=== PATIENT | female | born 1950 | race Asian ===

== ENCOUNTER 2018-11-06 11:44 | Inpatient (IN) | payer OTHER, MEDICAID ==
[~2018-11-06] VITALS: Ht 152.4 cm; Wt 43.5 kg
--- NOTE | 2018-11-06 11:55 | NUR ---
ED Nurse Note: Pt BIBA from [facility] due to WBC count 15.14 taken on 11/03/18 and Fever. Rectal temp 99.4F checked upon arrival. Pt has hx of craniotomy. AOx0, non-verbal. Pt is on T- piece 4L. Sacral wound, L buttock wound, and L lower leg wound noted. VSS at this time. Will cont to monitor.
--- NOTE | 2018-11-06 12:04 | NUR ---
ED Nurse Note: Blood and urine collected and sent to lab.
[2018-11-06] MEDS ORDERED: Sodium Chloride 1,400 ML IVLG ONE (12:15)
--- NOTE | 2018-11-06 12:25 | Emergency Room Report ---
History of Present Illness General Chief Complaint: Fever Source: Medical Record, EMS Present Illness HPI 68yo F w/ h/o L crani, nonverbal, trach/peg dependent, sent for fever x3 d, elevated WBC of 15k. Allergies: Coded Allergies: No Known Allergies (Unverified , 11/06/18) Patient History Past Medical History: see triage record Now: No Reviewed Nursing Documentation: PMH: Agreed; PSxH: Agreed Nursing Documentation-PMH Past Medical History Deferred: Patient Unconscious Past Medical History: No History, Except For Hx Diabetes: Yes - Type II Hx Cerebrovascular Accident: Yes - craniotomy Review of Systems All Other Systems: limited - patient nonverbal Physical Exam Vital Signs Date Time Temp Pulse Resp B/P (MAP) Pulse Ox O2 Delivery O2 Flow Rate FiO2 11/06/18 11:45 97.9 82 28 122/60 100 T-piece 4.0 Sp02 EP Interpretation: reviewed, normal General Appearance: no apparent distress, alert, non-toxic Head: other - L crani with void of L hemisphere of cranium Eyes: bilateral eye normal inspection, bilateral eye conjunctivae pale ENT: normal pharynx, dry mucus membranes Neck: normal inspection, supple/symm/no masses, tracheotomy Respiratory: chest non-tender, lungs clear, normal breath sounds, rhonchi - mild intermittent, chest symmetrical, palpation of chest normal Cardiovascular #1: normal peripheral pulses, regular rate, rhythm, no edema Cardiovascular #2: 2+ radial (R), 2+ radial (L) Gastrointestinal: normal inspection, non tender, soft, no mass, no guarding, no rebound, other - PEG site C/D/I Rectal: deferred Genitourinary: normal inspection, no CVA tenderness Musculoskeletal: back normal, non-tender, no calf tenderness Neurologic: alert Psychiatric: depressed affect Skin: normal color, no rash, warm/dry, normal turgor Lymphatic: no adenopathy Medical Decision Making Diagnostic Impression: Primary Impression: Fever Additional Impression: UTI (urinary tract infection) ER Course Within the first hour of arrival, patient had 30 mL/kg IV fluid bolus, blood cultures, lactic acid, and broad-spectrum antibiotics, ordered and initiated. At 1:25 PM, patient repeat focused sepsis exam, patient remained hemodynamically stable. Patient found to have a UTI. Admitted to Dr. Cruz on tele. EKG Diagnostic Results EKG Time: 11:56 EP Interpretation: no stemi Rate: normal Rhythm: NSR ST Segments: no acute changes ASA given to the pt in ED: No Rhythm Strip Diag. Results Rhythm Strip Time: 12:24 EP Interpretation: yes Rate: 80 Rhythm: NSR, no PVC's Chest X-Ray Diagnostic Results Chest X-Ray Diagnostic Results : Chest X-Ray Ordered: Yes # of Views/Limited/Complete: 1 View Indication: Other - fever EP Interpretation: Yes Interpretation: no consolidation, no effusion, no pneumothorax, no acute cardiopulmonary disease Impression: No acute disease Electronically Signed by: Wyatt Soni MD Last Vital Signs Date Time Temp Pulse Resp B/P (MAP) Pulse Ox O2 Delivery O2 Flow Rate FiO2 11/06/18 12:10 82 28 T-piece 4.0 11/06/18 11:45 97.9 122/60 100 Disposition: ADMITTED INPATIENT Condition: Stable WYATT SONI M.D Nov 06, 2018 12:25
--- NOTE | 2018-11-06 12:30 | Diagnostic Imaging Report ---
Indication: Dyspnea Comparison: None A single view chest radiograph was obtained. Findings: Tracheostomy noted. Heart size is slightly enlarged. Lungs are grossly clear. Bones are osteopenic. Gastrostomy noted. MACHINE II COREMAKER shunt noted. IMPRESSION: No acute cardiopulmonary disease
[2018-11-06 12:45] VITALS: BP 114/56
[2018-11-06 12:52] LABS: APPEARANCE,URINE CLOUDY; BILIRUBIN, URINE NEGATIVE (NEGATIVE); COLOR,URINE PALE YELLOW; GLUCOSE, URINE (UA) NEGATIVE (NEGATIVE); HEMATOCRIT 33.6 % (37.0-47.0); HEMOGLOBIN 11.2 G/DL (12.0-16.0); KETONES,URINE NEGATIVE (NEGATIVE); LEUKOCYTE ESTERASE ,URINE 3+ (NEGATIVE); MEAN CORPUSCULAR VOLUME 105 FL (80-99); NITRITE,URINE NEGATIVE (NEGATIVE); PH,URINE 8 (4.5-8.0); PLATELET COUNT 499 K/UL (150-450); PROTEIN,URINE 3+ (NEGATIVE); RED BLOOD COUNT 3.21 M/UL (4.20-5.40); UROBILINOGEN,URINE NORMAL MG/DL (0.0-1.0)
[2018-11-06 13:01] LABS: ANION GAP 12 mmol/L (5-15); BLOOD UREA NITROGEN 25 mg/dL (7-18); CARBON DIOXIDE 26 MMOL/L (21-32); CHLORIDE 109 MMOL/L (98-107); CREATININE 0.5 MG/DL (0.55-1.30); POTASSIUM 4.2 MMOL/L (3.5-5.1); SODIUM 147 MMOL/L (136-145)
[2018-11-06 13:05] LABS: WHITE BLOOD COUNT 24.9 K/UL (4.8-10.8)
[2018-11-06 13:17] LABS: ALANINE AMINOTRANSFERASE 46 U/L (12-78); ALBUMIN 2.3 G/DL (3.4-5.0); ALBUMIN/GLOBULIN RATIO 0.5 (1.0-2.7); ALKALINE PHOSPHATASE 191 U/L (46-116); ASPARTATE AMINO TRANSFERASE 20 U/L (15-37); BILIRUBIN,TOTAL 0.3 MG/DL (0.2-1.0); CKMB 0.5 NG/ML (0.0-3.6); CREATINE KINASE 56 U/L (26-308)
[2018-11-06] MEDS ORDERED: Zosyn 3.375gm inj ONE (13:31)
[2018-11-06] MEDS ORDERED: Piperacillin/Tazobactam 3.375 GM in D5W 110 ML IV ONE (14:00)
--- NOTE | 2018-11-06 14:20 | NUR ---
ED Nurse Note: Second Lactic Acid drawn and sent to lab.
[2018-11-06 14:32] VITALS: BP 124/74
[2018-11-06 16:37] VITALS: BP 120/60
--- NOTE | 2018-11-06 16:40 | NUR ---
ED Nurse Note: crew mess attendant is not ready to take pt at this time, will call back.
--- NOTE | 2018-11-06 17:04 | NUR ---
ED Nurse Note: Report given to KASSI Borrero at ext [phone]. Pt to be transfered to room 209-1 on [facility] per protocol.
[2018-11-06 18:00] VITALS: BP 121/69
--- NOTE | 2018-11-06 19:06 | History & Physical ---
History and Physical History & Physicial History and Physical Patient is a 68 year old woman admitted from [facility] with a 3 day history of fevers, noted to have UTI in the ED. PMH of L craniotomy, nonverbal, trach/peg dependent, h/o seizures, hypertension, type 2 Diabetes Allergies: No Known Allergies Past Medical History: L craniotomy, nonverbal, trach/peg dependent, h/o seizures , hypertension, T2M All Other Systems: limited - patient nonverbal Physical Exam Vital Signs Noted Date Time Temp Pulse Resp B/P (MAP) Pulse Ox O2 Delivery O2 Flow Rate FiO2 11/06/18 11:45 97.9 82 28 122/60 100 T-piece 4.0 General Appearance: no apparent distress, alert, non-toxic Head: other - L crani with void of L hemisphere of cranium Eyes: bilateral eye normal inspection, bilateral eye conjunctivae pale ENT: normal pharynx, dry mucus membranes Neck: normal inspection, supple/symm/no masses, tracheotomy CDI Respiratory: chest non-tender, lungs clear, normal breath sounds, rhonchi - mild intermittent, chest symmetrical, palpation of chest normal Cardiovascular: HS1, HS2 normal, RRR, normal peripheral pulses, regular rate, rhythm, no edema Gastrointestinal: normal inspection, non tender, soft, no mass, no guarding, no rebound, other - PEG site CDI Genitourinary: normal inspection, no CVA tenderness Musculoskeletal: back normal, non-tender, no calf tenderness Neurologic: non responsive no command, no focal signs or seizures notes Skin: normal color, no rash, warm/dry, normal turgor Lymphatic: no adenopathy Impression: Fever Urinary tract infection L craniotomy Trach/peg dependent H/o seizures Hypertension Type 2 Diabetes Plan IV Antibiotics Await Cultures Trend labs PTAmeds ISS Continue Gtube feeds TC PPX EKG Rate: normal Rhythm: NSR ST Segments: no acute changes ASA given to the pt in ED: No Chest X-Ray Interpretation: no consolidation, no effusion, no pneumothorax, no acute cardiopulmonary disease Impression: No acute disease Humza Smith MD Nov 06, 2018 19:06
--- NOTE | 2018-11-06 19:28 | NUR ---
CASE MANAGEMENT: REVIEW 68/F BIBA FROM [facility] CC: FEVER SI: SEPSIS . UTI T 99.4 HR 82 RR 28 BP 114/56 SAT 99% T-PIECE FLOW RATE 4.0 WBC 24.9 NA 147 BUN 25 CR 0.5 LACTIC ACID 2.10 UA: PROTEIN 3+ BLOOD 3+ LEUKOCYTE ESTERASE 3+ BACTERIA MANY IS: NS IVF BOLUS X1 ZOSYN IV X1 PATIENT ADMITTED TO TELEMETRY UNIT 11/06/2018 DCP: PATIENT IS FROM [facility]
[2018-11-06 20:00] VITALS: BP 126/65
--- NOTE | 2018-11-06 20:04 | NUR ---
HAND-OFF: Report given to KASSI Delacruz.
--- NOTE | 2018-11-06 20:05 | NUR ---
NURSE NOTES: Report received from KASSI Egan. According to morning shift RN, pt transferred to this unit around 1800. V/S within normal range. Skin checked and photo will be uploaded. Belonging checked. Cadiac monitor applied. Observed pt sleeping on the bed, arousable by shaking, open eyes, but non verbal. Pt has history of craniotomy, left skull noted. T piece, FIO2 30%, 8L noted, saturating at 98%. GT intact and patent, running Glucerna 1.5 at 25cc/hr. Goal is 45cc/hr. Unstagable pressure wound noted on sacral area. Small discoloration spots noted all around the body. IV on R W 20G, intact and patent. Bed in the lowest position. Side rails up x3. Will continue to monitor.
[2018-11-06] MEDS: Cefepime HCl 1 GM in D5W 55 ML IVPB SCH (21:25)
[2018-11-06] MEDS: Heparin 5000 units/ml inj SUBQ SCH (21:26)
[2018-11-06] MEDS: Vancomycin 750mg/NS 275ml IVPB SCH ×2 (22:58)
[2018-11-06] MEDS: NovoLOG Insulin Flexpen SUBQ SCH (23:55)
[2018-11-07] VITALS: BP 143/70
[2018-11-07] MEDS: Albuterol/Ipratropium 3ml neb HHN SCH ×4 (03:28→21:04)
[2018-11-07 04:00] VITALS: BP 137/64
[2018-11-07] MEDS: NovoLOG Insulin Flexpen SUBQ SCH ×3 (06:25→17:34)
--- NOTE | 2018-11-07 07:25 | NUR ---
HAND-OFF: Report given to KASSI Katz. No acute distress noted at this time.
--- NOTE | 2018-11-07 07:27 | NUR ---
NURSE NOTES: Received report from KASSI Mcarthur. Patient is in stable condition. No acute distress/SOB noted. No facial grimace noted. Gtube intact and patent and running Glucerna 1.5 @45cc/hr. And on 8L/min FiO2 30% via T-piece. Call-light place in easy reach. Will continue plan of care.
[2018-11-07 07:35] LABS: HEMATOCRIT 31.3 % (37.0-47.0); HEMOGLOBIN 10.4 G/DL (12.0-16.0); MEAN CORPUSCULAR VOLUME 105 FL (80-99); PLATELET COUNT 504 K/UL (150-450); RED BLOOD COUNT 2.99 M/UL (4.20-5.40); RED CELL DISTRIBUTION WIDTH 12.2 % (11.6-14.8); WHITE BLOOD COUNT 17.8 K/UL (4.8-10.8)
[2018-11-07 07:41] LABS: ANION GAP 12 mmol/L (5-15); BLOOD UREA NITROGEN 23 mg/dL (7-18); CALCIUM 8.8 MG/DL (8.5-10.1); CARBON DIOXIDE 25 MMOL/L (21-32); CHLORIDE 110 MMOL/L (98-107); CREATININE 0.3 MG/DL (0.55-1.30); SODIUM 146 MMOL/L (136-145)
--- NOTE | 2018-11-07 07:56 | NUR ---
RESPIRATORY NOTE: received pt on t-piece, CA at 30%. no resp distress noted at this time. pt is trach with portex [address] no redness or skin tears visible around stoma or neck area. will cont to monitor
[2018-11-07 08:00] VITALS: BP 130/60
--- NOTE | 2018-11-07 08:44 | Pulmonology Progress Note ---
Assessment/Plan Assessment/Plan UTI respiratory failure possible sepsis craniectomy trach GT plan IV fluids ID eval antibiotics feeds follow up labs dc once improved Subjective ROS Limited/Unobtainable: Yes Allergies: Coded Allergies: No Known Allergies (Unverified , 11/06/18) Objective Last 24 Hour Vital Signs Date Time Temp Pulse Resp B/P (MAP) Pulse Ox O2 Delivery O2 Flow Rate FiO2 11/07/18 08:00 97.8 90 20 130/60 (83) 98 11/07/18 08:00 106 20 100 T-piece 8.0 30 11/07/18 07:55 98 T-piece 8.0 30 11/07/18 07:55 T-piece 8.0 30 11/07/18 07:54 30 11/07/18 07:54 104 20 98 T-piece 8.0 30 11/07/18 04:00 98.2 90 17 137/64 (88) 100 11/07/18 04:00 8.0 30 11/07/18 04:00 92 11/07/18 03:00 T-piece 11/07/18 01:45 90 18 100 T-piece 8.0 30 11/07/18 01:30 88 18 97 T-piece 8.0 30 11/07/18 01:30 30 11/07/18 01:11 T-piece 8.0 30 11/07/18 01:10 98 T-piece 8.0 30 11/07/18 00:00 8.0 30 11/07/18 00:00 97.9 94 17 143/70 (94) 98 11/07/18 00:00 84 11/06/18 21:42 68 20 T-piece 8.0 30 11/06/18 21:00 T-piece 11/06/18 20:00 8.0 30 11/06/18 20:00 69 11/06/18 20:00 T-piece 8.0 30 11/06/18 20:00 97.5 72 17 126/65 (85) 98 72 11/06/18 20:00 96 T-piece 8.0 30 11/06/18 18:27 T-piece 11/06/18 18:02 Nasal Cannula 2.0 11/06/18 18:00 97.2 68 17 121/69 (86) 99 11/06/18 17:05 99.4 66 20 120/60 100 T-piece 4.0 11/06/18 16:37 66 120/60 11/06/18 14:32 99.4 84 20 124/74 100 T-piece 4.0 11/06/18 12:45 99.4 87 18 114/56 100 T-piece 4.0 11/06/18 12:10 82 28 T-piece 4.0 11/06/18 11:45 97.9 82 28 122/60 100 T-piece 4.0 Intake and Output 11/06/18 11/07/18 19:00 07:00 Intake Total 1640 ml 955 ml Output Total 300 ml Balance 1640 ml 655 ml Intake Free Water 100 ml 190 ml IV Total 1510 ml 330 ml Tube Feeding 30 ml 435 ml Output Urine Total 300 ml # Voids 1 1 # Bowel Movements 2 1 Objective WDWN NAD clear breath sounds bilaterally without rhonchi or wheeze [id number] without MRG NABS nontender no HSM no CCE reduced loc craniectomy GT Microbiology Date/Time Source Procedure Growth Status 11/06/18 12:30 Urine,Clean Catch Urine Culture - Preliminary Gram Negative Bacillus 1 Resulted Laboratory Tests 11/06/18 12:30: White Blood Count 24.9*H, Red Blood Count 3.21L, Hemoglobin 11.2L, Hematocrit 33.6L, Mean Corpuscular Volume 105H, Mean Corpuscular Hemoglobin 35.0H, Mean Corpuscular Hemoglobin Concent 33.4, Red Cell Distribution Width 12.0, Platelet Count 499H, Mean Platelet Volume 5.6L, Neutrophils (%) (Auto) , Lymphocytes (%) (Auto) , Monocytes (%) (Auto) , Eosinophils (%) (Auto) , Basophils (%) (Auto) , Differential Total Cells Counted 100, Neutrophils % (Manual) 84H, Lymphocytes % (Manual) 10L, Monocytes % (Manual) 5, Eosinophils % (Manual) 1, Basophils % ( Manual) 0, Band Neutrophils 0, Nucleated Red Blood Cells 1, Platelet Estimate IncreasedH, Platelet Morphology Normal, Urine Color Pale yellow, Urine Appearance Cloudy, Urine pH 8, Urine Specific [place] 1.010, Urine Protein 3+H, Urine Glucose (UA) Negative, Urine Ketones Negative, Urine Blood 3+H, Urine Nitrite Negative, Urine Bilirubin Negative, Urine Urobilinogen Normal, Urine Leukocyte Esterase 3+H, Urine RBC TntcH, Urine WBC TntcH, Urine Squamous Epithelial Cells Occasional, Urine Amorphous Sediment ModerateH, Urine Bacteria ManyH, Sodium Level 147H, Potassium Level 4.2, Chloride Level 109H, Carbon Dioxide Level 26, Anion Gap 12, Blood Urea Nitrogen 25H, Creatinine 0.5L, Estimat Glomerular Filtration Rate > 60, Glucose Level 163H, Lactic Acid Level 2.10H, Calcium Level 9.0, Total Bilirubin 0.3, Aspartate Amino Transf (AST/SGOT ) 20, Alanine Aminotransferase (ALT/SGPT) 46, Alkaline Phosphatase 191H, Total Creatine Kinase 56, Creatine Kinase MB 0.5, Creatine Kinase MB Relative Index 0.8, Troponin I 0.000, Total Protein 6.8, Albumin 2.3L, Globulin 4.5, Albumin/ Globulin Ratio 0.5L 11/06/18 14:20: Lactic Acid Level 2.10 11/07/18 06:00: White Blood Count 17.8H, Red Blood Count 2.99L, Hemoglobin 10.4L, Hematocrit 31.3L, Mean Corpuscular Volume 105H, Mean Corpuscular Hemoglobin 34.7H, Mean Corpuscular Hemoglobin Concent 33.1, Red Cell Distribution Width 12.2, Platelet Count 504H, Mean Platelet Volume 5.6L, Neutrophils (%) (Auto) , Lymphocytes (%) (Auto) , Monocytes (%) (Auto) , Eosinophils (%) (Auto) , Basophils (%) (Auto) , Neutrophils % (Manual) [Pending], Lymphocytes % (Manual) [Pending], Platelet Estimate [Pending], Platelet Morphology [Pending], Sodium Level 146H, Potassium Level 3.0L, Chloride Level 110H, Carbon Dioxide Level 25, Anion Gap 12, Blood Urea Nitrogen 23H, Creatinine 0.3L, Estimat Glomerular Filtration Rate > 60, Glucose Level 157H, Calcium Level 8.8 Current Medications Medications (Trade) Dose Ordered Sig/Dell Route PRN Reason Start Time Stop Time Status Last Admin Dose Admin Acetaminophen (Tylenol) 650 mg Q6H PRN NG pain 1-6 11/06/18 19:00 12/06/18 18:59 Albuterol/ Ipratropium (Albuterol/ Ipratropium) 3 ml Q6HRT HHN 11/07/18 01:00 11/12/18 00:59 11/07/18 07:53 Amantadine HCl (Symmetrel) 100 mg TWICE A DAY GT 11/07/18 09:00 12/07/18 08:59 Amlodipine Besylate (Norvasc) 10 mg DAILY NG 11/07/18 09:00 12/07/18 08:59 Cefepime HCl 1 gm/ Dextrose 55 ml @ 110 mls/hr Q24H IVPB 11/06/18 21:00 11/13/18 20:59 11/06/18 21:25 Dextrose (Dextrose 50%) 25 ml Q30M PRN IV Hypoglycemia 11/06/18 20:00 12/06/18 19:59 Dextrose (Dextrose 50%) 50 ml Q30M PRN IV Hypoglycemia 11/06/18 20:00 12/06/18 19:59 Heparin Sodium (Porcine) (Heparin 5000 units/ml) 5,000 units EVERY 12 HOURS SUBQ 11/06/18 21:00 12/06/18 20:59 11/06/18 21:26 Insulin Aspart (NovoLOG) Q6HR SUBQ 11/07/18 00:00 12/07/18 00:00 11/07/18 06:25 Ondansetron HCl (Zofran) 4 mg Q8H PRN IVP Nausea & Vomiting 11/06/18 19:00 12/06/18 18:59 Vancomycin HCl (Vanco rx to dose) 1 ea DAILY PRN MISC Per rx protocol 11/06/18 19:00 12/06/18 18:59 Vancomycin HCl 750 mg/Sodium Chloride 275 ml @ 183.333 mls/hr Q24H IVPB 11/06/18 22:00 11/11/18 21:59 11/06/18 22:58 Mejia Cruz MD Nov 07, 2018 08:44
[2018-11-07] MEDS: Amantadine 100mg cap GT SCH ×2 (08:50→17:35)
[2018-11-07] MEDS: Heparin 5000 units/ml inj SUBQ SCH ×2 (09:07→22:21)
--- NOTE | 2018-11-07 11:24 | NUR ---
NURSE NOTES: Notified Dr. Cruz that pt's blood culture is positive for Gram positive cocci in cluster. No new order at this time.
[2018-11-07 12:00] VITALS: BP 117/53
--- NOTE | 2018-11-07 13:46 | NUR ---
RD ASSESSMENT & RECOMMENDATIONS SEE CARE ACTIVITY FOR COMPLETE ASSESSMENT DAILY ESTIMATED NEEDS: Needs based on Wound, pulmonary, sepsis 39.5kg 30-35 kcals/kg [id number] total kcals 1.25-2 g protein/kg 49-79 g total protein 25-30 mL/kg 988-1185 total fluid mLs NUTRITION DIAGNOSIS: Swallowing difficulty r/t respiratory status as evidenced by s/p craniotomy, pt is vent dep via T-piece, on GT feeds. CURRENT TF: Glucerna 1.5 @[id number] hrs ENTERAL NUTRITION RECOMMENDATIONS: Maintain current TF as tolerated Glucerna 1.5 @45ml/hrx20 hrs to provide 900ml, 1350 kcal, 74g pro, 683ml free H2O - Maintain @goal as tolerated - for 24 hrs TF run: Glucerna 1.5 @37ml/hr x24 hrs, 888ml, 1332 kcal, 73g pro, 674ml free H2O - Flush per MD/ hob over 30 degrees ADDITIONAL RECOMMENDATIONS: 1) Calibrated bed scale wts weekly 2) Monitor tolerance to TF 3) Wound care: add MARY BID + MVI x1 F/u w/ WC eval 4) Monitor lytes, replete daily
--- NOTE | 2018-11-07 15:58 | NUR ---
CASE MANAGEMENT:REVIEW 11/07/18 SI: UTI. RESPIRATORY FAILURE TRACH/GTUBE 99.2 106 20 117/53 96% ON T-PIECE WITH 6L 30% FIO2 WBC+17.8 K-3.0 IS: IV VANCOMYCIN Q24 IV CEFEPIME Q24 IVF@100/HR DUONEB HHN Q6HRS RTC HEPARIN SQ Q12 : TELEMETRY STATUS DCP: PATIENT IS FROM [facility]
[2018-11-07 16:00] VITALS: BP 109/47
--- NOTE | 2018-11-07 16:44 | NUR ---
*-* INSURANCE *-* CLINICALS AND REVIEW HAVE BEEN FAXED TO: ORIN ESCAMILLA: LASHANDA P- [phone] F- [phone]
--- NOTE | 2018-11-07 19:12 | NUR ---
HAND-OFF: Report given to KASSI Judge. Patient is in stable condition. Endorsed plan of care.
[2018-11-07 20:00] VITALS: BP 114/53
--- NOTE | 2018-11-07 20:00 | NUR ---
NURSE NOTES: Report received from Sterling SOLITARIO. Patient is AOx1, unable to open spontaneously and/or follow simple commands. Respiratory even and unlabored. Trach is in place. Site is asymptomatic. No respiratory distress noted. IV site is asymptomatic, patent, and intact. IVF is running at a prescribed rate. GTF is running at a prescribed rate. Bed is in lowest position with side rails up x2 and brakes are engaged. Bed alarm is on. HOB is elevated. Will continue to monitor.
[2018-11-07] MEDS: Vancomycin 750mg/NS 275ml IVPB SCH ×2 (22:20)
[2018-11-07] MEDS: Cefepime HCl 1 GM in D5W 55 ML IVPB SCH (22:20)
[2018-11-08] VITALS: BP 126/53
[2018-11-08] MEDS: NovoLOG Insulin Flexpen SUBQ SCH ×4 (01:11→18:28)
[2018-11-08] MEDS: Albuterol/Ipratropium 3ml neb HHN SCH ×4 (01:51→19:40)
[2018-11-08 04:00] VITALS: BP 143/98
[2018-11-08 06:40] LABS: BASOPHILS % (AUTO) 0.4 % (0.0-2.0); HEMATOCRIT 29.6 % (37.0-47.0); MEAN CORPUSCULAR VOLUME 103 FL (80-99); MONOCYTES % (AUTO) 3.6 % (1.0-10.0); NEUTROPHILS % (AUTO) 82.1 % (45.0-75.0); PLATELET COUNT 472 K/UL (150-450); RED BLOOD COUNT 2.88 M/UL (4.20-5.40); RED CELL DISTRIBUTION WIDTH 12.2 % (11.6-14.8); WHITE BLOOD COUNT 12.2 K/UL (4.8-10.8)
[2018-11-08 06:50] LABS: ANION GAP 9 mmol/L (5-15); BLOOD UREA NITROGEN 14 mg/dL (7-18); CALCIUM 8.3 MG/DL (8.5-10.1); CARBON DIOXIDE 26 MMOL/L (21-32); CHLORIDE 101 MMOL/L (98-107); CREATININE 0.3 MG/DL (0.55-1.30); POTASSIUM 3.8 MMOL/L (3.5-5.1); SODIUM 136 MMOL/L (136-145)
--- NOTE | 2018-11-08 07:28 | NUR ---
HAND-OFF: Report given to Giovani RN. Patient is in stable condition. Endorsed plan of care.
--- NOTE | 2018-11-08 07:28 | NUR ---
NURSE NOTES: Received bedside report from Nu SOLITARIO. Pt. in bed, asleep. Pt. non-verbal. No sign of distress. On T-piece at 8LPM with 30% FiO2. No grimacing noted. On GTF Glucerna 1.5 at 45cc/hr. Tolerating well. HOB elevated at all times. IV site at right wrist #20g. patent/intact running 1/2 NS at 100cc/hr. Bed in low position, locked. Call light within reach. Will cont. to monitor.
[2018-11-08 08:00] VITALS: BP 147/67
[2018-11-08] MEDS: Amantadine 100mg cap GT SCH ×2 (09:18→18:25)
[2018-11-08] MEDS: Heparin 5000 units/ml inj SUBQ SCH ×2 (09:20→20:31)
--- NOTE | 2018-11-08 10:17 | Pulmonology Progress Note ---
Assessment/Plan Assessment/Plan Pulmonary Progress Note Assessment/Plan UTI respiratory failure possible sepsis craniectomy trach GT plan IV fluids ID eval antibiotics feeds follow up labs dc once improved Subjective ROS Limited/Unobtainable: Yes Allergies: Coded Allergies: No Known Allergies (Unverified , 11/06/18) Objective Vital Signs Noted Objective WDWN NAD clear breath sounds bilaterally without rhonchi or wheeze [id number] without MRG NABS nontender no HSM no CCE reduced loc craniectomy GT Microbiology Date/Time Source Procedure Growth Status 11/06/18 12:30 Urine,Clean Catch Urine Culture - Preliminary Gram Negative Bacillus 1 Resulted Laboratory Tests 11/06/18 12:30: White Blood Count 24.9*H, Red Blood Count 3.21L, Hemoglobin 11.2L, Hematocrit 33.6L, Mean Corpuscular Volume 105H, Mean Corpuscular Hemoglobin 35.0H, Mean Corpuscular Hemoglobin Concent 33.4, Red Cell Distribution Width 12.0, Platelet Count 499H, Mean Platelet Volume 5.6L, Neutrophils (%) (Auto) , Lymphocytes (%) (Auto) , Monocytes (%) (Auto) , Eosinophils (%) (Auto) , Basophils (%) (Auto) , Differential Total Cells Counted 100, Neutrophils % (Manual) 84H, Lymphocytes % (Manual) 10L, Monocytes % (Manual) 5, Eosinophils % (Manual) 1, Basophils % ( Manual) 0, Band Neutrophils 0, Nucleated Red Blood Cells 1, Platelet Estimate IncreasedH, Platelet Morphology Normal, Urine Color Pale yellow, Urine Appearance Cloudy, Urine pH 8, Urine Specific [place] 1.010, Urine Protein 3+H, Urine Glucose (UA) Negative, Urine Ketones Negative, Urine Blood 3+H, Urine Nitrite Negative, Urine Bilirubin Negative, Urine Urobilinogen Normal, Urine Leukocyte Esterase 3+H, Urine RBC TntcH, Urine WBC TntcH, Urine Squamous Epithelial Cells Occasional, Urine Amorphous Sediment ModerateH, Urine Bacteria ManyH, Sodium Level 147H, Potassium Level 4.2, Chloride Level 109H, Carbon Dioxide Level 26, Anion Gap 12, Blood Urea Nitrogen 25H, Creatinine 0.5L, Estimat Glomerular Filtration Rate > 60, Glucose Level 163H, Lactic Acid Level 2.10H, Calcium Level 9.0, Total Bilirubin 0.3, Aspartate Amino Transf (AST/SGOT ) 20, Alanine Aminotransferase (ALT/SGPT) 46, Alkaline Phosphatase 191H, Total Creatine Kinase 56, Creatine Kinase MB 0.5, Creatine Kinase MB Relative Index 0.8, Troponin I 0.000, Total Protein 6.8, Albumin 2.3L, Globulin 4.5, Albumin/ Globulin Ratio 0.5L 11/06/18 14:20: Lactic Acid Level 2.10 11/07/18 06:00: White Blood Count 17.8H, Red Blood Count 2.99L, Hemoglobin 10.4L, Hematocrit 31.3L, Mean Corpuscular Volume 105H, Mean Corpuscular Hemoglobin 34.7H, Mean Corpuscular Hemoglobin Concent 33.1, Red Cell Distribution Width 12.2, Platelet Count 504H, Mean Platelet Volume 5.6L, Neutrophils (%) (Auto) , Lymphocytes (%) (Auto) , Monocytes (%) (Auto) , Eosinophils (%) (Auto) , Basophils (%) (Auto) , Neutrophils % (Manual) [Pending], Lymphocytes % (Manual) [Pending], Platelet Estimate [Pending], Platelet Morphology [Pending], Sodium Level 146H, Potassium Level 3.0L, Chloride Level 110H, Carbon Dioxide Level 25, Anion Gap 12, Blood Urea Nitrogen 23H, Creatinine 0.3L, Estimat Glomerular Filtration Rate > 60, Glucose Level 157H, Calcium Level 8.8 Current Medications Medications (Trade) Dose Ordered Sig/Dell Route PRN Reason Start Time Stop Time Status Last Admin Dose Admin Acetaminophen (Tylenol) 650 mg Q6H PRN NG pain 1-6 11/06/18 19:00 12/06/18 18:59 Albuterol/ Ipratropium (Albuterol/ Ipratropium) 3 ml Q6HRT HHN 11/07/18 01:00 11/12/18 00:59 11/07/18 07:53 Amantadine HCl (Symmetrel) 100 mg TWICE A DAY GT 11/07/18 09:00 12/07/18 08:59 Amlodipine Besylate (Norvasc) 10 mg DAILY NG 11/07/18 09:00 12/07/18 08:59 Cefepime HCl 1 gm/ Dextrose 55 ml @ 110 mls/hr Q24H IVPB 11/06/18 21:00 11/13/18 20:59 11/06/18 21:25 Dextrose (Dextrose 50%) 25 ml Q30M PRN IV Hypoglycemia 11/06/18 20:00 12/06/18 19:59 Dextrose (Dextrose 50%) 50 ml Q30M PRN IV Hypoglycemia 11/06/18 20:00 12/06/18 19:59 Heparin Sodium (Porcine) (Heparin 5000 units/ml) 5,000 units EVERY 12 HOURS SUBQ 11/06/18 21:00 12/06/18 20:59 11/06/18 21:26 Insulin Aspart (NovoLOG) Q6HR SUBQ 11/07/18 00:00 12/07/18 00:00 11/07/18 06:25 Ondansetron HCl (Zofran) 4 mg Q8H PRN IVP Nausea & Vomiting 11/06/18 19:00 12/06/18 18:59 Vancomycin HCl (Vanco rx to dose) 1 ea DAILY PRN MISC Per rx protocol 11/06/18 19:00 12/06/18 18:59 Vancomycin HCl 750 mg/Sodium Chloride 275 ml @ 183.333 mls/hr Q24H IVPB 11/06/18 22:00 11/11/18 21:59 11/06/18 22:58 Subjective ROS Limited/Unobtainable: No Allergies: Coded Allergies: No Known Allergies (Unverified , 11/06/18) Objective Last 24 Hour Vital Signs Date Time Temp Pulse Resp B/P (MAP) Pulse Ox O2 Delivery O2 Flow Rate FiO2 11/08/18 09:18 90 147/67 11/08/18 08:00 97.5 90 19 147/67 (93) 99 11/08/18 07:49 89 20 99 T-piece 8.0 30 11/08/18 07:39 T-piece 8.0 30 11/08/18 07:39 30 11/08/18 07:39 84 18 98 T-piece 8.0 30 11/08/18 07:39 98 T-piece 8.0 30 11/08/18 04:00 8.0 30 11/08/18 04:00 97.9 92 20 143/98 (113) 100 11/08/18 03:46 91 11/08/18 02:02 89 20 100 T-piece 8.0 30 11/08/18 01:51 81 18 97 T-piece 8.0 30 11/08/18 01:51 30 11/08/18 00:00 8.0 30 11/08/18 00:00 98.0 91 20 126/53 (77) 98 11/07/18 23:58 87 11/07/18 21:14 94 20 97 T-piece 8.0 30 11/07/18 21:04 97 T-piece 8.0 30 11/07/18 21:04 T-piece 8.0 30 11/07/18 21:04 30 11/07/18 21:04 84 18 97 T-piece 8.0 30 11/07/18 21:00 T-piece 11/07/18 20:00 98.9 99 20 114/53 (73) 98 11/07/18 20:00 8.0 30 11/07/18 19:08 96 11/07/18 16:00 8.0 30 11/07/18 16:00 91 11/07/18 16:00 98.9 91 20 109/47 (67) 98 11/07/18 13:24 100 20 100 T-piece 8.0 30 11/07/18 13:20 T-piece 8.0 30 11/07/18 13:20 98 T-piece 8.0 30 11/07/18 13:18 98 20 98 T-piece 8.0 30 11/07/18 13:18 30 11/07/18 12:00 99.2 91 20 117/53 (74) 96 11/07/18 12:00 90 11/07/18 12:00 8.0 30 Intake and Output 11/07/18 11/08/18 18:59 06:59 Intake Total 920 ml 1906.333 ml Output Total 500 ml 1200 ml Balance 420 ml 706.333 ml IV Total 920 ml 1366.333 ml Tube Feeding 540 ml Output Urine Total 500 ml 1200 ml # Bowel Movements 1 3 Microbiology Date/Time Source Procedure Growth Status 11/06/18 12:30 Blood Blood Culture - Preliminary NO GROWTH AFTER 24 HOURS Resulted 11/06/18 12:30 Blood Blood Culture - Preliminary Staphylococcus Sp Coag Neg Resulted 11/06/18 12:30 Urine,Clean Catch Urine Culture - Preliminary Gram Negative Bacillus 1 Resulted 11/07/18 08:00 Sacral Wound Gram Stain - Final Resulted 11/07/18 08:00 Wound Culture - Preliminary Gram Negative Bacillus 1 Gram Negative Bacillus 2 Staphylococcus Species Resulted Laboratory Tests 11/08/18 05:45: White Blood Count 12.2H, Red Blood Count 2.88L, Hemoglobin 10.0L, Hematocrit 29.6L, Mean Corpuscular Volume 103H, Mean Corpuscular Hemoglobin 34.7H, Mean Corpuscular Hemoglobin Concent 33.7, Red Cell Distribution Width 12.2, Platelet Count 472H, Mean Platelet Volume 5.5L, Neutrophils (%) (Auto) 82.1H, Lymphocytes (%) (Auto) 13.0L, Monocytes (%) (Auto) 3.6, Eosinophils (%) (Auto) 1.0, Basophils (%) (Auto) 0.4, Sodium Level 136#, Potassium Level 3.8, Chloride Level 101, Carbon Dioxide Level 26, Anion Gap 9, Blood Urea Nitrogen 14, Creatinine 0.3L, Estimat Glomerular Filtration Rate > 60, Glucose Level 157H, Calcium Level 8.3L Current Medications Medications (Trade) Dose Ordered Sig/Dell Route PRN Reason Start Time Stop Time Status Last Admin Dose Admin Acetaminophen (Tylenol) 650 mg Q6H PRN NG pain 1-6 11/06/18 19:00 12/06/18 18:59 Albuterol/ Ipratropium (Albuterol/ Ipratropium) 3 ml Q6HRT HHN 11/07/18 01:00 11/12/18 00:59 11/08/18 07:39 Amantadine HCl (Symmetrel) 100 mg TWICE A DAY GT 11/07/18 09:00 12/07/18 08:59 11/08/18 09:18 Amlodipine Besylate (Norvasc) 10 mg DAILY NG 11/07/18 09:00 12/07/18 08:59 11/08/18 09:18 Cefepime HCl 1 gm/ Dextrose 55 ml @ 110 mls/hr Q24H IVPB 11/06/18 21:00 11/13/18 20:59 11/07/18 22:20 Dextrose (Dextrose 50%) 25 ml Q30M PRN IV Hypoglycemia 11/06/18 20:00 12/06/18 19:59 Dextrose (Dextrose 50%) 50 ml Q30M PRN IV Hypoglycemia 11/06/18 20:00 12/06/18 19:59 Heparin Sodium (Porcine) (Heparin 5000 units/ml) 5,000 units EVERY 12 HOURS SUBQ 11/06/18 21:00 12/06/18 20:59 11/08/18 09:20 Insulin Aspart (NovoLOG) Q6HR SUBQ 11/07/18 00:00 12/07/18 00:00 11/08/18 06:09 Ondansetron HCl (Zofran) 4 mg Q8H PRN IVP Nausea & Vomiting 11/06/18 19:00 12/06/18 18:59 Sodium Chloride 1,000 ml @ 100 mls/hr Q10H IV 11/07/18 08:45 12/07/18 08:44 11/08/18 04:45 Vancomycin HCl (Vanco rx to dose) 1 ea DAILY PRN MISC Per rx protocol 11/06/18 19:00 12/06/18 18:59 Vancomycin HCl 750 mg/Sodium Chloride 275 ml @ 183.333 mls/hr Q24H IVPB 11/06/18 22:00 11/11/18 21:59 11/07/18 22:20 Humza Smith MD Nov 08, 2018 10:17
[2018-11-08 12:00] VITALS: BP 146/79
--- NOTE | 2018-11-08 12:59 | NUR ---
NURSE NOTES:WOUND CARE NOTES:Pt presented on admission with full thickness pressure injury with 95% mixed soft necrosis and slough,5%red granulation ,(+) maceration along edges(L)3.5cm x(W)11.3cm. Periwound is edson pink with scattered shearing. Partial thickness pressure injury noted to L hip .[place] granulation noted to base of wound(+) maceration along borders. Periwound without erythema or induration. Resolving skin tear noted to L tibia.Base of wound pale pink and dry. Non-blanchable erythema with fluctuance and delineated borders noted to medial R heel (L)3cm x (W)3cm.Periwound is clean and pink. L heel pink and blanchable. Tx.Plan:Cleanse Sacral wound with saline. Apply Therahoney Gel.Apply Triad Paste periwound. Cover with Optifoam drsg. Change daily and prn. Cleanse L hip with Saline. Apply Therahoney Gel. Cover with Optifoam drsg. Change daily and prn. Apply Cavilon Skin Barrier to Blister Medial R heel. Cover with Optifoam drsg. Change every 7 days and prn. Apply Cavilon Skin Barrier to L heel. Cover with Optifoam drsg. Change every 7 days and prn. APM/POOJA Mattress overlay. Reposition at least every 2hours or as tolerated. Off-load heel with pillow.
--- NOTE | 2018-11-08 15:55 | NUR ---
CASE MANAGEMENT:REVIEW 11/08/18 SI: UTI. RESPIRATORY FAILURE TRACH/GTUBE 97.8 87 20 146/79 98% ON T-PIECE WITH 8L 30% FIO2 WBC+12.2 IS:IV CEFEPIME Q24 IVF@100/HR DUONEB HHN Q6HRS RTC HEPARIN SQ Q12 : TELEMETRY STATUS DCP: PATIENT IS FROM [facility]– [place]
[2018-11-08 16:00] VITALS: BP 113/51
--- NOTE | 2018-11-08 17:24 | Consultation ---
History of Present Illness General Date patient seen: Nov 08, 2018 Chief Complaint: Fever Reason for Consultation: multiple wounds Present Illness HPI 68 year old female with very complex medical and surgical history with prior craniotomy who is unable to provide information or participate in exam and is care dependant presents with leukocytosis. on admission noted to have multiple wounds requiring care. surgery called to evaluate and assist with care and management. patient seen, chart reviewed, patient examined. Allergies: Coded Allergies: No Known Allergies (Unverified , 11/06/18) Patient History Limited by: medical condition History Provided By: Medical Record, PMD Healthcare decision maker N Resuscitation status Advanced Directive on File Past Medical/Surgical History Past Medical/Surgical History: (1) UTI (urinary tract infection) (2) Fever (3) Sepsis Review of Systems ROS Narrative unable to provide given medical condition Physical Exam General Appearance: no apparent distress, lethargic Lines, tubes and drains: peripheral HEENT: mucous membranes moist, other - large left cranitomy with defect Neck: normal inspection Respiratory/Chest: no respiratory distress, no accessory muscle use Cardiovascular/Chest: normal rate Abdomen: soft, no organomegaly, no mass, other Extremities: other Skin Exam: other Last 24 Hour Vital Signs Date Time Temp Pulse Resp B/P (MAP) Pulse Ox O2 Delivery O2 Flow Rate FiO2 11/08/18 16:00 8.0 30 11/08/18 16:00 97.6 86 20 113/51 (71) 100 11/08/18 13:30 86 18 99 T-piece 8.0 30 11/08/18 13:20 87 19 99 T-piece 8.0 30 11/08/18 12:00 8.0 30 11/08/18 12:00 97.8 87 20 146/79 (101) 98 11/08/18 09:18 90 147/67 11/08/18 09:00 T-piece 11/08/18 08:00 97.5 90 19 147/67 (93) 99 11/08/18 08:00 8.0 30 11/08/18 07:49 89 20 99 T-piece 8.0 30 11/08/18 07:41 87 11/08/18 07:39 T-piece 8.0 30 11/08/18 07:39 30 11/08/18 07:39 84 18 98 T-piece 8.0 30 11/08/18 07:39 98 T-piece 8.0 30 11/08/18 04:00 8.0 30 11/08/18 04:00 97.9 92 20 143/98 (113) 100 11/08/18 03:46 91 11/08/18 02:02 89 20 100 T-piece 8.0 30 11/08/18 01:51 81 18 97 T-piece 8.0 30 11/08/18 01:51 30 11/08/18 00:00 8.0 30 11/08/18 00:00 98.0 91 20 126/53 (77) 98 11/07/18 23:58 87 11/07/18 21:14 94 20 97 T-piece 8.0 30 11/07/18 21:04 97 T-piece 8.0 30 11/07/18 21:04 T-piece 8.0 30 11/07/18 21:04 30 11/07/18 21:04 84 18 97 T-piece 8.0 30 11/07/18 21:00 T-piece 11/07/18 20:00 98.9 99 20 114/53 (73) 98 11/07/18 20:00 8.0 30 11/07/18 19:08 96 Intake and Output 11/07/18 11/08/18 19:00 07:00 Intake Total 968 ml 1858.333 ml Output Total 500 ml 1200 ml Balance 468 ml 658.333 ml IV Total 968 ml 1318.333 ml Tube Feeding 540 ml Output Urine Total 500 ml 1200 ml # Bowel Movements 1 3 Laboratory Tests Test 11/08/18 05:45 White Blood Count 12.2 K/UL (4.8-10.8) H Red Blood Count 2.88 M/UL (4.20-5.40) L Hemoglobin 10.0 G/DL (12.0-16.0) L Hematocrit 29.6 % (37.0-47.0) L Mean Corpuscular Volume 103 FL (80-99) H Mean Corpuscular Hemoglobin 34.7 PG (27.0-31.0) H Mean Corpuscular Hemoglobin Concent 33.7 G/DL (32.0-36.0) Red Cell Distribution Width 12.2 % (11.6-14.8) Platelet Count 472 K/UL (150-450) H Mean Platelet Volume 5.5 FL (6.5-10.1) L Neutrophils (%) (Auto) 82.1 % (45.0-75.0) H Lymphocytes (%) (Auto) 13.0 % (20.0-45.0) L Monocytes (%) (Auto) 3.6 % (1.0-10.0) Eosinophils (%) (Auto) 1.0 % (0.0-3.0) Basophils (%) (Auto) 0.4 % (0.0-2.0) Sodium Level 136 MMOL/L (136-145) # Potassium Level 3.8 MMOL/L (3.5-5.1) Chloride Level 101 MMOL/L (98-107) Carbon Dioxide Level 26 MMOL/L (21-32) Anion Gap 9 mmol/L (5-15) Blood Urea Nitrogen 14 mg/dL (7-18) Creatinine 0.3 MG/DL (0.55-1.30) L Estimat Glomerular Filtration Rate > 60 mL/min (>60) Glucose Level 157 MG/DL (74-106) H Calcium Level 8.3 MG/DL (8.5-10.1) L Height (Feet): 5 Height (Inches): 0.00 Weight (Pounds): 87 Medications Current Medications Medications (Trade) Dose Ordered Sig/Dell Route PRN Reason Start Time Stop Time Status Last Admin Dose Admin Acetaminophen (Tylenol) 650 mg Q6H PRN NG pain 1-6 11/06/18 19:00 12/06/18 18:59 Albuterol/ Ipratropium (Albuterol/ Ipratropium) 3 ml Q6HRT HHN 11/07/18 01:00 11/12/18 00:59 11/08/18 13:20 Amantadine HCl (Symmetrel) 100 mg TWICE A DAY GT 11/07/18 09:00 12/07/18 08:59 11/08/18 09:18 Amlodipine Besylate (Norvasc) 10 mg DAILY NG 11/07/18 09:00 12/07/18 08:59 11/08/18 09:18 Cefepime HCl 1 gm/ Dextrose 55 ml @ 110 mls/hr Q24H IVPB 11/06/18 21:00 11/13/18 20:59 11/07/18 22:20 Dextrose (Dextrose 50%) 25 ml Q30M PRN IV Hypoglycemia 11/06/18 20:00 12/06/18 19:59 Dextrose (Dextrose 50%) 50 ml Q30M PRN IV Hypoglycemia 11/06/18 20:00 12/06/18 19:59 Heparin Sodium (Porcine) (Heparin 5000 units/ml) 5,000 units EVERY 12 HOURS SUBQ 11/06/18 21:00 12/06/18 20:59 11/08/18 09:20 Insulin Aspart (NovoLOG) Q6HR SUBQ 11/07/18 00:00 12/07/18 00:00 11/08/18 13:35 Ondansetron HCl (Zofran) 4 mg Q8H PRN IVP Nausea & Vomiting 11/06/18 19:00 12/06/18 18:59 Sodium Chloride 1,000 ml @ 100 mls/hr Q10H IV 11/07/18 08:45 12/07/18 08:44 11/08/18 15:12 Assessment/Plan Problem List: (1) Decubital ulcer Assessment & Plan: Pt presented on admission with full thickness pressure injury with 95% mixed soft necrosis and slough,5%red granulation ,(+) maceration along edges(L)3.5cm x(W)11.3cm. Periwound is екатерина pink with scattered shearing. Partial thickness pressure injury noted to L hip .[place] granulation noted to base of wound(+) maceration along borders. Periwound without erythema or induration. Resolving skin tear noted to L tibia.Base of wound pale pink and dry. Non-blanchable erythema with fluctuance and delineated borders noted to medial R heel (L)3cm x (W)3cm.Periwound is clean and pink. L heel pink and blanchable. Tx.Plan: Cleanse Sacral wound with saline. Apply Therahoney Gel.Apply Triad Paste periwound. Cover with Optifoam drsg. Change daily and prn. Cleanse L hip with Saline. Apply Therahoney Gel. Cover with Optifoam drsg. Change daily and prn. Apply Cavilon Skin Barrier to Blister Medial R heel. Cover with Optifoam drsg. Change every 7 days and prn. Apply Cavilon Skin Barrier to L heel. Cover with Optifoam drsg. Change every 7 days and prn. APM/POOJA Mattress overlay. Reposition at least every 2hours or as tolerated. Off-load heel with pillow. ICD Codes: L89.90 - Pressure ulcer of unspecified site, unspecified stage SNOMED: 267214141 (2) UTI (urinary tract infection) ICD Codes: N39.0 - Urinary tract infection, site not specified SNOMED: 76050489 (3) Fever ICD Codes: R50.9 - Fever, unspecified SNOMED: 596877306 (4) Sepsis ICD Codes: A41.9 - Sepsis, unspecified organism SNOMED: 88076113 Arnold Hi Nov 08, 2018 17:24
--- NOTE | 2018-11-08 18:00 | Consultation ---
DATE OF CONSULTATION: 11/08/2018 INFECTIOUS DISEASES CONSULTATION CONSULTING PHYSICIAN: Brien Rodriguez M.D. REFERRING PHYSICIAN: Mejia Cruz M.D. REASON FOR CONSULTATION: Urinary tract infection. HISTORY OF PRESENTING ILLNESS: This is a 68-year-old lady with history of diabetes, hypertension, craniotomy, seizures, respiratory failure, status post tracheostomy, and G-tube placement who comes in with fevers. She was found to have a urinary tract infection and an Infectious Diseases consultation has been obtained for antibiotics. PAST MEDICAL HISTORY: 1. History of diabetes. 2. Hypertension. 3. Seizures. 4. Craniotomy. 5. History of tracheostomy. 6. Status post G-tube placement. SOCIAL HISTORY: Unknown. FAMILY HISTORY: Unknown. REVIEW OF SYSTEMS: Unable to obtain currently. MEDICATIONS: As an inpatient, the patient is on amlodipine, amantadine, albuterol, ipratropium, insulin, vancomycin, cefepime, subcutaneous heparin, Tylenol, and Zofran. ALLERGIES: No known drug allergies. PHYSICAL EXAMINATION: VITAL SIGNS: Temperature of 97.5, T-max of 99.2, pulse of 90, respiratory of 19, blood pressure 147/67, and O2 saturation of 99%. HEENT: Pupils are equally reactive to light and accommodation. Mouth appears clean without thrush. NECK: Supple. No adenopathy. No JVD. Tracheostomy tube site is clean. ABDOMEN: Soft and nontender. No organomegaly. G-tube site is clean. EXTREMITIES: No cyanosis, no clubbing, and no edema. LABORATORY AND DIAGNOSTIC DATA: White count of 12 today and white count of 24 on 11/06/2018, hemoglobin 10, hematocrit 29.6, MCV 103, and platelet count of 472,000 with neutrophils of 82%. Sodium 136, potassium 3.8, chloride 101, bicarbonate 26, BUN 14, creatinine 0.3, glucose 157, calcium 8.3, and total bilirubin 0.3. AST 20, ALT 46, alkaline phosphatase 191, and CK of 56. Total protein 6.8 and albumin 2.3. UA is showing too numerous to count white cells. Urine culture is showing gram-negative rods. Blood culture is showing coagulase-negative Staph. Sacral wound culture growing gram-negative rods and Staph species. Chest x-ray is showing no acute disease. ASSESSMENT: This is a 68-year-old lady with history of diabetes, hypertension, craniotomy, respiratory failure, status post tracheostomy, and seizures, who comes in with. 1. Gram-negative urinary tract infection. 2. Leukocytosis is improving. 3. Diabetes. 4. Hypertension. 5. Positive blood cultures with coagulase-negative Staph, is likely a contaminant. PLAN: 1. Continue cefepime. 2. Discontinue IV vancomycin. 3. We will follow up cultures and adjust antibiotics accordingly. I would like to thank, Dr. Cruz for this consultation. Brien Rodriguez M.D. DRNohemy DUMAS JOB#: [id number] CC: Mejia Cruz M.D.; Fax#: [phone]
--- NOTE | 2018-11-08 19:30 | NUR ---
NURSE NOTES: Received patient from KASSI Evans. Patient is awake, non-verbal and does not make eye contact. On T-Piece trach with O2 settings of8L FiO2:30%. Showing no signs and symptoms of pain and/or distress. Will continue plan of care.
--- NOTE | 2018-11-08 19:34 | NUR ---
HAND-OFF: Report given to Pam SOLITARIO. Pt. remain stable.
[2018-11-08 20:00] VITALS: BP 107/53
[2018-11-08] MEDS: Cefepime HCl 1 GM in D5W 55 ML IVPB SCH (20:30)
[2018-11-09] VITALS: BP_SYST 113; BP_SYST 139; BP_DIAS 50; BP_DIAS 73
--- NOTE | 2018-11-09 00:22 | NUR ---
NURSE NOTES: VRE/CRE/MRSA swabs were not collected and sent for testing. MD order auto-cancelled after 2 days. Cannot carry out order/re-order due to being a ED Provider's order.
[2018-11-09] MEDS: Albuterol/Ipratropium 3ml neb HHN SCH ×4 (00:31→19:17)
[2018-11-09] MEDS: NovoLOG Insulin Flexpen SUBQ SCH ×4 (00:37→17:25)
[2018-11-09 04:00] VITALS: BP 147/63
--- NOTE | 2018-11-09 07:14 | NUR ---
HAND-OFF: Report given to KASSI MENJIVAR.
[2018-11-09 08:00] VITALS: BP 134/69
--- NOTE | 2018-11-09 08:00 | NUR ---
RESPIRATORY NOTE: Patient received on CA 30%, Patient shows no signs of distress, patient has scheduled breathing TX Q6, extra CA bottle bedside. Will continue to monitor.
[2018-11-09] MEDS: Heparin 5000 units/ml inj SUBQ SCH ×2 (08:10→21:16)
[2018-11-09] MEDS: Amantadine 100mg cap GT SCH ×2 (08:10→17:15)
--- NOTE | 2018-11-09 08:26 | NUR ---
NURSE NOTES: pt awake alert, no distress. nonverbal. garcia patent and intact, draining yellow urine. bed in lowest position, locked. hob elevated, gt no residual patent and intact. trach intact 8L no sob
[2018-11-09 12:00] VITALS: BP 128/70
[2018-11-09 16:00] VITALS: BP 130/70
--- NOTE | 2018-11-09 16:50 | Surgery Progress Note ---
Surgery Progress Note Subjective Additional Comments no acute events. stable. unchanged. dressings changed. Objective Last 24 Hour Vital Signs Date Time Temp Pulse Resp B/P (MAP) Pulse Ox O2 Delivery O2 Flow Rate FiO2 11/09/18 16:00 8.0 30 11/09/18 16:00 98.0 88 16 130/70 (90) 100 11/09/18 15:36 88 11/09/18 13:25 85 18 99 T-piece 8.0 30 11/09/18 13:15 88 18 98 T-piece 8.0 30 11/09/18 13:15 30 11/09/18 12:00 98.0 86 16 128/70 (89) 100 11/09/18 12:00 8.0 30 11/09/18 11:57 92 11/09/18 09:00 T-piece 11/09/18 08:10 91 134/69 11/09/18 08:00 8.0 30 11/09/18 08:00 98.0 91 16 134/69 (90) 100 11/09/18 07:55 91 11/09/18 07:41 81 18 99 T-piece 8.0 30 11/09/18 07:30 90 18 98 T-piece 8.0 30 11/09/18 07:30 30 11/09/18 07:29 98 T-piece 8.0 30 11/09/18 07:29 T-piece 8.0 30 11/09/18 04:00 98.0 89 16 147/63 (91) 100 11/09/18 04:00 8.0 30 11/09/18 03:49 88 11/09/18 00:42 83 18 99 T-piece 8.0 30 11/09/18 00:32 30 11/09/18 00:32 84 18 97 T-piece 8.0 30 11/09/18 00:00 8.0 30 11/09/18 00:00 98.2 82 22 113/50 (71) 100 11/08/18 23:53 85 11/08/18 21:00 T-piece 11/08/18 20:00 8.0 30 11/08/18 20:00 97.9 85 24 107/53 (71) 92 11/08/18 19:56 81 11/08/18 19:47 84 18 99 T-piece 8.0 30 11/08/18 19:40 T-piece 8.0 30 11/08/18 19:40 30 11/08/18 19:40 81 18 98 T-piece 8.0 30 11/08/18 19:40 98 T-piece 8.0 30 I&O Intake and Output 11/08/18 11/09/18 18:59 06:59 Intake Total 1798.41 ml Output Total 800 ml Balance -800 ml 1798.41 ml Intake Free Water 200 ml IV Total 1193.41 ml Tube Feeding 405 ml Output Urine Total 800 ml # Bowel Movements 1 Dressing: saturated Wound: clean Drains: other Cardiovascular: RSR Respiratory: clear Abdomen: soft, present bowel sounds Extremities: no cyanosis, other Plan Problems: (1) Decubital ulcer Assessment & Plan: Pt presented on admission with full thickness pressure injury with 95% mixed soft necrosis and slough,5%red granulation ,(+) maceration along edges(L)3.5cm x(W)11.3cm. Periwound is екатерина pink with scattered shearing. Partial thickness pressure injury noted to L hip .[place] granulation noted to base of wound(+) maceration along borders. Periwound without erythema or induration. Resolving skin tear noted to L tibia.Base of wound pale pink and dry. Non-blanchable erythema with fluctuance and delineated borders noted to medial R heel (L)3cm x (W)3cm.Periwound is clean and pink. L heel pink and blanchable. Tx.Plan: Cleanse Sacral wound with saline. Apply Therahoney Gel.Apply Triad Paste periwound. Cover with Optifoam drsg. Change daily and prn. Cleanse L hip with Saline. Apply Therahoney Gel. Cover with Optifoam drsg. Change daily and prn. Apply Cavilon Skin Barrier to Blister Medial R heel. Cover with Optifoam drsg. Change every 7 days and prn. Apply Cavilon Skin Barrier to L heel. Cover with Optifoam drsg. Change every 7 days and prn. APM/POOJA Mattress overlay. Reposition at least every 2hours or as tolerated. Off-load heel with pillow. (2) UTI (urinary tract infection) (3) Fever (4) Sepsis Arnold Hi Nov 09, 2018 16:50
--- NOTE | 2018-11-09 16:52 | Pulmonology Progress Note ---
Assessment/Plan Assessment/Plan Pulmonary Progress Note Assessment/Plan UTI respiratory failure possible sepsis craniectomy trach GT plan IV fluids ID eval antibiotics feeds follow up labs dc once improved Subjective ROS Limited/Unobtainable: Yes Allergies: Coded Allergies: No Known Allergies (Unverified , 11/06/18) Objective Vital Signs Noted Objective WDWN NAD clear breath sounds bilaterally without rhonchi or wheeze [id number] without MRG NABS nontender no HSM no CCE reduced loc craniectomy GT Microbiology Date/Time Source Procedure Growth Status 11/06/18 12:30 Urine,Clean Catch Urine Culture - Preliminary Gram Negative Bacillus 1 Resulted Laboratory Tests 11/06/18 12:30: White Blood Count 24.9*H, Red Blood Count 3.21L, Hemoglobin 11.2L, Hematocrit 33.6L, Mean Corpuscular Volume 105H, Mean Corpuscular Hemoglobin 35.0H, Mean Corpuscular Hemoglobin Concent 33.4, Red Cell Distribution Width 12.0, Platelet Count 499H, Mean Platelet Volume 5.6L, Neutrophils (%) (Auto) , Lymphocytes (%) (Auto) , Monocytes (%) (Auto) , Eosinophils (%) (Auto) , Basophils (%) (Auto) , Differential Total Cells Counted 100, Neutrophils % (Manual) 84H, Lymphocytes % (Manual) 10L, Monocytes % (Manual) 5, Eosinophils % (Manual) 1, Basophils % ( Manual) 0, Band Neutrophils 0, Nucleated Red Blood Cells 1, Platelet Estimate IncreasedH, Platelet Morphology Normal, Urine Color Pale yellow, Urine Appearance Cloudy, Urine pH 8, Urine Specific [place] 1.010, Urine Protein 3+H, Urine Glucose (UA) Negative, Urine Ketones Negative, Urine Blood 3+H, Urine Nitrite Negative, Urine Bilirubin Negative, Urine Urobilinogen Normal, Urine Leukocyte Esterase 3+H, Urine RBC TntcH, Urine WBC TntcH, Urine Squamous Epithelial Cells Occasional, Urine Amorphous Sediment ModerateH, Urine Bacteria ManyH, Sodium Level 147H, Potassium Level 4.2, Chloride Level 109H, Carbon Dioxide Level 26, Anion Gap 12, Blood Urea Nitrogen 25H, Creatinine 0.5L, Estimat Glomerular Filtration Rate > 60, Glucose Level 163H, Lactic Acid Level 2.10H, Calcium Level 9.0, Total Bilirubin 0.3, Aspartate Amino Transf (AST/SGOT ) 20, Alanine Aminotransferase (ALT/SGPT) 46, Alkaline Phosphatase 191H, Total Creatine Kinase 56, Creatine Kinase MB 0.5, Creatine Kinase MB Relative Index 0.8, Troponin I 0.000, Total Protein 6.8, Albumin 2.3L, Globulin 4.5, Albumin/ Globulin Ratio 0.5L 11/06/18 14:20: Lactic Acid Level 2.10 11/07/18 06:00: White Blood Count 17.8H, Red Blood Count 2.99L, Hemoglobin 10.4L, Hematocrit 31.3L, Mean Corpuscular Volume 105H, Mean Corpuscular Hemoglobin 34.7H, Mean Corpuscular Hemoglobin Concent 33.1, Red Cell Distribution Width 12.2, Platelet Count 504H, Mean Platelet Volume 5.6L, Neutrophils (%) (Auto) , Lymphocytes (%) (Auto) , Monocytes (%) (Auto) , Eosinophils (%) (Auto) , Basophils (%) (Auto) , Neutrophils % (Manual) [Pending], Lymphocytes % (Manual) [Pending], Platelet Estimate [Pending], Platelet Morphology [Pending], Sodium Level 146H, Potassium Level 3.0L, Chloride Level 110H, Carbon Dioxide Level 25, Anion Gap 12, Blood Urea Nitrogen 23H, Creatinine 0.3L, Estimat Glomerular Filtration Rate > 60, Glucose Level 157H, Calcium Level 8.8 Current Medications Medications (Trade) Dose Ordered Sig/Dell Route PRN Reason Start Time Stop Time Status Last Admin Dose Admin Acetaminophen (Tylenol) 650 mg Q6H PRN NG pain 1-6 11/06/18 19:00 12/06/18 18:59 Albuterol/ Ipratropium (Albuterol/ Ipratropium) 3 ml Q6HRT HHN 11/07/18 01:00 11/12/18 00:59 11/07/18 07:53 Amantadine HCl (Symmetrel) 100 mg TWICE A DAY GT 11/07/18 09:00 12/07/18 08:59 Amlodipine Besylate (Norvasc) 10 mg DAILY NG 11/07/18 09:00 12/07/18 08:59 Cefepime HCl 1 gm/ Dextrose 55 ml @ 110 mls/hr Q24H IVPB 11/06/18 21:00 11/13/18 20:59 11/06/18 21:25 Dextrose (Dextrose 50%) 25 ml Q30M PRN IV Hypoglycemia 11/06/18 20:00 12/06/18 19:59 Dextrose (Dextrose 50%) 50 ml Q30M PRN IV Hypoglycemia 11/06/18 20:00 12/06/18 19:59 Heparin Sodium (Porcine) (Heparin 5000 units/ml) 5,000 units EVERY 12 HOURS SUBQ 11/06/18 21:00 12/06/18 20:59 11/06/18 21:26 Insulin Aspart (NovoLOG) Q6HR SUBQ 11/07/18 00:00 12/07/18 00:00 11/07/18 06:25 Ondansetron HCl (Zofran) 4 mg Q8H PRN IVP Nausea & Vomiting 11/06/18 19:00 12/06/18 18:59 Vancomycin HCl (Vanco rx to dose) 1 ea DAILY PRN MISC Per rx protocol 11/06/18 19:00 12/06/18 18:59 Vancomycin HCl 750 mg/Sodium Chloride 275 ml @ 183.333 mls/hr Q24H IVPB 11/06/18 22:00 11/11/18 21:59 11/06/18 22:58 Subjective ROS Limited/Unobtainable: No Allergies: Coded Allergies: No Known Allergies (Unverified , 11/06/18) Objective Last 24 Hour Vital Signs Date Time Temp Pulse Resp B/P (MAP) Pulse Ox O2 Delivery O2 Flow Rate FiO2 11/09/18 16:00 8.0 30 11/09/18 16:00 98.0 88 16 130/70 (90) 100 11/09/18 15:36 88 11/09/18 13:25 85 18 99 T-piece 8.0 30 11/09/18 13:15 88 18 98 T-piece 8.0 30 11/09/18 13:15 30 11/09/18 12:00 98.0 86 16 128/70 (89) 100 11/09/18 12:00 8.0 30 11/09/18 11:57 92 11/09/18 09:00 T-piece 11/09/18 08:10 91 134/69 11/09/18 08:00 8.0 30 11/09/18 08:00 98.0 91 16 134/69 (90) 100 11/09/18 07:55 91 11/09/18 07:41 81 18 99 T-piece 8.0 30 11/09/18 07:30 90 18 98 T-piece 8.0 30 11/09/18 07:30 30 11/09/18 07:29 98 T-piece 8.0 30 11/09/18 07:29 T-piece 8.0 30 11/09/18 04:00 98.0 89 16 147/63 (91) 100 11/09/18 04:00 8.0 30 11/09/18 03:49 88 11/09/18 00:42 83 18 99 T-piece 8.0 30 11/09/18 00:32 30 11/09/18 00:32 84 18 97 T-piece 8.0 30 11/09/18 00:00 8.0 30 11/09/18 00:00 98.2 82 22 113/50 (71) 100 11/08/18 23:53 85 11/08/18 21:00 T-piece 11/08/18 20:00 8.0 30 11/08/18 20:00 97.9 85 24 107/53 (71) 92 11/08/18 19:56 81 11/08/18 19:47 84 18 99 T-piece 8.0 30 11/08/18 19:40 T-piece 8.0 30 11/08/18 19:40 30 11/08/18 19:40 81 18 98 T-piece 8.0 30 11/08/18 19:40 98 T-piece 8.0 30 Intake and Output 11/08/18 11/09/18 18:59 06:59 Intake Total 1798.41 ml Output Total 800 ml Balance -800 ml 1798.41 ml Intake Free Water 200 ml IV Total 1193.41 ml Tube Feeding 405 ml Output Urine Total 800 ml # Bowel Movements 1 Microbiology Date/Time Source Procedure Growth Status 11/07/18 08:00 Sacral Wound Gram Stain - Final Resulted 11/07/18 08:00 Wound Culture - Preliminary Proteus Mirabilis Escherichia Coli Staphylococcus Aureus Gram Positive Cocci Resulted Current Medications Medications (Trade) Dose Ordered Sig/Dell Route PRN Reason Start Time Stop Time Status Last Admin Dose Admin Acetaminophen (Tylenol) 650 mg Q6H PRN NG pain 1-6 11/06/18 19:00 12/06/18 18:59 Albuterol/ Ipratropium (Albuterol/ Ipratropium) 3 ml Q6HRT HHN 11/07/18 01:00 11/12/18 00:59 11/09/18 13:15 Amantadine HCl (Symmetrel) 100 mg TWICE A DAY GT 11/07/18 09:00 12/07/18 08:59 11/09/18 08:10 Amlodipine Besylate (Norvasc) 10 mg DAILY NG 11/07/18 09:00 12/07/18 08:59 11/09/18 08:10 Cefepime HCl 1 gm/ Dextrose 55 ml @ 110 mls/hr Q24H IVPB 11/06/18 21:00 11/13/18 20:59 11/08/18 20:30 Dextrose (Dextrose 50%) 25 ml Q30M PRN IV Hypoglycemia 11/06/18 20:00 12/06/18 19:59 Dextrose (Dextrose 50%) 50 ml Q30M PRN IV Hypoglycemia 11/06/18 20:00 12/06/18 19:59 Heparin Sodium (Porcine) (Heparin 5000 units/ml) 5,000 units EVERY 12 HOURS SUBQ 11/06/18 21:00 12/06/18 20:59 11/09/18 08:10 Insulin Aspart (NovoLOG) Q6HR SUBQ 11/07/18 00:00 12/07/18 00:00 11/09/18 11:38 Ondansetron HCl (Zofran) 4 mg Q8H PRN IVP Nausea & Vomiting 11/06/18 19:00 12/06/18 18:59 Sodium Chloride 1,000 ml @ 100 mls/hr Q10H IV 11/07/18 08:45 12/07/18 08:44 11/09/18 10:45 Humza Smith MD Nov 09, 2018 16:52
--- NOTE | 2018-11-09 17:26 | NUR ---
CASE MANAGEMENT: REVIEW SI: SEPSIS . UTI . DECUBITAL ULCER LEFT HIP T 98.0 HR 88 RR 16 BP 130/70 SAT 98% T-PIECE FIO2 30 WBC 12.2 GLUCOSE 157 IS: ALBUTEROL HHN Q6HR NS IVF @100ML/HR HEPARIN SQ Q12HR CEFEPIME IV Q24HR AMANTADINE GT BID GT FEEDING GLUCERNA 1.5 @45ML/HR TELEMETRY UNIT STATUS DCP: PATIENT IS FROM [facility]
--- NOTE | 2018-11-09 19:15 | NUR ---
HAND-OFF: Report given to BRAIN SOLITARIO/MIKAELA SOLITARIO.
[2018-11-09 20:00] VITALS: BP 116/62
--- NOTE | 2018-11-09 20:00 | NUR ---
NURSE NOTES: Received patient from Loly SOLITARIO. Patient is asleep. Patient is receiving oxygen via T-Piece 8L/min FiO2 30%. Patients G-tube is patent, tolerating well, and intact with no residual, receiving Glucerna 1.5 at 45cc/hr. Patients has a garcia catheter inserted patent and draining. Patient has Left hip pressure ulcer, Left and Right heel pressure ulcer, and a open blister on right upper thigh. Patient's IV site is Left hand 22G receiving 1/2 NS at 100cc/hr. Patient is on P200 air mattress, changed position to right side lying. Bed is locked, placed in lowest position, side rails up x3, call light within reach. Will continue to monitor.
[2018-11-09] MEDS: Cefepime HCl 1 GM in D5W 55 ML IVPB SCH (21:15)
[2018-11-10] VITALS: BP 119/60
[2018-11-10] MEDS: NovoLOG Insulin Flexpen SUBQ SCH ×5 (00:16→23:59)
[2018-11-10] MEDS: Albuterol/Ipratropium 3ml neb HHN SCH ×4 (01:14→19:21)
[2018-11-10 04:00] VITALS: BP 119/74
--- NOTE | 2018-11-10 07:26 | NUR ---
HAND-OFF: Report given to Peter SOLITARIO.
--- NOTE | 2018-11-10 07:26 | NUR ---
NURSE NOTES: Received report from Uziel SOLITARIO. Pt in bed awake, no respond to verbal. Bed in lowest position locked. On O2 8L/min FiO2 30%.GT intact, patent, tolerating well, receiving Glucerna 1.5 at 45cc/hr. On f/c patent intact, yellow colored urine noted. IV on Left hand 22G receiving 1/2 NS at 100cc/hr. No distress noted. On P200 air mattress for presure ulcer on UTD Sacrococcyx and L hip pressure ulcer reported. rhythm SR reported with HR 92/min. position lying back on the bed. Will continue to monitor.
[2018-11-10 08:00] VITALS: BP 119/67
--- NOTE | 2018-11-10 08:22 | NUR ---
NURSE NOTES: Received reporte from James from [facility]. Pt is positive of ESBL urine. Will start contact isolation and follow up with .
--- NOTE | 2018-11-10 09:08 | NUR ---
NURSE NOTES: Recrived report from Drake Ta @[facility] re: MRSA Sacral wx found. Pt on contact isolation. Will continue follow up with .
[2018-11-10] MEDS: Amantadine 100mg cap GT SCH ×2 (09:14→17:02)
[2018-11-10] MEDS: Heparin 5000 units/ml inj SUBQ SCH ×2 (09:23→20:37)
--- NOTE | 2018-11-10 10:53 | Infectious Diseases Prog Note ---
Assessment/Plan Assessment/Plan A; 1. Proteus urinary tract infection. ESBL & Carbapenem resistant 2. Leukocytosis resolved 3. Diabetes. 4. Hypertension. 5. Positive blood cultures with coagulase-negative Staph, is likely a contaminant. 6. MRSA colonization PLAN: 1. discontinue cefepime. 2.Start on Amikacin Subjective ROS Limited/Unobtainable: Yes Allergies: Coded Allergies: No Known Allergies (Unverified , 11/06/18) Objective Vital Signs Last 24 Hour Vital Signs Date Time Temp Pulse Resp B/P (MAP) Pulse Ox O2 Delivery O2 Flow Rate FiO2 11/10/18 09:15 102 119/74 11/10/18 09:00 T-piece 8.0 11/10/18 09:00 8.0 30 11/10/18 08:00 97.8 88 18 119/67 (84) 98 11/10/18 07:55 30 11/10/18 07:55 102 20 100 T-piece 8.0 30 11/10/18 07:49 94 11/10/18 07:43 100 19 93 T-piece 8.0 30 11/10/18 07:43 93 T-piece 8.0 30 11/10/18 07:43 T-piece 8.0 30 11/10/18 04:00 102 11/10/18 04:00 8.0 30 11/10/18 04:00 97.1 93 18 119/74 (89) 98 11/10/18 01:29 30 11/10/18 01:29 88 18 100 T-piece 8.0 30 11/10/18 01:14 89 18 99 T-piece 8.0 30 11/10/18 00:00 97.9 97 18 119/60 (79) 99 11/09/18 23:54 92 11/09/18 21:00 T-piece 8.0 11/09/18 20:00 90 11/09/18 20:00 8.0 30 11/09/18 20:00 97.9 90 18 116/62 (80) 98 11/09/18 19:25 89 18 99 T-piece 8.0 30 11/09/18 19:25 30 11/09/18 19:19 T-piece 8.0 30 11/09/18 19:19 97 T-piece 8.0 30 11/09/18 19:17 87 18 97 T-piece 8.0 30 11/09/18 16:00 8.0 30 11/09/18 16:00 98.0 88 16 130/70 (90) 100 11/09/18 15:36 88 11/09/18 13:25 85 18 99 T-piece 8.0 30 11/09/18 13:15 88 18 98 T-piece 8.0 30 11/09/18 13:15 30 11/09/18 12:00 98.0 86 16 128/70 (89) 100 11/09/18 12:00 8.0 30 11/09/18 11:57 92 Height (Feet): 5 Height (Inches): 0.00 Weight (Pounds): 87 General Appearance: no acute distress HEENT: status post trach, other - s/p craniotomy on lrft side Respiratory/Chest: lungs clear, other - on T bar Cardiovascular: tachycardia Abdomen: soft, non tender, other - GT feeding Extremities: no edema Skin: ulcers Neurologic/Psychiatric: aphasia Current Medications Medications (Trade) Dose Ordered Sig/Dell Route PRN Reason Start Time Stop Time Status Last Admin Dose Admin Acetaminophen (Tylenol) 650 mg Q6H PRN NG pain 1-6 11/06/18 19:00 12/06/18 18:59 Albuterol/ Ipratropium (Albuterol/ Ipratropium) 3 ml Q6HRT HHN 11/07/18 01:00 11/12/18 00:59 11/10/18 07:43 Amantadine HCl (Symmetrel) 100 mg TWICE A DAY GT 11/07/18 09:00 12/07/18 08:59 11/10/18 09:14 Amlodipine Besylate (Norvasc) 10 mg DAILY NG 11/07/18 09:00 12/07/18 08:59 11/10/18 09:15 Cefepime HCl 1 gm/ Dextrose 55 ml @ 110 mls/hr Q24H IVPB 11/06/18 21:00 11/13/18 20:59 11/09/18 21:15 Dextrose (Dextrose 50%) 25 ml Q30M PRN IV Hypoglycemia 11/06/18 20:00 12/06/18 19:59 Dextrose (Dextrose 50%) 50 ml Q30M PRN IV Hypoglycemia 11/06/18 20:00 12/06/18 19:59 Heparin Sodium (Porcine) (Heparin 5000 units/ml) 5,000 units EVERY 12 HOURS SUBQ 11/06/18 21:00 12/06/18 20:59 11/10/18 09:23 Insulin Aspart (NovoLOG) Q6HR SUBQ 11/07/18 00:00 12/07/18 00:00 11/10/18 06:02 Ondansetron HCl (Zofran) 4 mg Q8H PRN IVP Nausea & Vomiting 11/06/18 19:00 12/06/18 18:59 Sodium Chloride 1,000 ml @ 100 mls/hr Q10H IV 11/07/18 08:45 12/07/18 08:44 11/10/18 07:20 Jose Angel Johnson MD Nov 10, 2018 10:53
[2018-11-10] MEDS ORDERED: Amikacin Rx to dose MISC PRN (11:00)
--- NOTE | 2018-11-10 11:15 | NUR ---
NURSE NOTES: Informed Dr. Johnson of pt's positive for MRSA of wound and urine culture of ESBL. Pt started on Amikacin 500 mg IV.
[2018-11-10 12:00] VITALS: BP 120/59
[2018-11-10] MEDS ORDERED: Amikacin 600 MG in NS 110 ML IV SCH (12:30)
[2018-11-10] MEDS ORDERED: 1/2 NS 1000ml IV ONE ×2 (12:38→15:28)
[2018-11-10] MEDS ORDERED: Sterile Water Irrig 1000ml IRRIG ONE (12:38)
--- NOTE | 2018-11-10 13:11 | Surgery Progress Note ---
Surgery Progress Note Subjective Additional Comments no acute events. stable. exam unchanged. Objective Last 24 Hour Vital Signs Date Time Temp Pulse Resp B/P (MAP) Pulse Ox O2 Delivery O2 Flow Rate FiO2 11/10/18 12:50 30 11/10/18 12:50 98 20 100 T-piece 8.0 30 11/10/18 12:39 99 T-piece 8.0 30 11/10/18 12:39 T-piece 8.0 30 11/10/18 12:39 97 16 99 T-piece 8.0 30 11/10/18 12:00 98.5 98 20 120/59 (79) 99 11/10/18 09:15 102 119/74 11/10/18 09:00 T-piece 8.0 11/10/18 09:00 8.0 30 11/10/18 08:00 97.8 88 18 119/67 (84) 98 11/10/18 07:55 30 11/10/18 07:55 102 20 100 T-piece 8.0 30 11/10/18 07:49 94 11/10/18 07:43 100 19 93 T-piece 8.0 30 11/10/18 07:43 93 T-piece 8.0 30 11/10/18 07:43 T-piece 8.0 30 11/10/18 04:00 102 11/10/18 04:00 8.0 30 11/10/18 04:00 97.1 93 18 119/74 (89) 98 11/10/18 01:29 30 11/10/18 01:29 88 18 100 T-piece 8.0 30 11/10/18 01:14 89 18 99 T-piece 8.0 30 11/10/18 00:00 97.9 97 18 119/60 (79) 99 11/09/18 23:54 92 11/09/18 21:00 T-piece 8.0 11/09/18 20:00 90 11/09/18 20:00 8.0 30 11/09/18 20:00 97.9 90 18 116/62 (80) 98 11/09/18 19:25 89 18 99 T-piece 8.0 30 11/09/18 19:25 30 11/09/18 19:19 T-piece 8.0 30 11/09/18 19:19 97 T-piece 8.0 30 11/09/18 19:17 87 18 97 T-piece 8.0 30 11/09/18 16:00 8.0 30 11/09/18 16:00 98.0 88 16 130/70 (90) 100 11/09/18 15:36 88 11/09/18 13:25 85 18 99 T-piece 8.0 30 11/09/18 13:15 88 18 98 T-piece 8.0 30 11/09/18 13:15 30 I&O Intake and Output 11/09/18 11/10/18 19:00 07:00 Intake Total 680 ml 1815 ml Output Total 2000 ml 1200 ml Balance -1320 ml 615 ml Intake Free Water 200 ml IV Total 500 ml 1255 ml Tube Feeding 180 ml 360 ml Output Urine Total 2000 ml 1200 ml Dressing: saturated Wound: clean Drains: other Cardiovascular: RSR Respiratory: clear Abdomen: soft, non-tender, present bowel sounds, non-distended Extremities: no tenderness, no cyanosis Plan Problems: (1) Decubital ulcer Assessment & Plan: Pt presented on admission with full thickness pressure injury with 95% mixed soft necrosis and slough,5%red granulation ,(+) maceration along edges(L)3.5cm x(W)11.3cm. Periwound is екатерина pink with scattered shearing. Partial thickness pressure injury noted to L hip .[place] granulation noted to base of wound(+) maceration along borders. Periwound without erythema or induration. Resolving skin tear noted to L tibia.Base of wound pale pink and dry. Non-blanchable erythema with fluctuance and delineated borders noted to medial R heel (L)3cm x (W)3cm.Periwound is clean and pink. L heel pink and blanchable. Tx.Plan: Cleanse Sacral wound with saline. Apply Therahoney Gel.Apply Triad Paste periwound. Cover with Optifoam drsg. Change daily and prn. Cleanse L hip with Saline. Apply Therahoney Gel. Cover with Optifoam drsg. Change daily and prn. Apply Cavilon Skin Barrier to Blister Medial R heel. Cover with Optifoam drsg. Change every 7 days and prn. Apply Cavilon Skin Barrier to L heel. Cover with Optifoam drsg. Change every 7 days and prn. APM/POOJA Mattress overlay. Reposition at least every 2hours or as tolerated. Off-load heel with pillow. (2) UTI (urinary tract infection) (3) Fever (4) Sepsis Arnold Hi Nov 10, 2018 13:11
--- NOTE | 2018-11-10 13:25 | NUR ---
NURSE NOTES: Dr. Smith assessed pt at bedside. No new orders given.
--- NOTE | 2018-11-10 15:14 | NUR ---
CASE MANAGEMENT: REVIEW 11/10/2018 SI: SEPSIS . UTI . DECUBITAL ULCER LEFT HIP T 98.5 HR 98 RR 20 B/P 120/59 SATS 99% ON 8L/TPIECE NO LABS TODAY IS: ALBUTEROL HHN Q6HR NS IVF @100ML/HR HEPARIN SQ Q12HR CEFEPIME IV Q24HR AMANTADINE GT BID GT FEEDING GLUCERNA 1.5 @45ML/HR TELEMETRY UNIT STATUS DCP: PATIENT IS FROM [facility]
[2018-11-10] MEDS ORDERED: Tubing IV Secondary IV ONE (15:28)
[2018-11-10] MEDS ORDERED: NS 275ml ONE (15:28)
[2018-11-10 16:00] VITALS: BP 108/48
--- NOTE | 2018-11-10 16:50 | Pulmonology Progress Note ---
Assessment/Plan Assessment/Plan Pulmonary Progress Note Assessment/Plan UTI respiratory failure possible sepsis craniectomy trach GT plan IV fluids ID eval antibiotics feeds follow up labs dc once improved Subjective ROS Limited/Unobtainable: Yes Allergies: Coded Allergies: No Known Allergies (Unverified , 11/06/18) Objective Vital Signs Noted Objective WDWN NAD clear breath sounds bilaterally without rhonchi or wheeze [id number] without MRG NABS nontender no HSM no CCE reduced loc craniectomy GT Microbiology Date/Time Source Procedure Growth Status 11/06/18 12:30 Urine,Clean Catch Urine Culture - Preliminary Gram Negative Bacillus 1 Resulted Laboratory Tests 11/06/18 12:30: White Blood Count 24.9*H, Red Blood Count 3.21L, Hemoglobin 11.2L, Hematocrit 33.6L, Mean Corpuscular Volume 105H, Mean Corpuscular Hemoglobin 35.0H, Mean Corpuscular Hemoglobin Concent 33.4, Red Cell Distribution Width 12.0, Platelet Count 499H, Mean Platelet Volume 5.6L, Neutrophils (%) (Auto) , Lymphocytes (%) (Auto) , Monocytes (%) (Auto) , Eosinophils (%) (Auto) , Basophils (%) (Auto) , Differential Total Cells Counted 100, Neutrophils % (Manual) 84H, Lymphocytes % (Manual) 10L, Monocytes % (Manual) 5, Eosinophils % (Manual) 1, Basophils % ( Manual) 0, Band Neutrophils 0, Nucleated Red Blood Cells 1, Platelet Estimate IncreasedH, Platelet Morphology Normal, Urine Color Pale yellow, Urine Appearance Cloudy, Urine pH 8, Urine Specific [place] 1.010, Urine Protein 3+H, Urine Glucose (UA) Negative, Urine Ketones Negative, Urine Blood 3+H, Urine Nitrite Negative, Urine Bilirubin Negative, Urine Urobilinogen Normal, Urine Leukocyte Esterase 3+H, Urine RBC TntcH, Urine WBC TntcH, Urine Squamous Epithelial Cells Occasional, Urine Amorphous Sediment ModerateH, Urine Bacteria ManyH, Sodium Level 147H, Potassium Level 4.2, Chloride Level 109H, Carbon Dioxide Level 26, Anion Gap 12, Blood Urea Nitrogen 25H, Creatinine 0.5L, Estimat Glomerular Filtration Rate > 60, Glucose Level 163H, Lactic Acid Level 2.10H, Calcium Level 9.0, Total Bilirubin 0.3, Aspartate Amino Transf (AST/SGOT ) 20, Alanine Aminotransferase (ALT/SGPT) 46, Alkaline Phosphatase 191H, Total Creatine Kinase 56, Creatine Kinase MB 0.5, Creatine Kinase MB Relative Index 0.8, Troponin I 0.000, Total Protein 6.8, Albumin 2.3L, Globulin 4.5, Albumin/ Globulin Ratio 0.5L 11/06/18 14:20: Lactic Acid Level 2.10 11/07/18 06:00: White Blood Count 17.8H, Red Blood Count 2.99L, Hemoglobin 10.4L, Hematocrit 31.3L, Mean Corpuscular Volume 105H, Mean Corpuscular Hemoglobin 34.7H, Mean Corpuscular Hemoglobin Concent 33.1, Red Cell Distribution Width 12.2, Platelet Count 504H, Mean Platelet Volume 5.6L, Neutrophils (%) (Auto) , Lymphocytes (%) (Auto) , Monocytes (%) (Auto) , Eosinophils (%) (Auto) , Basophils (%) (Auto) , Neutrophils % (Manual) [Pending], Lymphocytes % (Manual) [Pending], Platelet Estimate [Pending], Platelet Morphology [Pending], Sodium Level 146H, Potassium Level 3.0L, Chloride Level 110H, Carbon Dioxide Level 25, Anion Gap 12, Blood Urea Nitrogen 23H, Creatinine 0.3L, Estimat Glomerular Filtration Rate > 60, Glucose Level 157H, Calcium Level 8.8 Current Medications Medications (Trade) Dose Ordered Sig/Dell Route PRN Reason Start Time Stop Time Status Last Admin Dose Admin Acetaminophen (Tylenol) 650 mg Q6H PRN NG pain 1-6 11/06/18 19:00 12/06/18 18:59 Albuterol/ Ipratropium (Albuterol/ Ipratropium) 3 ml Q6HRT HHN 11/07/18 01:00 11/12/18 00:59 11/07/18 07:53 Amantadine HCl (Symmetrel) 100 mg TWICE A DAY GT 11/07/18 09:00 12/07/18 08:59 Amlodipine Besylate (Norvasc) 10 mg DAILY NG 11/07/18 09:00 12/07/18 08:59 Cefepime HCl 1 gm/ Dextrose 55 ml @ 110 mls/hr Q24H IVPB 11/06/18 21:00 11/13/18 20:59 11/06/18 21:25 Dextrose (Dextrose 50%) 25 ml Q30M PRN IV Hypoglycemia 11/06/18 20:00 12/06/18 19:59 Dextrose (Dextrose 50%) 50 ml Q30M PRN IV Hypoglycemia 11/06/18 20:00 12/06/18 19:59 Heparin Sodium (Porcine) (Heparin 5000 units/ml) 5,000 units EVERY 12 HOURS SUBQ 11/06/18 21:00 12/06/18 20:59 11/06/18 21:26 Insulin Aspart (NovoLOG) Q6HR SUBQ 11/07/18 00:00 12/07/18 00:00 11/07/18 06:25 Ondansetron HCl (Zofran) 4 mg Q8H PRN IVP Nausea & Vomiting 11/06/18 19:00 12/06/18 18:59 Vancomycin HCl (Vanco rx to dose) 1 ea DAILY PRN MISC Per rx protocol 11/06/18 19:00 12/06/18 18:59 Vancomycin HCl 750 mg/Sodium Chloride 275 ml @ 183.333 mls/hr Q24H IVPB 11/06/18 22:00 11/11/18 21:59 11/06/18 22:58 Subjective ROS Limited/Unobtainable: No Allergies: Coded Allergies: No Known Allergies (Unverified , 11/06/18) Objective Last 24 Hour Vital Signs Date Time Temp Pulse Resp B/P (MAP) Pulse Ox O2 Delivery O2 Flow Rate FiO2 11/10/18 16:00 8.0 30 11/10/18 15:38 91 11/10/18 12:50 30 11/10/18 12:50 98 20 100 T-piece 8.0 30 11/10/18 12:39 99 T-piece 8.0 30 11/10/18 12:39 T-piece 8.0 30 11/10/18 12:39 97 16 99 T-piece 8.0 30 11/10/18 12:00 98.5 98 20 120/59 (79) 99 11/10/18 12:00 8.0 30 11/10/18 12:00 94 11/10/18 09:15 102 119/74 11/10/18 09:00 T-piece 8.0 3/31/19 09:00 8.0 30 11/10/18 08:00 97.8 88 18 119/67 (84) 98 11/10/18 07:55 30 11/10/18 07:55 102 20 100 T-piece 8.0 30 11/10/18 07:49 94 11/10/18 07:43 100 19 93 T-piece 8.0 30 11/10/18 07:43 93 T-piece 8.0 30 11/10/18 07:43 T-piece 8.0 30 11/10/18 04:00 102 11/10/18 04:00 8.0 30 11/10/18 04:00 97.1 93 18 119/74 (89) 98 11/10/18 01:29 30 11/10/18 01:29 88 18 100 T-piece 8.0 30 11/10/18 01:14 89 18 99 T-piece 8.0 30 11/10/18 00:00 97.9 97 18 119/60 (79) 99 11/09/18 23:54 92 11/09/18 21:00 T-piece 8.0 11/09/18 20:00 90 11/09/18 20:00 8.0 30 11/09/18 20:00 97.9 90 18 116/62 (80) 98 11/09/18 19:25 89 18 99 T-piece 8.0 30 11/09/18 19:25 30 11/09/18 19:19 T-piece 8.0 30 11/09/18 19:19 97 T-piece 8.0 30 11/09/18 19:17 87 18 97 T-piece 8.0 30 Intake and Output 11/09/18 11/10/18 18:59 06:59 Intake Total 780 ml 1960 ml Output Total 2000 ml 1200 ml Balance -1220 ml 760 ml Intake Free Water 100 ml 200 ml IV Total 500 ml 1355 ml Tube Feeding 180 ml 405 ml Output Urine Total 2000 ml 1200 ml Current Medications Medications (Trade) Dose Ordered Sig/Dell Route PRN Reason Start Time Stop Time Status Last Admin Dose Admin Acetaminophen (Tylenol) 650 mg Q6H PRN NG pain 1-6 11/06/18 19:00 12/06/18 18:59 Albuterol/ Ipratropium (Albuterol/ Ipratropium) 3 ml Q6HRT HHN 11/07/18 01:00 11/12/18 00:59 11/10/18 12:39 Amantadine HCl (Symmetrel) 100 mg TWICE A DAY GT 11/07/18 09:00 12/07/18 08:59 11/10/18 09:14 Amikacin Protocol (Amikacin pharmacy to dose) 1 ea DAILY PRN MISC Per rx protocol 11/10/18 11:00 12/10/18 10:59 Amikacin Sulfate 600 mg/Sodium Chloride 112.4 ml @ 112.4 mls/ hr Q36H IV 11/10/18 12:30 11/17/18 12:29 11/10/18 13:23 Amlodipine Besylate (Norvasc) 10 mg DAILY NG 11/07/18 09:00 12/07/18 08:59 11/10/18 09:15 Dextrose (Dextrose 50%) 25 ml Q30M PRN IV Hypoglycemia 11/06/18 20:00 12/06/18 19:59 Dextrose (Dextrose 50%) 50 ml Q30M PRN IV Hypoglycemia 11/06/18 20:00 12/06/18 19:59 Heparin Sodium (Porcine) (Heparin 5000 units/ml) 5,000 units EVERY 12 HOURS SUBQ 11/06/18 21:00 12/06/18 20:59 11/10/18 09:23 Insulin Aspart (NovoLOG) Q6HR SUBQ 11/07/18 00:00 12/07/18 00:00 11/10/18 11:15 Ondansetron HCl (Zofran) 4 mg Q8H PRN IVP Nausea & Vomiting 11/06/18 19:00 12/06/18 18:59 Sodium Chloride 1,000 ml @ 100 mls/hr Q10H IV 11/07/18 08:45 12/07/18 08:44 11/10/18 07:20 Humza Smith MD Nov 10, 2018 16:50
--- NOTE | 2018-11-10 19:13 | NUR ---
HAND-OFF: Report given to Melodie Hankins RN. No acute s/s of distress noted.
--- NOTE | 2018-11-10 19:14 | NUR ---
NURSE NOTES: RECEIVED BEDSIDE REPORT. PT X0, NONVERBAL, RESPONDS TO VOICE AND TACTILE STIMULI. CARDAIC MONITOR SHOWING NSR. T PIECE 8L 30% SATING AROUND 92%. GTF GLUCERNA 1.5 @ 45, NO RESIDUAL, ASYMPTOMATIC. SKIN IS CLEAN DRY, DRESSINGS INTACT. SINGH IN PLACE FOR RETENTION AND SACRAL WOUND. LH 22 G ASYMPTOMATIC RUNNING 1/2NS @ 100. BED IS LOPCKED IN LOWEST POSITION SR X3, BED ALARM ON, CALL AGUIRRE W/ IN REACH. WILL CONTINUE TO MONITOR AND FOLLOW W/ PLAN OF CARE.
[2018-11-10 20:00] VITALS: BP 112/49
[2018-11-11] VITALS: BP 113/51
[2018-11-11] MEDS: Albuterol/Ipratropium 3ml neb HHN SCH ×4 (01:02→20:13)
[2018-11-11 04:00] VITALS: BP 109/59
[2018-11-11] MEDS: NovoLOG Insulin Flexpen SUBQ SCH ×4 (05:10→23:36)
--- NOTE | 2018-11-11 07:10 | NUR ---
NURSE NOTES: Received report from Melodie Magdaleno RN. Patient remains in bed, on Tpiece as tolerated. With ongoing gastrostomy tube feeding as tolerated and Intravenous Fluid per order. Contact isolation observed. In no apparent distress, no respiratory distress. Will continue plan of care.
[2018-11-11 08:00] VITALS: BP 128/66
[2018-11-11] MEDS: Amantadine 100mg cap GT SCH ×2 (08:55→17:38)
[2018-11-11] MEDS: Heparin 5000 units/ml inj SUBQ SCH ×2 (09:00→21:26)
--- NOTE | 2018-11-11 11:10 | NUR ---
RD ASSESSMENT & RECOMMENDATIONS SEE CARE ACTIVITY FOR COMPLETE ASSESSMENT DAILY ESTIMATED NEEDS: Needs based on Wound, pulmonary, sepsis 39.5kg 30-35 kcals/kg 0193-1808 total kcals 1.25-2 g protein/kg 49-79 g total protein 25-30 mL/kg 988-1185 total fluid mLs NUTRITION DIAGNOSIS: * Swallowing difficulty r/t respiratory status as evidenced bby s/p craniotomy, pt is vent dep via T-piecs, on GT feeds. * Increased kcal/prot intake needs R/T wound healing as evidenced by pt admitted w/ full thickness pressure injury @ sacral, partial thickness pressure injury noted to L hip, non-blanchable erythema with fluctuance and delineated borders noted to medial R heel CURRENT TF:Glucerna 1.5 @45ml x 20 hrs ENTERAL NUTRITION RECOMMENDATIONS: Maintain current TF as tolerated Glucerna 1.5 @45ml/hrx20 hrs to provide 900ml, 1350 kcal, 74g pro, 683ml free H2O - Maintain @ goal as tolerated - for 24 hrs TF run: Glucerna 1.5 @37ml/hr x24 hrs, 888ml, 1332 kcal, 73g pro, 674ml free H2O - Flush per MD/ hob over 30 degrees ADDITIONAL RECOMMENDATIONS: 1) Calibrated bed scale wts weekly 2) Monitor tolerance to TF 3) Wound care: add MARY BID + MVI x1 + Vit C 500mg QD 4) Monitor lytes, replete daily 5) Monitor BGs closely, need for long acting insulin POC glu (163-190)
--- NOTE | 2018-11-11 11:54 | Infectious Diseases Prog Note ---
Assessment/Plan Assessment/Plan antibiotics : amikacin iv 11.10.18 - A 1. proteus UTI 2. Leukocytosis resolved 3. Diabetes. 4. Hypertension. 5. Positive blood cultures with coagulase-negative Staph, is likely a contaminant. P 1. continue iv amikacin 3 more days 2. will follow up cultures Subjective ROS Limited/Unobtainable: Yes Allergies: Coded Allergies: No Known Allergies (Unverified , 11/06/18) Objective Vital Signs Last 24 Hour Vital Signs Date Time Temp Pulse Resp B/P (MAP) Pulse Ox O2 Delivery O2 Flow Rate FiO2 11/11/18 09:00 T-piece 8.0 11/11/18 08:55 103 128/66 11/11/18 08:00 30 11/11/18 08:00 98.6 103 21 128/66 (86) 99 11/11/18 07:37 94 16 100 T-piece 8.0 30 11/11/18 07:32 95 11/11/18 07:26 100 T-piece 8.0 30 11/11/18 07:26 T-piece 8.0 30 11/11/18 07:26 97 16 100 T-piece 8.0 30 11/11/18 04:00 90 11/11/18 04:00 98.1 98 16 109/59 (76) 95 11/11/18 04:00 8.0 30 11/11/18 01:46 T-piece 8.0 30 11/11/18 01:46 96 T-piece 8.0 30 11/11/18 01:12 92 18 96 T-piece 8.0 30 11/11/18 01:02 92 18 95 T-piece 8.0 30 11/11/18 00:00 90 11/11/18 00:00 98.1 86 15 113/51 (71) 96 11/10/18 21:00 T-piece 8.0 11/10/18 20:00 8.0 30 11/10/18 20:00 97.0 93 17 112/49 (70) 94 11/10/18 20:00 93 11/10/18 19:31 94 18 100 T-piece 8.0 30 11/10/18 19:21 98 T-piece 8.0 30 11/10/18 19:21 T-piece 8.0 30 11/10/18 19:21 92 18 98 T-piece 8.0 30 11/10/18 16:00 98.1 92 18 108/48 (68) 94 11/10/18 16:00 8.0 30 11/10/18 15:38 91 11/10/18 12:50 30 11/10/18 12:50 98 20 100 T-piece 8.0 30 11/10/18 12:39 99 T-piece 8.0 30 11/10/18 12:39 T-piece 8.0 30 11/10/18 12:39 97 16 99 T-piece 8.0 30 11/10/18 12:00 98.5 98 20 120/59 (79) 99 11/10/18 12:00 8.0 30 11/10/18 12:00 94 Height (Feet): 5 Height (Inches): 0.00 Weight (Pounds): 87 HEENT: status post trach Respiratory/Chest: lungs clear Cardiovascular: normal rate, regular rhythm, no gallop/murmur Abdomen: soft, non tender, other - GT Extremities: no edema Laboratory Tests Test 11/11/18 01:30 Random Amikacin Level 2.8 ug/mL Current Medications Medications (Trade) Dose Ordered Sig/Dell Route PRN Reason Start Time Stop Time Status Last Admin Dose Admin Acetaminophen (Tylenol) 650 mg Q6H PRN NG pain 1-6 11/06/18 19:00 12/06/18 18:59 Albuterol/ Ipratropium (Albuterol/ Ipratropium) 3 ml Q6HRT HHN 11/07/18 01:00 11/12/18 00:59 11/11/18 07:25 Amantadine HCl (Symmetrel) 100 mg TWICE A DAY GT 11/07/18 09:00 12/07/18 08:59 11/11/18 08:55 Amikacin Protocol (Amikacin pharmacy to dose) 1 ea DAILY PRN MISC Per rx protocol 11/10/18 11:00 12/10/18 10:59 Amikacin Sulfate 600 mg/Sodium Chloride 112.4 ml @ 112.4 mls/ hr Q48H IV 11/12/18 13:30 11/17/18 12:29 Amlodipine Besylate (Norvasc) 10 mg DAILY NG 11/07/18 09:00 12/07/18 08:59 11/11/18 08:55 Dextrose (Dextrose 50%) 25 ml Q30M PRN IV Hypoglycemia 11/06/18 20:00 12/06/18 19:59 Dextrose (Dextrose 50%) 50 ml Q30M PRN IV Hypoglycemia 11/06/18 20:00 12/06/18 19:59 Heparin Sodium (Porcine) (Heparin 5000 units/ml) 5,000 units EVERY 12 HOURS SUBQ 11/06/18 21:00 12/06/18 20:59 11/11/18 09:00 Insulin Aspart (NovoLOG) Q6HR SUBQ 11/07/18 00:00 12/07/18 00:00 11/11/18 05:10 Ondansetron HCl (Zofran) 4 mg Q8H PRN IVP Nausea & Vomiting 11/06/18 19:00 12/06/18 18:59 Sodium Chloride 1,000 ml @ 100 mls/hr Q10H IV 11/07/18 08:45 12/07/18 08:44 11/11/18 02:24 Brien Rodriguez MD Nov 11, 2018 11:54
[2018-11-11 12:00] VITALS: BP 118/67
--- NOTE | 2018-11-11 13:04 | Cardiology Report ---
APPROVED REPORT EKG Measurement Heart [id number] CA 142P5 [id number] Normal sinus rhythm Normal ECG
--- NOTE | 2018-11-11 13:53 | Surgery Progress Note ---
Surgery Progress Note Subjective Additional Comments leukocytosis trending down. micro noted. exam unchanged. stable. Objective Last 24 Hour Vital Signs Date Time Temp Pulse Resp B/P (MAP) Pulse Ox O2 Delivery O2 Flow Rate FiO2 11/11/18 13:02 108 18 100 T-piece 8.0 30 11/11/18 12:53 102 16 97 T-piece 8.0 30 11/11/18 12:00 30 11/11/18 12:00 97.9 98 18 118/67 (84) 99 11/11/18 11:52 100 11/11/18 09:00 T-piece 8.0 11/11/18 08:55 103 128/66 11/11/18 08:00 30 11/11/18 08:00 98.6 103 21 128/66 (86) 99 11/11/18 07:37 94 16 100 T-piece 8.0 30 11/11/18 07:32 95 11/11/18 07:26 100 T-piece 8.0 30 11/11/18 07:26 T-piece 8.0 30 11/11/18 07:26 97 16 100 T-piece 8.0 30 11/11/18 04:00 90 11/11/18 04:00 98.1 98 16 109/59 (76) 95 11/11/18 04:00 8.0 30 11/11/18 01:46 T-piece 8.0 30 11/11/18 01:46 96 T-piece 8.0 30 11/11/18 01:12 92 18 96 T-piece 8.0 30 11/11/18 01:02 92 18 95 T-piece 8.0 30 11/11/18 00:00 90 11/11/18 00:00 98.1 86 15 113/51 (71) 96 11/10/18 21:00 T-piece 8.0 11/10/18 20:00 8.0 30 11/10/18 20:00 97.0 93 17 112/49 (70) 94 11/10/18 20:00 93 11/10/18 19:31 94 18 100 T-piece 8.0 30 11/10/18 19:21 98 T-piece 8.0 30 11/10/18 19:21 T-piece 8.0 30 11/10/18 19:21 92 18 98 T-piece 8.0 30 11/10/18 16:00 98.1 92 18 108/48 (68) 94 11/10/18 16:00 8.0 30 11/10/18 15:38 91 I&O Intake and Output 11/10/18 11/11/18 19:00 07:00 Intake Total 2014.067 ml 1993.333 ml Output Total 2250 ml 1200 ml Balance -235.933 ml 793.333 ml Intake Free Water 300 ml 300 ml IV Total 1174.067 ml 1198.333 ml Tube Feeding 540 ml 495 ml Output Urine Total 2250 ml 1200 ml # Bowel Movements 1 Dressing: saturated Wound: other Drains: other Cardiovascular: RSR Respiratory: decreased breath sounds Abdomen: soft, present bowel sounds, non-distended Extremities: no edema, no tenderness, no cyanosis Laboratory Tests Test 11/11/18 01:30 Random Amikacin Level 2.8 ug/mL Plan Problems: (1) Decubital ulcer Assessment & Plan: Pt presented on admission with 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 Periwound is екатерина pink with scattered shearing. Partial thickness pressure injury noted to L hip .[place] granulation noted to base of wound(+) maceration along borders. Periwound without erythema or induration. Resolving skin tear noted to L tibia.Base of wound pale pink and dry. Non-blanchable erythema with fluctuance and delineated borders noted to medial R heel (L)3cm x (W)3cm.Periwound is clean and pink. L heel pink and blanchable. Tx.Plan: Cleanse Sacral wound with saline. Apply Therahoney Gel.Apply Triad Paste periwound. Cover with Optifoam drsg. Change daily and prn. Cleanse L hip with Saline. Apply Therahoney Gel. Cover with Optifoam drsg. Change daily and prn. Apply Cavilon Skin Barrier to Blister Medial R heel. Cover with Optifoam drsg. Change every 7 days and prn. Apply Cavilon Skin Barrier to L heel. Cover with Optifoam drsg. Change every 7 days and prn. APM/POOAJ Mattress overlay. Reposition at least every 2hours or as tolerated. Off-load heel with pillow. (2) UTI (urinary tract infection) (3) Fever (4) Sepsis Assessment & Plan: leukocytosis improving on iv abx micro noted Arnold Hi Nov 11, 2018 13:53
[2018-11-11 16:00] VITALS: BP 96/67
--- NOTE | 2018-11-11 19:10 | NUR ---
HAND-OFF: Report given to Yuli Gallardo RN.
--- NOTE | 2018-11-11 19:11 | NUR ---
NURSE NOTES: Received bedside report from KASSI Norris.Patient stable,obtunded, no s/s of pain,no respiratory distress noted,SR on groundwater monitoring technician,Portex7 T-Piece 30%L,GT running with Glucerna 1.5@ 45 ml/hr for 20hrs flush 100ml every 4 hrs,BS active in all quadrants,f/cath for retention running toward gravity,IV asymptomatic,intact on L hand G 22 runnint with 1/2 NS @ 100 ml/hr,bed secured,call light within a reach,will continue to monitor and follow POC.
--- NOTE | 2018-11-11 19:19 | NUR ---
CASE MANAGEMENT: REVIEW SI: SEPSIS . UTI . DECUBITAL ULCER LEFT HIP T 98.2 HR 108 RR 22 BP 96/67 SAT 96% T-PIECE FIO2 30 IS: AMIKACIN IV Q48HR ALBUTEROL HHN Q6HR NS IVF @100ML/HR HEPARIN SQ Q12HR AMANTADINE GT BID GT FEEDING GLUCERNA 1.5 @45ML/HR TELEMETRY UNIT STATUS DCP: PATIENT IS FROM [facility]
--- NOTE | 2018-11-11 20:15 | NUR ---
RESPIRATORY NOTE: Received pt on 30% Cool Aerosol via T-piece. Pt trach-dependent w/ a cuffed, Portex 7 tube. Cuff currently deflated. Pt obtunded/minimal response. B/S simone. rhonchi, sxn small amounts of thick/thin, pale-yellow secretions. Ambubag & spare trach kit at bedside. Pt resting comfortably, in no apparent distress at this time. Will continue plan of care.
[2018-11-11 21:00] VITALS: BP 135/78
--- NOTE | 2018-11-11 23:30 | Pulmonology Progress Note ---
Assessment/Plan Assessment/Plan Pulmonary Progress Note Assessment/Plan UTI respiratory failure possible sepsis craniectomy trach GT plan IV fluids ID eval antibiotics feeds follow up labs dc once improved Subjective ROS Limited/Unobtainable: Yes Allergies: Coded Allergies: No Known Allergies (Unverified , 11/06/18) Objective Vital Signs Noted Objective WDWN NAD clear breath sounds bilaterally without rhonchi or wheeze [id number] without MRG NABS nontender no HSM no CCE reduced loc craniectomy GT Microbiology Date/Time Source Procedure Growth Status 11/06/18 12:30 Urine,Clean Catch Urine Culture - Preliminary Gram Negative Bacillus 1 Resulted Laboratory Tests 11/06/18 12:30: White Blood Count 24.9*H, Red Blood Count 3.21L, Hemoglobin 11.2L, Hematocrit 33.6L, Mean Corpuscular Volume 105H, Mean Corpuscular Hemoglobin 35.0H, Mean Corpuscular Hemoglobin Concent 33.4, Red Cell Distribution Width 12.0, Platelet Count 499H, Mean Platelet Volume 5.6L, Neutrophils (%) (Auto) , Lymphocytes (%) (Auto) , Monocytes (%) (Auto) , Eosinophils (%) (Auto) , Basophils (%) (Auto) , Differential Total Cells Counted 100, Neutrophils % (Manual) 84H, Lymphocytes % (Manual) 10L, Monocytes % (Manual) 5, Eosinophils % (Manual) 1, Basophils % ( Manual) 0, Band Neutrophils 0, Nucleated Red Blood Cells 1, Platelet Estimate IncreasedH, Platelet Morphology Normal, Urine Color Pale yellow, Urine Appearance Cloudy, Urine pH 8, Urine Specific [place] 1.010, Urine Protein 3+H, Urine Glucose (UA) Negative, Urine Ketones Negative, Urine Blood 3+H, Urine Nitrite Negative, Urine Bilirubin Negative, Urine Urobilinogen Normal, Urine Leukocyte Esterase 3+H, Urine RBC TntcH, Urine WBC TntcH, Urine Squamous Epithelial Cells Occasional, Urine Amorphous Sediment ModerateH, Urine Bacteria ManyH, Sodium Level 147H, Potassium Level 4.2, Chloride Level 109H, Carbon Dioxide Level 26, Anion Gap 12, Blood Urea Nitrogen 25H, Creatinine 0.5L, Estimat Glomerular Filtration Rate > 60, Glucose Level 163H, Lactic Acid Level 2.10H, Calcium Level 9.0, Total Bilirubin 0.3, Aspartate Amino Transf (AST/SGOT ) 20, Alanine Aminotransferase (ALT/SGPT) 46, Alkaline Phosphatase 191H, Total Creatine Kinase 56, Creatine Kinase MB 0.5, Creatine Kinase MB Relative Index 0.8, Troponin I 0.000, Total Protein 6.8, Albumin 2.3L, Globulin 4.5, Albumin/ Globulin Ratio 0.5L 11/06/18 14:20: Lactic Acid Level 2.10 11/07/18 06:00: White Blood Count 17.8H, Red Blood Count 2.99L, Hemoglobin 10.4L, Hematocrit 31.3L, Mean Corpuscular Volume 105H, Mean Corpuscular Hemoglobin 34.7H, Mean Corpuscular Hemoglobin Concent 33.1, Red Cell Distribution Width 12.2, Platelet Count 504H, Mean Platelet Volume 5.6L, Neutrophils (%) (Auto) , Lymphocytes (%) (Auto) , Monocytes (%) (Auto) , Eosinophils (%) (Auto) , Basophils (%) (Auto) , Neutrophils % (Manual) [Pending], Lymphocytes % (Manual) [Pending], Platelet Estimate [Pending], Platelet Morphology [Pending], Sodium Level 146H, Potassium Level 3.0L, Chloride Level 110H, Carbon Dioxide Level 25, Anion Gap 12, Blood Urea Nitrogen 23H, Creatinine 0.3L, Estimat Glomerular Filtration Rate > 60, Glucose Level 157H, Calcium Level 8.8 Current Medications Medications (Trade) Dose Ordered Sig/Dell Route PRN Reason Start Time Stop Time Status Last Admin Dose Admin Acetaminophen (Tylenol) 650 mg Q6H PRN NG pain 1-6 11/06/18 19:00 12/06/18 18:59 Albuterol/ Ipratropium (Albuterol/ Ipratropium) 3 ml Q6HRT HHN 11/07/18 01:00 11/12/18 00:59 11/07/18 07:53 Amantadine HCl (Symmetrel) 100 mg TWICE A DAY GT 11/07/18 09:00 12/07/18 08:59 Amlodipine Besylate (Norvasc) 10 mg DAILY NG 11/07/18 09:00 12/07/18 08:59 Cefepime HCl 1 gm/ Dextrose 55 ml @ 110 mls/hr Q24H IVPB 11/06/18 21:00 11/13/18 20:59 11/06/18 21:25 Dextrose (Dextrose 50%) 25 ml Q30M PRN IV Hypoglycemia 11/06/18 20:00 12/06/18 19:59 Dextrose (Dextrose 50%) 50 ml Q30M PRN IV Hypoglycemia 11/06/18 20:00 12/06/18 19:59 Heparin Sodium (Porcine) (Heparin 5000 units/ml) 5,000 units EVERY 12 HOURS SUBQ 11/06/18 21:00 12/06/18 20:59 11/06/18 21:26 Insulin Aspart (NovoLOG) Q6HR SUBQ 11/07/18 00:00 12/07/18 00:00 11/07/18 06:25 Ondansetron HCl (Zofran) 4 mg Q8H PRN IVP Nausea & Vomiting 11/06/18 19:00 12/06/18 18:59 Vancomycin HCl (Vanco rx to dose) 1 ea DAILY PRN MISC Per rx protocol 11/06/18 19:00 12/06/18 18:59 Vancomycin HCl 750 mg/Sodium Chloride 275 ml @ 183.333 mls/hr Q24H IVPB 11/06/18 22:00 11/11/18 21:59 11/06/18 22:58 Subjective ROS Limited/Unobtainable: No Allergies: Coded Allergies: No Known Allergies (Unverified , 11/06/18) Objective Last 24 Hour Vital Signs Date Time Temp Pulse Resp B/P (MAP) Pulse Ox O2 Delivery O2 Flow Rate FiO2 11/11/18 21:00 98.1 94 16 135/78 (97) 99 11/11/18 21:00 T-piece 8.0 11/11/18 20:24 93 18 100 T-piece 8.0 30 11/11/18 20:14 91 16 99 T-piece 8.0 30 11/11/18 20:14 T-piece 8.0 30 11/11/18 20:14 99 T-piece 8.0 30 11/11/18 20:00 8.0 30 11/11/18 19:31 93 11/11/18 16:00 98.2 96 22 96/67 (77) 96 11/11/18 16:00 30 11/11/18 15:37 93 11/11/18 13:02 108 18 100 T-piece 8.0 30 11/11/18 12:53 102 16 97 T-piece 8.0 30 11/11/18 12:00 30 11/11/18 12:00 97.9 98 18 118/67 (84) 99 11/11/18 11:52 100 11/11/18 09:00 T-piece 8.0 11/11/18 08:55 103 128/66 11/11/18 08:00 30 11/11/18 08:00 98.6 103 21 128/66 (86) 99 11/11/18 07:37 94 16 100 T-piece 8.0 30 11/11/18 07:32 95 11/11/18 07:26 100 T-piece 8.0 30 11/11/18 07:26 T-piece 8.0 30 11/11/18 07:26 97 16 100 T-piece 8.0 30 11/11/18 04:00 90 11/11/18 04:00 98.1 98 16 109/59 (76) 95 11/11/18 04:00 8.0 30 11/11/18 01:46 T-piece 8.0 30 11/11/18 01:46 96 T-piece 8.0 30 11/11/18 01:12 92 18 96 T-piece 8.0 30 11/11/18 01:02 92 18 95 T-piece 8.0 30 11/11/18 00:00 90 11/11/18 00:00 98.1 86 15 113/51 (71) 96 Intake and Output 11/10/18 11/11/18 18:59 06:59 Intake Total 1907.4 ml 2000.000 ml Output Total 2000 ml 1450 ml Balance -92.6 ml 550.000 ml Intake Free Water 300 ml 300 ml IV Total 1112.4 ml 1160.000 ml Tube Feeding 495 ml 540 ml Output Urine Total 2000 ml 1450 ml # Bowel Movements 1 Laboratory Tests 11/11/18 01:30: Random Amikacin Level 2.8 Current Medications Medications (Trade) Dose Ordered Sig/Dell Route PRN Reason Start Time Stop Time Status Last Admin Dose Admin Acetaminophen (Tylenol) 650 mg Q6H PRN NG pain 1-6 11/06/18 19:00 12/06/18 18:59 Albuterol/ Ipratropium (Albuterol/ Ipratropium) 3 ml Q6HRT HHN 11/07/18 01:00 11/12/18 00:59 11/11/18 20:13 Amantadine HCl (Symmetrel) 100 mg TWICE A DAY GT 11/07/18 09:00 12/07/18 08:59 11/11/18 17:38 Amikacin Protocol (Amikacin pharmacy to dose) 1 ea DAILY PRN MISC Per rx protocol 11/10/18 11:00 12/10/18 10:59 Amikacin Sulfate 600 mg/Sodium Chloride 112.4 ml @ 112.4 mls/ hr Q48H IV 11/12/18 13:30 11/17/18 12:29 Amlodipine Besylate (Norvasc) 10 mg DAILY NG 11/07/18 09:00 12/07/18 08:59 11/11/18 08:55 Dextrose (Dextrose 50%) 25 ml Q30M PRN IV Hypoglycemia 11/06/18 20:00 12/06/18 19:59 Dextrose (Dextrose 50%) 50 ml Q30M PRN IV Hypoglycemia 11/06/18 20:00 12/06/18 19:59 Heparin Sodium (Porcine) (Heparin 5000 units/ml) 5,000 units EVERY 12 HOURS SUBQ 11/06/18 21:00 12/06/18 20:59 11/11/18 21:26 Insulin Aspart (NovoLOG) Q6HR SUBQ 11/07/18 00:00 12/07/18 00:00 11/11/18 17:37 Ondansetron HCl (Zofran) 4 mg Q8H PRN IVP Nausea & Vomiting 11/06/18 19:00 12/06/18 18:59 Sodium Chloride 1,000 ml @ 100 mls/hr Q10H IV 11/07/18 08:45 12/07/18 08:44 11/11/18 21:26 Humza Smith MD Nov 11, 2018 23:30
[2018-11-12] VITALS: BP 145/69
[2018-11-12 04:00] VITALS: BP 131/61
[2018-11-12] MEDS: NovoLOG Insulin Flexpen SUBQ SCH ×4 (05:49→23:48)
--- NOTE | 2018-11-12 07:05 | NUR ---
HAND-OFF: Report given to KASSI Tadeo.Patient stable.
--- NOTE | 2018-11-12 07:06 | NUR ---
NURSE NOTES: Received patient from KASSI Roldan. Patient VS stable at this time with no sign of acute distress. Patient sleeping at this time. Patient has a craniotomy of the of left side that is evident upon inspection. Patient is reported to be obtunded. Patient opens eyes but does not track. Patient showing sinus rhythm on the monitor. Patient known to have episodes of sinus tachycardia with rate up to 106 beats per min. Patient trach to T piece with 30% FiO2 and 8L. Patient has G tube that is patent, asymptomatic and running glucerna 1.5 at 45mL/hr at this time. Patient only getting feeding for 20 hours. Will hold feeding for 4 hours today. Patient has a garcia for urine retention at this time. Patient has several wounds. Patient has a sacral stage 3 and left hip stage 2 and left buttocks stage 2 and blister on the left thigh. Dressings all dry and intact at this time. Patient has a right wrist 22G PIV that is patent and asymptomatic at this time and running 0.45% normal saline at 100mL/hr. Patient bed in low position with bed alarm on and call light in reach at this time.
[2018-11-12 07:16] LABS: BASOPHILS % (AUTO) 0.5 % (0.0-2.0); HEMATOCRIT 35.5 % (37.0-47.0); HEMOGLOBIN 12.2 G/DL (12.0-16.0); LYMPHOCYTES % (AUTO) 17.4 % (20.0-45.0); MEAN CORPUSCULAR VOLUME 103 FL (80-99); MONOCYTES % (AUTO) 2.8 % (1.0-10.0); NEUTROPHILS % (AUTO) 78.4 % (45.0-75.0); PLATELET COUNT 606 K/UL (150-450); RED BLOOD COUNT 3.46 M/UL (4.20-5.40); RED CELL DISTRIBUTION WIDTH 13.3 % (11.6-14.8); WHITE BLOOD COUNT 11.4 K/UL (4.8-10.8)
[2018-11-12 07:26] LABS: ANION GAP 10 mmol/L (5-15); BLOOD UREA NITROGEN 13 mg/dL (7-18); CARBON DIOXIDE 25 MMOL/L (21-32); CHLORIDE 94 MMOL/L (98-107); CREATININE 0.4 MG/DL (0.55-1.30); PHOSPHORUS 3.3 MG/DL (2.5-4.9); POTASSIUM 4.2 MMOL/L (3.5-5.1); SODIUM 129 MMOL/L (136-145)
[2018-11-12 08:00] VITALS: BP 109/43
--- NOTE | 2018-11-12 08:13 | NUR ---
CASE MANAGEMENT:REVIEW 11/12/18 SI: RESPIRATORY FAILURE SEPSIS. ESBL UTI. 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
[2018-11-12] MEDS: Amantadine 100mg cap GT SCH ×2 (08:34→18:05)
[2018-11-12] MEDS: Heparin 5000 units/ml inj SUBQ SCH ×2 (08:37→21:40)
--- NOTE | 2018-11-12 09:44 | NUR ---
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 Will notify Dr Rodriguez when she rounds on the patient.
--- NOTE | 2018-11-12 10:00 | NUR ---
NURSE NOTES: Dr Rodriguez notified in person regarding positive VRE of the rectum.
--- NOTE | 2018-11-12 10:06 | Infectious Diseases Prog Note ---
Assessment/Plan Assessment/Plan antibiotics : amikacin iv 3.31.19 - A 1. proteus UTI 2. Leukocytosis resolved 3. Diabetes. 4. Hypertension. 5. Positive blood cultures with coagulase-negative Staph, is likely a contaminant. P 1. continue iv amikacin 2 more days 2. will follow up cultures Subjective ROS Limited/Unobtainable: Yes Allergies: Coded Allergies: No Known Allergies (Unverified , 11/06/18) Objective Vital Signs Last 24 Hour Vital Signs Date Time Temp Pulse Resp B/P (MAP) Pulse Ox O2 Delivery O2 Flow Rate FiO2 11/12/18 08:34 102 109/43 11/12/18 08:00 8.0 30 11/12/18 08:00 98.6 102 18 109/43 (65) 98 11/12/18 06:55 98 T-piece 8.0 30 11/12/18 06:55 T-piece 8.0 30 11/12/18 04:00 8.0 30 11/12/18 04:00 99.0 97 16 131/61 (84) 97 11/12/18 03:53 97 11/12/18 01:26 T-piece 8.0 35 11/12/18 01:26 T-piece 8.0 30 11/12/18 01:23 T-piece 8.0 30 11/12/18 01:23 98 T-piece 8.0 30 11/12/18 01:23 101 18 T-piece 8.0 30 11/12/18 00:00 98.4 103 20 145/69 (94) 97 11/11/18 23:46 102 11/11/18 21:00 98.1 94 16 135/78 (97) 99 11/11/18 21:00 T-piece 8.0 11/11/18 20:24 93 18 100 T-piece 8.0 30 11/11/18 20:14 91 16 99 T-piece 8.0 30 11/11/18 20:14 T-piece 8.0 30 11/11/18 20:14 99 T-piece 8.0 30 11/11/18 20:00 8.0 30 11/11/18 19:31 93 11/11/18 16:00 98.2 96 22 96/67 (77) 96 11/11/18 16:00 30 11/11/18 15:37 93 11/11/18 13:02 108 18 100 T-piece 8.0 30 11/11/18 12:53 102 16 97 T-piece 8.0 30 11/11/18 12:00 30 11/11/18 12:00 97.9 98 18 118/67 (84) 99 11/11/18 11:52 100 Height (Feet): 5 Height (Inches): 0.00 Weight (Pounds): 87 HEENT: status post trach Respiratory/Chest: lungs clear Cardiovascular: normal rate, regular rhythm, no gallop/murmur Abdomen: soft, non tender, other - GT Extremities: no edema Microbiology Date/Time Source Procedure Growth Status 11/10/18 15:00 Rectum VRE Culture - Final Enterococcus Faecalis - Vre Resulted 11/10/18 15:00 Rectum Pending Resulted Laboratory Tests Test 11/12/18 05:38 White Blood Count 11.4 K/UL (4.8-10.8) H Red Blood Count 3.46 M/UL (4.20-5.40) L Hemoglobin 12.2 G/DL (12.0-16.0) Hematocrit 35.5 % (37.0-47.0) L Mean Corpuscular Volume 103 FL (80-99) H Mean Corpuscular Hemoglobin 35.3 PG (27.0-31.0) H Mean Corpuscular Hemoglobin Concent 34.4 G/DL (32.0-36.0) Red Cell Distribution Width 13.3 % (11.6-14.8) Platelet Count 606 K/UL (150-450) H Mean Platelet Volume 5.1 FL (6.5-10.1) L Neutrophils (%) (Auto) 78.4 % (45.0-75.0) H Lymphocytes (%) (Auto) 17.4 % (20.0-45.0) L Monocytes (%) (Auto) 2.8 % (1.0-10.0) Eosinophils (%) (Auto) 1.0 % (0.0-3.0) Basophils (%) (Auto) 0.5 % (0.0-2.0) Sodium Level 129 MMOL/L (136-145) L Potassium Level 4.2 MMOL/L (3.5-5.1) Chloride Level 94 MMOL/L (98-107) L Carbon Dioxide Level 25 MMOL/L (21-32) Anion Gap 10 mmol/L (5-15) Blood Urea Nitrogen 13 mg/dL (7-18) Creatinine 0.4 MG/DL (0.55-1.30) L Estimat Glomerular Filtration Rate > 60 mL/min (>60) Glucose Level 150 MG/DL (74-106) H Calcium Level 9.0 MG/DL (8.5-10.1) Phosphorus Level 3.3 MG/DL (2.5-4.9) Magnesium Level 2.2 MG/DL (1.8-2.4) Current Medications Medications (Trade) Dose Ordered Sig/Dell Route PRN Reason Start Time Stop Time Status Last Admin Dose Admin Acetaminophen (Tylenol) 650 mg Q6H PRN NG pain 1-6 11/06/18 19:00 12/06/18 18:59 Amantadine HCl (Symmetrel) 100 mg TWICE A DAY GT 11/07/18 09:00 12/07/18 08:59 11/12/18 08:34 Amikacin Protocol (Amikacin pharmacy to dose) 1 ea DAILY PRN MISC Per rx protocol 11/10/18 11:00 12/10/18 10:59 Amikacin Sulfate 600 mg/Sodium Chloride 112.4 ml @ 112.4 mls/ hr Q48H IV 11/12/18 13:30 11/17/18 12:29 Amlodipine Besylate (Norvasc) 10 mg DAILY NG 11/07/18 09:00 12/07/18 08:59 11/12/18 08:34 Dextrose (Dextrose 50%) 25 ml Q30M PRN IV Hypoglycemia 11/06/18 20:00 12/06/18 19:59 Dextrose (Dextrose 50%) 50 ml Q30M PRN IV Hypoglycemia 11/06/18 20:00 12/06/18 19:59 Heparin Sodium (Porcine) (Heparin 5000 units/ml) 5,000 units EVERY 12 HOURS SUBQ 11/06/18 21:00 12/06/18 20:59 11/12/18 08:37 Insulin Aspart (NovoLOG) Q6HR SUBQ 11/07/18 00:00 12/07/18 00:00 11/12/18 05:49 Ondansetron HCl (Zofran) 4 mg Q8H PRN IVP Nausea & Vomiting 11/06/18 19:00 12/06/18 18:59 Sodium Chloride 1,000 ml @ 100 mls/hr Q10H IV 11/07/18 08:45 12/07/18 08:44 11/12/18 08:39 Brien Rodriguez MD Nov 12, 2018 10:06
--- NOTE | 2018-11-12 11:39 | Surgery Progress Note ---
Surgery Progress Note Subjective Additional Comments tachycardic. leukocytosis improved. labs noted exam unchanged. eyes open and somewhat tracking Objective Last 24 Hour Vital Signs Date Time Temp Pulse Resp B/P (MAP) Pulse Ox O2 Delivery O2 Flow Rate FiO2 11/12/18 09:00 T-piece 8.0 11/12/18 08:34 102 109/43 11/12/18 08:00 8.0 30 11/12/18 08:00 98.6 102 18 109/43 (65) 98 11/12/18 08:00 103 11/12/18 06:55 98 T-piece 8.0 30 11/12/18 06:55 T-piece 8.0 30 11/12/18 04:00 8.0 30 11/12/18 04:00 99.0 97 16 131/61 (84) 97 11/12/18 03:53 97 11/12/18 01:26 T-piece 8.0 35 11/12/18 01:26 T-piece 8.0 30 11/12/18 01:23 T-piece 8.0 30 11/12/18 01:23 98 T-piece 8.0 30 11/12/18 01:23 101 18 T-piece 8.0 30 11/12/18 00:00 98.4 103 20 145/69 (94) 97 11/11/18 23:46 102 11/11/18 21:00 98.1 94 16 135/78 (97) 99 11/11/18 21:00 T-piece 8.0 11/11/18 20:24 93 18 100 T-piece 8.0 30 11/11/18 20:14 91 16 99 T-piece 8.0 30 11/11/18 20:14 T-piece 8.0 30 11/11/18 20:14 99 T-piece 8.0 30 11/11/18 20:00 8.0 30 11/11/18 19:31 93 11/11/18 16:00 98.2 96 22 96/67 (77) 96 11/11/18 16:00 30 11/11/18 15:37 93 11/11/18 13:02 108 18 100 T-piece 8.0 30 11/11/18 12:53 102 16 97 T-piece 8.0 30 11/11/18 12:00 30 11/11/18 12:00 97.9 98 18 118/67 (84) 99 11/11/18 11:52 100 I&O Intake and Output 11/11/18 11/12/18 19:00 07:00 Intake Total 1943.333 ml 1645 ml Output Total 1600 ml 650 ml Balance 343.333 ml 995 ml Intake Free Water 200 ml 300 ml IV Total 1183.333 ml 850 ml Tube Feeding 360 ml 495 ml Other 200 ml Output Urine Total 1600 ml 650 ml # Bowel Movements 2 1 Dressing: saturated Wound: other Drains: other Cardiovascular: RSR Respiratory: decreased breath sounds Abdomen: soft, present bowel sounds, non-distended Extremities: no tenderness, no cyanosis Laboratory Tests Test 11/12/18 05:38 White Blood Count 11.4 K/UL (4.8-10.8) H Red Blood Count 3.46 M/UL (4.20-5.40) L Hemoglobin 12.2 G/DL (12.0-16.0) Hematocrit 35.5 % (37.0-47.0) L Mean Corpuscular Volume 103 FL (80-99) H Mean Corpuscular Hemoglobin 35.3 PG (27.0-31.0) H Mean Corpuscular Hemoglobin Concent 34.4 G/DL (32.0-36.0) Red Cell Distribution Width 13.3 % (11.6-14.8) Platelet Count 606 K/UL (150-450) H Mean Platelet Volume 5.1 FL (6.5-10.1) L Neutrophils (%) (Auto) 78.4 % (45.0-75.0) H Lymphocytes (%) (Auto) 17.4 % (20.0-45.0) L Monocytes (%) (Auto) 2.8 % (1.0-10.0) Eosinophils (%) (Auto) 1.0 % (0.0-3.0) Basophils (%) (Auto) 0.5 % (0.0-2.0) Sodium Level 129 MMOL/L (136-145) L Potassium Level 4.2 MMOL/L (3.5-5.1) Chloride Level 94 MMOL/L (98-107) L Carbon Dioxide Level 25 MMOL/L (21-32) Anion Gap 10 mmol/L (5-15) Blood Urea Nitrogen 13 mg/dL (7-18) Creatinine 0.4 MG/DL (0.55-1.30) L Estimat Glomerular Filtration Rate > 60 mL/min (>60) Glucose Level 150 MG/DL (74-106) H Calcium Level 9.0 MG/DL (8.5-10.1) Phosphorus Level 3.3 MG/DL (2.5-4.9) Magnesium Level 2.2 MG/DL (1.8-2.4) Plan Problems: (1) Decubital ulcer Assessment & Plan: Pt presented on admission with 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 Periwound is екатерина pink with scattered shearing. Partial thickness pressure injury noted to L hip .[place] granulation noted to base of wound(+) maceration along borders. Periwound without erythema or induration. Resolving skin tear noted to L tibia.Base of wound pale pink and dry. Non-blanchable erythema with fluctuance and delineated borders noted to medial R heel (L)3cm x (W)3cm.Periwound is clean and pink. L heel pink and blanchable. Tx.Plan: Cleanse Sacral wound with saline. Apply Therahoney Gel.Apply Triad Paste periwound. Cover with Optifoam drsg. Change daily and prn. Cleanse L hip with Saline. Apply Therahoney Gel. Cover with Optifoam drsg. Change daily and prn. Apply Cavilon Skin Barrier to Blister Medial R heel. Cover with Optifoam drsg. Change every 7 days and prn. Apply Cavilon Skin Barrier to L heel. Cover with Optifoam drsg. Change every 7 days and prn. APM/POOJA Mattress overlay. Reposition at least every 2hours or as tolerated. Off-load heel with pillow. (2) UTI (urinary tract infection) (3) Fever (4) Sepsis Assessment & Plan: leukocytosis improving on iv abx micro noted cont ABx Arnold Hi Nov 12, 2018 11:39
[2018-11-12 12:00] VITALS: BP 124/64
[2018-11-12] MEDS: Albuterol/Ipratropium 3ml neb HHN SCH ×2 (12:50→19:53)
[2018-11-12] MEDS: Amikacin 600 MG in NS 110 ML IV SCH (13:29)
--- NOTE | 2018-11-12 13:46 | NUR ---
*-* INSURANCE *-* CLINICALS AND REVIEW HAVE BEEN FAXED TO: ORIN ESCAMILLA: LASHANDA P- [phone] F- [phone]
[2018-11-12 16:00] VITALS: BP 118/54
--- NOTE | 2018-11-12 19:20 | NUR ---
NURSE NOTES: Received pt. and report from KASSI Tadeo. Observe pt. resting in bed with both eyes closed. Pt. is A/Ox0; respond only to pain. monitoring analyst is in placed, IV site intact, asymptomatic, and patent; running 1/2 NS @ 100cc/hr. Pt. has a T-piece; O2 stat at 98%. Pt. is on G-tube feeding of Glucerna 1.5 @ 45cc/hr. Bed is in the lowest position and locked. Call light within reach. No signs and symptom of acute distress noted at this time. Will continue plan of care.
--- NOTE | 2018-11-12 19:30 | NUR ---
HAND-OFF: Report given to KASSI Orta. Patient VS stable at this time with no sign of acute distress.
--- NOTE | 2018-11-12 19:55 | NUR ---
RESPIRATORY NOTE: Received pt on 30% Cool Aerosol via T-piece. Pt trach-dependent w/ a cuffed, Portex 7 tube. Cuff currently deflated. Pt obtunded/minimal response. B/S simone. rhonchi, sxn small amounts of thick/thin, white to pale-yellow secretions. [place]ubag & spare trach kit at bedside. Pt resting comfortably, in no apparent distress at this time. Will continue plan of care.
[2018-11-12 20:00] VITALS: BP 130/65
--- NOTE | 2018-11-12 23:02 | Pulmonology Progress Note ---
Assessment/Plan Assessment/Plan Pulmonary Progress Note Assessment/Plan UTI respiratory failure possible sepsis craniectomy trach GT plan IV fluids ID eval antibiotics feeds follow up labs dc once improved Subjective ROS Limited/Unobtainable: Yes Allergies: Coded Allergies: No Known Allergies (Unverified , 11/06/18) Objective Vital Signs Noted Objective WDWN NAD clear breath sounds bilaterally without rhonchi or wheeze [id number] without MRG NABS nontender no HSM no CCE reduced loc craniectomy GT Microbiology Date/Time Source Procedure Growth Status 11/06/18 12:30 Urine,Clean Catch Urine Culture - Preliminary Gram Negative Bacillus 1 Resulted Laboratory Tests 11/06/18 12:30: White Blood Count 24.9*H, Red Blood Count 3.21L, Hemoglobin 11.2L, Hematocrit 33.6L, Mean Corpuscular Volume 105H, Mean Corpuscular Hemoglobin 35.0H, Mean Corpuscular Hemoglobin Concent 33.4, Red Cell Distribution Width 12.0, Platelet Count 499H, Mean Platelet Volume 5.6L, Neutrophils (%) (Auto) , Lymphocytes (%) (Auto) , Monocytes (%) (Auto) , Eosinophils (%) (Auto) , Basophils (%) (Auto) , Differential Total Cells Counted 100, Neutrophils % (Manual) 84H, Lymphocytes % (Manual) 10L, Monocytes % (Manual) 5, Eosinophils % (Manual) 1, Basophils % ( Manual) 0, Band Neutrophils 0, Nucleated Red Blood Cells 1, Platelet Estimate IncreasedH, Platelet Morphology Normal, Urine Color Pale yellow, Urine Appearance Cloudy, Urine pH 8, Urine Specific [place] 1.010, Urine Protein 3+H, Urine Glucose (UA) Negative, Urine Ketones Negative, Urine Blood 3+H, Urine Nitrite Negative, Urine Bilirubin Negative, Urine Urobilinogen Normal, Urine Leukocyte Esterase 3+H, Urine RBC TntcH, Urine WBC TntcH, Urine Squamous Epithelial Cells Occasional, Urine Amorphous Sediment ModerateH, Urine Bacteria ManyH, Sodium Level 147H, Potassium Level 4.2, Chloride Level 109H, Carbon Dioxide Level 26, Anion Gap 12, Blood Urea Nitrogen 25H, Creatinine 0.5L, Estimat Glomerular Filtration Rate > 60, Glucose Level 163H, Lactic Acid Level 2.10H, Calcium Level 9.0, Total Bilirubin 0.3, Aspartate Amino Transf (AST/SGOT ) 20, Alanine Aminotransferase (ALT/SGPT) 46, Alkaline Phosphatase 191H, Total Creatine Kinase 56, Creatine Kinase MB 0.5, Creatine Kinase MB Relative Index 0.8, Troponin I 0.000, Total Protein 6.8, Albumin 2.3L, Globulin 4.5, Albumin/ Globulin Ratio 0.5L 11/06/18 14:20: Lactic Acid Level 2.10 11/07/18 06:00: White Blood Count 17.8H, Red Blood Count 2.99L, Hemoglobin 10.4L, Hematocrit 31.3L, Mean Corpuscular Volume 105H, Mean Corpuscular Hemoglobin 34.7H, Mean Corpuscular Hemoglobin Concent 33.1, Red Cell Distribution Width 12.2, Platelet Count 504H, Mean Platelet Volume 5.6L, Neutrophils (%) (Auto) , Lymphocytes (%) (Auto) , Monocytes (%) (Auto) , Eosinophils (%) (Auto) , Basophils (%) (Auto) , Neutrophils % (Manual) [Pending], Lymphocytes % (Manual) [Pending], Platelet Estimate [Pending], Platelet Morphology [Pending], Sodium Level 146H, Potassium Level 3.0L, Chloride Level 110H, Carbon Dioxide Level 25, Anion Gap 12, Blood Urea Nitrogen 23H, Creatinine 0.3L, Estimat Glomerular Filtration Rate > 60, Glucose Level 157H, Calcium Level 8.8 Current Medications Medications (Trade) Dose Ordered Sig/Dell Route PRN Reason Start Time Stop Time Status Last Admin Dose Admin Acetaminophen (Tylenol) 650 mg Q6H PRN NG pain 1-6 11/06/18 19:00 12/06/18 18:59 Albuterol/ Ipratropium (Albuterol/ Ipratropium) 3 ml Q6HRT HHN 11/07/18 01:00 11/12/18 00:59 11/07/18 07:53 Amantadine HCl (Symmetrel) 100 mg TWICE A DAY GT 11/07/18 09:00 12/07/18 08:59 Amlodipine Besylate (Norvasc) 10 mg DAILY NG 11/07/18 09:00 12/07/18 08:59 Cefepime HCl 1 gm/ Dextrose 55 ml @ 110 mls/hr Q24H IVPB 11/06/18 21:00 11/13/18 20:59 11/06/18 21:25 Dextrose (Dextrose 50%) 25 ml Q30M PRN IV Hypoglycemia 11/06/18 20:00 12/06/18 19:59 Dextrose (Dextrose 50%) 50 ml Q30M PRN IV Hypoglycemia 11/06/18 20:00 12/06/18 19:59 Heparin Sodium (Porcine) (Heparin 5000 units/ml) 5,000 units EVERY 12 HOURS SUBQ 11/06/18 21:00 12/06/18 20:59 11/06/18 21:26 Insulin Aspart (NovoLOG) Q6HR SUBQ 11/07/18 00:00 12/07/18 00:00 11/07/18 06:25 Ondansetron HCl (Zofran) 4 mg Q8H PRN IVP Nausea & Vomiting 11/06/18 19:00 12/06/18 18:59 Vancomycin HCl (Vanco rx to dose) 1 ea DAILY PRN MISC Per rx protocol 11/06/18 19:00 12/06/18 18:59 Vancomycin HCl 750 mg/Sodium Chloride 275 ml @ 183.333 mls/hr Q24H IVPB 11/06/18 22:00 11/11/18 21:59 11/06/18 22:58 Subjective ROS Limited/Unobtainable: No Allergies: Coded Allergies: No Known Allergies (Unverified , 11/06/18) Objective Last 24 Hour Vital Signs Date Time Temp Pulse Resp B/P (MAP) Pulse Ox O2 Delivery O2 Flow Rate FiO2 11/12/18 21:00 T-piece 8.0 11/12/18 20:03 110 18 100 T-piece 8.0 40 11/12/18 20:00 8.0 30 11/12/18 20:00 101 11/12/18 20:00 98.1 101 18 130/65 (86) 98 11/12/18 19:53 99 T-piece 8.0 30 11/12/18 19:53 T-piece 8.0 30 11/12/18 19:53 105 18 99 T-piece 8.0 30 11/12/18 16:00 98.1 109 18 118/54 (75) 99 11/12/18 16:00 107 11/12/18 16:00 8.0 30 11/12/18 12:58 112 22 99 T-piece 8.0 40 11/12/18 12:50 113 20 93 T-piece 8.0 30 11/12/18 12:00 8.0 30 11/12/18 12:00 97.5 114 20 124/64 (84) 98 11/12/18 12:00 115 11/12/18 09:00 T-piece 8.0 11/12/18 08:34 102 109/43 11/12/18 08:00 8.0 30 11/12/18 08:00 98.6 102 18 109/43 (65) 98 11/12/18 08:00 103 11/12/18 06:55 98 T-piece 8.0 30 11/12/18 06:55 T-piece 8.0 30 11/12/18 04:00 8.0 30 11/12/18 04:00 99.0 97 16 131/61 (84) 97 11/12/18 03:53 97 11/12/18 01:26 T-piece 8.0 35 11/12/18 01:26 T-piece 8.0 30 11/12/18 01:23 T-piece 8.0 30 11/12/18 01:23 98 T-piece 8.0 30 11/12/18 01:23 101 18 T-piece 8.0 30 11/12/18 00:00 98.4 103 20 145/69 (94) 97 11/11/18 23:46 102 Intake and Output 11/11/18 11/12/18 19:00 07:00 Intake Total 1943.333 ml 1790 ml Output Total 1600 ml 650 ml Balance 343.333 ml 1140 ml Intake Free Water 200 ml 300 ml IV Total 1183.333 ml 950 ml Tube Feeding 360 ml 540 ml Other 200 ml Output Urine Total 1600 ml 650 ml # Bowel Movements 2 1 Microbiology Date/Time Source Procedure Growth Status 11/10/18 15:00 Rectum VRE Culture - Final Enterococcus Faecalis - Vre Resulted 11/10/18 15:00 Rectum Pending Resulted Laboratory Tests 11/12/18 05:38: White Blood Count 11.4H, Red Blood Count 3.46L, Hemoglobin 12.2, Hematocrit 35.5L, Mean Corpuscular Volume 103H, Mean Corpuscular Hemoglobin 35.3H, Mean Corpuscular Hemoglobin Concent 34.4, Red Cell Distribution Width 13.3, Platelet Count 606H, Mean Platelet Volume 5.1L, Neutrophils (%) (Auto) 78.4H, Lymphocytes (%) (Auto) 17.4L, Monocytes (%) (Auto) 2.8, Eosinophils (%) (Auto) 1.0, Basophils (%) (Auto) 0.5, Sodium Level 129L, Potassium Level 4.2, Chloride Level 94L, Carbon Dioxide Level 25, Anion Gap 10, Blood Urea Nitrogen 13, Creatinine 0.4L, Estimat Glomerular Filtration Rate > 60, Glucose Level 150H, Calcium Level 9.0, Phosphorus Level 3.3, Magnesium Level 2.2 Current Medications Medications (Trade) Dose Ordered Sig/Dell Route PRN Reason Start Time Stop Time Status Last Admin Dose Admin Acetaminophen (Tylenol) 650 mg Q6H PRN NG pain 1-6 11/06/18 19:00 12/06/18 18:59 Albuterol/ Ipratropium (Albuterol/ Ipratropium) 3 ml Q6HRT HHN 11/12/18 13:00 11/17/18 12:59 11/12/18 19:53 Amantadine HCl (Symmetrel) 100 mg TWICE A DAY GT 11/07/18 09:00 12/07/18 08:59 11/12/18 18:05 Amikacin Protocol (Amikacin pharmacy to dose) 1 ea DAILY PRN MISC Per rx protocol 11/10/18 11:00 12/10/18 10:59 Amikacin Sulfate 600 mg/Sodium Chloride 112.4 ml @ 112.4 mls/ hr Q48H IV 11/12/18 13:30 11/17/18 12:29 11/12/18 13:29 Amlodipine Besylate (Norvasc) 10 mg DAILY NG 11/07/18 09:00 12/07/18 08:59 11/12/18 08:34 Dextrose (Dextrose 50%) 25 ml Q30M PRN IV Hypoglycemia 11/06/18 20:00 12/06/18 19:59 Dextrose (Dextrose 50%) 50 ml Q30M PRN IV Hypoglycemia 11/06/18 20:00 12/06/18 19:59 Heparin Sodium (Porcine) (Heparin 5000 units/ml) 5,000 units EVERY 12 HOURS SUBQ 11/06/18 21:00 12/06/18 20:59 11/12/18 21:40 Insulin Aspart (NovoLOG) Q6HR SUBQ 11/07/18 00:00 12/07/18 00:00 11/12/18 18:18 Ondansetron HCl (Zofran) 4 mg Q8H PRN IVP Nausea & Vomiting 11/06/18 19:00 12/06/18 18:59 Sodium Chloride 1,000 ml @ 100 mls/hr Q10H IV 11/07/18 08:45 12/07/18 08:44 11/12/18 18:05 Humza Smith MD Nov 12, 2018 23:02
[2018-11-13] VITALS: BP 99/50
[2018-11-13] MEDS: Albuterol/Ipratropium 3ml neb HHN SCH ×4 (01:30→18:32)
[2018-11-13 04:00] VITALS: BP 117/50
[2018-11-13] MEDS: NovoLOG Insulin Flexpen SUBQ SCH ×3 (06:18→17:34)
--- NOTE | 2018-11-13 07:22 | NUR ---
CASE MANAGEMENT:REVIEW 11/13/18 SI: RESPIRATORY FAILURE SEPSIS. ESBL UTI. 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
--- NOTE | 2018-11-13 07:28 | NUR ---
DISCHARGE PLANNING CT SCAN [employer] TECHNOLOGIST FAXED CLINICALS TO 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
--- NOTE | 2018-11-13 07:29 | NUR ---
NURSE NOTES: Received report from KASSI Orta. Patient is in stable condition. No acute distress/SOB noted. Will continue plan of care.
--- NOTE | 2018-11-13 07:57 | NUR ---
HAND-OFF: Report given to KASSI Katz.
[2018-11-13 08:00] VITALS: BP 119/61
[2018-11-13] MEDS: Amantadine 100mg cap GT SCH ×2 (09:15→17:23)
[2018-11-13] MEDS: Heparin 5000 units/ml inj SUBQ SCH ×2 (09:17→20:59)
[2018-11-13 12:00] VITALS: BP 114/58
--- NOTE | 2018-11-13 12:11 | NUR ---
*-* INSURANCE *-* CLINICALS AND REVIEW HAVE BEEN FAXED TO: ORIN ESCAMILLA: LASHANDA P- [phone] F- [phone]
--- NOTE | 2018-11-13 13:35 | NUR ---
NURSE NOTES: Talked with Dr. Gillis regarding sodium level. DCd IV fluid.
--- NOTE | 2018-11-13 13:40 | NUR ---
NURSE NOTES: Informed Dr. Rasta Johnson that patient is positive for KPCR rectum.
--- NOTE | 2018-11-13 15:23 | Surgery Progress Note ---
Surgery Progress Note Subjective Additional Comments no acute events. unchanged. comfortable. stable. Objective Last 24 Hour Vital Signs Date Time Temp Pulse Resp B/P (MAP) Pulse Ox O2 Delivery O2 Flow Rate FiO2 11/13/18 13:15 95 T-piece 8.0 30 11/13/18 13:14 T-piece 8.0 30 11/13/18 13:14 107 20 95 T-piece 8.0 30 11/13/18 12:00 98.8 105 18 114/58 (76) 97 11/13/18 12:00 100 11/13/18 12:00 8.0 30 11/13/18 09:16 104 119/61 11/13/18 09:00 T-piece 8.0 11/13/18 08:09 108 20 100 T-piece 8.0 30 11/13/18 08:00 98.5 104 19 119/61 (80) 100 11/13/18 08:00 8.0 30 11/13/18 08:00 108 11/13/18 07:59 112 20 99 T-piece 8.0 30 11/13/18 07:58 T-piece 8.0 30 11/13/18 07:57 99 T-piece 8.0 30 11/13/18 04:00 97.9 100 19 117/50 (72) 99 11/13/18 04:00 8.0 30 11/13/18 03:27 100 11/13/18 01:40 106 18 100 T-piece 8.0 30 11/13/18 01:31 T-piece 8.0 30 11/13/18 01:31 99 T-piece 8.0 30 11/13/18 01:30 99 18 99 T-piece 8.0 30 11/13/18 00:00 98.1 100 17 99/50 (66) 96 11/12/18 23:26 98 11/12/18 21:00 T-piece 8.0 11/12/18 20:03 110 18 100 T-piece 8.0 30 11/12/18 20:00 8.0 30 11/12/18 20:00 101 11/12/18 20:00 98.1 101 18 130/65 (86) 98 11/12/18 19:53 99 T-piece 8.0 30 11/12/18 19:53 T-piece 8.0 30 11/12/18 19:53 105 18 99 T-piece 8.0 30 11/12/18 16:00 98.1 109 18 118/54 (75) 99 11/12/18 16:00 107 11/12/18 16:00 8.0 30 I&O Intake and Output 11/12/18 11/13/18 19:00 07:00 Intake Total 1927.4 ml 1100 ml Output Total 1800 ml 1400 ml Balance 127.4 ml -300 ml Intake Free Water 300 ml IV Total 1312.4 ml 1100 ml Tube Feeding 315 ml Output Urine Total 1800 ml 1400 ml Dressing: saturated Wound: other Drains: other Cardiovascular: RSR Respiratory: decreased breath sounds Abdomen: soft, non-tender, present bowel sounds, non-distended Extremities: no tenderness, no cyanosis Plan Problems: (1) Decubital ulcer Assessment & Plan: Pt presented on admission with 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 Periwound is екатерина pink with scattered shearing. Partial thickness pressure injury noted to L hip .[place] granulation noted to base of wound(+) maceration along borders. Periwound without erythema or induration. Resolving skin tear noted to L tibia.Base of wound pale pink and dry. Non-blanchable erythema with fluctuance and delineated borders noted to medial R heel (L)3cm x (W)3cm.Periwound is clean and pink. L heel pink and blanchable. Tx.Plan: Cleanse Sacral wound with saline. Apply Therahoney Gel.Apply Triad Paste periwound. Cover with Optifoam drsg. Change daily and prn. Cleanse L hip with Saline. Apply Therahoney Gel. Cover with Optifoam drsg. Change daily and prn. Apply Cavilon Skin Barrier to Blister Medial R heel. Cover with Optifoam drsg. Change every 7 days and prn. Apply Cavilon Skin Barrier to L heel. Cover with Optifoam drsg. Change every 7 days and prn. APM/POOJA Mattress overlay. Reposition at least every 2hours or as tolerated. Off-load heel with pillow. (2) UTI (urinary tract infection) (3) Fever (4) Sepsis Assessment & Plan: leukocytosis improving on iv abx micro noted cont ABx Arnold Hi Nov 13, 2018 15:23
[2018-11-13 16:00] VITALS: BP 118/60
--- NOTE | 2018-11-13 19:10 | NUR ---
NURSE NOTES: Received pt. and report from KASSI Katz. Observe pt. resting in bed with both eyes closed. Pt. is A/Ox0; responds only to pain. rail car repairer is in placed, IV site intact, asymptomatic, and patent. Pt. has a T-piece; O2 stat at 97%. Pt. is on G-tube feeding of Glucerna 1.5 @ 45cc/hr; no residual noted. Bed is in the lowest position and locked. Call light within reach. No signs and symptom of acute distress noted at this time. Will continue plan of care.
--- NOTE | 2018-11-13 19:17 | NUR ---
HAND-OFF: Report given to KASSI Orta. Patient is in stable condition. Endorsed plan of care.
[2018-11-13 20:00] VITALS: BP 111/61
--- NOTE | 2018-11-13 20:36 | Pulmonology Progress Note ---
Assessment/Plan Assessment/Plan Pulmonary Progress Note Assessment/Plan UTI respiratory failure possible sepsis craniectomy trach GT plan IV fluids ID eval antibiotics feeds follow up labs dc once improved Subjective ROS Limited/Unobtainable: Yes Allergies: Coded Allergies: No Known Allergies (Unverified , 11/06/18) Objective Vital Signs Noted Objective WDWN NAD clear breath sounds bilaterally without rhonchi or wheeze [id number] without MRG NABS nontender no HSM no CCE reduced loc craniectomy GT Microbiology Date/Time Source Procedure Growth Status 11/06/18 12:30 Urine,Clean Catch Urine Culture - Preliminary Gram Negative Bacillus 1 Resulted Laboratory Tests 11/06/18 12:30: White Blood Count 24.9*H, Red Blood Count 3.21L, Hemoglobin 11.2L, Hematocrit 33.6L, Mean Corpuscular Volume 105H, Mean Corpuscular Hemoglobin 35.0H, Mean Corpuscular Hemoglobin Concent 33.4, Red Cell Distribution Width 12.0, Platelet Count 499H, Mean Platelet Volume 5.6L, Neutrophils (%) (Auto) , Lymphocytes (%) (Auto) , Monocytes (%) (Auto) , Eosinophils (%) (Auto) , Basophils (%) (Auto) , Differential Total Cells Counted 100, Neutrophils % (Manual) 84H, Lymphocytes % (Manual) 10L, Monocytes % (Manual) 5, Eosinophils % (Manual) 1, Basophils % ( Manual) 0, Band Neutrophils 0, Nucleated Red Blood Cells 1, Platelet Estimate IncreasedH, Platelet Morphology Normal, Urine Color Pale yellow, Urine Appearance Cloudy, Urine pH 8, Urine Specific [place] 1.010, Urine Protein 3+H, Urine Glucose (UA) Negative, Urine Ketones Negative, Urine Blood 3+H, Urine Nitrite Negative, Urine Bilirubin Negative, Urine Urobilinogen Normal, Urine Leukocyte Esterase 3+H, Urine RBC TntcH, Urine WBC TntcH, Urine Squamous Epithelial Cells Occasional, Urine Amorphous Sediment ModerateH, Urine Bacteria ManyH, Sodium Level 147H, Potassium Level 4.2, Chloride Level 109H, Carbon Dioxide Level 26, Anion Gap 12, Blood Urea Nitrogen 25H, Creatinine 0.5L, Estimat Glomerular Filtration Rate > 60, Glucose Level 163H, Lactic Acid Level 2.10H, Calcium Level 9.0, Total Bilirubin 0.3, Aspartate Amino Transf (AST/SGOT ) 20, Alanine Aminotransferase (ALT/SGPT) 46, Alkaline Phosphatase 191H, Total Creatine Kinase 56, Creatine Kinase MB 0.5, Creatine Kinase MB Relative Index 0.8, Troponin I 0.000, Total Protein 6.8, Albumin 2.3L, Globulin 4.5, Albumin/ Globulin Ratio 0.5L 11/06/18 14:20: Lactic Acid Level 2.10 11/07/18 06:00: White Blood Count 17.8H, Red Blood Count 2.99L, Hemoglobin 10.4L, Hematocrit 31.3L, Mean Corpuscular Volume 105H, Mean Corpuscular Hemoglobin 34.7H, Mean Corpuscular Hemoglobin Concent 33.1, Red Cell Distribution Width 12.2, Platelet Count 504H, Mean Platelet Volume 5.6L, Neutrophils (%) (Auto) , Lymphocytes (%) (Auto) , Monocytes (%) (Auto) , Eosinophils (%) (Auto) , Basophils (%) (Auto) , Neutrophils % (Manual) [Pending], Lymphocytes % (Manual) [Pending], Platelet Estimate [Pending], Platelet Morphology [Pending], Sodium Level 146H, Potassium Level 3.0L, Chloride Level 110H, Carbon Dioxide Level 25, Anion Gap 12, Blood Urea Nitrogen 23H, Creatinine 0.3L, Estimat Glomerular Filtration Rate > 60, Glucose Level 157H, Calcium Level 8.8 Current Medications Medications (Trade) Dose Ordered Sig/Dell Route PRN Reason Start Time Stop Time Status Last Admin Dose Admin Acetaminophen (Tylenol) 650 mg Q6H PRN NG pain 1-6 11/06/18 19:00 12/06/18 18:59 Albuterol/ Ipratropium (Albuterol/ Ipratropium) 3 ml Q6HRT HHN 11/07/18 01:00 11/12/18 00:59 11/07/18 07:53 Amantadine HCl (Symmetrel) 100 mg TWICE A DAY GT 11/07/18 09:00 12/07/18 08:59 Amlodipine Besylate (Norvasc) 10 mg DAILY NG 11/07/18 09:00 12/07/18 08:59 Cefepime HCl 1 gm/ Dextrose 55 ml @ 110 mls/hr Q24H IVPB 11/06/18 21:00 11/13/18 20:59 11/06/18 21:25 Dextrose (Dextrose 50%) 25 ml Q30M PRN IV Hypoglycemia 11/06/18 20:00 12/06/18 19:59 Dextrose (Dextrose 50%) 50 ml Q30M PRN IV Hypoglycemia 11/06/18 20:00 12/06/18 19:59 Heparin Sodium (Porcine) (Heparin 5000 units/ml) 5,000 units EVERY 12 HOURS SUBQ 11/06/18 21:00 12/06/18 20:59 11/06/18 21:26 Insulin Aspart (NovoLOG) Q6HR SUBQ 11/07/18 00:00 12/07/18 00:00 11/07/18 06:25 Ondansetron HCl (Zofran) 4 mg Q8H PRN IVP Nausea & Vomiting 11/06/18 19:00 12/06/18 18:59 Vancomycin HCl (Vanco rx to dose) 1 ea DAILY PRN MISC Per rx protocol 11/06/18 19:00 12/06/18 18:59 Vancomycin HCl 750 mg/Sodium Chloride 275 ml @ 183.333 mls/hr Q24H IVPB 11/06/18 22:00 11/11/18 21:59 11/06/18 22:58 Subjective ROS Limited/Unobtainable: No Allergies: Coded Allergies: No Known Allergies (Unverified , 11/06/18) Objective Last 24 Hour Vital Signs Date Time Temp Pulse Resp B/P (MAP) Pulse Ox O2 Delivery O2 Flow Rate FiO2 11/13/18 18:40 112 18 100 T-piece 8.0 30 11/13/18 18:32 110 20 98 T-piece 8.0 30 11/13/18 18:32 98 T-piece 8.0 30 11/13/18 18:32 T-piece 8.0 30 11/13/18 16:00 108 11/13/18 16:00 8.0 30 11/13/18 16:00 98.4 98 19 118/60 (79) 96 11/13/18 13:24 106 18 100 T-piece 8.0 30 11/13/18 13:15 95 T-piece 8.0 30 11/13/18 13:14 T-piece 8.0 30 11/13/18 13:14 107 20 95 T-piece 8.0 30 11/13/18 12:00 98.8 105 18 114/58 (76) 97 11/13/18 12:00 100 11/13/18 12:00 8.0 30 11/13/18 09:16 104 119/61 11/13/18 09:00 T-piece 8.0 11/13/18 08:09 108 20 100 T-piece 8.0 30 11/13/18 08:00 98.5 104 19 119/61 (80) 100 11/13/18 08:00 8.0 30 11/13/18 08:00 108 11/13/18 07:59 112 20 99 T-piece 8.0 30 11/13/18 07:58 T-piece 8.0 30 11/13/18 07:57 99 T-piece 8.0 30 11/13/18 04:00 97.9 100 19 117/50 (72) 99 11/13/18 04:00 8.0 30 11/13/18 03:27 100 11/13/18 01:40 106 18 100 T-piece 8.0 30 11/13/18 01:31 T-piece 8.0 30 11/13/18 01:31 99 T-piece 8.0 30 11/13/18 01:30 99 18 99 T-piece 8.0 30 11/13/18 00:00 98.1 100 17 99/50 (66) 96 11/12/18 23:26 98 11/12/18 21:00 T-piece 8.0 Intake and Output 11/12/18 11/13/18 19:00 07:00 Intake Total 1927.4 ml 1100 ml Output Total 1800 ml 1400 ml Balance 127.4 ml -300 ml Intake Free Water 300 ml IV Total 1312.4 ml 1100 ml Tube Feeding 315 ml Output Urine Total 1800 ml 1400 ml Current Medications Medications (Trade) Dose Ordered Sig/Dell Route PRN Reason Start Time Stop Time Status Last Admin Dose Admin Acetaminophen (Tylenol) 650 mg Q6H PRN NG pain 1-6 11/06/18 19:00 12/06/18 18:59 Albuterol/ Ipratropium (Albuterol/ Ipratropium) 3 ml Q6HRT HHN 11/12/18 13:00 11/17/18 12:59 11/13/18 18:32 Amantadine HCl (Symmetrel) 100 mg TWICE A DAY GT 11/07/18 09:00 12/07/18 08:59 11/13/18 17:23 Amikacin Protocol (Amikacin pharmacy to dose) 1 ea DAILY PRN MISC Per rx protocol 11/10/18 11:00 12/10/18 10:59 Amikacin Sulfate 600 mg/Sodium Chloride 112.4 ml @ 112.4 mls/ hr Q48H IV 11/12/18 13:30 11/17/18 12:29 11/12/18 13:29 Amlodipine Besylate (Norvasc) 10 mg DAILY NG 11/07/18 09:00 12/07/18 08:59 11/13/18 09:16 Dextrose (Dextrose 50%) 25 ml Q30M PRN IV Hypoglycemia 11/06/18 20:00 12/06/18 19:59 Dextrose (Dextrose 50%) 50 ml Q30M PRN IV Hypoglycemia 11/06/18 20:00 12/06/18 19:59 Heparin Sodium (Porcine) (Heparin 5000 units/ml) 5,000 units EVERY 12 HOURS SUBQ 11/06/18 21:00 12/06/18 20:59 11/13/18 09:17 Insulin Aspart (NovoLOG) Q6HR SUBQ 11/07/18 00:00 12/07/18 00:00 11/13/18 17:34 Ondansetron HCl (Zofran) 4 mg Q8H PRN IVP Nausea & Vomiting 11/06/18 19:00 12/06/18 18:59 Humza Smith MD Nov 13, 2018 20:36
[2018-11-14] VITALS: BP 122/73
[2018-11-14] MEDS: NovoLOG Insulin Flexpen SUBQ SCH ×4 (00:12→17:34)
[2018-11-14] MEDS: Albuterol/Ipratropium 3ml neb HHN SCH ×4 (01:24→19:32)
[2018-11-14 04:00] VITALS: BP 113/66
--- NOTE | 2018-11-14 07:14 | NUR ---
NURSE NOTES: Received report from KASSI Orta. Patient is in stable condition. No acute distress/SOB noted. Will continue plan of care.
--- NOTE | 2018-11-14 07:26 | NUR ---
HAND-OFF: Report given to KASSI Katz.
[2018-11-14 07:57] LABS: ANION GAP 11 mmol/L (5-15); BLOOD UREA NITROGEN 18 mg/dL (7-18); CALCIUM 9.3 MG/DL (8.5-10.1); CARBON DIOXIDE 25 MMOL/L (21-32); CHLORIDE 94 MMOL/L (98-107); CREATININE 0.4 MG/DL (0.55-1.30); POTASSIUM 5.1 MMOL/L (3.5-5.1); SODIUM 130 MMOL/L (136-145)
[2018-11-14 08:00] VITALS: BP_SYST 113; BP_SYST 147; BP_DIAS 66; BP_DIAS 75
[2018-11-14] MEDS: Amantadine 100mg cap GT SCH ×2 (09:07→17:28)
[2018-11-14] MEDS: Heparin 5000 units/ml inj SUBQ SCH ×2 (09:14→21:47)
--- NOTE | 2018-11-14 11:09 | NUR ---
CASE MANAGEMENT:REVIEW 11/14/18 SI: RESPIRATORY FAILURE SEPSIS. ESBL UTI. MRSA SACRAL WOUND 98.0 113 20 147/75 100% ON T-PIECE @ 8L/30% NA-130 IS: IV AMIKACIN Q48HRS IVF@100/HR NORVASC GT QD HEPARIN SQ Q12 DUONEB HHN Q5HRS RTC : TELEMETRY STATUS DCP: BACK TO [facility]
--- NOTE | 2018-11-14 11:33 | NUR ---
*-* INSURANCE *-* UPDATED CLINICALS AND REVIEW HAVE BEEN FAXED TO: ORIN ESCAMILLA: LASHANDA P- [phone] F- [phone]
[2018-11-14 12:00] VITALS: BP 144/70
--- NOTE | 2018-11-14 12:50 | Pulmonology Progress Note ---
Assessment/Plan Assessment/Plan Pulmonary Progress Note Assessment/Plan UTI respiratory failure possible sepsis craniectomy trach GT Hyponatremia Tachycardia plan Cardiology Consult for tachycardia EKG/Echo DC free water flushes AB per ID - awaiting DC of IV AB antibiotics feeds follow up labs dc once improved Subjective ROS Limited/Unobtainable: Yes Allergies: Coded Allergies: No Known Allergies (Unverified , 11/06/18) Objective Vital Signs Noted Objective WDWN NAD clear breath sounds bilaterally without rhonchi or wheeze [id number] without MRG NABS nontender no HSM no CCE reduced loc craniectomy GT Microbiology Date/Time Source Procedure Growth Status 11/06/18 12:30 Urine,Clean Catch Urine Culture - Preliminary Gram Negative Bacillus 1 Resulted Laboratory Tests 11/06/18 12:30: White Blood Count 24.9*H, Red Blood Count 3.21L, Hemoglobin 11.2L, Hematocrit 33.6L, Mean Corpuscular Volume 105H, Mean Corpuscular Hemoglobin 35.0H, Mean Corpuscular Hemoglobin Concent 33.4, Red Cell Distribution Width 12.0, Platelet Count 499H, Mean Platelet Volume 5.6L, Neutrophils (%) (Auto) , Lymphocytes (%) (Auto) , Monocytes (%) (Auto) , Eosinophils (%) (Auto) , Basophils (%) (Auto) , Differential Total Cells Counted 100, Neutrophils % (Manual) 84H, Lymphocytes % (Manual) 10L, Monocytes % (Manual) 5, Eosinophils % (Manual) 1, Basophils % ( Manual) 0, Band Neutrophils 0, Nucleated Red Blood Cells 1, Platelet Estimate IncreasedH, Platelet Morphology Normal, Urine Color Pale yellow, Urine Appearance Cloudy, Urine pH 8, Urine Specific Mcdaniel 1.010, Urine Protein 3+H, Urine Glucose (UA) Negative, Urine Ketones Negative, Urine Blood 3+H, Urine Nitrite Negative, Urine Bilirubin Negative, Urine Urobilinogen Normal, Urine Leukocyte Esterase 3+H, Urine RBC TntcH, Urine WBC TntcH, Urine Squamous Epithelial Cells Occasional, Urine Amorphous Sediment ModerateH, Urine Bacteria ManyH, Sodium Level 147H, Potassium Level 4.2, Chloride Level 109H, Carbon Dioxide Level 26, Anion Gap 12, Blood Urea Nitrogen 25H, Creatinine 0.5L, Estimat Glomerular Filtration Rate > 60, Glucose Level 163H, Lactic Acid Level 2.10H, Calcium Level 9.0, Total Bilirubin 0.3, Aspartate Amino Transf (AST/SGOT ) 20, Alanine Aminotransferase (ALT/SGPT) 46, Alkaline Phosphatase 191H, Total Creatine Kinase 56, Creatine Kinase MB 0.5, Creatine Kinase MB Relative Index 0.8, Troponin I 0.000, Total Protein 6.8, Albumin 2.3L, Globulin 4.5, Albumin/ Globulin Ratio 0.5L 11/06/18 14:20: Lactic Acid Level 2.10 11/07/18 06:00: White Blood Count 17.8H, Red Blood Count 2.99L, Hemoglobin 10.4L, Hematocrit 31.3L, Mean Corpuscular Volume 105H, Mean Corpuscular Hemoglobin 34.7H, Mean Corpuscular Hemoglobin Concent 33.1, Red Cell Distribution Width 12.2, Platelet Count 504H, Mean Platelet Volume 5.6L, Neutrophils (%) (Auto) , Lymphocytes (%) (Auto) , Monocytes (%) (Auto) , Eosinophils (%) (Auto) , Basophils (%) (Auto) , Neutrophils % (Manual) [Pending], Lymphocytes % (Manual) [Pending], Platelet Estimate [Pending], Platelet Morphology [Pending], Sodium Level 146H, Potassium Level 3.0L, Chloride Level 110H, Carbon Dioxide Level 25, Anion Gap 12, Blood Urea Nitrogen 23H, Creatinine 0.3L, Estimat Glomerular Filtration Rate > 60, Glucose Level 157H, Calcium Level 8.8 Current Medications Medications (Trade) Dose Ordered Sig/Dell Route PRN Reason Start Time Stop Time Status Last Admin Dose Admin Acetaminophen (Tylenol) 650 mg Q6H PRN NG pain 1-6 11/06/18 19:00 12/06/18 18:59 Albuterol/ Ipratropium (Albuterol/ Ipratropium) 3 ml Q6HRT HHN 11/07/18 01:00 11/12/18 00:59 11/07/18 07:53 Amantadine HCl (Symmetrel) 100 mg TWICE A DAY GT 11/07/18 09:00 12/07/18 08:59 Amlodipine Besylate (Norvasc) 10 mg DAILY NG 11/07/18 09:00 12/07/18 08:59 Cefepime HCl 1 gm/ Dextrose 55 ml @ 110 mls/hr Q24H IVPB 11/06/18 21:00 11/13/18 20:59 11/06/18 21:25 Dextrose (Dextrose 50%) 25 ml Q30M PRN IV Hypoglycemia 11/06/18 20:00 12/06/18 19:59 Dextrose (Dextrose 50%) 50 ml Q30M PRN IV Hypoglycemia 11/06/18 20:00 12/06/18 19:59 Heparin Sodium (Porcine) (Heparin 5000 units/ml) 5,000 units EVERY 12 HOURS SUBQ 11/06/18 21:00 12/06/18 20:59 11/06/18 21:26 Insulin Aspart (NovoLOG) Q6HR SUBQ 11/07/18 00:00 12/07/18 00:00 11/07/18 06:25 Ondansetron HCl (Zofran) 4 mg Q8H PRN IVP Nausea & Vomiting 11/06/18 19:00 12/06/18 18:59 Vancomycin HCl (Vanco rx to dose) 1 ea DAILY PRN MISC Per rx protocol 11/06/18 19:00 12/06/18 18:59 Vancomycin HCl 750 mg/Sodium Chloride 275 ml @ 183.333 mls/hr Q24H IVPB 11/06/18 22:00 11/11/18 21:59 11/06/18 22:58 Subjective ROS Limited/Unobtainable: Yes Allergies: Coded Allergies: No Known Allergies (Unverified , 11/06/18) Objective Last 24 Hour Vital Signs Date Time Temp Pulse Resp B/P (MAP) Pulse Ox O2 Delivery O2 Flow Rate FiO2 11/14/18 09:07 113 147/75 11/14/18 09:00 T-piece 8.0 11/14/18 08:20 111 20 100 T-piece 8.0 30 11/14/18 08:11 98 T-piece 8.0 30 11/14/18 08:10 T-piece 8.0 30 11/14/18 08:10 102 20 99 T-piece 8.0 30 11/14/18 08:00 8.0 30 11/14/18 08:00 98.0 113 24 147/75 (99) 95 11/14/18 04:00 113 11/14/18 04:00 97.9 113 18 113/66 (82) 95 11/14/18 04:00 8.0 30 11/14/18 01:35 108 18 100 T-piece 8.0 30 11/14/18 01:25 98 T-piece 8.0 30 11/14/18 01:25 T-piece 8.0 30 11/14/18 01:25 109 18 98 T-piece 8.0 30 11/14/18 00:00 98.2 98 18 122/73 (89) 98 11/14/18 00:00 108 11/13/18 21:00 T-piece 8.0 11/13/18 20:00 8.0 30 11/13/18 20:00 97.9 109 18 111/61 (78) 97 11/13/18 20:00 109 11/13/18 18:40 112 18 100 T-piece 8.0 30 11/13/18 18:32 110 20 98 T-piece 8.0 30 11/13/18 18:32 98 T-piece 8.0 30 11/13/18 18:32 T-piece 8.0 30 11/13/18 16:00 108 11/13/18 16:00 8.0 30 11/13/18 16:00 98.4 98 19 118/60 (79) 96 11/13/18 13:24 106 18 100 T-piece 8.0 30 11/13/18 13:15 95 T-piece 8.0 30 11/13/18 13:14 T-piece 8.0 30 11/13/18 13:14 107 20 95 T-piece 8.0 30 Intake and Output 11/13/18 11/14/18 19:00 07:00 Intake Total 730 ml Output Total 2250 ml Balance 730 ml -2250 ml IV Total 730 ml Output Urine Total 2250 ml Laboratory Tests 11/14/18 06:28: Sodium Level 130L, Potassium Level 5.1, Chloride Level 94L, Carbon Dioxide Level 25, Anion Gap 11, Blood Urea Nitrogen 18, Creatinine 0.4L, Estimat Glomerular Filtration Rate > 60, Glucose Level 196H, Calcium Level 9.3 Current Medications Medications (Trade) Dose Ordered Sig/Dell Route PRN Reason Start Time Stop Time Status Last Admin Dose Admin Acetaminophen (Tylenol) 650 mg Q6H PRN NG pain 1-6 11/06/18 19:00 12/06/18 18:59 Albuterol/ Ipratropium (Albuterol/ Ipratropium) 3 ml Q6HRT HHN 11/12/18 13:00 11/17/18 12:59 11/14/18 08:10 Amantadine HCl (Symmetrel) 100 mg TWICE A DAY GT 11/07/18 09:00 12/07/18 08:59 11/14/18 09:07 Amikacin Protocol (Amikacin pharmacy to dose) 1 ea DAILY PRN MISC Per rx protocol 11/10/18 11:00 12/10/18 10:59 Amikacin Sulfate 600 mg/Sodium Chloride 112.4 ml @ 112.4 mls/ hr Q48H IV 11/12/18 13:30 11/17/18 12:29 11/12/18 13:29 Amlodipine Besylate (Norvasc) 10 mg DAILY NG 11/07/18 09:00 12/07/18 08:59 11/14/18 09:07 Dextrose (Dextrose 50%) 25 ml Q30M PRN IV Hypoglycemia 11/06/18 20:00 12/06/18 19:59 Dextrose (Dextrose 50%) 50 ml Q30M PRN IV Hypoglycemia 11/06/18 20:00 12/06/18 19:59 Heparin Sodium (Porcine) (Heparin 5000 units/ml) 5,000 units EVERY 12 HOURS SUBQ 11/06/18 21:00 12/06/18 20:59 11/14/18 09:14 Insulin Aspart (NovoLOG) Q6HR SUBQ 11/07/18 00:00 12/07/18 00:00 11/14/18 11:49 Ondansetron HCl (Zofran) 4 mg Q8H PRN IVP Nausea & Vomiting 11/06/18 19:00 12/06/18 18:59 Humza Smith MD Nov 14, 2018 12:50
--- NOTE | 2018-11-14 13:23 | Infectious Diseases Prog Note ---
Assessment/Plan Assessment/Plan A; 1. Proteus urinary tract infection. ESBL & Carbapenem resistant 2. Leukocytosis resolved 3. Diabetes. 4. Hypertension. 5. Positive blood cultures with coagulase-negative Staph, is likely a contaminant. 6. MRSA colonization PLAN: 1. continue Amikacin X 1 day Subjective ROS Limited/Unobtainable: Yes Allergies: Coded Allergies: No Known Allergies (Unverified , 11/06/18) Objective Vital Signs Last 24 Hour Vital Signs Date Time Temp Pulse Resp B/P (MAP) Pulse Ox O2 Delivery O2 Flow Rate FiO2 11/14/18 09:07 113 147/75 11/14/18 09:00 T-piece 8.0 11/14/18 08:20 111 20 100 T-piece 8.0 30 11/14/18 08:11 98 T-piece 8.0 30 11/14/18 08:10 T-piece 8.0 30 11/14/18 08:10 102 20 99 T-piece 8.0 30 11/14/18 08:00 8.0 30 11/14/18 08:00 98.0 113 24 147/75 (99) 95 11/14/18 04:00 113 11/14/18 04:00 97.9 113 18 113/66 (82) 95 11/14/18 04:00 8.0 30 11/14/18 01:35 108 18 100 T-piece 8.0 30 11/14/18 01:25 98 T-piece 8.0 30 11/14/18 01:25 T-piece 8.0 30 11/14/18 01:25 109 18 98 T-piece 8.0 30 11/14/18 00:00 98.2 98 18 122/73 (89) 98 11/14/18 00:00 108 11/13/18 21:00 T-piece 8.0 11/13/18 20:00 8.0 30 11/13/18 20:00 97.9 109 18 111/61 (78) 97 11/13/18 20:00 109 11/13/18 18:40 112 18 100 T-piece 8.0 30 11/13/18 18:32 110 20 98 T-piece 8.0 30 11/13/18 18:32 98 T-piece 8.0 30 11/13/18 18:32 T-piece 8.0 30 11/13/18 16:00 108 11/13/18 16:00 8.0 30 11/13/18 16:00 98.4 98 19 118/60 (79) 96 11/13/18 13:24 106 18 100 T-piece 8.0 30 Height (Feet): 5 Height (Inches): 0.00 Weight (Pounds): 96 HEENT: status post trach, other - extensive craniotomy on left side Respiratory/Chest: lungs clear, other - on ventilator Cardiovascular: tachycardia Abdomen: soft, non tender, other - GT feeding Skin: ulcers Neurologic/Psychiatric: aphasia, other - opens eyes Laboratory Tests Test 11/14/18 06:28 Sodium Level 130 MMOL/L (136-145) L Potassium Level 5.1 MMOL/L (3.5-5.1) Chloride Level 94 MMOL/L (98-107) L Carbon Dioxide Level 25 MMOL/L (21-32) Anion Gap 11 mmol/L (5-15) Blood Urea Nitrogen 18 mg/dL (7-18) Creatinine 0.4 MG/DL (0.55-1.30) L Estimat Glomerular Filtration Rate > 60 mL/min (>60) Glucose Level 196 MG/DL (74-106) H Calcium Level 9.3 MG/DL (8.5-10.1) Current Medications Medications (Trade) Dose Ordered Sig/Dell Route PRN Reason Start Time Stop Time Status Last Admin Dose Admin Acetaminophen (Tylenol) 650 mg Q6H PRN NG pain 1-6 11/06/18 19:00 12/06/18 18:59 Albuterol/ Ipratropium (Albuterol/ Ipratropium) 3 ml Q6HRT HHN 11/12/18 13:00 11/17/18 12:59 11/14/18 08:10 Amantadine HCl (Symmetrel) 100 mg TWICE A DAY GT 11/07/18 09:00 12/07/18 08:59 11/14/18 09:07 Amikacin Protocol (Amikacin pharmacy to dose) 1 ea DAILY PRN MISC Per rx protocol 11/10/18 11:00 12/10/18 10:59 Amikacin Sulfate 600 mg/Sodium Chloride 112.4 ml @ 112.4 mls/ hr Q48H IV 11/12/18 13:30 11/17/18 12:29 11/12/18 13:29 Amlodipine Besylate (Norvasc) 10 mg DAILY NG 11/07/18 09:00 12/07/18 08:59 11/14/18 09:07 Dextrose (Dextrose 50%) 25 ml Q30M PRN IV Hypoglycemia 11/06/18 20:00 12/06/18 19:59 Dextrose (Dextrose 50%) 50 ml Q30M PRN IV Hypoglycemia 11/06/18 20:00 12/06/18 19:59 Heparin Sodium (Porcine) (Heparin 5000 units/ml) 5,000 units EVERY 12 HOURS SUBQ 11/06/18 21:00 12/06/18 20:59 11/14/18 09:14 Insulin Aspart (NovoLOG) Q6HR SUBQ 11/07/18 00:00 12/07/18 00:00 11/14/18 11:49 Ondansetron HCl (Zofran) 4 mg Q8H PRN IVP Nausea & Vomiting 11/06/18 19:00 12/06/18 18:59 Jose Angel Johnson MD Nov 14, 2018 13:23
[2018-11-14] MEDS: Amikacin 600 MG in NS 110 ML IV SCH (13:27)
[2018-11-14 16:00] VITALS: BP 122/60
--- NOTE | 2018-11-14 16:14 | Surgery Progress Note ---
Surgery Progress Note Subjective Additional Comments Exam unchanged. Leukocytosis improved. Labs noted. Seemingly comfortable. Objective Last 24 Hour Vital Signs Date Time Temp Pulse Resp B/P (MAP) Pulse Ox O2 Delivery O2 Flow Rate FiO2 11/14/18 15:45 114 18 100 T-piece 8.0 30 11/14/18 15:35 110 18 98 T-piece 8.0 30 11/14/18 15:35 T-piece 8.0 30 11/14/18 15:35 98 T-piece 8.0 30 11/14/18 12:00 97.8 117 22 144/70 (94) 99 11/14/18 12:00 115 11/14/18 12:00 8.0 30 11/14/18 09:07 113 147/75 11/14/18 09:00 T-piece 8.0 11/14/18 08:20 111 20 100 T-piece 8.0 30 11/14/18 08:11 98 T-piece 8.0 30 11/14/18 08:10 T-piece 8.0 30 11/14/18 08:10 102 20 99 T-piece 8.0 30 11/14/18 08:00 8.0 30 11/14/18 08:00 111 11/14/18 08:00 98.0 113 24 147/75 (99) 95 11/14/18 04:00 113 11/14/18 04:00 97.9 113 18 113/66 (82) 95 11/14/18 04:00 8.0 30 11/14/18 01:35 108 18 100 T-piece 8.0 30 11/14/18 01:25 98 T-piece 8.0 30 11/14/18 01:25 T-piece 8.0 30 11/14/18 01:25 109 18 98 T-piece 8.0 30 11/14/18 00:00 98.2 98 18 122/73 (89) 98 11/14/18 00:00 108 11/13/18 21:00 T-piece 8.0 11/13/18 20:00 8.0 30 11/13/18 20:00 97.9 109 18 111/61 (78) 97 11/13/18 20:00 109 11/13/18 18:40 112 18 100 T-piece 8.0 30 11/13/18 18:32 110 20 98 T-piece 8.0 30 11/13/18 18:32 98 T-piece 8.0 30 11/13/18 18:32 T-piece 8.0 30 I&O Intake and Output 11/13/18 11/14/18 19:00 07:00 Intake Total 730 ml Output Total 2250 ml Balance 730 ml -2250 ml IV Total 730 ml Output Urine Total 2250 ml Dressing: saturated Wound: other Drains: other Cardiovascular: RSR Respiratory: clear Abdomen: soft, present bowel sounds, non-distended Extremities: no tenderness, no cyanosis Laboratory Tests Test 11/14/18 06:28 Sodium Level 130 MMOL/L (136-145) L Potassium Level 5.1 MMOL/L (3.5-5.1) Chloride Level 94 MMOL/L (98-107) L Carbon Dioxide Level 25 MMOL/L (21-32) Anion Gap 11 mmol/L (5-15) Blood Urea Nitrogen 18 mg/dL (7-18) Creatinine 0.4 MG/DL (0.55-1.30) L Estimat Glomerular Filtration Rate > 60 mL/min (>60) Glucose Level 196 MG/DL (74-106) H Calcium Level 9.3 MG/DL (8.5-10.1) Plan Problems: (1) Decubital ulcer Assessment & Plan: Pt presented on admission with 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 Periwound is екатерина pink with scattered shearing. Partial thickness pressure injury noted to L hip .[place] granulation noted to base of wound(+) maceration along borders. Periwound without erythema or induration. Resolving skin tear noted to L tibia.Base of wound pale pink and dry. Non-blanchable erythema with fluctuance and delineated borders noted to medial R heel (L)3cm x (W)3cm.Periwound is clean and pink. L heel pink and blanchable. Tx.Plan: Cleanse Sacral wound with saline. Apply Therahoney Gel.Apply Triad Paste periwound. Cover with Optifoam drsg. Change daily and prn. Cleanse L hip with Saline. Apply Therahoney Gel. Cover with Optifoam drsg. Change daily and prn. Apply Cavilon Skin Barrier to Blister Medial R heel. Cover with Optifoam drsg. Change every 7 days and prn. Apply Cavilon Skin Barrier to L heel. Cover with Optifoam drsg. Change every 7 days and prn. APM/POOJA Mattress overlay. Reposition at least every 2hours or as tolerated. Off-load heel with pillow. (2) UTI (urinary tract infection) (3) Fever (4) Sepsis Assessment & Plan: leukocytosis improving on iv abx micro noted cont ABx Arnold Hi Nov 14, 2018 16:14
--- NOTE | 2018-11-14 19:12 | NUR ---
HAND-OFF: Report given to KASSI Odonnell. Patient is in stable condition. Endorsed plan of care.
--- NOTE | 2018-11-14 19:27 | NUR ---
NURSE NOTES: Received report from KASSI Katz. Patient in bed asleep showing no signs of acute distress. Respiration even and non labored on T-piece 8L. No sob noted. IV line patent and intact. GT patent and intact. GT feed tolerated fairly. Bed in lowest position. Call light within reach. Side rails up x3. Bed alarm on and wheels locked. All needs attended and met. Will continue plan of care.
[2018-11-14 20:00] VITALS: BP 116/65
[2018-11-15] VITALS: BP 119/60
[2018-11-15] MEDS: NovoLOG Insulin Flexpen SUBQ SCH ×3 (00:09→12:37)
[2018-11-15] MEDS: Albuterol/Ipratropium 3ml neb HHN SCH ×3 (01:25→12:47)
[2018-11-15 04:00] VITALS: BP 128/64
[2018-11-15] MEDS: Acetaminophen 650mg/20.3ml NG PRN ×2 (04:15→10:27)
--- NOTE | 2018-11-15 07:00 | NUR ---
RECEIVED REPORT FROM BRYSON SOLITARIO. PT RESTING IN BED WITH NO APPARENT DISTRESS.
--- NOTE | 2018-11-15 07:30 | NUR ---
HAND-OFF: Report given to KASSI Gandhi and KASSI Kenyon.
--- NOTE | 2018-11-15 07:46 | NUR ---
RESPIRATORY NOTE: received pt on t-piece at 30% fio2. pt is in no apparent resp distress, also is trached with portex 7; midline. no redness or skin tears visible around stoma or neck area. will cont to monitor.
--- NOTE | 2018-11-15 08:21 | Pulmonology Progress Note ---
Assessment/Plan Assessment/Plan UTI respiratory failure possible sepsis craniectomy trach GT mdr Multiple cultures plan dc antibiotics today ID eval monitor lytes feeds follow up labs dc to snf impression, plan, and exam edited and reviewed in detail care discussed with RN Subjective ROS Limited/Unobtainable: Yes Allergies: Coded Allergies: No Known Allergies (Unverified , 11/06/18) Subjective nad Objective Last 24 Hour Vital Signs Date Time Temp Pulse Resp B/P (MAP) Pulse Ox O2 Delivery O2 Flow Rate FiO2 11/15/18 07:48 120 18 100 T-piece 8.0 30 11/15/18 07:43 100 T-piece 8.0 30 11/15/18 07:43 T-piece 8.0 30 11/15/18 07:43 121 18 100 T-piece 8.0 30 11/15/18 04:45 98.0 11/15/18 04:00 8.0 30 11/15/18 04:00 131 11/15/18 04:00 98.0 113 20 128/64 (85) 99 11/15/18 01:35 129 18 100 T-piece 8.0 30 11/15/18 01:25 128 18 100 T-piece 8.0 30 11/15/18 01:25 T-piece 8.0 30 11/15/18 01:25 98 T-piece 8.0 30 11/15/18 00:00 8.0 30 11/15/18 00:00 123 11/15/18 00:00 98.8 123 20 119/60 (79) 100 11/14/18 21:00 T-piece 8.0 11/14/18 20:00 8.0 30 11/14/18 20:00 116 11/14/18 20:00 98.4 121 21 116/65 (82) 100 11/14/18 19:42 117 18 100 T-piece 8.0 30 11/14/18 19:32 T-piece 8.0 30 11/14/18 19:32 117 18 100 T-piece 8.0 30 11/14/18 19:32 100 T-piece 8.0 30 11/14/18 16:00 115 11/14/18 16:00 8.0 30 11/14/18 16:00 98.5 118 20 122/60 (80) 99 11/14/18 15:45 114 18 100 T-piece 8.0 30 11/14/18 15:35 110 18 98 T-piece 8.0 30 11/14/18 15:35 T-piece 8.0 30 11/14/18 15:35 98 T-piece 8.0 30 11/14/18 12:00 97.8 117 22 144/70 (94) 99 11/14/18 12:00 115 11/14/18 12:00 8.0 30 11/14/18 09:07 113 147/75 11/14/18 09:00 T-piece 8.0 Intake and Output 11/14/18 11/15/18 18:59 06:59 Intake Total 112.4 ml Output Total 500 ml 700 ml Balance -387.6 ml -700 ml IV Total 112.4 ml Output Urine Total 500 ml 700 ml Objective WDWN NAD clear breath sounds bilaterally without rhonchi or wheeze [id number] without MRG NABS nontender no HSM no CCE reduced loc craniectomy GT Current Medications Medications (Trade) Dose Ordered Sig/Dell Route PRN Reason Start Time Stop Time Status Last Admin Dose Admin Acetaminophen (Tylenol) 650 mg Q6H PRN NG pain 1-6 11/06/18 19:00 12/06/18 18:59 11/15/18 04:15 Albuterol/ Ipratropium (Albuterol/ Ipratropium) 3 ml Q6HRT HHN 11/12/18 13:00 11/17/18 12:59 11/15/18 07:43 Amantadine HCl (Symmetrel) 100 mg TWICE A DAY GT 11/07/18 09:00 12/07/18 08:59 11/14/18 17:28 Amikacin Protocol (Amikacin pharmacy to dose) 1 ea DAILY PRN MISC Per rx protocol 11/10/18 11:00 12/10/18 10:59 Amikacin Sulfate 600 mg/Sodium Chloride 112.4 ml @ 112.4 mls/ hr Q48H IV 11/12/18 13:30 11/17/18 12:29 11/14/18 13:27 Amlodipine Besylate (Norvasc) 10 mg DAILY NG 11/07/18 09:00 12/07/18 08:59 11/14/18 09:07 Dextrose (Dextrose 50%) 25 ml Q30M PRN IV Hypoglycemia 11/06/18 20:00 12/06/18 19:59 Dextrose (Dextrose 50%) 50 ml Q30M PRN IV Hypoglycemia 11/06/18 20:00 12/06/18 19:59 Heparin Sodium (Porcine) (Heparin 5000 units/ml) 5,000 units EVERY 12 HOURS SUBQ 11/06/18 21:00 12/06/18 20:59 11/14/18 21:47 Insulin Aspart (NovoLOG) Q6HR SUBQ 11/07/18 00:00 12/07/18 00:00 11/15/18 06:30 Ondansetron HCl (Zofran) 4 mg Q8H PRN IVP Nausea & Vomiting 11/06/18 19:00 12/06/18 18:59 Mejia Cruz MD Nov 15, 2018 08:21
[2018-11-15] MEDS: Amantadine 100mg cap GT SCH (08:50)
[2018-11-15] MEDS: Heparin 5000 units/ml inj SUBQ SCH (08:53)
[2018-11-15 09:00] VITALS: BP 122/60
--- NOTE | 2018-11-15 10:00 | NUR ---
WOUND CARE DONE ORDERED. NEW DRESSING APPLIED TO SACRAL/BUTTOCKS,LEFT HIP, RIGHT THIGH, AND LLE.
--- NOTE | 2018-11-15 10:30 | Infectious Diseases Prog Note ---
Assessment/Plan Assessment/Plan antibiotics : amikacin iv 3.31.19 - A 1. proteus UTI s/p rx 2. Leukocytosis resolved 3. Diabetes. 4. Hypertension. 5. Positive blood cultures with coagulase-negative Staph, is likely a contaminant. P 1. d/c iv amikacin 2. observe off antibiotics Subjective ROS Limited/Unobtainable: Yes Allergies: Coded Allergies: No Known Allergies (Unverified , 11/06/18) Objective Vital Signs Last 24 Hour Vital Signs Date Time Temp Pulse Resp B/P (MAP) Pulse Ox O2 Delivery O2 Flow Rate FiO2 11/15/18 09:00 98.0 88 18 122/60 (80) 95 11/15/18 08:51 88 122/60 11/15/18 07:48 120 18 100 T-piece 8.0 30 11/15/18 07:43 100 T-piece 8.0 30 11/15/18 07:43 T-piece 8.0 30 11/15/18 07:43 121 18 100 T-piece 8.0 30 11/15/18 04:45 98.0 11/15/18 04:00 8.0 30 11/15/18 04:00 131 11/15/18 04:00 98.0 113 20 128/64 (85) 99 11/15/18 01:35 129 18 100 T-piece 8.0 30 11/15/18 01:25 128 18 100 T-piece 8.0 30 11/15/18 01:25 T-piece 8.0 30 11/15/18 01:25 98 T-piece 8.0 30 11/15/18 00:00 8.0 30 11/15/18 00:00 123 11/15/18 00:00 98.8 123 20 119/60 (79) 100 11/14/18 21:00 T-piece 8.0 11/14/18 20:00 8.0 30 11/14/18 20:00 116 11/14/18 20:00 98.4 121 21 116/65 (82) 100 11/14/18 19:42 117 18 100 T-piece 8.0 30 11/14/18 19:32 T-piece 8.0 30 11/14/18 19:32 117 18 100 T-piece 8.0 30 11/14/18 19:32 100 T-piece 8.0 30 11/14/18 16:00 115 11/14/18 16:00 8.0 30 11/14/18 16:00 98.5 118 20 122/60 (80) 99 11/14/18 15:45 114 18 100 T-piece 8.0 30 11/14/18 15:35 110 18 98 T-piece 8.0 30 11/14/18 15:35 T-piece 8.0 30 11/14/18 15:35 98 T-piece 8.0 30 11/14/18 12:00 97.8 117 22 144/70 (94) 99 11/14/18 12:00 115 11/14/18 12:00 8.0 30 Height (Feet): 5 Height (Inches): 0.00 Weight (Pounds): 96 HEENT: status post trach Respiratory/Chest: rhonchi - bilaterally - GT Cardiovascular: normal rate, regular rhythm, no gallop/murmur Abdomen: soft, non tender, other - GT Extremities: no edema Current Medications Medications (Trade) Dose Ordered Sig/Dell Route PRN Reason Start Time Stop Time Status Last Admin Dose Admin Acetaminophen (Tylenol) 650 mg Q6H PRN NG pain 1-6 11/06/18 19:00 12/06/18 18:59 11/15/18 10:27 Albuterol/ Ipratropium (Albuterol/ Ipratropium) 3 ml Q6HRT HHN 11/12/18 13:00 11/17/18 12:59 11/15/18 07:43 Amantadine HCl (Symmetrel) 100 mg TWICE A DAY GT 11/07/18 09:00 12/07/18 08:59 11/15/18 08:50 Amikacin Protocol (Amikacin pharmacy to dose) 1 ea DAILY PRN MISC Per rx protocol 11/10/18 11:00 12/10/18 10:59 Amikacin Sulfate 600 mg/Sodium Chloride 112.4 ml @ 112.4 mls/ hr Q48H IV 11/12/18 13:30 11/17/18 12:29 11/14/18 13:27 Amlodipine Besylate (Norvasc) 10 mg DAILY NG 11/07/18 09:00 12/07/18 08:59 11/15/18 08:51 Dextrose (Dextrose 50%) 25 ml Q30M PRN IV Hypoglycemia 11/06/18 20:00 12/06/18 19:59 Dextrose (Dextrose 50%) 50 ml Q30M PRN IV Hypoglycemia 11/06/18 20:00 12/06/18 19:59 Heparin Sodium (Porcine) (Heparin 5000 units/ml) 5,000 units EVERY 12 HOURS SUBQ 11/06/18 21:00 12/06/18 20:59 11/15/18 08:53 Insulin Aspart (NovoLOG) Q6HR SUBQ 11/07/18 00:00 12/07/18 00:00 11/15/18 06:30 Ondansetron HCl (Zofran) 4 mg Q8H PRN IVP Nausea & Vomiting 11/06/18 19:00 12/06/18 18:59 Brien Rodriguez MD Nov 15, 2018 10:30
--- NOTE | 2018-11-15 10:37 | NUR ---
DISCHARGE PLANNED PATIENT IS RETURNING TO [facility] ROOM [address] GROUP HOME T: [phone] FOR NURSE TO NURSE REPORT [facility] HAS BEEN ARRANGED FOR 1230 MANUFACTURING JOB TITLES
--- NOTE | 2018-11-15 11:00 | Surgery Progress Note ---
Surgery Progress Note Subjective Additional Comments no acute events. stable. on t piece via vent. exam stable. vitals stable. Objective Last 24 Hour Vital Signs Date Time Temp Pulse Resp B/P (MAP) Pulse Ox O2 Delivery O2 Flow Rate FiO2 11/15/18 09:00 98.0 88 18 122/60 (80) 95 11/15/18 08:51 88 122/60 11/15/18 07:48 120 18 100 T-piece 8.0 30 11/15/18 07:43 100 T-piece 8.0 30 11/15/18 07:43 T-piece 8.0 30 11/15/18 07:43 121 18 100 T-piece 8.0 30 11/15/18 07:30 Room Air 11/15/18 04:45 98.0 11/15/18 04:00 8.0 30 11/15/18 04:00 131 11/15/18 04:00 98.0 113 20 128/64 (85) 99 11/15/18 01:35 129 18 100 T-piece 8.0 30 11/15/18 01:25 128 18 100 T-piece 8.0 30 11/15/18 01:25 T-piece 8.0 30 11/15/18 01:25 98 T-piece 8.0 30 11/15/18 00:00 8.0 30 11/15/18 00:00 123 11/15/18 00:00 98.8 123 20 119/60 (79) 100 11/14/18 21:00 T-piece 8.0 11/14/18 20:00 8.0 30 11/14/18 20:00 116 11/14/18 20:00 98.4 121 21 116/65 (82) 100 11/14/18 19:42 117 18 100 T-piece 8.0 30 11/14/18 19:32 T-piece 8.0 30 11/14/18 19:32 117 18 100 T-piece 8.0 30 11/14/18 19:32 100 T-piece 8.0 30 11/14/18 16:00 115 11/14/18 16:00 8.0 30 11/14/18 16:00 98.5 118 20 122/60 (80) 99 11/14/18 15:45 114 18 100 T-piece 8.0 30 11/14/18 15:35 110 18 98 T-piece 8.0 30 11/14/18 15:35 T-piece 8.0 30 11/14/18 15:35 98 T-piece 8.0 30 11/14/18 12:00 97.8 117 22 144/70 (94) 99 11/14/18 12:00 115 11/14/18 12:00 8.0 30 I&O Intake and Output 11/14/18 11/15/18 18:59 06:59 Intake Total 112.4 ml Output Total 500 ml 700 ml Balance -387.6 ml -700 ml IV Total 112.4 ml Output Urine Total 500 ml 700 ml Dressing: saturated Wound: clean Drains: other Cardiovascular: RSR Respiratory: clear Abdomen: soft, present bowel sounds, non-distended Extremities: no tenderness, no cyanosis Plan Problems: (1) Decubital ulcer Assessment & Plan: Pt presented on admission with 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 Periwound is екатерина pink with scattered shearing. Partial thickness pressure injury noted to L hip .[place] granulation noted to base of wound(+) maceration along borders. Periwound without erythema or induration. Resolving skin tear noted to L tibia.Base of wound pale pink and dry. Non-blanchable erythema with fluctuance and delineated borders noted to medial R heel (L)3cm x (W)3cm.Periwound is clean and pink. L heel pink and blanchable. Tx.Plan: Cleanse Sacral wound with saline. Apply Therahoney Gel.Apply Triad Paste periwound. Cover with Optifoam drsg. Change daily and prn. Cleanse L hip with Saline. Apply Therahoney Gel. Cover with Optifoam drsg. Change daily and prn. Apply Cavilon Skin Barrier to Blister Medial R heel. Cover with Optifoam drsg. Change every 7 days and prn. Apply Cavilon Skin Barrier to L heel. Cover with Optifoam drsg. Change every 7 days and prn. APM/POOJA Mattress overlay. Reposition at least every 2hours or as tolerated. Off-load heel with pillow. (2) UTI (urinary tract infection) (3) Fever (4) Sepsis Assessment & Plan: leukocytosis improving on iv abx micro noted cont Abx cont with wound care Arnold Hi Nov 15, 2018 11:00
[2018-11-15 12:00] VITALS: BP 136/72
--- NOTE | 2018-11-15 12:40 | NUR ---
*-* INSURANCE *-* UPDATED CLINICALS HAVE BEEN FAXED TO: ORIN ESCAMILLA: LASHANDA P- [phone] F- [phone]
--- NOTE | 2018-11-15 13:30 | NUR ---
PT DISCHARGED TO [facility]. SPOKE WITH VENECIA SOLITARIO WHO WAS GIVEN FULL REPORT AND CONFIRMED PT HAS NO FAMILY. IV DISCONTINUED AND APPLIED 4X4 DRESSING. PT DISCHARGED WITH PATENT/INTACT G-TUBE AND F/C. PHOTOS OF SKIN(SACRUM/BUTTOCKS,LEFT HIP,RIGHT THIGH, LLE, AND BILATERAL HEELS) TAKEN PER PROTOCOL. PHOTOS UPLOADED ON FILE. PT HAS NO BELONGINGS. PT DISCHARGED VIA AMBULANCE WITH AMBULANCE PERSONNEL.
--- NOTE | 2018-11-18 09:42 | Discharge Summary ---
Discharge Summary Discharge Summary _ DATE OF ADMISSION: 11/06/2018 DATE OF DISCHARGE: 405 19 DISCHARGED BY: Dr. Cruz REASON FOR ADMISSION: 68 years old female with past medical history of chronic respiratory failure, tracheostomy status, dysphagia, G-tube, seizure disorder, hypertension, type 2 diabetes mellitus, status post left craniotomy, nonverbal, and from the prison facility for evaluation due to 3 days of fevers and leukocytosis with WBC 15. Upon evaluation in emergency department patient was afebrile. Pulse oximetry was stable on oxygen 4 L via trach collar. Laboratory workup revealed significant leukocytosis WBC 24.9. Hemoglobin 11.2, hematocrit 33.6. Platelet count 499. Lactic acid 2.1. BUN 25, creatinine 0.5. Sodium 147. Glucose 163. Troponin negative.EKG revealed normal sinus rhythm no acute ischemic changes. Stable LFT. Urinalysis revealed evidence of urinary tract infection. Chest x-ray revealed no acute cardiopulmonary pathology. Patient was admitted for further management. CONSULTANTS: ID specialist Dr. Rodriguez surgery Dr. Hi [facility] COURSE: Patient admitted to the hospital and started on IV hydration and empiric antibiotics. Infectious disease doctor specialist closely followed. Urine culture revealed Proteus mirabilis ESBL. Blood culture 1 out of 4 revealed Staphylococci coagulase negative. Wound culture revealed Proteus mirabilis, E. coli, MRSA, and enterococci . Wound did not look infected. Antibiotic regimen provided as per infectious disease specialist recommendation. Leukocytosis trending down, prior to discharge 11.4. No fevers. Patient completed antibiotic treatment for UTI, while in the hospital. Infectious disease doctor recommended to keep patient off antibiotic and observe closely. Positive blood culture with Staphylococcus coag negative was likely a contaminant as per ID specialist. General surgeon closely followed for sacral decubitus ulcer stage IV, present on admission. Sacral decubitus ulcer did not look infected as per surgeon. Wound care provided as per surgeon recommendation. Continue wound care at the facility. Chest x-ray was stable. Tracheostomy care provided. Pulmonary toilet provided as needed. No evidence of respiratory infection. Fraction of inspired oxygen was titrated to keep pulse oximetry above 90%. Patient was on the IV fluids. Renal parameters and electrolytes were closely monitored. Electrolytes corrected as needed. Nephrotoxins were avoided. Prior to discharge BUN from 25 down to 18 and creatinine remain stable. Potassium stabilized after replacement. Sodium trended down from initial. Blood sugar was managed with sliding scale of insulin. DVT prophylaxis provided. Blood pressure was managed with calcium channel tobias and remained stable. Strict aspiration precautions were maintained. G-tube feeding provided. Patient was able to tolerate G-tube feeding. Per nutritional assessment, patient had a high nutritional risk. Tube feeding formula and rate provided as per registered dietitian recommendation. Supportive care provided. Bowel regimen instituted. Patient clinically stabilized and was ready for transfer back to prison facility for continuation of care. FINAL DIAGNOSES: Possible sepsis Proteus ESBL UTI , status post treatment Sacral decubitus ulcer stage IV , present on admission Hypertension Diabetes Chronic respiratory failure Tracheostomy status Status post left craniotomy Dysphasia , G-tube DISCHARGE MEDICATIONS: List of medication was sent to accepting facility. DISCHARGE INSTRUCTIONS: Patient was discharged to prison facility. Follow-up with medical doctor and manager express at the facility. I have been assigned to dictate discharge summary for this account. I was not involved in the patient's management. Radha Mota NP Nov 18, 2018 09:42
--- NOTE | 2018-11-18 19:36 | Cardiology Report ---
APPROVED REPORT EKG Measurement Heart [id number] Sinus tachycardia Otherwise normal ECG
== END 2018-11-15 13:31 | DRG 871 ==
LOC: EDBD 11:44 → EMR 12:37 → 2E 12:46 → EDBEDREQ 15:43 → 2E 18:27
DX: A41.9 Sepsis, unspecified organism (principal); L89.224 Pressure ulcer of left hip, stage 4; N39.0 Urinary tract infection, site not specified; Z43.1 Encounter for attention to gastrostomy; J96.10 Chronic respiratory failure, unspecified whether with hypoxia or hypercapnia; I10 Essential (primary) hypertension; E11.9 Type 2 diabetes mellitus without complications; B96.4 Proteus (mirabilis) (morganii) as the cause of diseases classified elsewhere; Z16.12 Extended spectrum beta lactamase (ESBL) resistance; Z43.0 Encounter for attention to tracheostomy; R13.10 Dysphagia, unspecified; Z79.4 Long term (current) use of insulin; Z22.322 Carrier or suspected carrier of Methicillin resistant Staphylococcus aureus
CPT/HCPCS: 36415; 71045; 80048; 80053; 80150; 81003; 82550; 82553; 82962; 83605; 83735; 84100; 84484; 85007; 85025; 87040; 87070; 87081; 87086; 87181; 87205; 93005; 93306; 94640; 94664; 94760; 96361; 96365; 99285; J1815; J7620; J8499

== ENCOUNTER 2018-12-19 11:25 | Inpatient (IN) | payer MEDICARE, MEDICAID ==
[~2018-12-19] VITALS: Ht 157.5 cm; Wt 46.4 kg
[2018-12-19] VITALS (11 sets, daily range): BP systolic 91–135; BP diastolic 38–77
[2018-12-19] MEDS ORDERED: Cefepime HCl 2 GM in NS 110 ML IV SCH (11:30)
[2018-12-19] MEDS ORDERED: HEPARIN SO5000 UNIT2 SUBQ (11:46)
[2018-12-19] MEDS ORDERED: FOLIC ACID1 MG GT (11:46)
[2018-12-19] MEDS ORDERED: PROMOD946 ML PO (11:46)
[2018-12-19] MEDS ORDERED: CRANBERRY200 M1 GT (11:46)
[2018-12-19] MEDS ORDERED: PRILOSEC OTC20 MG GT (11:46)
[2018-12-19] MEDS ORDERED: LEVEMIR100 UNIT/1 SUBQ (11:46)
[2018-12-19] MEDS ORDERED: ALBUTEROL2.5 MG/3 M INH (11:46)
[2018-12-19] MEDS ORDERED: VITAMIN B-1100 MG GT (11:46)
[2018-12-19] MEDS ORDERED: ATENOLOL50 MG GT (11:46)
[2018-12-19] MEDS ORDERED: HUMULIN R100 UNIT/1 SUBQ (11:46)
[2018-12-19] MEDS ORDERED: FERROUS SULFAT325 MG GT (11:46)
[2018-12-19] MEDS ORDERED: COLACE100 MG GT (11:46)
[2018-12-19] MEDS ORDERED: MULTI-DELYN237 ML GT (11:46)
[2018-12-19] MEDS ORDERED: LEVETIRACE500 MG/51 GT (11:46)
[2018-12-19] MEDS ORDERED: AMLODIPINE BESY10 MG GT (11:46)
--- NOTE | 2018-12-19 11:51 | Emergency Room Report ---
History of Present Illness General Chief Complaint: Fever Source: Medical Record, EMS Present Illness HPI This patient is brought in from a group home facility for fever. Per report earlier this morning patient had a temp of 102. The patient is nonverbal at baseline with a history of respiratory failure and is ventilator dependent. 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 She has a history of encephalopathy, seizures, diabetes, hypertension. The patient herself is unable to give any type of history. Allergies: Coded Allergies: No Known Allergies (Unverified , 11/06/18) Patient History Past Medical History: see triage record, old chart reviewed, DM, HTN, GERD, seizures, other - Respiratory failure-ventilator dependent Past Surgical History: other - Trach, PEG, craniectomy Social History: Denies: smoking, alcohol use, drug use Reviewed Nursing Documentation: PMH: Agreed; PSxH: Agreed Nursing Documentation-PMH Past Medical History: No History, Except For Hx Cardiac Problems: No - sacral ulcer, respiratory failure, tracheostomy, anemia Hx Hypertension: Yes Hx Diabetes: Yes - Type II Hx Gastrointestinal Problems: Yes - G-TUBE Hx Cerebrovascular Accident: Yes - craniotomy Hx Seizures: Yes Review of Systems All Other Systems: limited Physical Exam Vital Signs Date Time Temp Pulse Resp B/P (MAP) Pulse Ox O2 Delivery O2 Flow Rate FiO2 12/19/18 11:22 83 19 95 Mechanical Ventilator Sp02 EP Interpretation: reviewed, normal General Appearance: no apparent distress, non-toxic, Chronically Ill Head: normocephalic, atraumatic ENT: no angioedema, other - Trach/ventilator Neck: normal inspection Respiratory: chest non-tender, no respiratory distress, no retraction, no accessory muscle use, rhonchi Cardiovascular #1: regular rate, rhythm, no edema Gastrointestinal: normal bowel sounds, soft, non-distended, no guarding, no rebound Rectal: deferred Musculoskeletal: other - contracted, ansasarca Neurologic: other - TRACH/VENT, unable to fully assess. Non-focal. Psychiatric: mood/affect normal Skin: warm/dry, well hydrated, other - See RN skin exam Medical Decision Making Diagnostic Impression: Primary Impression: Sepsis Additional Impressions: Multi-lobar pneumonia Anemia ER Course The patient presents with multilobar pneumonia. She was febrile at the group home facility with report of a temperature of 102. She was given Tylenol prior to arrival. She was afebrile here in the emergency department. However, white blood cell count was 21,000. The patient is also anemic but does not meet criteria for blood transfusion at this time. She was given IV fluids and broad-spectrum antibiotics and admitted to the ICU for further IV antibiotics, evaluation and treatment. This patient is critically ill. This patient required complex medical decision- making, aggressive intervention, extensive laboratory workup and monitoring. Critical care time: 40 minutes. Laboratory Tests Test 12/19/18 11:51 12/19/18 12:45 White Blood Count 21.3 K/UL (4.8-10.8) H Red Blood Count 2.60 M/UL (4.20-5.40) L Hemoglobin 9.0 G/DL (12.0-16.0) L Hematocrit 25.6 % (37.0-47.0) L Mean Corpuscular Volume 98 FL (80-99) Mean Corpuscular Hemoglobin 34.5 PG (27.0-31.0) H Mean Corpuscular Hemoglobin Concent 35.1 G/DL (32.0-36.0) Red Cell Distribution Width 12.2 % (11.6-14.8) Platelet Count 364 K/UL (150-450) Mean Platelet Volume 6.6 FL (6.5-10.1) Neutrophils (%) (Auto) % (45.0-75.0) Lymphocytes (%) (Auto) % (20.0-45.0) Monocytes (%) (Auto) % (1.0-10.0) Eosinophils (%) (Auto) % (0.0-3.0) Basophils (%) (Auto) % (0.0-2.0) Differential Total Cells Counted 100 Neutrophils % (Manual) 89 % (45-75) H Lymphocytes % (Manual) 7 % (20-45) L Monocytes % (Manual) 4 % (1-10) Eosinophils % (Manual) 0 % (0-3) Basophils % (Manual) 0 % (0-2) Band Neutrophils 0 % (0-8) Platelet Estimate Adequate Platelet Morphology Normal Red Blood Cell Morphology Normal Sodium Level 137 MMOL/L (136-145) Potassium Level 3.2 MMOL/L (3.5-5.1) L Chloride Level 100 MMOL/L (98-107) Carbon Dioxide Level 28 MMOL/L (21-32) Anion Gap 9 mmol/L (5-15) Blood Urea Nitrogen 22 mg/dL (7-18) H Creatinine 0.5 MG/DL (0.55-1.30) L Estimate Glomerular Filtration Rate > 60 mL/min (>60) Glucose Level 132 MG/DL (74-106) H Lactic Acid Level 2.00 mmol/L (0.4-2.0) Calcium Level 8.4 MG/DL (8.5-10.1) L Total Bilirubin 0.3 MG/DL (0.2-1.0) Aspartate Amino Transferase (AST) 21 U/L (15-37) Alanine Aminotransferase (ALT) 50 U/L (12-78) Alkaline Phosphatase 179 U/L (46-116) H Total Creatine Kinase 12 U/L (26-308) L Creatine Kinase MB < 0.5 NG/ML (0.0-3.6) Creatine Kinase MB Relative Index Troponin I 0.000 ng/mL (0.000-0.056) Total Protein 6.3 G/DL (6.4-8.2) L Albumin 1.6 G/DL (3.4-5.0) L Globulin 4.7 g/dL Albumin/Globulin Ratio 0.3 (1.0-2.7) L Urine Color Yellow Urine Appearance Slightly cloudy Urine pH 6 (4.5-8.0) Urine Specific [place] 1.010 (1.005-1.035) Urine Protein 2+ (NEGATIVE) H Urine Glucose (UA) Negative (NEGATIVE) Urine Ketones 1+ (NEGATIVE) H Urine Blood 1+ (NEGATIVE) H Urine Nitrite Negative (NEGATIVE) Urine Bilirubin Negative (NEGATIVE) Urine Urobilinogen Normal MG/DL (0.0-1.0) Urine Leukocyte Esterase 1+ (NEGATIVE) H Urine RBC 2-4 /HPF (0 - 2) H Urine WBC 2-4 /HPF (0 - 2) Urine Squamous Epithelial Cells Moderate /LPF (NONE/OCC) H Urine Bacteria Few /HPF (NONE) Urine Yeast Few /HPF (NONE) H Microbiology Date/Time Source Procedure Growth Status 12/19/18 12:00 Nasal Nares - Final Complete 12/19/18 12:00 Nasal Nares - Final Complete EKG Diagnostic Results Rate: normal Rhythm: NSR ST Segments: other - Flipped T-waves, V1, V2, V3 Rhythm Strip Diag. Results EP Interpretation: yes Rate: 80's Rhythm: NSR, no PVC's, no ectopy Chest X-Ray Diagnostic Results Chest X-Ray Diagnostic Results : Chest X-Ray Ordered: Yes # of Views/Limited/Complete: 1 View Indication: Other - fever EP Interpretation: Yes Interpretation: other - Extensive bilateral opacities, c/w PNA Impression: Other - Impression: Opacities c/w Multilobar PNA Electronically Signed by: Sophie Bee DO Last Vital Signs Date Time Temp Pulse Resp B/P (MAP) Pulse Ox O2 Delivery O2 Flow Rate FiO2 12/19/18 11:22 83 19 95 Mechanical Ventilator Disposition: ADMITTED INPATIENT Condition: Critical Sophie Bee DO December 19, 2018 11:51
--- NOTE | 2018-12-19 12:11 | Diagnostic Imaging Report ---
Indication: Dyspnea Comparison: 11/06/2018 A single view chest radiograph was obtained. Findings: There is a PLUMBING INSTALLER shunt noted projected over the right side. Tracheostomy is noted. The heart is enlarged. There are consolidative opacities fairly extensive in both lungs. IMPRESSION: Extensive bilateral airspace disease. Findings may be due to pulmonary edema or inflammatory/infectious infiltrates. Correlate clinically.
[2018-12-19 12:14] LABS: HEMATOCRIT 25.6 % (37.0-47.0); MEAN CORPUSCULAR VOLUME 98 FL (80-99); PLATELET COUNT 364 K/UL (150-450); RED CELL DISTRIBUTION WIDTH 12.2 % (11.6-14.8); WHITE BLOOD COUNT 21.3 K/UL (4.8-10.8)
[2018-12-19 12:24] LABS: ANION GAP 9 mmol/L (5-15); BLOOD UREA NITROGEN 22 mg/dL (7-18); CALCIUM 8.4 MG/DL (8.5-10.1); CARBON DIOXIDE 28 MMOL/L (21-32); CHLORIDE 100 MMOL/L (98-107); CREATININE 0.5 MG/DL (0.55-1.30); POTASSIUM 3.2 MMOL/L (3.5-5.1); SODIUM 137 MMOL/L (136-145)
[2018-12-19 12:37] LABS: ALANINE AMINOTRANSFERASE 50 U/L (12-78); ALBUMIN 1.6 G/DL (3.4-5.0); ALBUMIN/GLOBULIN RATIO 0.3 (1.0-2.7); ALKALINE PHOSPHATASE 179 U/L (46-116); ASPARTATE AMINO TRANSFERASE 21 U/L (15-37); BILIRUBIN,TOTAL 0.3 MG/DL (0.2-1.0); CKMB < 0.5 NG/ML (0.0-3.6); CREATINE KINASE 12 U/L (26-308)
[2018-12-19 13:05] LABS: APPEARANCE,URINE SLIGHTLY CLOUDY; BILIRUBIN, URINE NEGATIVE (NEGATIVE); GLUCOSE, URINE (UA) NEGATIVE (NEGATIVE); KETONES,URINE 1+ (NEGATIVE); LEUKOCYTE ESTERASE ,URINE 1+ (NEGATIVE); NITRITE,URINE NEGATIVE (NEGATIVE); PH,URINE 6 (4.5-8.0); PROTEIN,URINE 2+ (NEGATIVE); UROBILINOGEN,URINE NORMAL MG/DL (0.0-1.0)
--- NOTE | 2018-12-19 13:06 | NUR ---
ED Nurse Note: Pt came from [facility] nursing via [facility]. Pt presenting with high fever, reported 102, rectal temp at bedside was 99.8, ED MD notified.Pt awake not alert, VSS other than temp. Pressure wound noted on coccyx, dressed and clean. Pictures taken for chart.
[2018-12-19 13:16] LABS: COLOR,URINE YELLOW
--- NOTE | 2018-12-19 14:00 | NUR ---
ED Nurse Note: Patient voided x 1. Yellow urine noted. Changed linen. Applied dressing over the sacrum.
--- NOTE | 2018-12-19 14:30 | NUR ---
ED Nurse Note: pt repositioned for comfort, small intact blister noted on right inner calf.
[2018-12-19] MEDS ORDERED: Vancomycin 1 GM in NS 275 ML IV ONE (15:15)
--- NOTE | 2018-12-19 16:06 | NUR ---
ED Nurse Note: Attempted to give report to ICU nurse, will call back in 30 mins per their request
--- NOTE | 2018-12-19 17:07 | NUR ---
HAND-OFF: Report given to KASSI Jimenez in ICU. Pt stable
--- NOTE | 2018-12-19 17:30 | NUR ---
NURSE NOTES: Received patient non verbal. opens eyes. trach to vent. portex 7 ac 12 VT 500 Fio2 40% no peep. G tube intact. dressing dry. Lung sounds clear bilaterally. Hypoactive bowel sounds present in all 4 quadrants. Patient has sacral ulcer, L calf scarring. pictures taken see WCP. VSS. No distress noted. Will continue plan of care.
--- NOTE | 2018-12-19 19:11 | NUR ---
HAND-OFF: Report given to Bach RN using SBAR vss no distress noted.
--- NOTE | 2018-12-19 19:30 | NUR ---
NURSE NOTES: Received report from KASSI Jimenez. Patient is resting in bed, non verbal. opens eyes. VS stable, in no acute distress, trach to vent. Portex 7 ac 12 VT 500 Fio2 40% no peep. G tube intact. dressing dry. Lung sounds clear bilaterally. Hypoactive bowel sounds present in all 4 quadrants. Patient has sacral ulcer, L calf scarring. Fitzgerald 16fr, draining cloudy urine. pictures taken see WCP. Call light within reach, bed in low and lock position, padded side rails. HOB kept elevated. Will continue plan of care.
[2018-12-19] MEDS: levETIRAcetam 500mg/5ml Liquid NG SCH (21:05)
[2018-12-19] MEDS: Pantoprazole Inj IVP SCH (21:05)
[2018-12-19] MEDS: Heparin 5000 units/ml inj SUBQ SCH (21:06)
[2018-12-19] MEDS: Levemir Flexpen SUBQ SCH (21:08)
--- NOTE | 2018-12-19 22:00 | NUR ---
NURSE NOTES: Pt's resting in bed, in no acute distress. VS stable. Will continue to monitor.
[2018-12-19] MEDS: Piperacillin/Tazobactam 3.375 GM in NS 110 ML IVPB SCH (22:27)
[2018-12-20] VITALS (23 sets, daily range): BP systolic 102–134; BP diastolic 35–54
--- NOTE | 2018-12-20 | NUR ---
NURSE NOTES: Pt's resting in bed, in no acute distress. VS stable. Will continue to monitor.
--- NOTE | 2018-12-20 01:45 | History and Physical Report ---
DATE OF ADMISSION: 12/19/2018 REASON FOR ADMISSION: Leukocytosis, sepsis, and respiratory failure. HISTORY: This is a 68-year-old female admitted with increase in white cell count, increasing fevers, and increasing lethargy. The patient has been treated at the custodial with overall lack of improvement. The patient had baseline respiratory failure and overall has failure to thrive. She is chronically ill and chronically ventilator-dependent. The patient has had some intermittent respiratory distress and now admitted for acute care. PAST MEDICAL HISTORY: Notable for craniectomy, CVA, intracranial bleed, diabetes, hypertension, prior history of sepsis, and prior history of pneumonia. MEDICATIONS: Reviewed. ALLERGIES: Reviewed. SOCIAL HISTORY: Currently, the patient is a [facility] patient. She is ventilator-dependent due to the chronic decubitus ulcer. REVIEW OF SYSTEMS: Unobtainable. PHYSICAL EXAMINATION: GENERAL: A well-developed female, chronically ill. VITAL SIGNS: Noted. Blood pressure 108/42, pulse 76, respirations 15, and sats 99%. HEENT: Negative. NECK: Supple. No adenopathy. Tracheostomy. Midline craniectomy noted. LUNGS: With moderate breath sounds. Some rhonchi. CARDIAC: S1, S2. Regular rate and rhythm. ABDOMEN: Soft. G-tube in place. EXTREMITIES: No edema. NEUROLOGICAL: Poorly responsive. IMAGING: Chest x-ray with extensive airspace disease. The white cell count is elevated at 21.3, hemoglobin 9, and platelets normal. Chemistries noted. Potassium 3.2. Albumin 1.6. IMPRESSION: 1. Sepsis. 2. Leukocytosis. 3. Respiratory failure. 4. Bilateral pneumonia. 5. Hypokalemia. 6. Severe protein-calorie malnutrition. 7. Prior craniectomy and intracranial bleed. RECOMMENDATIONS: 1. Supportive care. 2. Antibiotics. 3. ID evaluation. 4. Ventilator support. 5. Intravenous hydration. 6. DVT prophylaxis and close monitoring and support. 7. Prognosis is guarded. 8. Followup clinically for changes. Mejia Cruz M.D. DR: PHILL JOB#: [id number] CC:
--- NOTE | 2018-12-20 02:00 | NUR ---
NURSE NOTES: Pt's resting in bed, in no acute distress. VS stable. Will continue to monitor.
--- NOTE | 2018-12-20 04:00 | NUR ---
NURSE NOTES: Pt's resting in bed, in no acute distress. VS stable. Will continue to monitor.
[2018-12-20 04:39] LABS: HEMATOCRIT 25.1 % (37.0-47.0); HEMOGLOBIN 8.7 G/DL (12.0-16.0); MEAN CORPUSCULAR VOLUME 100 FL (80-99); PLATELET COUNT 338 K/UL (150-450); RED CELL DISTRIBUTION WIDTH 12.4 % (11.6-14.8); WHITE BLOOD COUNT 21.1 K/UL (4.8-10.8)
[2018-12-20 05:01] LABS: ALANINE AMINOTRANSFERASE 33 U/L (12-78); ALBUMIN 1.4 G/DL (3.4-5.0); ALBUMIN/GLOBULIN RATIO 0.3 (1.0-2.7); ALKALINE PHOSPHATASE 142 U/L (46-116); ANION GAP 8 mmol/L (5-15); ASPARTATE AMINO TRANSFERASE 14 U/L (15-37); BILIRUBIN,TOTAL 0.3 MG/DL (0.2-1.0); BLOOD UREA NITROGEN 13 mg/dL (7-18); CALCIUM 8.3 MG/DL (8.5-10.1); CARBON DIOXIDE 26 MMOL/L (21-32); CHLORIDE 104 MMOL/L (98-107); CREATININE 0.3 MG/DL (0.55-1.30); POTASSIUM 3.1 MMOL/L (3.5-5.1); SODIUM 138 MMOL/L (136-145)
[2018-12-20] MEDS: Piperacillin/Tazobactam 3.375 GM in NS 110 ML IVPB SCH ×3 (05:46→22:21)
--- NOTE | 2018-12-20 06:00 | NUR ---
NURSE NOTES: Pt's resting in bed, in no acute distress. VS stable. Will continue to monitor.
--- NOTE | 2018-12-20 07:25 | NUR ---
HAND-OFF: Report given to KASSI Emerson.
--- NOTE | 2018-12-20 07:26 | NUR ---
NURSE NOTES: Report received from KASSI Hill. Pt is resting in bed. Open eyes but eyes do not follow. Non-verbal and does not follow commands. Left side skull bone flap from previous craniectomy due to CVA noted. Sinus rhythm on [employer]. Trach to vent. P 7, AC 12, TV500, FiO2 40%. O2 sat 100%. No respiratory distress noted. G tube in place and kept NPO as per order. Fitzgerald in place draining to gravity. Dressing on sacrum is dry and intact. IV to left hand G20 and right G20 patent and asymptomatic. NS is running at 100cc/hr. Addendum: 12/20/18 at 0743 by MARTÍN COLEY RN RN NURSE NOTES: Report received from KASSI Hill. Pt is resting in bed. Open eyes but eyes do not follow. Non-verbal and does not follow commands. Left side skull bone flap from previous craniectomy due to CVA noted. Sinus rhythm on [employer]. Trach to vent. P 7, AC 12, TV500, FiO2 40%. O2 sat 100%. No respiratory distress noted. G tube in place and kept NPO as per order. Fitzgerald in place draining to gravity. Dressing on sacrum is dry and intact. IV to left hand G20 and right G20 patent and asymptomatic. NS is running at 100cc/hr. Bed in lowest position. Side rails up x3. Will resume plan of care.
--- NOTE | 2018-12-20 07:29 | NUR ---
RESPIRATORY NOTE: Received pt on cuffed, Portex 7.0 with the current vent settings: AC 12-500ml-40% FiO2 no peep. Pt is tolerating the vent well, saturates at 100%. Richy rhonchi B/s heard upon auscultation, suctioned small amount of thick frothy white/cisse secretions without incidents. Alarms are on and audible, vent is plugged into the red outlet, ambu bag is at bedside, vent circuits and suction tube are secured and out of the way. No SOB or resp distress noted. Will continue to monitor pt.
--- NOTE | 2018-12-20 07:48 | NUR ---
NURSE NOTES: account clerk administered D50 50ml at 0721 for BS 45. BS rechecked now. 193. Addendum: 12/20/18 at 0750 by MARTÍN COLEY RN RN NURSE NOTES: account clerk administered D50 50ml at 0721 for BS 50. BS rechecked now. 193.
--- NOTE | 2018-12-20 08:32 | NUR ---
RADIOLOGY: PCXR COMPLETED 0830 HRS. NF
[2018-12-20] MEDS: Ferrous Sulfate 300 MG/5 ML UDC GT SCH (08:33)
[2018-12-20] MEDS: Multivitamins W/Minerals 15 ML UDC GT SCH (08:33)
[2018-12-20] MEDS: levETIRAcetam 500mg/5ml Liquid NG SCH ×2 (08:33→20:57)
[2018-12-20] MEDS: Pantoprazole Inj IVP SCH ×2 (08:33→21:03)
[2018-12-20] MEDS: Thiamine 100mg tab GT SCH (08:34)
[2018-12-20] MEDS: Docusate 100mg/10ml Liq GT SCH (08:35)
[2018-12-20] MEDS: Heparin 5000 units/ml inj SUBQ SCH ×2 (08:36→21:13)
--- NOTE | 2018-12-20 08:55 | NUR ---
NURSE NOTES: Notified Dr Cruz regarding ABG result. Awaiting call back for new orders.
[2018-12-20] MEDS ORDERED: Docusate 100mg cap ORAL SCH (09:00)
--- NOTE | 2018-12-20 09:01 | Critical Care Progress Note ---
Assessment/Plan Assessment/Plan IMPRESSION: 1. Sepsis. 2. Leukocytosis. 3. Respiratory failure. 4. Bilateral pneumonia. 5. Hypokalemia. 6. Severe protein-calorie malnutrition. 7. Prior craniectomy and intracranial bleed. PLAN care as is vent and adjust ID pending WBC elevated feeds supportive care impression, plan, and exam edited and reviewed in detail care discussed with lithograph press operator - Subjective ROS Limited/Unobtainable: Yes Condition: critical EKG Rhythm: Sinus Rhythm I&O: Intake and Output 12/19/18 12/20/18 19:00 07:00 Intake Total 100 ml 1340.00 ml Output Total 0 ml 1300 ml Balance 100 ml 40.00 ml Intake IV Total 100 ml 1340.00 ml Output Urine Total 0 ml 1300 ml # Voids 1 # Bowel Movements 1 Critical Care - Objective Last 24 Hour Vital Signs Date Time Temp Pulse Resp B/P (MAP) Pulse Ox O2 Delivery O2 Flow Rate FiO2 12/20/18 08:34 76 134/44 12/20/18 08:34 76 134/44 12/20/18 08:00 Mechanical Ventilator 12/20/18 08:00 98.2 81 16 134/44 (74) 100 12/20/18 08:00 40 12/20/18 07:54 82 12/20/18 07:29 83 22 40 12/20/18 07:00 79 15 128/46 (73) 97 12/20/18 06:00 98.5 72 13 110/44 (66) 100 12/20/18 05:15 77 15 40 12/20/18 05:00 78 15 122/46 (71) 97 12/20/18 04:00 40 12/20/18 04:00 72 15 98 12/20/18 04:00 Mechanical Ventilator 12/20/18 04:00 71 12/20/18 03:23 73 13 40 12/20/18 03:00 76 16 125/48 (73) 98 12/20/18 02:00 98.2 71 14 117/43 (67) 99 12/20/18 01:08 72 17 40 12/20/18 01:00 71 17 120/47 (71) 98 12/20/18 00:00 75 12/20/18 00:00 74 16 119/48 (71) 100 12/20/18 00:00 Mechanical Ventilator 12/20/18 00:00 40 12/19/18 23:12 80 16 40 12/19/18 23:00 75 16 118/47 (70) 100 12/19/18 22:00 75 18 125/39 (67) 100 12/19/18 21:31 75 18 40 12/19/18 21:00 98.4 76 15 122/43 (69) 100 12/19/18 20:00 Mechanical Ventilator 12/19/18 20:00 82 12/19/18 20:00 80 18 91/77 (82) 100 12/19/18 20:00 40 12/19/18 19:21 73 16 40 12/19/18 19:00 74 18 117/60 (79) 100 12/19/18 18:00 75 18 124/64 (84) 100 12/19/18 17:17 Mechanical Ventilator 12/19/18 17:08 76 15 108/42 99 Mechanical Ventilator 40 12/19/18 17:00 97.7 77 20 116/56 (76) 100 12/19/18 16:47 77 19 40 12/19/18 15:36 40 12/19/18 14:33 76 15 40 12/19/18 14:30 97.7 76 15 107/39 100 Room Air 40 12/19/18 13:30 97.9 75 14 106/39 99 Mechanical Ventilator 40 12/19/18 13:29 81 19 40 12/19/18 12:30 98.4 78 17 107/38 99 Mechanical Ventilator 40 12/19/18 11:37 83 21 40 12/19/18 11:30 75 19 Mechanical Ventilator 40 12/19/18 11:30 99.8 75 19 135/57 100 Mechanical Ventilator 40 12/19/18 11:22 99.9 83 19 95 Mechanical Ventilator Labs: Laboratory Tests Test 12/19/18 11:51 12/19/18 12:45 12/19/18 16:35 12/20/18 03:40 White Blood Count 21.3 K/UL (4.8-10.8) H 21.1 K/UL (4.8-10.8) H Red Blood Count 2.60 M/UL (4.20-5.40) L 2.50 M/UL (4.20-5.40) L Hemoglobin 9.0 G/DL (12.0-16.0) L 8.7 G/DL (12.0-16.0) L Hematocrit 25.6 % (37.0-47.0) L 25.1 % (37.0-47.0) L Mean Corpuscular Volume 98 FL (80-99) 100 FL (80-99) H Mean Corpuscular Hemoglobin 34.5 PG (27.0-31.0) H 34.7 PG (27.0-31.0) H Mean Corpuscular Hemoglobin Concent 35.1 G/DL (32.0-36.0) 34.5 G/DL (32.0-36.0) Red Cell Distribution Width 12.2 % (11.6-14.8) 12.4 % (11.6-14.8) Platelet Count 364 K/UL (150-450) 338 K/UL (150-450) Mean Platelet Volume 6.6 FL (6.5-10.1) 6.5 FL (6.5-10.1) Neutrophils (%) (Auto) % (45.0-75.0) % (45.0-75.0) Lymphocytes (%) (Auto) % (20.0-45.0) % (20.0-45.0) Monocytes (%) (Auto) % (1.0-10.0) % (1.0-10.0) Eosinophils (%) (Auto) % (0.0-3.0) % (0.0-3.0) Basophils (%) (Auto) % (0.0-2.0) % (0.0-2.0) Differential Total Cells Counted 100 100 Neutrophils % (Manual) 89 % (45-75) H 86 % (45-75) H Lymphocytes % (Manual) 7 % (20-45) L 10 % (20-45) L Monocytes % (Manual) 4 % (1-10) 4 % (1-10) Eosinophils % (Manual) 0 % (0-3) 0 % (0-3) Basophils % (Manual) 0 % (0-2) 0 % (0-2) Band Neutrophils 0 % (0-8) 0 % (0-8) Platelet Estimate Adequate Adequate Platelet Morphology Normal Normal Red Blood Cell Morphology Normal Sodium Level 137 MMOL/L (136-145) 138 MMOL/L (136-145) Potassium Level 3.2 MMOL/L (3.5-5.1) L 3.1 MMOL/L (3.5-5.1) L Chloride Level 100 MMOL/L (98-107) 104 MMOL/L (98-107) Carbon Dioxide Level 28 MMOL/L (21-32) 26 MMOL/L (21-32) Anion Gap 9 mmol/L (5-15) 8 mmol/L (5-15) Blood Urea Nitrogen 22 mg/dL (7-18) H 13 mg/dL (7-18) Creatinine 0.5 MG/DL (0.55-1.30) L 0.3 MG/DL (0.55-1.30) L Estimat Glomerular Filtration Rate > 60 mL/min (>60) > 60 mL/min (>60) Glucose Level 132 MG/DL (74-106) H 45 MG/DL (74-106) L Lactic Acid Level 2.00 mmol/L (0.4-2.0) 0.80 mmol/L (0.4-2.0) Calcium Level 8.4 MG/DL (8.5-10.1) L 8.3 MG/DL (8.5-10.1) L Total Bilirubin 0.3 MG/DL (0.2-1.0) 0.3 MG/DL (0.2-1.0) Aspartate Amino Transf (AST/SGOT) 21 U/L (15-37) 14 U/L (15-37) L Alanine Aminotransferase (ALT/SGPT) 50 U/L (12-78) 33 U/L (12-78) Alkaline Phosphatase 179 U/L (46-116) H 142 U/L (46-116) H Total Creatine Kinase 12 U/L (26-308) L Creatine Kinase MB < 0.5 NG/ML (0.0-3.6) Creatine Kinase MB Relative Index Troponin I 0.000 ng/mL (0.000-0.056) Total Protein 6.3 G/DL (6.4-8.2) L 5.8 G/DL (6.4-8.2) L Albumin 1.6 G/DL (3.4-5.0) L 1.4 G/DL (3.4-5.0) L Globulin 4.7 g/dL 4.4 g/dL Albumin/Globulin Ratio 0.3 (1.0-2.7) L 0.3 (1.0-2.7) L Urine Color Yellow Urine Appearance Slightly cloudy Urine pH 6 (4.5-8.0) Urine Specific [place] 1.010 (1.005-1.035) Urine Protein 2+ (NEGATIVE) H Urine Glucose (UA) Negative (NEGATIVE) Urine Ketones 1+ (NEGATIVE) H Urine Blood 1+ (NEGATIVE) H Urine Nitrite Negative (NEGATIVE) Urine Bilirubin Negative (NEGATIVE) Urine Urobilinogen Normal MG/DL (0.0-1.0) Urine Leukocyte Esterase 1+ (NEGATIVE) H Urine RBC 2-4 /HPF (0 - 2) H Urine WBC 2-4 /HPF (0 - 2) Urine Squamous Epithelial Cells Moderate /LPF (NONE/OCC) H Urine Bacteria Few /HPF (NONE) Urine Yeast Few /HPF (NONE) H Polychromasia 1+ Hypochromasia 1+ Macrocytosis 1+ Test 12/20/18 07:55 Arterial Blood pH 7.505 (7.350-7.450) Arterial Blood Partial Pressure CO2 28.8 mmHg (35.0-45.0) L Arterial Blood Partial Pressure O2 93.4 mmHg (75.0-100.0) Arterial Blood HCO3 22.2 mmol/L (22.0-26.0) Arterial Blood Oxygen Saturation 96.7 % (95-100) Arterial Blood Base Excess -0.2 (-2-2) Justus Test Positive Objective: HEENT: Negative. NECK: Supple. No adenopathy. Tracheostomy. Midline craniectomy noted. LUNGS: With moderate breath sounds. Some rhonchi. CARDIAC: S1, S2. Regular rate and rhythm. ABDOMEN: Soft. G-tube in place. EXTREMITIES: No edema. NEUROLOGICAL: Poorly responsive. Micro: Microbiology Date/Time Source Procedure Growth Status 12/19/18 12:00 Nasal Nares - Final Complete 12/19/18 12:00 Nasal Nares - Final Complete 12/19/18 12:45 Urine,Clean Catch Urine Culture - Preliminary NO GROWTH Resulted Accucheck: 193 Mejia Cruz MD December 20, 2018 09:01
--- NOTE | 2018-12-20 09:09 | NUR ---
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 ER CC: FEVER SI:SEPSIS . MULTILOBAR PNA VS: BP 114/72, P 83, T 99.8, RR19, SpO2 95 WBC 21.3, RBC 2.60, H&H 9.0/25.6, K 3.2, BUN 22, CR 0.5, URINE:YEAST-Few, BACTERIA-Few IS:CEFEPIME HCI 110ml IV NS x1.2L IVLG VANCOMYCIN 275ml IV K-DUR 20meq ADMITTED TO ICU DCP: RETURN TO [facility]
--- NOTE | 2018-12-20 09:14 | NUR ---
NURSE NOTES: Dr Cruz here to see the patient. Updated him with pt's current condition. Order for potassium, new vent setting, and code status received, noted, and carried out.
--- NOTE | 2018-12-20 09:23 | NUR ---
RD ASSESSMENT & RECOMMENDATIONS SEE CARE ACTIVITY FOR COMPLETE ASSESSMENT DAILY ESTIMATED NEEDS: Needs based on Wound, critical care 40kg 30-35 kcals/kg 3840-3327 total kcals 1.25-2 g protein/kg 50-80 g total protein 25-30 mL/kg 6428-2548 total fluid mLs NUTRITION DIAGNOSIS: * Increased kcal/prot intake needs R/T wound healing as evidenced by pt admitted open sacral wound, pending eval. * Swallowing difficulty r/t respiratory status as evidenced by s/p craniotomy, pt is vent dep via trach, PEG dep. ENTERAL NUTRITION RECOMMENDATIONS: As able: Glucerna 1.5 @45ml/hrx20 hrs to provide 900ml, 1350 kcal, 74g pro, 683ml free H2O - As medically able, rec to start Glucerna 1.5 @25ml/hr, advance as tolerated 10ml q4-6 hrs to goal - Flush per MD/ hob over 30 degrees FOR 24 HR RUN TIME: GLUCERNA 1.5 @37ML/HR x24 HRS (888ml, 1332 kcal, 73g pro, 674ml free H2O) ------ ADDITIONAL RECOMMENDATIONS: 1) Calibrated bed scale wts weekly PER SNF-> HT: 59inches and 88# (40kg) 2) Wound care: add MARY BID + MVI x1 + Vit C 250mg BID 3) Monitor lytes, replete daily (Low K 3.1)
--- NOTE | 2018-12-20 11:53 | NUR ---
NURSE NOTES: Wound care nurse assessed the wound and changed dressing per protocol. Awaiting special mattress to arrive. Turned and repositioned pt.
--- NOTE | 2018-12-20 12:49 | Diagnostic Imaging Report ---
Indication: Dyspnea Comparison: 12/19/2018 A single view chest radiograph was obtained. Findings: Extensive patchy airspace disease noted bilaterally without change. Tracheostomy and HAT DESIGNER shunt are stable. Cardiomegaly is stable. IMPRESSION: No change from the prior day
--- NOTE | 2018-12-20 13:24 | NUR ---
*-* INSURANCE *-* ALL CLINICALS AND REVIEWS HAVE BEEN FAXED TO: [employer]) [facility]: LASHANDA P- [phone] F- [phone]...REVIEW/CLINICAL
--- NOTE | 2018-12-20 13:32 | NUR ---
NURSE NOTES: Dr Hi is here to see the patient as a new consult for wound. 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
--- NOTE | 2018-12-20 13:53 | NUR ---
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 Borders are irregular shaped but adherent to base of wound. Periwound dark and indurated. No odor or exudate noted. R and L heels are pink and blanchable without fluctuance. Skin is intact under trach collar. .No other areas of skin concerns noted. Tx.Plan: Cleanse with Saline. Apply Therahoney. Apply Triad periwound. Cover with Optifoam drsg. Change every 3 days and prn. Apply Cavilon Skin Barrier to both heels .Cover each heel with Optifoam drsg.Change every 7 days and prn. APM/POOJA Mattress. Reposition at least every 2 hours or as tolerated. Off-load heels with pillow.
--- NOTE | 2018-12-20 14:29 | Cardiology Report ---
APPROVED REPORT EKG Measurement Heart [id number] OR 160P22 [id number] Normal sinus rhythm T wave abnormality, consider anterior ischemia Abnormal ECG
[2018-12-20] MEDS: Vancomycin 750mg/NS 275ml IVPB SCH ×2 (14:39)
--- NOTE | 2018-12-20 14:43 | Consultation ---
History of Present Illness General Date patient seen: December 20, 2018 Chief Complaint: Fever Present Illness HPI 68 year old female with very complex medical and surgical history with prior craniotomy who is unable to provide information or participate in exam and is care dependant presents with leukocytosis / sepsis. Patient admitted to ICU for care and management. on admission noted to have multiple wounds requiring care. surgery called to evaluate and assist with care and management. patient seen, chart reviewed, patient examined. patient known to me from prior admission Allergies: Coded Allergies: No Known Allergies (Unverified , 11/06/18) Medication History Scheduled Amlodipine Besylate* (Amlodipine Besylate*), 10 MG GT DAILY, (Reported) Atenolol* (Tenormin*), 50 MG GT DAILY, (Reported) Cranberry Extract (Cranberry), 200 MG GT BID, (Reported) Docusate Sodium* (Colace*), 100 MG GT DAILY, (Reported) Ferrous Sulfate* (Ferrous Sulfate*), 7.5 ML GT DAILY, (Reported) Folic Acid* (Folic Acid*), 1 MG GT DAILY, (Reported) Heparin Sod (Porcine) (Heparin Sodium*), 5,000 UNITS SUBQ EVERY 12 HOURS, ( Reported) Insulin Detemir (Levemir), 5 SUBQ BEDTIME, (Reported) Levetiracetam (Levetiracetam), 500 MG GT BID, (Reported) Multivitamin Liquid* (Multi-Delyn*), 15 ML GT DAILY, (Reported) Omeprazole Magnesium (Prilosec Otc), 20 MG GT BID, (Reported) Protein Supplement (Promod), 946 ML PO DAILY, (Reported) Thiamine Hcl* (Vitamin B-1*), 250 MG GT DAILY, (Reported) Scheduled PRN Albuterol Sulfate* (Albuterol Sulfate Hhn*), 3 ML INH Q4H PRN for Shortness of Breath, (Reported) Miscellaneous Medications Insulin Regular, Human (Humulin R), 0 SUBQ, (Reported) Patient History Limited by: medical condition History Provided By: Medical Record, PMD Healthcare decision maker N Resuscitation status Full Code Advanced Directive on File Past Medical/Surgical History Past Medical/Surgical History: (1) Anemia (2) Sepsis (3) Decubital ulcer Review of Systems ROS Narrative unable to provide given medical condition Physical Exam General Appearance: mild distress Lines, tubes and drains: peripheral HEENT: mucous membranes moist Neck: limited range of motion Respiratory/Chest: no respiratory distress, no accessory muscle use, decreased breath sounds Cardiovascular/Chest: tachycardia Abdomen: normal bowel sounds, soft, no organomegaly, no mass Extremities: other Skin Exam: other Neurologic: unresponsiveness Last 24 Hour Vital Signs Date Time Temp Pulse Resp B/P (MAP) Pulse Ox O2 Delivery O2 Flow Rate FiO2 12/20/18 14:00 74 22 111/44 (66) 100 12/20/18 13:00 70 18 118/41 (66) 99 12/20/18 13:00 70 22 111/44 (66) 99 12/20/18 12:59 70 22 40 12/20/18 12:16 69 12/20/18 12:00 Mechanical Ventilator 12/20/18 12:00 97.9 69 22 112/45 (67) 99 12/20/18 11:00 70 18 118/41 (66) 99 12/20/18 10:52 66 20 40 12/20/18 10:00 71 19 114/43 (66) 99 12/20/18 09:16 40 12/20/18 09:12 75 18 40 12/20/18 09:00 78 18 117/38 (64) 99 12/20/18 08:34 76 134/44 12/20/18 08:34 76 134/44 12/20/18 08:00 Mechanical Ventilator 12/20/18 08:00 98.2 81 16 134/44 (74) 100 12/20/18 08:00 40 12/20/18 07:54 82 12/20/18 07:29 83 22 40 12/20/18 07:00 79 15 128/46 (73) 97 12/20/18 06:00 98.5 72 13 110/44 (66) 100 12/20/18 05:15 77 15 40 12/20/18 05:00 78 15 122/46 (71) 97 12/20/18 04:00 40 12/20/18 04:00 72 15 98 12/20/18 04:00 Mechanical Ventilator 12/20/18 04:00 71 12/20/18 03:23 73 13 40 12/20/18 03:00 76 16 125/48 (73) 98 12/20/18 02:00 98.2 71 14 117/43 (67) 99 12/20/18 01:08 72 17 40 12/20/18 01:00 71 17 120/47 (71) 98 12/20/18 00:00 75 12/20/18 00:00 74 16 119/48 (71) 100 12/20/18 00:00 Mechanical Ventilator 12/20/18 00:00 40 12/19/18 23:12 80 16 40 12/19/18 23:00 75 16 118/47 (70) 100 12/19/18 22:00 75 18 125/39 (67) 100 12/19/18 21:31 75 18 40 12/19/18 21:00 98.4 76 15 122/43 (69) 100 12/19/18 20:00 Mechanical Ventilator 12/19/18 20:00 82 12/19/18 20:00 80 18 91/77 (82) 100 12/19/18 20:00 40 12/19/18 19:21 73 16 40 12/19/18 19:00 74 18 117/60 (79) 100 12/19/18 18:00 75 18 124/64 (84) 100 12/19/18 17:17 Mechanical Ventilator 12/19/18 17:08 76 15 108/42 99 Mechanical Ventilator 40 12/19/18 17:00 97.7 77 20 116/56 (76) 100 12/19/18 16:47 77 19 40 12/19/18 15:36 40 Intake and Output 12/19/18 12/20/18 18:59 06:59 Intake Total 1310.00 ml Output Total 0 ml 1200 ml Balance 0 ml 110.00 ml IV Total 1310.00 ml Output Urine Total 0 ml 1200 ml # Voids 1 # Bowel Movements 1 Laboratory Tests Test 12/19/18 16:35 12/20/18 03:40 12/20/18 07:55 Lactic Acid Level 0.80 mmol/L (0.4-2.0) White Blood Count 21.1 K/UL (4.8-10.8) H Red Blood Count 2.50 M/UL (4.20-5.40) L Hemoglobin 8.7 G/DL (12.0-16.0) L Hematocrit 25.1 % (37.0-47.0) L Mean Corpuscular Volume 100 FL (80-99) H Mean Corpuscular Hemoglobin 34.7 PG (27.0-31.0) H Mean Corpuscular Hemoglobin Concent 34.5 G/DL (32.0-36.0) Red Cell Distribution Width 12.4 % (11.6-14.8) Platelet Count 338 K/UL (150-450) Mean Platelet Volume 6.5 FL (6.5-10.1) Neutrophils (%) (Auto) % (45.0-75.0) Lymphocytes (%) (Auto) % (20.0-45.0) Monocytes (%) (Auto) % (1.0-10.0) Eosinophils (%) (Auto) % (0.0-3.0) Basophils (%) (Auto) % (0.0-2.0) Differential Total Cells Counted 100 Neutrophils % (Manual) 86 % (45-75) H Lymphocytes % (Manual) 10 % (20-45) L Monocytes % (Manual) 4 % (1-10) Eosinophils % (Manual) 0 % (0-3) Basophils % (Manual) 0 % (0-2) Band Neutrophils 0 % (0-8) Platelet Estimate Adequate Platelet Morphology Normal Polychromasia 1+ Hypochromasia 1+ Macrocytosis 1+ Sodium Level 138 MMOL/L (136-145) Potassium Level 3.1 MMOL/L (3.5-5.1) L Chloride Level 104 MMOL/L (98-107) Carbon Dioxide Level 26 MMOL/L (21-32) Anion Gap 8 mmol/L (5-15) Blood Urea Nitrogen 13 mg/dL (7-18) Creatinine 0.3 MG/DL (0.55-1.30) L Estimat Glomerular Filtration Rate > 60 mL/min (>60) Glucose Level 45 MG/DL (74-106) L Calcium Level 8.3 MG/DL (8.5-10.1) L Total Bilirubin 0.3 MG/DL (0.2-1.0) Aspartate Amino Transf (AST/SGOT) 14 U/L (15-37) L Alanine Aminotransferase (ALT/SGPT) 33 U/L (12-78) Alkaline Phosphatase 142 U/L (46-116) H Total Protein 5.8 G/DL (6.4-8.2) L Albumin 1.4 G/DL (3.4-5.0) L Globulin 4.4 g/dL Albumin/Globulin Ratio 0.3 (1.0-2.7) L Arterial Blood pH 7.505 (7.350-7.450) Arterial Blood Partial Pressure CO2 28.8 mmHg (35.0-45.0) L Arterial Blood Partial Pressure O2 93.4 mmHg (75.0-100.0) Arterial Blood HCO3 22.2 mmol/L (22.0-26.0) Arterial Blood Oxygen Saturation 96.7 % (95-100) Arterial Blood Base Excess -0.2 (-2-2) Justus Test Positive Height (Feet): 5 Height (Inches): 2.00 Weight (Pounds): 99 Medications Current Medications Medications (Trade) Dose Ordered Sig/Dell Route PRN Reason Start Time Stop Time Status Last Admin Dose Admin Amlodipine Besylate (Norvasc) 10 mg DAILY GT 12/20/18 09:00 01/19/19 08:59 12/20/18 08:34 Atenolol (Tenormin) 50 mg DAILY GT 12/20/18 09:00 01/19/19 08:59 12/20/18 08:34 Dextrose (Dextrose 50%) 25 ml Q30M PRN IV Hypoglycemia 12/19/18 18:31 01/18/19 18:30 Dextrose (Dextrose 50%) 50 ml Q30M PRN IV Hypoglycemia 12/19/18 18:31 01/18/19 18:30 12/20/18 07:21 Docusate Sodium (Colace) 100 mg DAILY GT 12/20/18 09:00 01/19/19 08:59 Ferrous Sulfate (Feosol) 300 mg DAILY GT 12/20/18 09:00 01/19/19 08:59 12/20/18 08:33 Folic Acid (Folate) 1 mg DAILY GT 12/20/18 09:00 01/19/19 08:59 12/20/18 08:33 Heparin Sodium (Porcine) (Heparin 5000 units/ml) 5,000 units EVERY 12 HOURS SUBQ 12/19/18 21:00 01/18/19 20:59 12/20/18 08:36 Insulin Detemir (Levemir) 5 units QHS SUBQ 12/19/18 21:00 01/18/19 20:59 12/19/18 21:08 Levetiracetam (Keppra) 500 mg Q12HR NG 12/19/18 21:00 01/18/19 20:59 12/20/18 08:33 Multivitamins (Multivitamins W/ Minerals 15ml Liquid) 15 ml DAILY GT 12/20/18 09:00 01/19/19 08:59 12/20/18 08:33 Pantoprazole (Protonix) 40 mg EVERY 12 HOURS IVP 12/19/18 21:00 01/18/19 20:59 12/20/18 08:33 Piperacillin Sod/ Tazobactam Sod 3.375 gm/Sodium Chloride 110 ml @ 27.5 mls/hr Q8HR IVPB 12/19/18 22:00 12/26/18 21:59 12/20/18 13:47 Sodium Chloride 1,000 ml @ 100 mls/hr Q10H IV 12/19/18 18:00 01/18/19 17:59 12/20/18 13:46 Thiamine HCl (Vitamin B1) 250 mg DAILY GT 12/20/18 09:00 01/19/19 08:59 12/20/18 08:34 Vancomycin HCl (Vanco rx to dose) 1 ea DAILY PRN MISC Per rx protocol 12/19/18 18:00 01/18/19 17:59 Vancomycin HCl 750 mg/Sodium Chloride 275 ml @ 183.333 mls/hr Q24H IVPB 12/20/18 15:00 12/25/18 14:59 Assessment/Plan Problem List: (1) Decubital ulcer Assessment & Plan: Pt presented on admission with 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 Periwound with scattered shearing. Bone is palpable. Borders are irregular shaped but adherent to base of wound. Periwound dark and indurated. No odor or exudate noted. R and L heels are pink and blanchable without fluctuance. Skin is intact under trach collar. .No other areas of skin concerns noted. Tx.Plan: Cleanse with Saline. Apply Therahoney. Apply Triad periwound. Cover with Optifoam drsg. Change every 3 days and prn. Apply Cavilon Skin Barrier to both heels .Cover each heel with Optifoam drsg.Change every 7 days and prn. Off-load heels with pillow. APM/POOJA Mattress overlay. Reposition at least every 2hours or as tolerated. ICD Codes: L89.90 - Pressure ulcer of unspecified site, unspecified stage SNOMED: 594262312 (2) Anemia ICD Codes: D64.9 - Anemia, unspecified SNOMED: 146195183 (3) Sepsis Assessment & Plan: IV Abx cultures noted labs noted trend labs cont with current care unlikely from chronic wounds will follow with recs thank you ICD Codes: A41.9 - Sepsis, unspecified organism SNOMED: 67427074 Arnold Hi December 20, 2018 14:43
--- NOTE | 2018-12-20 15:18 | NUR ---
NURSE NOTES: Turned and repositioned pt. Oral care done. Suctioned small amount of thick yellow/white secretion via trach. No acute distress noted. Will continue to monitor.
--- NOTE | 2018-12-20 15:18 | NUR ---
Social Work This Sw met with patient, currently in the ICU, who has a Trach, with vent; nonverbal, while appears to be alert overall. Patient is from [facility] with plans to return there upon discharge. This Sw spoke with Medical Records, Pam @ [facility], who explained patient does not have an Advance Directive, nor a Polst (does not have any friends, family or decision maker). Bioethics to follow, as needed for decision making. Patient is currently full code, full treatment.
--- NOTE | 2018-12-20 17:00 | Consultation ---
DATE OF CONSULTATION: 12/20/2018 INFECTIOUS DISEASE CONSULTATION CONSULTING PHYSICIAN: Brien Rodriguez M.D. REFERRING PHYSICIAN: Mejia Cruz M.D. REASON FOR CONSULTATION: Fever. HISTORY OF PRESENTING ILLNESS: This is a 68-year-old lady with history of CVA, intracranial bleed status post craniectomy, diabetes, and hypertension, who came in with increasing fevers and letharginess. She was found to have a leukocytosis and was found to be in respiratory distress. An Infectious Disease consultation has been obtained for antibiotics. PAST MEDICAL HISTORY: 1. History of CVA, status post craniectomy. 2. Intracranial bleed. 3. Diabetes. 4. Hypertension. 5. Respiratory failure, status post tracheostomy. 6. Status post G-tube placement. SOCIAL HISTORY: Unknown. FAMILY HISTORY: Unknown. REVIEW OF SYSTEMS: Unable to obtain currently. MEDICATIONS: As an inpatient, she is on IV vancomycin, potassium, amlodipine, atenolol, folic acid, multivitamin, thiamine, docusate, ferrous sulfate, Zosyn, subcutaneous heparin, Protonix, Keppra, and insulin. ALLERGIES: No known drug allergies. PHYSICAL EXAMINATION: VITAL SIGNS: Temperature 98.2, T-max of 98.5, pulse 71, respiratory rate 19, and blood pressure 114/43. O2 saturation of 99%. HEENT: Pupils are equally reactive to light and accommodation. Mouth appears clean without thrush. NECK: Supple. No adenopathy. No JVD. Tracheostomy site appears clean. CARDIOVASCULAR: Regular rate and rhythm. No murmurs. LUNGS: Clear to auscultation bilaterally. No crackles. No wheezes. ABDOMEN: Soft and nontender. G-tube site appears clean. EXTREMITIES: No cyanosis, no clubbing, no edema. LABORATORY AND DIAGNOSTIC DATA: White count 21, hemoglobin 8.7, hematocrit 25.1, MCV 100, platelet count 338, neutrophils of 86%. Sodium 138, potassium 3.1, chloride 104, bicarb 26, BUN 13, and creatinine 0.3. Glucose 45. Calcium 8.3. Total bilirubin 0.3, AST 14, ALT 33, and alkaline phosphatase 142. Total protein 5.8, albumin 1.4. UA showing 2 to 4 white cells. Urine cultures are negative. Chest x-ray showing extensive bilateral airspace disease. Findings maybe due to pulmonary edema or infection. ASSESSMENT: 1. This is a 68-year-old lady with history of diabetes and hypertension as well as respiratory failure, status post tracheostomy, who comes in with fever and leukocytosis. Would be concerned regarding a possible aspiration pneumonia. 2. We would also like to rule out urinary tract infection or sepsis as a possibility. 3. Diabetes. 4. Hypertension. PLAN: 1. Continue IV vancomycin and Zosyn. 2. We will order sputum cultures. 3. We will follow up cultures and adjust antibiotics accordingly. I would like to thank Dr. Cruz for this consultation. Brien Rodriguez M.D. DR: MERRILL JOB#: [id number] CC:
--- NOTE | 2018-12-20 17:30 | NUR ---
NURSE NOTES: Cleaned and repositioned pt. Oral care done. No acute distress noted. No residual noted on tube feeding. Will continue to monitor.
[2018-12-20] MEDS: Ascorbic Acid 500mg tab ORAL SCH (18:53)
--- NOTE | 2018-12-20 19:30 | NUR ---
NURSE NOTES: Report received from KASSI Emerson. Pt is resting in bed. Open eyes but eyes do not follow. Non-verbal and does not follow commands. Left side skull bone flap from previous craniectomy due to CVA noted. Sinus rhythm on radiation monitor. Trach to vent. P 7, AC 12, TV450, FiO2 40%. O2 sat 100%. No respiratory distress noted. G tube in place and running Glucerna 1.5 at 37ml/hr, Dajuan BID. Fitzgerald in place draining to gravity. Dressing on sacrum is dry and intact. IV to left hand G20 and right G20 patent and asymptomatic. NS is running at 100cc/hr. Bed in lowest position. Side rails up x3. Will resume plan of care.
--- NOTE | 2018-12-20 19:30 | NUR ---
NURSE NOTES: BS 203. Order for Novolog on sliding scale received from Dr Cruz, noted and carried out.
--- NOTE | 2018-12-20 19:32 | NUR ---
HAND-OFF: Report given to Sergio Wagner RN.
--- NOTE | 2018-12-20 19:35 | NUR ---
NURSE NOTES: Report received from KASSI Emerson. Pt is resting in bed. Open eyes but eyes do not follow. Non-verbal and does not follow commands. Left side skull bone flap from previous craniectomy due to CVA noted. Sinus rhythm on environmental monitoring technician. Trach to vent. P 7, AC 12, TV450, FiO2 40%. O2 sat 100%. No respiratory distress noted. G tube in place and running Glucerna 1.5 at 35ml/hr,with goal to be at 37ml/hr. Dajuan BID. Fitzgerald in place draining to gravity. Dressing on sacrum is dry and intact. IV to left hand G20 and right G20 patent and asymptomatic. NS is running at 100cc/hr. Bed in lowest position. Side rails up x3. Will resume plan of care.
[2018-12-20] MEDS: Levemir Flexpen SUBQ SCH (21:17)
--- NOTE | 2018-12-20 22:00 | NUR ---
NURSE NOTES: Pt's resting in bed, with eyes closed, in no acute distress. VS stable. HOB kept elevated. Will continue to monitor.
--- NOTE | 2018-12-20 23:06 | NUR ---
HAND-OFF: Report given to KASSI Colón.
--- NOTE | 2018-12-20 23:20 | NUR ---
NURSE NOTES: PATIENT OPEN EYES, DID NOT FOLLOWED COMMANDS, ON TRACH TO VENT AC 12/TV 450/FIO2 40%, NO PEEP, O2 SATURATION 100% NOTED, ABDOMEN SOFT, DISTENDED, G TUBE TO LEFT UPPER QUADRANTS, INTACT AND PATENT, ONGOING GLUCERNA AT 37ML/HR, RESIDUE 30ML NOTED, F/C INTACT AND PATENT, PALE YELLOW URINE DRAINING WELL GRAVITY, PERIPHERAL LINE TO RIGHT HAND 22G INTACT AND PATEN, ONGOING NS AT 100ML/HR, LEFT WRIST AREA 22G, INFILTRATED THAT REMOVED, KEPT SZ PRECAUTION ADN HOB 30 DEGREE, PROVIDED CALL LIGHT WITHIN REACH, MADE LOWER BED POSITION AND ON BED ALARM, WILL CONTINUE TO MONITOR.
[2018-12-20] MEDS: NovoLOG Insulin Flexpen SUBQ SCH (23:33)
[2018-12-21] VITALS (24 sets, daily range): BP systolic 94–132; BP diastolic 19–51
--- NOTE | 2018-12-21 00:10 | NUR ---
NURSE NOTES: ORAL CARE WAS DONE, NO PAIN OR DISTRESS NOTED AT THIS TIME.
--- NOTE | 2018-12-21 02:00 | NUR ---
NURSE NOTES: REPOSITION WAS DONE, NO BOWEL MOVEMENT STATUS.
--- NOTE | 2018-12-21 03:50 | NUR ---
NURSE NOTES: MORNING CARE AND ORAL CARE WAS DONE, WILL CONTINUE PLAN OF CARE.
--- NOTE | 2018-12-21 04:55 | NUR ---
HAND-OFF: Report given to KASSI HASTINGS.
--- NOTE | 2018-12-21 05:30 | NUR ---
NURSE NOTES: received in no distress,o2 sat 100% on ac12,tv 450 fio2 40%, cafeteria monitor shows nsr, flat affect
[2018-12-21] MEDS: Piperacillin/Tazobactam 3.375 GM in NS 110 ML IVPB SCH ×3 (06:01→21:22)
[2018-12-21] MEDS: NovoLOG Insulin Flexpen SUBQ SCH ×4 (06:04→23:31)
--- NOTE | 2018-12-21 07:00 | NUR ---
HAND-OFF: Report given to gilson.
--- NOTE | 2018-12-21 07:00 | NUR ---
Received Patient on Vent settings ACVC RR 12, VT 450, FIO2 40%, PEEP +0. Patient has a Portex 7 trach tube secured with trache ties. Bilateral rhonchi/ diminished breath sounds heard throughout lung ulloa. Suctioned small amounts of thick white secretions. Alarms are on and audible. Vent plugged into red outlet. Will continue to closely monitor throughout the day.
--- NOTE | 2018-12-21 07:15 | NUR ---
NURSE NOTES: Received pt and change of shift report from Radha SOLITARIO. Pt is resting with head of bed at 30degrees. Obtunded, opens eyes however with flat affect. Left side of the head has evidence of Hx of status post left craniectomy. Intubated via trach Portex 7 with vent settings of AC12, VT450, FIO2 40% with O2sat of 100%, with lung sounds of bilateral rhonchi. campus monitor displays NSR with diastolic BP in the 30's-40's. Peripheral edema on upper extremities, and +4 pitting on bilateral feet. IV access on right hand #22G infusing NS at 100ml/hour. GT in place with feeding Glucerna 1.5 at 37ml/hour. Pt is tolerating feeding well with no residual or episodes of nausea/vomiting. Abdomen is round, soft, with hyperactive bowel sounds present in all quadrants. Fitzgerald catheter in place, draining clear/light yellow urine. Skin has full thickness pressure ulcer on sacrum, abrasion on left atkinson, and bilateral pink heels, all areas covered with optifoam dressing. Pt is on seizure precautions with side rails padded. Bed is locked with three side rails up and call light within reach. Will continue to monitor pt and follow plan of care per MD orders and protocol.
[2018-12-21] MEDS: Pantoprazole Inj IVP SCH ×2 (08:31→20:10)
[2018-12-21] MEDS: Ferrous Sulfate 300 MG/5 ML UDC GT SCH (08:31)
[2018-12-21] MEDS: Ascorbic Acid 500mg tab ORAL SCH ×2 (08:32→17:39)
[2018-12-21] MEDS: levETIRAcetam 500mg/5ml Liquid NG SCH ×2 (08:32→20:12)
[2018-12-21] MEDS: Zinc Sulfate 220mg cap ORAL SCH (08:32)
[2018-12-21] MEDS: Multivitamins W/Minerals 15 ML UDC GT SCH (08:32)
[2018-12-21] MEDS: Thiamine 100mg tab GT SCH (08:32)
[2018-12-21] MEDS: Docusate 100mg/10ml Liq GT SCH (08:33)
[2018-12-21] MEDS: Heparin 5000 units/ml inj SUBQ SCH ×2 (08:38→20:11)
[2018-12-21] MEDS ORDERED: Tubing IV Secondary IV ONE ×3 (09:07→18:11)
--- NOTE | 2018-12-21 09:30 | NUR ---
NURSE NOTES: Oral care given and pt suctioned, with output of small amount of thick white sputum. Fitzgerald catheter continues to drain clear/light, yellow/straw colored urine with average of 100ml/hourly. Pt is tolerating the GT feeding with no residual, s/s or episodes of nausea/vomiting. Temp of 98.6F axillary. BP meds were held initially due to low diastolic in the 30s/40s, however were administered 30-40 min later as BP penny to high 120's/50's. VS currently stable.
--- NOTE | 2018-12-21 09:40 | Pulmonolgy Critical Care Note ---
Critical Care - Asmt/Plan Assessment/Plan: Pulmonary CCM Progress Note Assessment/Plan IMPRESSION: 1. Sepsis. 2. Leukocytosis. 3. Respiratory failure. 4. Bilateral pneumonia. 5. Hypokalemia. 6. Severe protein-calorie malnutrition. 7. Prior craniectomy and intracranial bleed. PLAN care as is vent and adjust ID pending WBC elevated feeds supportive care impression, plan, and exam edited and reviewed in detail care discussed with cigarette making machine catcher - Subjective ROS Limited/Unobtainable: Yes Condition: critical EKG Rhythm: Sinus Rhythm Critical Care - Objective Vital Signs Noted Laboratory Tests Noted Test 12/19/18 11:51 12/19/18 12:45 12/19/18 16:35 12/20/18 03:40 White Blood Count 21.3 K/UL (4.8-10.8) H 21.1 K/UL (4.8-10.8) H Red Blood Count 2.60 M/UL (4.20-5.40) L 2.50 M/UL (4.20-5.40) L Hemoglobin 9.0 G/DL (12.0-16.0) L 8.7 G/DL (12.0-16.0) L Hematocrit 25.6 % (37.0-47.0) L 25.1 % (37.0-47.0) L Mean Corpuscular Volume 98 FL (80-99) 100 FL (80-99) H Mean Corpuscular Hemoglobin 34.5 PG (27.0-31.0) H 34.7 PG (27.0-31.0) H Mean Corpuscular Hemoglobin Concent 35.1 G/DL (32.0-36.0) 34.5 G/DL (32.0-36.0) Red Cell Distribution Width 12.2 % (11.6-14.8) 12.4 % (11.6-14.8) Platelet Count 364 K/UL (150-450) 338 K/UL (150-450) Mean Platelet Volume 6.6 FL (6.5-10.1) 6.5 FL (6.5-10.1) Neutrophils (%) (Auto) % (45.0-75.0) % (45.0-75.0) Lymphocytes (%) (Auto) % (20.0-45.0) % (20.0-45.0) Monocytes (%) (Auto) % (1.0-10.0) % (1.0-10.0) Eosinophils (%) (Auto) % (0.0-3.0) % (0.0-3.0) Basophils (%) (Auto) % (0.0-2.0) % (0.0-2.0) Differential Total Cells Counted 100 100 Neutrophils % (Manual) 89 % (45-75) H 86 % (45-75) H Lymphocytes % (Manual) 7 % (20-45) L 10 % (20-45) L Monocytes % (Manual) 4 % (1-10) 4 % (1-10) Eosinophils % (Manual) 0 % (0-3) 0 % (0-3) Basophils % (Manual) 0 % (0-2) 0 % (0-2) Band Neutrophils 0 % (0-8) 0 % (0-8) Platelet Estimate Adequate Adequate Platelet Morphology Normal Normal Red Blood Cell Morphology Normal Sodium Level 137 MMOL/L (136-145) 138 MMOL/L (136-145) Potassium Level 3.2 MMOL/L (3.5-5.1) L 3.1 MMOL/L (3.5-5.1) L Chloride Level 100 MMOL/L (98-107) 104 MMOL/L (98-107) Carbon Dioxide Level 28 MMOL/L (21-32) 26 MMOL/L (21-32) Anion Gap 9 mmol/L (5-15) 8 mmol/L (5-15) Blood Urea Nitrogen 22 mg/dL (7-18) H 13 mg/dL (7-18) Creatinine 0.5 MG/DL (0.55-1.30) L 0.3 MG/DL (0.55-1.30) L Estimat Glomerular Filtration Rate > 60 mL/min (>60) > 60 mL/min (>60) Glucose Level 132 MG/DL (74-106) H 45 MG/DL (74-106) L Lactic Acid Level 2.00 mmol/L (0.4-2.0) 0.80 mmol/L (0.4-2.0) Calcium Level 8.4 MG/DL (8.5-10.1) L 8.3 MG/DL (8.5-10.1) L Total Bilirubin 0.3 MG/DL (0.2-1.0) 0.3 MG/DL (0.2-1.0) Aspartate Amino Transf (AST/SGOT) 21 U/L (15-37) 14 U/L (15-37) L Alanine Aminotransferase (ALT/SGPT) 50 U/L (12-78) 33 U/L (12-78) Alkaline Phosphatase 179 U/L (46-116) H 142 U/L (46-116) H Total Creatine Kinase 12 U/L (26-308) L Creatine Kinase MB < 0.5 NG/ML (0.0-3.6) Creatine Kinase MB Relative Index Troponin I 0.000 ng/mL (0.000-0.056) Total Protein 6.3 G/DL (6.4-8.2) L 5.8 G/DL (6.4-8.2) L Albumin 1.6 G/DL (3.4-5.0) L 1.4 G/DL (3.4-5.0) L Globulin 4.7 g/dL 4.4 g/dL Albumin/Globulin Ratio 0.3 (1.0-2.7) L 0.3 (1.0-2.7) L Urine Color Yellow Urine Appearance Slightly cloudy Urine pH 6 (4.5-8.0) Urine Specific [place] 1.010 (1.005-1.035) Urine Protein 2+ (NEGATIVE) H Urine Glucose (UA) Negative (NEGATIVE) Urine Ketones 1+ (NEGATIVE) H Urine Blood 1+ (NEGATIVE) H Urine Nitrite Negative (NEGATIVE) Urine Bilirubin Negative (NEGATIVE) Urine Urobilinogen Normal MG/DL (0.0-1.0) Urine Leukocyte Esterase 1+ (NEGATIVE) H Urine RBC 2-4 /HPF (0 - 2) H Urine WBC 2-4 /HPF (0 - 2) Urine Squamous Epithelial Cells Moderate /LPF (NONE/OCC) H Urine Bacteria Few /HPF (NONE) Urine Yeast Few /HPF (NONE) H Polychromasia 1+ Hypochromasia 1+ Macrocytosis 1+ Test 12/20/18 07:55 Arterial Blood pH 7.505 (7.350-7.450) Arterial Blood Partial Pressure CO2 28.8 mmHg (35.0-45.0) L Arterial Blood Partial Pressure O2 93.4 mmHg (75.0-100.0) Arterial Blood HCO3 22.2 mmol/L (22.0-26.0) Arterial Blood Oxygen Saturation 96.7 % (95-100) Arterial Blood Base Excess -0.2 (-2-2) Justus Test Positive Objective: HEENT: Negative. NECK: Supple. No adenopathy. Tracheostomy. Midline craniectomy noted. LUNGS: With moderate breath sounds. Some rhonchi. CARDIAC: S1, S2. Regular rate and rhythm. ABDOMEN: Soft. G-tube in place. EXTREMITIES: No edema. NEUROLOGICAL: Poorly responsive. Micro: Microbiology Date/Time Source Procedure Growth Status 12/19/18 12:00 Nasal Nares - Final Complete 12/19/18 12:00 Nasal Nares - Final Complete 12/19/18 12:45 Urine,Clean Catch Urine Culture - Preliminary NO GROWTH Resulted Critical Care - Objective Last 24 Hour Vital Signs Date Time Temp Pulse Resp B/P (MAP) Pulse Ox O2 Delivery O2 Flow Rate FiO2 12/21/18 09:24 74 126/51 12/21/18 09:24 74 126/51 12/21/18 09:04 74 28 40 12/21/18 09:00 78 26 126/51 (76) 100 12/21/18 08:00 40 12/21/18 08:00 98.4 75 21 122/44 (70) 100 12/21/18 07:05 75 23 40 12/21/18 07:00 75 20 121/39 (66) 100 12/21/18 06:00 76 20 126/42 (70) 100 12/21/18 05:10 74 22 40 40 12/21/18 05:00 73 22 125/38 (67) 100 12/21/18 04:00 Mechanical Ventilator 12/21/18 04:00 98.5 75 22 123/40 (67) 100 12/21/18 04:00 40 12/21/18 03:25 75 26 40 40 12/21/18 03:00 73 12/21/18 03:00 75 22 119/40 (66) 100 12/21/18 02:00 74 21 122/43 (69) 100 12/21/18 01:00 80 26 127/45 (72) 100 12/21/18 00:59 81 26 40 40 12/21/18 00:00 Mechanical Ventilator 12/21/18 00:00 40 12/21/18 00:00 98.9 79 25 128/42 (70) 100 12/20/18 23:12 78 20 40 40 12/20/18 23:01 84 12/20/18 23:00 84 22 134/54 (80) 100 12/20/18 22:00 81 22 117/38 (64) 100 12/20/18 21:27 80 30 40 40 12/20/18 21:00 77 20 114/43 (66) 99 12/20/18 20:00 Mechanical Ventilator 12/20/18 20:00 40 12/20/18 20:00 76 12/20/18 20:00 98.2 80 21 102/35 (57) 99 12/20/18 19:15 82 20 40 40 12/20/18 19:00 78 21 120/40 (66) 99 12/20/18 18:00 74 19 112/38 (62) 100 12/20/18 17:04 73 20 40 12/20/18 17:00 98.5 74 21 113/38 (63) 100 12/20/18 16:00 Mechanical Ventilator 12/20/18 16:00 40 12/20/18 16:00 72 22 111/41 (64) 99 12/20/18 16:00 74 21 111/47 (68) 99 12/20/18 15:22 72 12/20/18 15:00 74 21 111/47 (68) 99 12/20/18 14:57 79 20 40 12/20/18 14:00 74 22 111/44 (66) 100 12/20/18 13:00 70 18 118/41 (66) 99 12/20/18 13:00 70 22 111/44 (66) 99 12/20/18 12:59 70 22 40 12/20/18 12:16 69 12/20/18 12:00 Mechanical Ventilator 12/20/18 12:00 97.9 69 22 112/45 (67) 99 12/20/18 11:00 70 18 118/41 (66) 99 12/20/18 10:52 66 20 40 12/20/18 10:00 71 19 114/43 (66) 99 Micro: Microbiology Date/Time Source Procedure Growth Status 12/19/18 12:15 Blood Blood Culture - Preliminary NO GROWTH AFTER 24 HOURS Resulted 12/19/18 11:51 Blood Blood Culture - Preliminary Staphylococcus Sp Coag Neg Resulted 12/20/18 11:10 Sputum Gram Stain - Final Resulted 12/20/18 11:10 Sputum Sputum Culture Pending Resulted 12/19/18 12:00 Nasal Nares - Final Complete 12/19/18 12:00 Nasal Nares - Final Complete 12/19/18 12:45 Urine,Clean Catch Urine Culture - Final NO GROWTH AFTER 48 HOURS Complete Accucheck: 128 Critical Care - Subjective ROS Limited/Unobtainable: No FI02: 40 Vent Support Breath Rate: 12 Vent Support Mode: AC Vent Tidal Volume: 450 Sputum Amount: Moderate PEEP: 0.0 PIP: 37 Tube Feeding Amount: 37 I&O: Intake and Output 12/20/18 12/21/18 19:00 07:00 Intake Total 1752.500 ml 1775.5 ml Output Total 1435 ml 1215 ml Balance 317.500 ml 560.5 ml Intake Free Water 60 ml IV Total 1367.500 ml 1337.5 ml Tube Feeding 225 ml 438 ml Other 100 ml Output Urine Total 1435 ml 1215 ml # Bowel Movements 2 Humza Smith MD December 21, 2018 09:40
--- NOTE | 2018-12-21 10:16 | NUR ---
NURSE NOTES: Order received from Dr Cruz to draw blood today for CBC/CMP. Will process order and follow up with results.
--- NOTE | 2018-12-21 10:22 | Infectious Diseases Prog Note ---
Assessment/Plan Assessment/Plan antibiotics : vancomycin iv, zosyn A 1. aspiration pneumonia 2. + blood cultures with coag neg staph likely contaminated 3. respiratory failure 4. diabetes mellitus 5. hypertension P 1. continue iv vancomycin, zosyn 2. will follow up cultures Subjective ROS Limited/Unobtainable: Yes Allergies: Coded Allergies: No Known Allergies (Unverified , 11/06/18) Objective Vital Signs Last 24 Hour Vital Signs Date Time Temp Pulse Resp B/P (MAP) Pulse Ox O2 Delivery O2 Flow Rate FiO2 12/21/18 10:00 72 22 118/42 (67) 99 12/21/18 09:24 74 126/51 12/21/18 09:24 74 126/51 12/21/18 09:04 74 28 40 12/21/18 09:00 78 26 126/51 (76) 100 12/21/18 08:00 Mechanical Ventilator 12/21/18 08:00 40 12/21/18 08:00 98.4 75 21 122/44 (70) 100 12/21/18 08:00 76 12/21/18 07:05 75 23 40 12/21/18 07:00 75 20 121/39 (66) 100 12/21/18 06:00 76 20 126/42 (70) 100 12/21/18 05:10 74 22 40 40 12/21/18 05:00 73 22 125/38 (67) 100 12/21/18 04:00 Mechanical Ventilator 12/21/18 04:00 98.5 75 22 123/40 (67) 100 12/21/18 04:00 40 12/21/18 03:25 75 26 40 40 12/21/18 03:00 73 12/21/18 03:00 75 22 119/40 (66) 100 12/21/18 02:00 74 21 122/43 (69) 100 12/21/18 01:00 80 26 127/45 (72) 100 12/21/18 00:59 81 26 40 40 12/21/18 00:00 Mechanical Ventilator 12/21/18 00:00 40 12/21/18 00:00 98.9 79 25 128/42 (70) 100 12/20/18 23:12 78 20 40 40 12/20/18 23:01 84 12/20/18 23:00 84 22 134/54 (80) 100 12/20/18 22:00 81 22 117/38 (64) 100 12/20/18 21:27 80 30 40 40 12/20/18 21:00 77 20 114/43 (66) 99 12/20/18 20:00 Mechanical Ventilator 12/20/18 20:00 40 12/20/18 20:00 76 12/20/18 20:00 98.2 80 21 102/35 (57) 99 12/20/18 19:15 82 20 40 40 12/20/18 19:00 78 21 120/40 (66) 99 12/20/18 18:00 74 19 112/38 (62) 100 12/20/18 17:04 73 20 40 12/20/18 17:00 98.5 74 21 113/38 (63) 100 12/20/18 16:00 Mechanical Ventilator 12/20/18 16:00 40 12/20/18 16:00 72 22 111/41 (64) 99 12/20/18 16:00 74 21 111/47 (68) 99 12/20/18 15:22 72 12/20/18 15:00 74 21 111/47 (68) 99 12/20/18 14:57 79 20 40 12/20/18 14:00 74 22 111/44 (66) 100 12/20/18 13:00 70 18 118/41 (66) 99 12/20/18 13:00 70 22 111/44 (66) 99 12/20/18 12:59 70 22 40 12/20/18 12:16 69 12/20/18 12:00 Mechanical Ventilator 12/20/18 12:00 97.9 69 22 112/45 (67) 99 12/20/18 11:00 70 18 118/41 (66) 99 12/20/18 10:52 66 20 40 Height (Feet): 5 Height (Inches): 2.00 Weight (Pounds): 103 Respiratory/Chest: lungs clear Cardiovascular: normal rate, regular rhythm, no gallop/murmur, other - GT Abdomen: soft, non tender Extremities: no edema Microbiology Date/Time Source Procedure Growth Status 12/19/18 12:15 Blood Blood Culture - Preliminary NO GROWTH AFTER 24 HOURS Resulted 12/19/18 11:51 Blood Blood Culture - Preliminary Staphylococcus Sp Coag Neg Resulted 12/20/18 11:10 Sputum Gram Stain - Final Resulted 12/20/18 11:10 Sputum Sputum Culture Pending Resulted 12/19/18 12:00 Nasal Nares - Final Complete 12/19/18 12:00 Nasal Nares - Final Complete 12/19/18 12:45 Urine,Clean Catch Urine Culture - Final NO GROWTH AFTER 48 HOURS Complete Current Medications Medications (Trade) Dose Ordered Sig/Dell Route PRN Reason Start Time Stop Time Status Last Admin Dose Admin Amlodipine Besylate (Norvasc) 10 mg DAILY GT 12/20/18 09:00 01/19/19 08:59 12/21/18 09:24 Ascorbic Acid (Vitamin C) 250 mg TWICE A DAY ORAL 12/20/18 18:00 01/19/19 17:59 12/21/18 08:32 Atenolol (Tenormin) 50 mg DAILY GT 12/20/18 09:00 01/19/19 08:59 12/21/18 09:24 Dextrose (Dextrose 50%) 25 ml Q30M PRN IV Hypoglycemia 12/20/18 19:30 01/19/19 19:29 Dextrose (Dextrose 50%) 50 ml Q30M PRN IV Hypoglycemia 12/20/18 19:30 01/19/19 19:29 Docusate Sodium (Colace) 100 mg DAILY GT 12/20/18 09:00 01/19/19 08:59 Ferrous Sulfate (Feosol) 300 mg DAILY GT 12/20/18 09:00 01/19/19 08:59 12/21/18 08:31 Folic Acid (Folate) 1 mg DAILY GT 12/20/18 09:00 01/19/19 08:59 12/21/18 08:32 Heparin Sodium (Porcine) (Heparin 5000 units/ml) 5,000 units EVERY 12 HOURS SUBQ 12/19/18 21:00 01/18/19 20:59 12/21/18 08:38 Insulin Aspart (NovoLOG) EVERY 6 HOURS SUBQ 12/21/18 00:00 01/20/19 00:00 12/21/18 06:04 Insulin Detemir (Levemir) 5 units QHS SUBQ 12/19/18 21:00 01/18/19 20:59 12/20/18 21:17 Levetiracetam (Keppra) 500 mg Q12HR NG 12/19/18 21:00 01/18/19 20:59 12/21/18 08:32 Multivitamins (Multivitamins W/ Minerals 15ml Liquid) 15 ml DAILY GT 12/20/18 09:00 01/19/19 08:59 12/21/18 08:32 Pantoprazole (Protonix) 40 mg EVERY 12 HOURS IVP 12/19/18 21:00 01/18/19 20:59 12/21/18 08:31 Piperacillin Sod/ Tazobactam Sod 3.375 gm/Sodium Chloride 110 ml @ 27.5 mls/hr Q8HR IVPB 12/19/18 22:00 12/26/18 21:59 12/21/18 06:01 Sodium Chloride 1,000 ml @ 100 mls/hr Q10H IV 12/19/18 18:00 01/18/19 17:59 12/21/18 09:34 Thiamine HCl (Vitamin B1) 250 mg DAILY GT 12/20/18 09:00 01/19/19 08:59 12/21/18 08:32 Vancomycin HCl (Vanco rx to dose) 1 ea DAILY PRN MISC Per rx protocol 12/19/18 18:00 01/18/19 17:59 Vancomycin HCl 750 mg/Sodium Chloride 275 ml @ 183.333 mls/hr Q24H IVPB 12/20/18 15:00 12/25/18 14:59 12/20/18 14:39 Zinc Sulfate (Zinc Sulfate) 220 mg DAILY ORAL 12/21/18 09:00 12/31/18 08:59 12/21/18 08:32 Brien Rodriguez MD December 21, 2018 10:22
--- NOTE | 2018-12-21 10:44 | NUR ---
CASE MANAGEMENT: REVIEW SI: SEPSIS . ASPIRATION PNA . RESP FAILURE T 98.4 HR 75 RR 26 BP 122/44 SAT 100% MECH VENT IS: VANCO IV Q24HR ZOSYN IV Q8HR ICU STATUS DCP: PATIENT IS FROM [facility]
--- NOTE | 2018-12-21 10:50 | NUR ---
NURSE NOTES: Dr Smith saw pt at bedside. Order received to change vent setting to VT400, and draw ABGs at 1500 today, and inform MD of updated lab results from today's blooddraw, including K level. Will process and follow order as planned. Addendum: 12/21/18 at 1439 by NANI GUTIERREZ RN K level of 2.8 from this morning's blood draw was reported to Dr Smith. Order was received for KCL 40meq IV x1. Order was processing and followed. Pt is currently receiving her 2nd bag of KCL 10meq for a total of 4 bags to equal the 40meq ordered.
[2018-12-21 11:27] LABS: BASOPHILS % (AUTO) 0.7 % (0.0-2.0); EOSINOPHILS % (AUTO) 1.4 % (0.0-3.0); HEMATOCRIT 24.5 % (37.0-47.0); HEMOGLOBIN 8.3 G/DL (12.0-16.0); LYMPHOCYTES % (AUTO) 10.2 % (20.0-45.0); MEAN CORPUSCULAR VOLUME 100 FL (80-99); MONOCYTES % (AUTO) 2.8 % (1.0-10.0); NEUTROPHILS % (AUTO) 84.9 % (45.0-75.0); PLATELET COUNT 361 K/UL (150-450); RED BLOOD COUNT 2.44 M/UL (4.20-5.40); RED CELL DISTRIBUTION WIDTH 12.4 % (11.6-14.8); WHITE BLOOD COUNT 15.7 K/UL (4.8-10.8)
[2018-12-21 11:39] LABS: ALANINE AMINOTRANSFERASE 25 U/L (12-78); ALBUMIN 1.3 G/DL (3.4-5.0); ALBUMIN/GLOBULIN RATIO 0.3 (1.0-2.7); ALKALINE PHOSPHATASE 140 U/L (46-116); ANION GAP 10 mmol/L (5-15); ASPARTATE AMINO TRANSFERASE 17 U/L (15-37); BILIRUBIN,TOTAL 0.2 MG/DL (0.2-1.0); BLOOD UREA NITROGEN 10 mg/dL (7-18); CALCIUM 7.3 MG/DL (8.5-10.1); CARBON DIOXIDE 23 MMOL/L (21-32); CHLORIDE 106 MMOL/L (98-107); CREATININE 0.2 MG/DL (0.55-1.30); POTASSIUM 2.8 MMOL/L (3.5-5.1); SODIUM 139 MMOL/L (136-145)
--- NOTE | 2018-12-21 13:00 | NUR ---
NURSE NOTES: Pt is resting with head of bed at 30degrees, opens eyes however with flat affect, PERRL 4.0 with Hx of left craniectomy. Currently on vent settings of AC12, VT400, FIO2 40% with O2sat of 100%, with lung sounds of bilateral rhonchi. monitoring and evaluation advisor displays NSR with diastolic BP in the upper 40's. Peripheral edema on upper extremities, and +4 pitting on bilateral feet. IV access on right hand #22G infusing NS at 100ml/hour y-sited with KCL 10meq IV x4bags for K level of 2.8, also right wrist #22G infusing Zosyn as ordered. GT feeding continues on Glucerna 1.5 at 37ml/hour, which pt is tolerating well with no residual or episodes of nausea/vomiting. Abdomen is round, distended, soft/nontender to touch, with hyperactive bowel sounds present in all quadrants. Fitzgerald catheter continues to drain clear/light yellow urine average of 100-200ml/hourly. Skin has full thickness pressure ulcer on sacrum, abrasion on left atkinson, and bilateral pink heels, all areas covered with optifoam dressing. Pt is on seizure precautions with side rails padded. Bed is locked with three side rails up and call light within reach. Will continue to monitor pt and follow plan of care per MD orders and protocol.
--- NOTE | 2018-12-21 14:00 | NUR ---
NURSE NOTES: Dajuan was administered via GT as ordered as a diet/supplement. Weaning from vent was attempted by RT this morning per protocol, however pt's resp-rate increased, and was unable to tolerate the weaning trial. Pt is currently on AC12, VT400, FIO2 40% with O2sat of 100%. VS stable with normal sinus rhythm.
[2018-12-21] MEDS: Vancomycin 750mg/NS 275ml IVPB SCH ×2 (14:03)
--- NOTE | 2018-12-21 15:50 | NUR ---
NURSE NOTES: Wound photos were taken and wound-dressings changed. Sacral wound unchanged from original assessment; area was cleaned with NS, therahoney and triad applied and covered with optifoam dressing as ordered. Cavilon skin barrier was applied to bilateral heels and covered with optifoam dressing, off heels with pillows. LLE atkinson old/healed skin tear/abrasion applied with triad cream and left open to air.
--- NOTE | 2018-12-21 16:07 | Surgery Progress Note ---
Surgery Progress Note Subjective Additional Comments no acute events. Objective Last 24 Hour Vital Signs Date Time Temp Pulse Resp B/P (MAP) Pulse Ox O2 Delivery O2 Flow Rate FiO2 12/21/18 16:00 Mechanical Ventilator 12/21/18 16:00 98.6 73 23 113/38 (63) 100 12/21/18 16:00 76 12/21/18 16:00 40 12/21/18 15:00 73 29 119/45 (69) 100 12/21/18 14:47 70 22 40 12/21/18 14:00 73 28 114/41 (65) 100 12/21/18 13:04 78 24 40 12/21/18 13:00 69 28 120/51 (74) 100 12/21/18 12:00 Mechanical Ventilator 12/21/18 12:00 69 12/21/18 12:00 98.4 70 27 118/43 (68) 100 12/21/18 12:00 40 12/21/18 11:00 69 25 117/41 (66) 100 12/21/18 10:52 69 26 40 12/21/18 10:00 72 22 118/42 (67) 99 12/21/18 09:24 74 126/51 12/21/18 09:24 74 126/51 12/21/18 09:04 74 28 40 12/21/18 09:00 78 26 126/51 (76) 100 12/21/18 08:00 Mechanical Ventilator 12/21/18 08:00 40 12/21/18 08:00 98.4 75 21 122/44 (70) 100 12/21/18 08:00 76 12/21/18 07:05 75 23 40 12/21/18 07:00 75 20 121/39 (66) 100 12/21/18 06:00 76 20 126/42 (70) 100 12/21/18 05:10 74 22 40 40 12/21/18 05:00 73 22 125/38 (67) 100 12/21/18 04:00 Mechanical Ventilator 12/21/18 04:00 98.5 75 22 123/40 (67) 100 12/21/18 04:00 40 12/21/18 03:25 75 26 40 40 12/21/18 03:00 73 12/21/18 03:00 75 22 119/40 (66) 100 12/21/18 02:00 74 21 122/43 (69) 100 12/21/18 01:00 80 26 127/45 (72) 100 12/21/18 00:59 81 26 40 40 12/21/18 00:00 Mechanical Ventilator 12/21/18 00:00 40 12/21/18 00:00 98.9 79 25 128/42 (70) 100 12/20/18 23:12 78 20 40 40 12/20/18 23:01 84 12/20/18 23:00 84 22 134/54 (80) 100 12/20/18 22:00 81 22 117/38 (64) 100 12/20/18 21:27 80 30 40 40 12/20/18 21:00 77 20 114/43 (66) 99 12/20/18 20:00 Mechanical Ventilator 12/20/18 20:00 40 12/20/18 20:00 76 12/20/18 20:00 98.2 80 21 102/35 (57) 99 12/20/18 19:15 82 20 40 40 12/20/18 19:00 78 21 120/40 (66) 99 12/20/18 18:00 74 19 112/38 (62) 100 12/20/18 17:04 73 20 40 12/20/18 17:00 98.5 74 21 113/38 (63) 100 I&O Intake and Output 12/20/18 12/21/18 18:59 06:59 Intake Total 1757.500 ml 1863.5 ml Output Total 1515 ml 1160 ml Balance 242.500 ml 703.5 ml Intake Free Water 60 ml IV Total 1397.500 ml 1437.5 ml Tube Feeding 200 ml 426 ml Other 100 ml Output Urine Total 1515 ml 1160 ml # Bowel Movements 2 Dressing: saturated Wound: other Drains: other Cardiovascular: RSR Respiratory: decreased breath sounds Abdomen: soft, present bowel sounds, non-distended Extremities: no cyanosis Laboratory Tests Test 12/21/18 10:50 12/21/18 15:50 White Blood Count 15.7 K/UL (4.8-10.8) H Red Blood Count 2.44 M/UL (4.20-5.40) L Hemoglobin 8.3 G/DL (12.0-16.0) L Hematocrit 24.5 % (37.0-47.0) L Mean Corpuscular Volume 100 FL (80-99) H Mean Corpuscular Hemoglobin 34.0 PG (27.0-31.0) H Mean Corpuscular Hemoglobin Concent 33.9 G/DL (32.0-36.0) Red Cell Distribution Width 12.4 % (11.6-14.8) Platelet Count 361 K/UL (150-450) Mean Platelet Volume 5.9 FL (6.5-10.1) L Neutrophils (%) (Auto) 84.9 % (45.0-75.0) H Lymphocytes (%) (Auto) 10.2 % (20.0-45.0) L Monocytes (%) (Auto) 2.8 % (1.0-10.0) Eosinophils (%) (Auto) 1.4 % (0.0-3.0) Basophils (%) (Auto) 0.7 % (0.0-2.0) Sodium Level 139 MMOL/L (136-145) Potassium Level 2.8 MMOL/L (3.5-5.1) L Chloride Level 106 MMOL/L (98-107) Carbon Dioxide Level 23 MMOL/L (21-32) Anion Gap 10 mmol/L (5-15) Blood Urea Nitrogen 10 mg/dL (7-18) Creatinine 0.2 MG/DL (0.55-1.30) L Estimat Glomerular Filtration Rate > 60 mL/min (>60) Glucose Level 163 MG/DL (74-106) #H Calcium Level 7.3 MG/DL (8.5-10.1) L Total Bilirubin 0.2 MG/DL (0.2-1.0) Aspartate Amino Transf (AST/SGOT) 17 U/L (15-37) Alanine Aminotransferase (ALT/SGPT) 25 U/L (12-78) Alkaline Phosphatase 140 U/L (46-116) H Total Protein 5.4 G/DL (6.4-8.2) L Albumin 1.3 G/DL (3.4-5.0) L Globulin 4.1 g/dL Albumin/Globulin Ratio 0.3 (1.0-2.7) L Arterial Blood pH 7.540 (7.350-7.450) Arterial Blood Partial Pressure CO2 28.4 mmHg (35.0-45.0) L Arterial Blood Partial Pressure O2 292.6 mmHg (75.0-100.0) H Arterial Blood HCO3 23.7 mmol/L (22.0-26.0) Arterial Blood Oxygen Saturation 99.1 % (95-100) Arterial Blood Base Excess 1.5 (-2-2) Justus Test Positive Plan Problems: (1) Decubital ulcer Assessment & Plan: Pt presented on admission with 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 Periwound with scattered shearing. Bone is palpable. Borders are irregular shaped but adherent to base of wound. Periwound dark and indurated. No odor or exudate noted. R and L heels are pink and blanchable without fluctuance. Skin is intact under trach collar. .No other areas of skin concerns noted. Tx.Plan: Cleanse with Saline. Apply Therahoney. Apply Triad periwound. Cover with Optifoam drsg. Change every 3 days and prn. Apply Cavilon Skin Barrier to both heels .Cover each heel with Optifoam drsg.Change every 7 days and prn. Off-load heels with pillow. APM/POOJA Mattress overlay. Reposition at least every 2hours or as tolerated. (2) Anemia (3) Sepsis Assessment & Plan: IV Abx cultures noted labs noted trend labs cont with current care unlikely from chronic wounds will follow with recs thank you Arnold Hi December 21, 2018 16:07
--- NOTE | 2018-12-21 17:30 | NUR ---
NURSE NOTES: Pt was cleaned and repositioned. Oral care given and pt suctioned. GT site was cleaned and dressing changed. VS stable. phototypesetting equipment monitor displays NSR. Order received from Dr Smith to "titrate FIO2 for saturation of 90-96%", order processed, RT informed. Fitzgerald catheter continues to drain clear/light yellow urine average of 100-200ml/hour. Replaced GT feeding/tubing. Pt tolerating feeding well with no residual or episodes of nausea/vomiting. Pt had x1 small amount of BM, soft/formed/brown. Pt received 40meq IV KCL total for K level of 2.8. NS continues at 100ml/hour as ordered. No episodes of seizure activity. Pt is resting in stable condition with head of bed at 30degrees, bed locked and call light within reach.
[2018-12-21] MEDS ORDERED: NS 275ml ONE ×3 (18:09→18:11)
[2018-12-21] MEDS ORDERED: PROMOD946 ML PO (18:25)
[2018-12-21] MEDS ORDERED: LEVEMIR100 UNIT/1 SUBQ (18:28)
[2018-12-21] MEDS ORDERED: FERROUS SU300 MG/52 GT (18:32)
[2018-12-21] MEDS ORDERED: ALBUTEROL2.5 MG/3 M INH (18:36)
[2018-12-21] MEDS ORDERED: AMANTADINE50 MG/5 ML GT (18:38)
--- NOTE | 2018-12-21 19:09 | NUR ---
HAND-OFF: Report given to Julio Cesar SOLITARIO. Pt is resting in stable condition. Endorsed plan of care.
--- NOTE | 2018-12-21 20:00 | NUR ---
NURSE NOTES: NURSE NOTES: Received pt and change of shift report from Arlin SOLITARIO. Pt is resting with head of bed at 30degrees. Obtunded, opens eyes however with flat affect. Left side of the head has evidence of Hx of status post left craniectomy. Intubated via trach Portex 7 with vent settings of AC12, VT350, FIO2 30% with O2sat of 100%, with lung sounds of bilateral rhonchi. equipment monitor phototypesetting displays NSR with diastolic BP in the 30's-40's. Peripheral edema on upper extremities, and +4 pitting on bilateral feet. IV access on right hand #22G infusing NS at 100ml/hour. GT in place with feeding Glucerna 1.5 at 37ml/hour. Pt is tolerating feeding well with no residual or episodes of nausea/vomiting. Abdomen is round, soft, with hyperactive bowel sounds present in all quadrants. Fitzgerald catheter in place, draining clear/light yellow urine. Skin has full thickness pressure ulcer on sacrum, abrasion on left atkinson, and bilateral pink heels, all areas covered with optifoam dressing. Pt is on seizure precautions with side rails padded. Bed is locked with three side rails up and call light within reach. Will continue to monitor pt and follow plan of care per MD orders and protocol.
[2018-12-21] MEDS: Levemir Flexpen SUBQ SCH (20:12)
--- NOTE | 2018-12-21 21:00 | NUR ---
NURSE NOTES: Dajuan given. GT flush 60ml. NAD at this time. VS stable.
--- NOTE | 2018-12-21 22:00 | NUR ---
NURSE NOTES: Repositioned patient. NAD, no new change.
[2018-12-22] VITALS (24 sets, daily range): BP systolic 114–129; BP diastolic 37–89
--- NOTE | 2018-12-22 | NUR ---
NURSE NOTES: Repositioned, lavaged, oral care and suctioned patient. Vitals remains stable. NAD at this time. Will continue to monitor.
--- NOTE | 2018-12-22 02:00 | NUR ---
NURSE NOTES: Patient repositioned and given oral care. Vitals has remained stable. Patient having liquid diarrhea. Inserted Rectal tube and sent stool for c-diff analysis.
--- NOTE | 2018-12-22 04:00 | NUR ---
NURSE NOTES: Patient cleaned and repositioned. Vitals remains stable. Temperature now is 97.9F. Oral care performed. IV lines remain intact. No new changes.
[2018-12-22] MEDS: Piperacillin/Tazobactam 3.375 GM in NS 110 ML IVPB SCH ×3 (05:12→21:46)
[2018-12-22] MEDS: NovoLOG Insulin Flexpen SUBQ SCH ×4 (05:17→23:41)
--- NOTE | 2018-12-22 06:00 | NUR ---
NURSE NOTES: BS is 65, D50% IVP given. VS remains stable.
--- NOTE | 2018-12-22 06:30 | NUR ---
NURSE NOTES: rechecked BS and now is 150
--- NOTE | 2018-12-22 07:01 | NUR ---
HAND-OFF: Report given to Loki Oliveros RN, Patient remains hemodynamically stable, NAD.
--- NOTE | 2018-12-22 07:05 | NUR ---
RESPIRATORY NOTE: Received pt on trach to vent dependent with cuffed, Portex 7.0, secured with trach tie and trach guard. Pt is on vent settings: AC 12-375ml- 30%FiO2- no peep. Pt is obtunded, no SOB or resp distress noted. Alarms are set and audible, vent is plugged into the red outlet, ambu bag and spare trach kit are at bedside, vent circuits and suction tube are secured and out of the way. Will continue to monitor pt.
--- NOTE | 2018-12-22 07:10 | NUR ---
NURSE NOTES: Received pt and change of shift report from Julio Cesar SOLITARIO. Pt is resting with head of bed at 30degrees. Opens eyes however with flat affect. Left side of the head has evidence of Hx of status post left craniectomy. Pupil bilaterally with sluggish response to light, with left pupil 5mm and right pupil 4mm in size. Pt is intubated via trach Portex 7 with vent settings of AC12, VT375, FIO2 30% with O2sat of 97%, with lung sounds of improving bilateral rhonchi from yesterday's assessment. tire classifier displays NSR with diastolic BP in the 40's. Peripheral edema on upper extremities, and +3 pitting on bilateral feet. IV access on right hand #22G infusing NS at 100ml/hour, and #22G on left hand infusing Zosyn as ordered. GT in place with feeding Glucerna 1.5 at 37ml/hour. Pt is tolerating feeding well with no residual or episodes of nausea/vomiting. Abdomen is round, distended, soft/nontender to touch, with hyperactive bowel sounds present in all quadrants. Fitzgerald catheter in place, draining clear/light yellow urine. Skin has full thickness pressure ulcer on sacrum, healing abrasion on left atkinson, and bilateral pink heels, all areas covered with optifoam dressing. Pt is on seizure precautions with side rails padded. Bed is locked with three side rails up and call light within reach. Will continue to monitor pt and follow plan of care per MD orders and protocol. Addendum: 12/22/18 at 1002 by NANI GUTIERREZ RN Pt also has rectal tube in place, inserted by cost control supervisor nurse; currently draining brown liquid stool.
[2018-12-22] MEDS: levETIRAcetam 500mg/5ml Liquid NG SCH ×2 (08:25→20:39)
[2018-12-22] MEDS: Multivitamins W/Minerals 15 ML UDC GT SCH (08:25)
[2018-12-22] MEDS: Ferrous Sulfate 300 MG/5 ML UDC GT SCH (08:25)
[2018-12-22] MEDS: Pantoprazole Inj IVP SCH ×2 (08:25→20:39)
[2018-12-22] MEDS: Heparin 5000 units/ml inj SUBQ SCH ×2 (08:26→20:41)
[2018-12-22] MEDS: Ascorbic Acid 500mg tab ORAL SCH ×2 (08:26→17:43)
[2018-12-22] MEDS: Zinc Sulfate 220mg cap ORAL SCH (08:27)
[2018-12-22] MEDS: Thiamine 100mg tab GT SCH (08:27)
[2018-12-22] MEDS: Docusate 100mg/10ml Liq GT SCH (08:28)
--- NOTE | 2018-12-22 09:00 | NUR ---
NURSE NOTES: Pt suctioned and oral care provided. VS stable. Fitzgerald catheter continues to drain clear/yellow urine on average of 100ml/hourly. Pt is tolerating GT feeding well with no residual or s/s of nausea/vomiting.
[2018-12-22 09:55] LABS: BASOPHILS % (AUTO) 0.6 % (0.0-2.0); EOSINOPHILS % (AUTO) 1.6 % (0.0-3.0); HEMATOCRIT 28.6 % (37.0-47.0); HEMOGLOBIN 9.9 G/DL (12.0-16.0); LYMPHOCYTES % (AUTO) 10.6 % (20.0-45.0); MEAN CORPUSCULAR VOLUME 99 FL (80-99); MONOCYTES % (AUTO) 3.6 % (1.0-10.0); NEUTROPHILS % (AUTO) 83.6 % (45.0-75.0); PLATELET COUNT 425 K/UL (150-450); RED BLOOD COUNT 2.88 M/UL (4.20-5.40); RED CELL DISTRIBUTION WIDTH 12.2 % (11.6-14.8); WHITE BLOOD COUNT 17.7 K/UL (4.8-10.8)
--- NOTE | 2018-12-22 10:00 | NUR ---
NURSE NOTES: Pt was seen by Dr Johnson (ID). Vanco IV and Vanco trough/lab were DC'd by . 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 No additional orders at this time.
--- NOTE | 2018-12-22 10:11 | Infectious Diseases Prog Note ---
Assessment/Plan Assessment/Plan A 1. aspiration pneumonia 2. + blood cultures with coag neg staph likely contaminated 3. respiratory failure on ventilator 4. diabetes mellitus 5. hypertension 6. Diarrhea, C. difficile negative 7. Anemia P 1. Discontinue iv vancomycin, Continue Zosyn 2. will follow up cultures Subjective ROS Limited/Unobtainable: Yes Gastrointestinal/Abdominal: Reports: diarrhea Allergies: Coded Allergies: No Known Allergies (Unverified , 11/06/18) Objective Vital Signs Last 24 Hour Vital Signs Date Time Temp Pulse Resp B/P (MAP) Pulse Ox O2 Delivery O2 Flow Rate FiO2 12/22/18 09:17 82 24 30 12/22/18 09:00 83 27 129/38 (68) 97 12/22/18 08:29 87 128/44 12/22/18 08:28 87 128/44 12/22/18 08:00 98.3 77 24 124/42 (69) 97 12/22/18 08:00 Mechanical Ventilator 12/22/18 08:00 90 12/22/18 07:05 87 22 30 12/22/18 07:00 90 30 128/44 (72) 100 12/22/18 06:00 88 36 125/39 (67) 94 12/22/18 05:00 30 12/22/18 05:00 90 30 128/40 (69) 97 12/22/18 04:57 77 28 30 12/22/18 04:00 73 12/22/18 04:00 98.4 77 24 124/42 (69) 97 12/22/18 04:00 Mechanical Ventilator 12/22/18 04:00 35 12/22/18 03:00 71 25 116/41 (66) 94 12/22/18 02:49 73 26 30 12/22/18 02:00 73 20 118/58 (78) 96 12/22/18 01:00 81 22 126/66 (86) 100 12/22/18 00:56 75 28 30 12/22/18 00:00 30 12/22/18 00:00 99.6 77 27 119/89 (99) 98 12/22/18 00:00 84 12/22/18 00:00 Mechanical Ventilator 12/21/18 23:12 80 27 30 12/21/18 23:00 81 29 117/19 (51) 97 12/21/18 22:00 83 33 109/26 (53) 100 12/21/18 21:15 81 28 30 12/21/18 21:00 82 30 94/32 (52) 100 12/21/18 20:00 99.8 86 47 121/42 (68) 100 12/21/18 20:00 30 12/21/18 20:00 Mechanical Ventilator 12/21/18 20:00 86 12/21/18 19:00 80 32 132/45 (74) 100 12/21/18 18:57 80 27 30 12/21/18 18:00 75 31 120/44 (69) 96 12/21/18 17:08 71 25 30 12/21/18 17:00 69 21 107/37 (60) 100 12/21/18 16:00 Mechanical Ventilator 12/21/18 16:00 98.6 73 23 113/38 (63) 100 12/21/18 16:00 76 12/21/18 16:00 40 12/21/18 15:00 73 29 119/45 (69) 100 12/21/18 14:47 70 22 40 12/21/18 14:00 73 28 114/41 (65) 100 12/21/18 13:04 78 24 40 12/21/18 13:00 69 28 120/51 (74) 100 12/21/18 12:00 Mechanical Ventilator 12/21/18 12:00 69 12/21/18 12:00 98.4 70 27 118/43 (68) 100 12/21/18 12:00 40 12/21/18 11:00 69 25 117/41 (66) 100 12/21/18 10:52 69 26 40 Height (Feet): 5 Height (Inches): 2.00 Weight (Pounds): 102 HEENT: status post trach, other - s/p craniotomy in left side Respiratory/Chest: crackles/rales, rhonchi - bilaterally, other - on ventilator Cardiovascular: normal rate Abdomen: soft, non tender, other - GT feeding, rectal tube Extremities: no edema Skin: ulcers, other - sacral pressure ulcer Neurologic/Psychiatric: unresponsiveness Microbiology Date/Time Source Procedure Growth Status 12/19/18 12:15 Blood Blood Culture - Preliminary NO GROWTH AFTER 48 HOURS Resulted 12/19/18 11:51 Blood Blood Culture - Final Staphylococcus Epidermidis Complete 12/20/18 11:10 Sputum Gram Stain - Final Resulted 12/20/18 11:10 Sputum Culture - Preliminary Gram Negative Bacillus 1 Usual Respiratory Lauryn Resulted 12/19/18 12:00 Nasal Nares - Final Complete 12/19/18 12:00 Nasal Nares - Final Complete 12/22/18 04:00 Stool Clostridium difficile Toxin Assay - Final Complete 12/19/18 12:45 Urine,Clean Catch Urine Culture - Final NO GROWTH AFTER 48 HOURS Complete Laboratory Tests Test 12/21/18 10:50 12/21/18 15:50 12/22/18 08:10 12/22/18 09:30 White Blood Count 15.7 K/UL (4.8-10.8) H 17.7 K/UL (4.8-10.8) H Red Blood Count 2.44 M/UL (4.20-5.40) L 2.88 M/UL (4.20-5.40) L Hemoglobin 8.3 G/DL (12.0-16.0) L 9.9 G/DL (12.0-16.0) L Hematocrit 24.5 % (37.0-47.0) L 28.6 % (37.0-47.0) L Mean Corpuscular Volume 100 FL (80-99) H 99 FL (80-99) Mean Corpuscular Hemoglobin 34.0 PG (27.0-31.0) H 34.2 PG (27.0-31.0) H Mean Corpuscular Hemoglobin Concent 33.9 G/DL (32.0-36.0) 34.5 G/DL (32.0-36.0) Red Cell Distribution Width 12.4 % (11.6-14.8) 12.2 % (11.6-14.8) Platelet Count 361 K/UL (150-450) 425 K/UL (150-450) Mean Platelet Volume 5.9 FL (6.5-10.1) L 6.0 FL (6.5-10.1) L Neutrophils (%) (Auto) 84.9 % (45.0-75.0) H 83.6 % (45.0-75.0) H Lymphocytes (%) (Auto) 10.2 % (20.0-45.0) L 10.6 % (20.0-45.0) L Monocytes (%) (Auto) 2.8 % (1.0-10.0) 3.6 % (1.0-10.0) Eosinophils (%) (Auto) 1.4 % (0.0-3.0) 1.6 % (0.0-3.0) Basophils (%) (Auto) 0.7 % (0.0-2.0) 0.6 % (0.0-2.0) Sodium Level 139 MMOL/L (136-145) Pending Potassium Level 2.8 MMOL/L (3.5-5.1) L Pending Chloride Level 106 MMOL/L (98-107) Pending Carbon Dioxide Level 23 MMOL/L (21-32) Pending Anion Gap 10 mmol/L (5-15) Blood Urea Nitrogen 10 mg/dL (7-18) Pending Creatinine 0.2 MG/DL (0.55-1.30) L Pending Estimat Glomerular Filtration Rate > 60 mL/min (>60) Pending Glucose Level 163 MG/DL (74-106) #H Pending Calcium Level 7.3 MG/DL (8.5-10.1) L Pending Total Bilirubin 0.2 MG/DL (0.2-1.0) Pending Aspartate Amino Transf (AST/SGOT) 17 U/L (15-37) Pending Alanine Aminotransferase (ALT/SGPT) 25 U/L (12-78) Pending Alkaline Phosphatase 140 U/L (46-116) H Pending Total Protein 5.4 G/DL (6.4-8.2) L Pending Albumin 1.3 G/DL (3.4-5.0) L Pending Globulin 4.1 g/dL Pending Albumin/Globulin Ratio 0.3 (1.0-2.7) L Arterial Blood pH 7.540 (7.350-7.450) 7.504 (7.350-7.450) Arterial Blood Partial Pressure CO2 28.4 mmHg (35.0-45.0) L 32.8 mmHg (35.0-45.0) L Arterial Blood Partial Pressure O2 292.6 mmHg (75.0-100.0) H 72.0 mmHg (75.0-100.0) L Arterial Blood HCO3 23.7 mmol/L (22.0-26.0) 25.2 mmol/L (22.0-26.0) Arterial Blood Oxygen Saturation 99.1 % (95-100) 93.6 % (95-100) L Arterial Blood Base Excess 1.5 (-2-2) 2.4 (-2-2) H Justus Test Positive Positive Current Medications Medications (Trade) Dose Ordered Sig/Dell Route PRN Reason Start Time Stop Time Status Last Admin Dose Admin Amlodipine Besylate (Norvasc) 10 mg DAILY GT 12/20/18 09:00 01/19/19 08:59 12/22/18 08:28 Ascorbic Acid (Vitamin C) 250 mg TWICE A DAY ORAL 12/20/18 18:00 01/19/19 17:59 12/22/18 08:26 Atenolol (Tenormin) 50 mg DAILY GT 12/20/18 09:00 01/19/19 08:59 12/22/18 08:29 Dextrose (Dextrose 50%) 25 ml Q30M PRN IV Hypoglycemia 12/20/18 19:30 01/19/19 19:29 12/22/18 05:17 Dextrose (Dextrose 50%) 50 ml Q30M PRN IV Hypoglycemia 12/20/18 19:30 01/19/19 19:29 Docusate Sodium (Colace) 100 mg DAILY GT 12/20/18 09:00 01/19/19 08:59 Ferrous Sulfate (Feosol) 300 mg DAILY GT 12/20/18 09:00 01/19/19 08:59 12/22/18 08:25 Folic Acid (Folate) 1 mg DAILY GT 12/20/18 09:00 01/19/19 08:59 12/22/18 08:27 Heparin Sodium (Porcine) (Heparin 5000 units/ml) 5,000 units EVERY 12 HOURS SUBQ 12/19/18 21:00 01/18/19 20:59 12/22/18 08:26 Insulin Aspart (NovoLOG) EVERY 6 HOURS SUBQ 12/21/18 00:00 01/20/19 00:00 12/21/18 23:31 Insulin Detemir (Levemir) 5 units QHS SUBQ 12/19/18 21:00 01/18/19 20:59 12/21/18 20:12 Levetiracetam (Keppra) 500 mg Q12HR NG 12/19/18 21:00 01/18/19 20:59 12/22/18 08:25 Multivitamins (Multivitamins W/ Minerals 15ml Liquid) 15 ml DAILY GT 12/20/18 09:00 01/19/19 08:59 12/22/18 08:25 Pantoprazole (Protonix) 40 mg EVERY 12 HOURS IVP 12/19/18 21:00 01/18/19 20:59 12/22/18 08:25 Piperacillin Sod/ Tazobactam Sod 3.375 gm/Sodium Chloride 110 ml @ 27.5 mls/hr Q8HR IVPB 12/19/18 22:00 12/26/18 21:59 12/22/18 05:12 Sodium Chloride 1,000 ml @ 100 mls/hr Q10H IV 12/19/18 18:00 01/18/19 17:59 12/22/18 05:17 Thiamine HCl (Vitamin B1) 250 mg DAILY GT 12/20/18 09:00 01/19/19 08:59 12/22/18 08:27 Vancomycin HCl (Vanco rx to dose) 1 ea DAILY PRN MISC Per rx protocol 12/19/18 18:00 01/18/19 17:59 Vancomycin HCl 750 mg/Sodium Chloride 275 ml @ 183.333 mls/hr Q24H IVPB 12/20/18 15:00 12/25/18 14:59 12/21/18 14:03 Zinc Sulfate (Zinc Sulfate) 220 mg DAILY ORAL 12/21/18 09:00 12/31/18 08:59 12/22/18 08:27 Jose Angel Johnson MD December 22, 2018 10:10
[2018-12-22 10:14] LABS: ALANINE AMINOTRANSFERASE 26 U/L (12-78); ALBUMIN 1.5 G/DL (3.4-5.0); ALBUMIN/GLOBULIN RATIO 0.3 (1.0-2.7); ALKALINE PHOSPHATASE 155 U/L (46-116); ANION GAP 8 mmol/L (5-15); ASPARTATE AMINO TRANSFERASE 16 U/L (15-37); BILIRUBIN,TOTAL 0.2 MG/DL (0.2-1.0); BLOOD UREA NITROGEN 13 mg/dL (7-18); CARBON DIOXIDE 27 MMOL/L (21-32); CHLORIDE 99 MMOL/L (98-107); CREATININE 0.4 MG/DL (0.55-1.30); POTASSIUM 3.2 MMOL/L (3.5-5.1); SODIUM 134 MMOL/L (136-145)
--- NOTE | 2018-12-22 10:25 | NUR ---
NURSE NOTES: Lab results including K=3.2, Is=653, and ABGs from this AM were reported to Dr Smith. Order received for KCL 40meq IVx1, change VT setting to 350, and flush GT with 50mL H2O Q6hrs. Orders processed and followed.
--- NOTE | 2018-12-22 10:28 | Pulmonolgy Critical Care Note ---
Critical Care - Asmt/Plan Assessment/Plan: Pulmonary CCM Progress Note Assessment/Plan IMPRESSION: 1. Sepsis. 2. Leukocytosis. 3. Respiratory failure. 4. Bilateral pneumonia. 5. Hypokalemia. 6. Severe protein-calorie malnutrition. 7. Prior craniectomy and intracranial bleed. 8. Alkalosis 9. Hypokalemia PLAN care as is vent and adjust Tv ID pending WBC elevated feeds supportive care impression, plan, and exam edited and reviewed in detail care discussed with cartographic drafter - Subjective ROS Limited/Unobtainable: Yes Condition: critical EKG Rhythm: Sinus Rhythm Critical Care - Objective Vital Signs Noted Laboratory Tests Noted Test 12/19/18 11:51 12/19/18 12:45 12/19/18 16:35 12/20/18 03:40 White Blood Count 21.3 K/UL (4.8-10.8) H 21.1 K/UL (4.8-10.8) H Red Blood Count 2.60 M/UL (4.20-5.40) L 2.50 M/UL (4.20-5.40) L Hemoglobin 9.0 G/DL (12.0-16.0) L 8.7 G/DL (12.0-16.0) L Hematocrit 25.6 % (37.0-47.0) L 25.1 % (37.0-47.0) L Mean Corpuscular Volume 98 FL (80-99) 100 FL (80-99) H Mean Corpuscular Hemoglobin 34.5 PG (27.0-31.0) H 34.7 PG (27.0-31.0) H Mean Corpuscular Hemoglobin Concent 35.1 G/DL (32.0-36.0) 34.5 G/DL (32.0-36.0) Red Cell Distribution Width 12.2 % (11.6-14.8) 12.4 % (11.6-14.8) Platelet Count 364 K/UL (150-450) 338 K/UL (150-450) Mean Platelet Volume 6.6 FL (6.5-10.1) 6.5 FL (6.5-10.1) Neutrophils (%) (Auto) % (45.0-75.0) % (45.0-75.0) Lymphocytes (%) (Auto) % (20.0-45.0) % (20.0-45.0) Monocytes (%) (Auto) % (1.0-10.0) % (1.0-10.0) Eosinophils (%) (Auto) % (0.0-3.0) % (0.0-3.0) Basophils (%) (Auto) % (0.0-2.0) % (0.0-2.0) Differential Total Cells Counted 100 100 Neutrophils % (Manual) 89 % (45-75) H 86 % (45-75) H Lymphocytes % (Manual) 7 % (20-45) L 10 % (20-45) L Monocytes % (Manual) 4 % (1-10) 4 % (1-10) Eosinophils % (Manual) 0 % (0-3) 0 % (0-3) Basophils % (Manual) 0 % (0-2) 0 % (0-2) Band Neutrophils 0 % (0-8) 0 % (0-8) Platelet Estimate Adequate Adequate Platelet Morphology Normal Normal Red Blood Cell Morphology Normal Sodium Level 137 MMOL/L (136-145) 138 MMOL/L (136-145) Potassium Level 3.2 MMOL/L (3.5-5.1) L 3.1 MMOL/L (3.5-5.1) L Chloride Level 100 MMOL/L (98-107) 104 MMOL/L (98-107) Carbon Dioxide Level 28 MMOL/L (21-32) 26 MMOL/L (21-32) Anion Gap 9 mmol/L (5-15) 8 mmol/L (5-15) Blood Urea Nitrogen 22 mg/dL (7-18) H 13 mg/dL (7-18) Creatinine 0.5 MG/DL (0.55-1.30) L 0.3 MG/DL (0.55-1.30) L Estimat Glomerular Filtration Rate > 60 mL/min (>60) > 60 mL/min (>60) Glucose Level 132 MG/DL (74-106) H 45 MG/DL (74-106) L Lactic Acid Level 2.00 mmol/L (0.4-2.0) 0.80 mmol/L (0.4-2.0) Calcium Level 8.4 MG/DL (8.5-10.1) L 8.3 MG/DL (8.5-10.1) L Total Bilirubin 0.3 MG/DL (0.2-1.0) 0.3 MG/DL (0.2-1.0) Aspartate Amino Transf (AST/SGOT) 21 U/L (15-37) 14 U/L (15-37) L Alanine Aminotransferase (ALT/SGPT) 50 U/L (12-78) 33 U/L (12-78) Alkaline Phosphatase 179 U/L (46-116) H 142 U/L (46-116) H Total Creatine Kinase 12 U/L (26-308) L Creatine Kinase MB < 0.5 NG/ML (0.0-3.6) Creatine Kinase MB Relative Index Troponin I 0.000 ng/mL (0.000-0.056) Total Protein 6.3 G/DL (6.4-8.2) L 5.8 G/DL (6.4-8.2) L Albumin 1.6 G/DL (3.4-5.0) L 1.4 G/DL (3.4-5.0) L Globulin 4.7 g/dL 4.4 g/dL Albumin/Globulin Ratio 0.3 (1.0-2.7) L 0.3 (1.0-2.7) L Urine Color Yellow Urine Appearance Slightly cloudy Urine pH 6 (4.5-8.0) Urine Specific [place] 1.010 (1.005-1.035) Urine Protein 2+ (NEGATIVE) H Urine Glucose (UA) Negative (NEGATIVE) Urine Ketones 1+ (NEGATIVE) H Urine Blood 1+ (NEGATIVE) H Urine Nitrite Negative (NEGATIVE) Urine Bilirubin Negative (NEGATIVE) Urine Urobilinogen Normal MG/DL (0.0-1.0) Urine Leukocyte Esterase 1+ (NEGATIVE) H Urine RBC 2-4 /HPF (0 - 2) H Urine WBC 2-4 /HPF (0 - 2) Urine Squamous Epithelial Cells Moderate /LPF (NONE/OCC) H Urine Bacteria Few /HPF (NONE) Urine Yeast Few /HPF (NONE) H Polychromasia 1+ Hypochromasia 1+ Macrocytosis 1+ Test 12/20/18 07:55 Arterial Blood pH 7.505 (7.350-7.450) Arterial Blood Partial Pressure CO2 28.8 mmHg (35.0-45.0) L Arterial Blood Partial Pressure O2 93.4 mmHg (75.0-100.0) Arterial Blood HCO3 22.2 mmol/L (22.0-26.0) Arterial Blood Oxygen Saturation 96.7 % (95-100) Arterial Blood Base Excess -0.2 (-2-2) Justus Test Positive Objective: HEENT: Negative. NECK: Supple. No adenopathy. Tracheostomy. Midline craniectomy noted. LUNGS: With moderate breath sounds. Some rhonchi. CARDIAC: S1, S2. Regular rate and rhythm. ABDOMEN: Soft. G-tube in place. EXTREMITIES: No edema. NEUROLOGICAL: Poorly responsive. Micro: Microbiology Date/Time Source Procedure Growth Status 12/19/18 12:00 Nasal Nares - Final Complete 12/19/18 12:00 Nasal Nares - Final Complete 12/19/18 12:45 Urine,Clean Catch Urine Culture - Preliminary NO GROWTH Resulted Respiratory: adjust tidal volume Critical Care - Objective Last 24 Hour Vital Signs Date Time Temp Pulse Resp B/P (MAP) Pulse Ox O2 Delivery O2 Flow Rate FiO2 12/22/18 10:00 73 25 118/43 (68) 96 12/22/18 09:17 82 24 30 12/22/18 09:00 83 27 129/38 (68) 97 12/22/18 08:29 87 128/44 12/22/18 08:28 87 128/44 12/22/18 08:00 98.3 77 24 124/42 (69) 97 12/22/18 08:00 Mechanical Ventilator 12/22/18 08:00 90 12/22/18 07:05 87 22 30 12/22/18 07:00 90 30 128/44 (72) 100 12/22/18 06:00 88 36 125/39 (67) 94 12/22/18 05:00 30 12/22/18 05:00 90 30 128/40 (69) 97 12/22/18 04:57 77 28 30 12/22/18 04:00 73 12/22/18 04:00 98.4 77 24 124/42 (69) 97 12/22/18 04:00 Mechanical Ventilator 12/22/18 04:00 35 12/22/18 03:00 71 25 116/41 (66) 94 12/22/18 02:49 73 26 30 12/22/18 02:00 73 20 118/58 (78) 96 12/22/18 01:00 81 22 126/66 (86) 100 12/22/18 00:56 75 28 30 12/22/18 00:00 30 12/22/18 00:00 99.6 77 27 119/89 (99) 98 12/22/18 00:00 84 12/22/18 00:00 Mechanical Ventilator 12/21/18 23:12 80 27 30 12/21/18 23:00 81 29 117/19 (51) 97 12/21/18 22:00 83 33 109/26 (53) 100 12/21/18 21:15 81 28 30 12/21/18 21:00 82 30 94/32 (52) 100 12/21/18 20:00 99.8 86 47 121/42 (68) 100 12/21/18 20:00 30 12/21/18 20:00 Mechanical Ventilator 12/21/18 20:00 86 12/21/18 19:00 80 32 132/45 (74) 100 12/21/18 18:57 80 27 30 12/21/18 18:00 75 31 120/44 (69) 96 12/21/18 17:08 71 25 30 12/21/18 17:00 69 21 107/37 (60) 100 12/21/18 16:00 Mechanical Ventilator 12/21/18 16:00 98.6 73 23 113/38 (63) 100 12/21/18 16:00 76 12/21/18 16:00 40 12/21/18 15:00 73 29 119/45 (69) 100 12/21/18 14:47 70 22 40 12/21/18 14:00 73 28 114/41 (65) 100 12/21/18 13:04 78 24 40 12/21/18 13:00 69 28 120/51 (74) 100 12/21/18 12:00 Mechanical Ventilator 12/21/18 12:00 69 12/21/18 12:00 98.4 70 27 118/43 (68) 100 12/21/18 12:00 40 12/21/18 11:00 69 25 117/41 (66) 100 12/21/18 10:52 69 26 40 Micro: Microbiology Date/Time Source Procedure Growth Status 12/19/18 12:15 Blood Blood Culture - Preliminary NO GROWTH AFTER 48 HOURS Resulted 12/19/18 11:51 Blood Blood Culture - Final Staphylococcus Epidermidis Complete 12/20/18 11:10 Sputum Gram Stain - Final Resulted 12/20/18 11:10 Sputum Culture - Preliminary Gram Negative Bacillus 1 Usual Respiratory Lauryn Resulted 12/19/18 12:00 Nasal Nares - Final Complete 12/19/18 12:00 Nasal Nares - Final Complete 12/22/18 04:00 Stool Clostridium difficile Toxin Assay - Final Complete 12/19/18 12:45 Urine,Clean Catch Urine Culture - Final NO GROWTH AFTER 48 HOURS Complete Accucheck: 150 Critical Care - Subjective ROS Limited/Unobtainable: No Condition: stable FI02: 30 Vent Support Breath Rate: 12 Vent Support Mode: AC Vent Tidal Volume: 375 Sputum Amount: Small PEEP: 0.0 PIP: 20 Tube Feeding Amount: 37 I&O: Intake and Output 12/21/18 12/22/18 19:00 07:00 Intake Total 2432.541 ml 1919.0 ml Output Total 1750 ml 1575 ml Balance 682.541 ml 344.0 ml Intake Free Water 60 ml IV Total 1988.541 ml 1415.0 ml Tube Feeding 444 ml 444 ml Output Urine Total 1750 ml 1575 ml # Bowel Movements 1 Humza Smith MD December 22, 2018 10:28
--- NOTE | 2018-12-22 12:30 | NUR ---
NURSE NOTES: Pt is resting with head of bed at 30degrees. Vent settings currently AC12, VT350 with FIO2 at 30%, intubated via Portex 7 trach, at O2sat 95% with bilateral rhonchi present on auscultation, slightly improved from yesterday's assessment. GT feeding continues, on Glucerna 1.5 at 37ml/hr, tolerating well with no s/s of nausea/vomiting and no residual; GT flushed with 50ml H2O Q6hrs as ordered. Rectal tube in place, draining liquid/brown stool. Cdiff resulted negative. Axillary temp within normal limits, currently 98.3F. Fitzgerald catheter drains clear/yellow urine with output of 100-200ml/hourly. NS infusing at 100ml/hour. Also KCL 40meq infusing at 10meq/100ml per bag x4 bags total. athletic monitor displays NSR. Will continue to monitor and follow plan of care.
--- NOTE | 2018-12-22 12:30 | NUR ---
NURSE NOTES: Addendum: 12/22/18 at 1601 by NANI GUTIERREZ RN DUPLICATE ENTRY
--- NOTE | 2018-12-22 12:48 | NUR ---
CASE MANAGEMENT: REVIEW 12/22/2018 SI: SEPSIS. PNA. T 98.5 HR 77 RR 24 B/P 124/42 SATS 97% ON MECH VENT FiO2 30 WBC 17.7 NA 134 K 3.2 CR 0.4 GLU 213 CA 8 ALP 155 ABGs pH 7.504 pCO2 32.8 pO2 72 O2 SAT 93.6 BE 2.4 IS: VANCO IV Q24HR ZOSYN IV Q8HR ICU STATUS DCP: PATIENT IS FROM [facility]
--- NOTE | 2018-12-22 14:00 | NUR ---
NURSE NOTES: P200 mattress was placed under the pt and the pt was repositioned. Oral care given and pt suctioned with output of small amount of thick clear/white secretion/sputum. VS stable.
[2018-12-22] MEDS ORDERED: Tubing IV Secondary IV ONE (15:49)
[2018-12-22] MEDS ORDERED: NS 275ml ONE (15:49)
--- NOTE | 2018-12-22 16:30 | NUR ---
NURSE NOTES: Wound dressing changed and wound treated as ordered. Pt had BM x1, 50mL liquid/brown stool, drained via rectal tube. Pt was cleaned and repositioned. Pt was suctioned and oral care done. VS stable. Currently resting with head of bed at 30degrees.
--- NOTE | 2018-12-22 17:00 | NUR ---
NURSE NOTES: ABG result was reported to Dr Smith, and order was received to change vent settings to AC10 and VT 375. RT was informed and vent settings changed accordingly. FIO2 was titrated to 35% per previous order to maintain O2sat 90-96%. VS remain stable.
--- NOTE | 2018-12-22 18:18 | Surgery Progress Note ---
Surgery Progress Note Subjective Additional Comments no acute events. still on vent. leukocytosis 17k. electrolytes need replacement. blood gas noted. micro noted Objective Last 24 Hour Vital Signs Date Time Temp Pulse Resp B/P (MAP) Pulse Ox O2 Delivery O2 Flow Rate FiO2 12/22/18 18:00 75 29 123/39 (67) 100 12/22/18 17:08 35 12/22/18 17:08 74 23 35 12/22/18 17:00 74 26 116/44 (68) 95 12/22/18 16:00 30 12/22/18 16:00 97.8 77 28 120/49 (72) 94 12/22/18 16:00 Mechanical Ventilator 12/22/18 16:00 77 12/22/18 15:09 74 34 30 12/22/18 15:00 71 22 118/40 (66) 94 12/22/18 14:00 75 30 116/42 (66) 93 12/22/18 13:00 74 28 114/46 (68) 94 12/22/18 12:50 79 32 30 12/22/18 12:00 30 12/22/18 12:00 Mechanical Ventilator 12/22/18 12:00 98.5 77 24 124/42 (69) 97 12/22/18 12:00 74 12/22/18 11:00 75 28 125/43 (70) 97 12/22/18 10:48 76 34 30 12/22/18 10:00 73 25 118/43 (68) 96 12/22/18 09:17 82 24 30 12/22/18 09:00 83 27 129/38 (68) 97 12/22/18 08:29 87 128/44 12/22/18 08:28 87 128/44 12/22/18 08:00 98.3 77 24 124/42 (69) 97 12/22/18 08:00 Mechanical Ventilator 12/22/18 08:00 30 12/22/18 08:00 90 12/22/18 07:05 87 22 30 12/22/18 07:00 90 30 128/44 (72) 100 12/22/18 06:00 88 36 125/39 (67) 94 12/22/18 05:00 30 12/22/18 05:00 90 30 128/40 (69) 97 12/22/18 04:57 77 28 30 12/22/18 04:00 73 12/22/18 04:00 98.4 77 24 124/42 (69) 97 12/22/18 04:00 Mechanical Ventilator 12/22/18 04:00 35 12/22/18 03:00 71 25 116/41 (66) 94 12/22/18 02:49 73 26 30 12/22/18 02:00 73 20 118/58 (78) 96 12/22/18 01:00 81 22 126/66 (86) 100 12/22/18 00:56 75 28 30 12/22/18 00:00 30 12/22/18 00:00 99.6 77 27 119/89 (99) 98 12/22/18 00:00 84 12/22/18 00:00 Mechanical Ventilator 12/21/18 23:12 80 27 30 12/21/18 23:00 81 29 117/19 (51) 97 12/21/18 22:00 83 33 109/26 (53) 100 12/21/18 21:15 81 28 30 12/21/18 21:00 82 30 94/32 (52) 100 12/21/18 20:00 99.8 86 47 121/42 (68) 100 12/21/18 20:00 30 12/21/18 20:00 Mechanical Ventilator 12/21/18 20:00 86 12/21/18 19:00 80 32 132/45 (74) 100 12/21/18 18:57 80 27 30 I&O Intake and Output 12/21/18 12/22/18 19:00 07:00 Intake Total 2432.541 ml 1919.0 ml Output Total 1750 ml 1575 ml Balance 682.541 ml 344.0 ml Intake Free Water 60 ml IV Total 1988.541 ml 1415.0 ml Tube Feeding 444 ml 444 ml Output Urine Total 1750 ml 1575 ml # Bowel Movements 1 Dressing: saturated Wound: other Drains: other Cardiovascular: RSR Respiratory: decreased breath sounds Abdomen: soft, present bowel sounds, non-distended Extremities: no cyanosis Laboratory Tests Test 12/22/18 08:10 12/22/18 09:30 12/22/18 15:55 Arterial Blood pH 7.504 (7.350-7.450) 7.522 (7.350-7.450) Arterial Blood Partial Pressure CO2 32.8 mmHg (35.0-45.0) L 31.4 mmHg (35.0-45.0) L Arterial Blood Partial Pressure O2 72.0 mmHg (75.0-100.0) L 59.5 mmHg (75.0-100.0) L Arterial Blood HCO3 25.2 mmol/L (22.0-26.0) 25.2 mmol/L (22.0-26.0) Arterial Blood Oxygen Saturation 93.6 % (95-100) L 90.5 % (95-100) L Arterial Blood Base Excess 2.4 (-2-2) H 2.6 (-2-2) H Justus Test Positive Positive White Blood Count 17.7 K/UL (4.8-10.8) H Red Blood Count 2.88 M/UL (4.20-5.40) L Hemoglobin 9.9 G/DL (12.0-16.0) L Hematocrit 28.6 % (37.0-47.0) L Mean Corpuscular Volume 99 FL (80-99) Mean Corpuscular Hemoglobin 34.2 PG (27.0-31.0) H Mean Corpuscular Hemoglobin Concent 34.5 G/DL (32.0-36.0) Red Cell Distribution Width 12.2 % (11.6-14.8) Platelet Count 425 K/UL (150-450) Mean Platelet Volume 6.0 FL (6.5-10.1) L Neutrophils (%) (Auto) 83.6 % (45.0-75.0) H Lymphocytes (%) (Auto) 10.6 % (20.0-45.0) L Monocytes (%) (Auto) 3.6 % (1.0-10.0) Eosinophils (%) (Auto) 1.6 % (0.0-3.0) Basophils (%) (Auto) 0.6 % (0.0-2.0) Sodium Level 134 MMOL/L (136-145) L Potassium Level 3.2 MMOL/L (3.5-5.1) L Chloride Level 99 MMOL/L (98-107) Carbon Dioxide Level 27 MMOL/L (21-32) Anion Gap 8 mmol/L (5-15) Blood Urea Nitrogen 13 mg/dL (7-18) Creatinine 0.4 MG/DL (0.55-1.30) #L Estimat Glomerular Filtration Rate > 60 mL/min (>60) Glucose Level 213 MG/DL (74-106) H Calcium Level 8.0 MG/DL (8.5-10.1) L Total Bilirubin 0.2 MG/DL (0.2-1.0) Aspartate Amino Transf (AST/SGOT) 16 U/L (15-37) Alanine Aminotransferase (ALT/SGPT) 26 U/L (12-78) Alkaline Phosphatase 155 U/L (46-116) H Total Protein 6.3 G/DL (6.4-8.2) L Albumin 1.5 G/DL (3.4-5.0) L Globulin 4.8 g/dL Albumin/Globulin Ratio 0.3 (1.0-2.7) L Plan Problems: (1) Decubital ulcer Assessment & Plan: Pt presented on admission with 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 Periwound with scattered shearing. Bone is palpable. Borders are irregular shaped but adherent to base of wound. Periwound dark and indurated. No odor or exudate noted. R and L heels are pink and blanchable without fluctuance. Skin is intact under trach collar. .No other areas of skin concerns noted. Tx.Plan: Cleanse with Saline. Apply Therahoney. Apply Triad periwound. Cover with Optifoam drsg. Change every 3 days and prn. Apply Cavilon Skin Barrier to both heels .Cover each heel with Optifoam drsg.Change every 7 days and prn. Off-load heels with pillow. APM/POOJA Mattress overlay. Reposition at least every 2hours or as tolerated. (2) Anemia (3) Sepsis Assessment & Plan: IV Abx cultures noted labs noted trend labs cont with current care unlikely from chronic wounds will follow with recs thank you Arnold Hi December 22, 2018 18:18
--- NOTE | 2018-12-22 18:56 | NUR ---
RESPIRATORY NOTE: Received pt. on 840 vent. Vent settings are: A/C rate of 10, Vt 375, FI02 35%. No respiratory distress noted, pt. sP02 @ 100%. Ambu bag @ BS. Vent plugged on red outlet. Will continue to monitor pt.
--- NOTE | 2018-12-22 19:00 | NUR ---
NURSE NOTES: Received pt and change of shift report from Julio Cesar SOLITARIO. Pt is resting with head of bed at 30degrees. Opens eyes however with flat affect. Left side of the head has evidence of Hx of status post left craniectomy. Pupil bilaterally with sluggish response to light, with left pupil 5mm and right pupil 4mm in size. Pt is intubated via trach Portex 7 with vent settings of AC 10, VT375, FIO2 35% with O2sat of 100%, with lung sounds of improving bilateral rhonchi from yesterday's assessment. front desk monitor displays NSR with diastolic BP in the 40's. Peripheral edema on upper extremities, and +3 pitting on bilateral feet. IV access on right hand #22G infusing NS at 100ml/hour, and #22G on left hand infusing Zosyn as ordered. GT in place with feeding Glucerna 1.5 at 37ml/hour. Pt is tolerating feeding well with no residual or episodes of nausea/vomiting. Abdomen is round, distended, soft/nontender to touch, with hyperactive bowel sounds present in all quadrants. Fitzgerald catheter in place, draining clear/light yellow urine. Skin has full thickness pressure ulcer on sacrum, healing abrasion on left atkinson, and bilateral pink heels, all areas covered with optifoam dressing. Patient has rectal tube, brown liquid pasty diarrhea. Pt is on seizure precautions with side rails padded. Bed is locked with three side rails up and call light within reach. Will continue to monitor pt and follow plan of care per MD orders and protocol.
--- NOTE | 2018-12-22 19:15 | NUR ---
HAND-OFF: Report given to Julio Cesar SOLITARIO. Pt is resting in stable condition. Endorsed plan of care.
--- NOTE | 2018-12-22 20:00 | NUR ---
NURSE NOTES: Patient repositioned and suctioned and lavaged. Vitals remains stable.
[2018-12-22] MEDS: Levemir Flexpen SUBQ SCH (20:42)
--- NOTE | 2018-12-22 21:00 | NUR ---
HAND-OFF: Report given to Mrs. Eldon SOLITARIO.
--- NOTE | 2018-12-22 21:05 | NUR ---
NURSE NOTES: PATIENT OPEN EYES, DID NOT FOLLOWED COMMANDS, ON TRACH TO VENT AC 10/TV 375/FIO2 35%, NO PEEP, O2 SATURATION 100% NOTED, ABDOMEN SOFT, NON TENDER, G TUBE TO LEFT UPPER QUADRANTS, INTACT AND PATENT, ONGOING GLUCERNA 1.5 AT 37ML/HR, RESIDUE 80ML NOTED, RECTAL TUBE INTACT AND DARK GREENISH BROWN LIQUID STOOL OUTED, F/C INTACT AND PATENT, YELLOW URINE DRAINING WELL GRAVITY, PERIPHERAL LINE TO RIGHT HAND 22G INTACT AND PATEN, ONGOING NS AT 100ML/HR, RIGHT WRIST AREA 22G, INFILTRATED THAT REMOVED, KEPT SZ PRECAUTION AND HOB 30 DEGREE, PROVIDED CALL LIGHT WITHIN REACH, ON P 200 BED, MADE LOWER BED POSITION AND ON BED ALARM, WILL CONTINUE TO MONITOR.
--- NOTE | 2018-12-22 23:20 | NUR ---
NURSE NOTES: PATIENT ASLEEP STATUS, NO PAIN OR DISTRESS NOTED AT THIS TIME, WILL CONTINUE TO MONITOR.
[2018-12-23] VITALS (26 sets, daily range): BP systolic 87–136; BP diastolic 29–96
--- NOTE | 2018-12-23 02:10 | NUR ---
NURSE NOTES: ORAL CARE WAS DONE, NO PAIN OR DISTRESS NOTED AT THIS TIME.
--- NOTE | 2018-12-23 04:20 | NUR ---
NURSE NOTES: MORNING CARE WAS DONE, NO PAIN OR DISTRESS NOTED AT THIS TIME.
[2018-12-23 04:57] LABS: HEMATOCRIT 28.3 % (37.0-47.0); HEMOGLOBIN 9.8 G/DL (12.0-16.0); MEAN CORPUSCULAR VOLUME 98 FL (80-99); PLATELET COUNT 458 K/UL (150-450); RED BLOOD COUNT 2.88 M/UL (4.20-5.40); RED CELL DISTRIBUTION WIDTH 12.3 % (11.6-14.8); WHITE BLOOD COUNT 18.9 K/UL (4.8-10.8)
[2018-12-23 05:24] LABS: ANION GAP 7 mmol/L (5-15); BLOOD UREA NITROGEN 6 mg/dL (7-18); CALCIUM 8.1 MG/DL (8.5-10.1); CARBON DIOXIDE 28 MMOL/L (21-32); CHLORIDE 97 MMOL/L (98-107); CREATININE 0.3 MG/DL (0.55-1.30); POTASSIUM 3.4 MMOL/L (3.5-5.1); SODIUM 131 MMOL/L (136-145)
[2018-12-23] MEDS: NovoLOG Insulin Flexpen SUBQ SCH ×3 (05:30→17:15)
[2018-12-23] MEDS: Piperacillin/Tazobactam 3.375 GM in NS 110 ML IVPB SCH (05:31)
--- NOTE | 2018-12-23 06:25 | NUR ---
NURSE NOTES: NO ACUTE DISTRESS NOTED AT THIS SHIFT.
--- NOTE | 2018-12-23 07:08 | NUR ---
HAND-OFF: Report given to KASSI MACE.
--- NOTE | 2018-12-23 07:20 | NUR ---
NURSE NOTES: Report received from Juaquin RN. Pt asleep, open eyes intermittently, does not follow commands. Pt connected to quality assurance monitor chassis, SR. Pt has trache connected to vent portex 7, AC 10, TV 375, 35% fiO2 35%, 0 PEEP. Pt GT with glucerna at 37 cc/hr. Fitzgerald noted and intact draining clear, yellow urine. Rectal tube draining brown liquid stool. Pt has stage 4 on sacrum, pt on p200 mattress. RH IV with NS at 100 cc/hr. Safety measures in place with bed locked and in lowest position, side rails x3 up and bed alarm on. Will continue to monitor and continue plan of care.
[2018-12-23] MEDS: Docusate 100mg/10ml Liq GT SCH (08:19)
[2018-12-23] MEDS: Zinc Sulfate 220mg cap ORAL SCH (08:20)
[2018-12-23] MEDS: Thiamine 100mg tab GT SCH (08:20)
[2018-12-23] MEDS: Ascorbic Acid 500mg tab ORAL SCH ×2 (08:21→17:16)
[2018-12-23] MEDS: Ferrous Sulfate 300 MG/5 ML UDC GT SCH (08:21)
[2018-12-23] MEDS: Multivitamins W/Minerals 15 ML UDC GT SCH (08:21)
[2018-12-23] MEDS: Pantoprazole Inj IVP SCH ×2 (08:22→21:40)
[2018-12-23] MEDS: levETIRAcetam 500mg/5ml Liquid NG SCH ×2 (08:22→21:40)
[2018-12-23] MEDS: Heparin 5000 units/ml inj SUBQ SCH ×2 (08:23→21:49)
--- NOTE | 2018-12-23 08:41 | Critical Care Progress Note ---
Assessment/Plan Assessment/Plan IMPRESSION: 1. Sepsis. 2. Leukocytosis. 3. Respiratory failure. 4. Bilateral pneumonia. 5. Hypokalemia. 6. Severe protein-calorie malnutrition. 7. Prior craniectomy and intracranial bleed. PLAN care as is vent and adjust as needed over breathing currently ID noted WBC elevated feeds supportive care dc once stable for snf impression, plan, and exam edited and reviewed in detail care discussed with gse mechanic - Subjective Interval Events: on vent care noted ROS Limited/Unobtainable: Yes Condition: critical EKG Rhythm: Sinus Rhythm Residuals: minimal Tube Feeding Tolerated: yes I&O: Intake and Output 12/22/18 12/23/18 19:00 07:00 Intake Total 2159.0 ml 1995.0 ml Output Total 1950 ml 2450 ml Balance 209.0 ml -455.0 ml Intake Free Water 50 ml IV Total 1715.0 ml 1451.0 ml Tube Feeding 444 ml 444 ml Other 50 ml Output Urine Total 1900 ml 2330 ml Stool Total 50 ml 120 ml # Bowel Movements 1 Critical Care - Objective Last 24 Hour Vital Signs Date Time Temp Pulse Resp B/P (MAP) Pulse Ox O2 Delivery O2 Flow Rate FiO2 12/23/18 08:24 81 130/40 12/23/18 08:22 81 130/40 12/23/18 07:05 81 24 35 12/23/18 07:00 80 22 130/40 (70) 100 12/23/18 06:00 78 22 131/39 (69) 100 12/23/18 05:30 80 25 35 12/23/18 05:00 78 18 126/42 (70) 100 12/23/18 04:00 97.7 80 22 134/76 (95) 100 12/23/18 04:00 35 12/23/18 04:00 Mechanical Ventilator 12/23/18 03:35 83 20 35 12/23/18 03:28 78 12/23/18 03:00 76 19 134/43 (73) 100 12/23/18 02:00 76 22 136/47 (76) 100 12/23/18 01:30 78 22 35 12/23/18 01:00 75 20 133/43 (73) 100 12/23/18 00:00 Mechanical Ventilator 12/23/18 00:00 98.1 70 20 133/42 (72) 100 12/23/18 00:00 35 12/22/18 23:19 72 12/22/18 23:00 72 20 127/37 (67) 100 12/22/18 23:00 75 26 35 12/22/18 22:00 72 22 126/41 (69) 100 12/22/18 21:30 77 28 35 12/22/18 21:00 72 23 123/41 (68) 100 12/22/18 20:00 Mechanical Ventilator 12/22/18 20:00 80 12/22/18 20:00 99.3 80 22 128/68 (88) 100 12/22/18 19:00 77 25 121/45 (70) 100 12/22/18 18:54 78 30 35 12/22/18 18:00 75 29 123/39 (67) 100 12/22/18 17:08 35 12/22/18 17:08 74 23 35 12/22/18 17:00 74 26 116/44 (68) 95 12/22/18 16:00 30 12/22/18 16:00 97.8 77 28 120/49 (72) 94 12/22/18 16:00 Mechanical Ventilator 12/22/18 16:00 77 12/22/18 15:09 74 34 30 12/22/18 15:00 71 22 118/40 (66) 94 12/22/18 14:00 75 30 116/42 (66) 93 12/22/18 13:00 74 28 114/46 (68) 94 12/22/18 12:50 79 32 30 12/22/18 12:00 30 12/22/18 12:00 Mechanical Ventilator 12/22/18 12:00 98.5 77 24 124/42 (69) 97 12/22/18 12:00 74 12/22/18 11:00 75 28 125/43 (70) 97 12/22/18 10:48 76 34 30 12/22/18 10:00 73 25 118/43 (68) 96 12/22/18 09:17 82 24 30 12/22/18 09:00 83 27 129/38 (68) 97 Labs: Labs Test 12/21/18 10:50 12/21/18 15:50 12/22/18 08:10 12/22/18 09:30 White Blood Count 15.7 K/UL (4.8-10.8) 17.7 K/UL (4.8-10.8) Red Blood Count 2.44 M/UL (4.20-5.40) 2.88 M/UL (4.20-5.40) Hemoglobin 8.3 G/DL (12.0-16.0) 9.9 G/DL (12.0-16.0) Hematocrit 24.5 % (37.0-47.0) 28.6 % (37.0-47.0) Mean Corpuscular Volume 100 FL (80-99) 99 FL (80-99) Mean Corpuscular Hemoglobin 34.0 PG (27.0-31.0) 34.2 PG (27.0-31.0) Mean Corpuscular Hemoglobin Concent 33.9 G/DL (32.0-36.0) 34.5 G/DL (32.0-36.0) Red Cell Distribution Width 12.4 % (11.6-14.8) 12.2 % (11.6-14.8) Platelet Count 361 K/UL (150-450) 425 K/UL (150-450) Mean Platelet Volume 5.9 FL (6.5-10.1) 6.0 FL (6.5-10.1) Neutrophils (%) (Auto) 84.9 % (45.0-75.0) 83.6 % (45.0-75.0) Lymphocytes (%) (Auto) 10.2 % (20.0-45.0) 10.6 % (20.0-45.0) Monocytes (%) (Auto) 2.8 % (1.0-10.0) 3.6 % (1.0-10.0) Eosinophils (%) (Auto) 1.4 % (0.0-3.0) 1.6 % (0.0-3.0) Basophils (%) (Auto) 0.7 % (0.0-2.0) 0.6 % (0.0-2.0) Sodium Level 139 MMOL/L (136-145) 134 MMOL/L (136-145) Potassium Level 2.8 MMOL/L (3.5-5.1) 3.2 MMOL/L (3.5-5.1) Chloride Level 106 MMOL/L (98-107) 99 MMOL/L (98-107) Carbon Dioxide Level 23 MMOL/L (21-32) 27 MMOL/L (21-32) Anion Gap 10 mmol/L (5-15) 8 mmol/L (5-15) Blood Urea Nitrogen 10 mg/dL (7-18) 13 mg/dL (7-18) Creatinine 0.2 MG/DL (0.55-1.30) 0.4 MG/DL (0.55-1.30) Estimat Glomerular Filtration Rate > 60 mL/min (>60) > 60 mL/min (>60) Glucose Level 163 MG/DL (74-106) 213 MG/DL (74-106) Calcium Level 7.3 MG/DL (8.5-10.1) 8.0 MG/DL (8.5-10.1) Total Bilirubin 0.2 MG/DL (0.2-1.0) 0.2 MG/DL (0.2-1.0) Aspartate Amino Transf (AST/SGOT) 17 U/L (15-37) 16 U/L (15-37) Alanine Aminotransferase (ALT/SGPT) 25 U/L (12-78) 26 U/L (12-78) Alkaline Phosphatase 140 U/L (46-116) 155 U/L (46-116) Total Protein 5.4 G/DL (6.4-8.2) 6.3 G/DL (6.4-8.2) Albumin 1.3 G/DL (3.4-5.0) 1.5 G/DL (3.4-5.0) Globulin 4.1 g/dL 4.8 g/dL Albumin/Globulin Ratio 0.3 (1.0-2.7) 0.3 (1.0-2.7) Arterial Blood pH 7.540 (7.350-7.450) 7.504 (7.350-7.450) Arterial Blood Partial Pressure CO2 28.4 mmHg (35.0-45.0) 32.8 mmHg (35.0-45.0) Arterial Blood Partial Pressure O2 292.6 mmHg (75.0-100.0) 72.0 mmHg (75.0-100.0) Arterial Blood HCO3 23.7 mmol/L (22.0-26.0) 25.2 mmol/L (22.0-26.0) Arterial Blood Oxygen Saturation 99.1 % (95-100) 93.6 % (95-100) Arterial Blood Base Excess 1.5 (-2-2) 2.4 (-2-2) Justus Test Positive Positive Test 12/22/18 15:55 12/23/18 03:55 Arterial Blood pH 7.522 (7.350-7.450) Arterial Blood Partial Pressure CO2 31.4 mmHg (35.0-45.0) Arterial Blood Partial Pressure O2 59.5 mmHg (75.0-100.0) Arterial Blood HCO3 25.2 mmol/L (22.0-26.0) Arterial Blood Oxygen Saturation 90.5 % (95-100) Arterial Blood Base Excess 2.6 (-2-2) Justus Test Positive White Blood Count 18.9 K/UL (4.8-10.8) Red Blood Count 2.88 M/UL (4.20-5.40) Hemoglobin 9.8 G/DL (12.0-16.0) Hematocrit 28.3 % (37.0-47.0) Mean Corpuscular Volume 98 FL (80-99) Mean Corpuscular Hemoglobin 34.2 PG (27.0-31.0) Mean Corpuscular Hemoglobin Concent 34.8 G/DL (32.0-36.0) Red Cell Distribution Width 12.3 % (11.6-14.8) Platelet Count 458 K/UL (150-450) Mean Platelet Volume 6.5 FL (6.5-10.1) Neutrophils (%) (Auto) % (45.0-75.0) Lymphocytes (%) (Auto) % (20.0-45.0) Monocytes (%) (Auto) % (1.0-10.0) Eosinophils (%) (Auto) % (0.0-3.0) Basophils (%) (Auto) % (0.0-2.0) Sodium Level 131 MMOL/L (136-145) Potassium Level 3.4 MMOL/L (3.5-5.1) Chloride Level 97 MMOL/L (98-107) Carbon Dioxide Level 28 MMOL/L (21-32) Anion Gap 7 mmol/L (5-15) Blood Urea Nitrogen 6 mg/dL (7-18) Creatinine 0.3 MG/DL (0.55-1.30) Estimat Glomerular Filtration Rate > 60 mL/min (>60) Glucose Level 137 MG/DL (74-106) Calcium Level 8.1 MG/DL (8.5-10.1) Phosphorus Level 3.0 MG/DL (2.5-4.9) Magnesium Level 1.8 MG/DL (1.8-2.4) Objective: HEENT: Negative. NECK: Supple. No adenopathy. Tracheostomy. Midline craniectomy noted. LUNGS: With moderate breath sounds. Some rhonchi. CARDIAC: S1, S2. Regular rate and rhythm. ABDOMEN: Soft. G-tube in place. EXTREMITIES: No edema. NEUROLOGICAL: Poorly responsive. Micro: Microbiology Date/Time Source Procedure Growth Status 12/20/18 11:10 Sputum Gram Stain - Final Complete 12/20/18 11:10 Sputum Culture - Final Pseudomonas Aeruginosa Usual Respiratory Lauryn Complete 12/22/18 04:00 Stool Clostridium difficile Toxin Assay - Final Complete Accucheck: 161 Mejia Cruz MD December 23, 2018 08:41
--- NOTE | 2018-12-23 10:06 | NUR ---
NURSE NOTES: Dr Cruz here to see pt. No acute distress. Will continue to monitor.
--- NOTE | 2018-12-23 10:36 | NUR ---
*-* INSURANCE *-* UPDATYED CLINICALS AND REVIEWS HAVE BEEN FAXED TO: [facility] ([employer]) [facility]: LASHANDA [phone] F- [phone]...REVIEW/CLINICAL
--- NOTE | 2018-12-23 10:58 | NUR ---
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 PNA. VS: 124/40, P 81, T 97.6, RR 28, SpO2 100 on VENT AC 10, TV 375, FiO2 35 WBC 18.9, RBC 2.88, H&H 9.8/28.3, Na 131, K 3.4, BUN 6, CR 0.3 IS:NORVASC 10mg HEPARIN SUBQ PROTONIX 40mg ATENOLOL 50mg KEPPRA 500mg ZOSYN 110ml IVPB NOVOLOG SUBQ NS x1L IV ICU STATUS
--- NOTE | 2018-12-23 11:16 | NUR ---
RD ASSESSMENT & RECOMMENDATIONS SEE CARE ACTIVITY FOR COMPLETE ASSESSMENT DAILY ESTIMATED NEEDS: Needs based on Wound, critical care 40kg 30-35 kcals/kg 5418-6739 total kcals 1.25-2 g protein/kg 50-80 g total protein 25-30 mL/kg 4377-2827 total fluid mLs NUTRITION DIAGNOSIS: * Increased kcal/prot intake needs R/T wound healing as evidenced by pt admitted stage 4 sacral wound. * Swallowing difficulty r/t respiratory status as evidenced by s/p craniotomy, pt is vent dep via trach, PEG dep. CURRENT TF:GLUCERNA 1.5 @37ML/HR x24 HRS ENTERAL NUTRITION RECOMMENDATIONS: GLUCERNA 1.5 @ 37ML/HR x24 HRS to provide 888ml, 1332 kcal, 73g pro, 674ml free H2O - Maintain current TF order - Flush per MD/ hob over 30 degrees ADDITIONAL RECOMMENDATIONS: 1) Calibrated bed scale wts weekly PER SNF-> HT: 59inches and 88# (40kg) 2) Wound care: CONTINUE MARY BID + MVI x1 + Vit C 250mg BID + ZnSO4 220mg QD x 10 days 3) Monitor lytes, replete daily (Low K 3.4) 4) Rec probiotics- +Diarrhea
--- NOTE | 2018-12-23 12:54 | NUR ---
NURSE NOTES: Pt suctioned via trache, moderate amount of secretion. VSS. Will continue to monitor.
--- NOTE | 2018-12-23 13:01 | Infectious Diseases Prog Note ---
Assessment/Plan Assessment/Plan A 1. aspiration pneumonia 2. + blood cultures with coag neg staph likely contaminated 3. respiratory failure on ventilator 4. diabetes mellitus 5. hypertension 6. Diarrhea, C. difficile negative 7. Anemia P 1. Change Zosyn to Cefepime 2. Add Tobramycin inhaler Subjective ROS Limited/Unobtainable: Yes Allergies: Coded Allergies: No Known Allergies (Unverified , 11/06/18) Objective Vital Signs Last 24 Hour Vital Signs Date Time Temp Pulse Resp B/P (MAP) Pulse Ox O2 Delivery O2 Flow Rate FiO2 12/23/18 12:40 68 20 35 12/23/18 12:00 97.5 69 23 112/44 (66) 100 12/23/18 12:00 68 12/23/18 12:00 35 12/23/18 12:00 Mechanical Ventilator 12/23/18 11:00 72 24 124/40 (68) 100 12/23/18 10:50 81 24 35 12/23/18 10:00 69 28 121/44 (69) 100 12/23/18 09:20 77 22 35 12/23/18 09:00 75 24 125/47 (73) 100 12/23/18 08:24 81 130/40 12/23/18 08:22 81 130/40 12/23/18 08:00 85 12/23/18 08:00 97.6 79 19 117/96 (103) 100 12/23/18 08:00 Mechanical Ventilator 12/23/18 08:00 35 12/23/18 07:05 81 24 35 12/23/18 07:00 80 22 130/40 (70) 100 12/23/18 06:00 78 22 131/39 (69) 100 12/23/18 05:30 80 25 35 12/23/18 05:00 78 18 126/42 (70) 100 12/23/18 04:00 97.7 80 22 134/76 (95) 100 12/23/18 04:00 35 12/23/18 04:00 Mechanical Ventilator 12/23/18 03:35 83 20 35 12/23/18 03:28 78 12/23/18 03:00 76 19 134/43 (73) 100 12/23/18 02:00 76 22 136/47 (76) 100 12/23/18 01:30 78 22 35 12/23/18 01:00 75 20 133/43 (73) 100 12/23/18 00:00 Mechanical Ventilator 12/23/18 00:00 98.1 70 20 133/42 (72) 100 12/23/18 00:00 35 12/22/18 23:19 72 12/22/18 23:00 72 20 127/37 (67) 100 12/22/18 23:00 75 26 35 12/22/18 22:00 72 22 126/41 (69) 100 12/22/18 21:30 77 28 35 12/22/18 21:00 72 23 123/41 (68) 100 12/22/18 20:00 Mechanical Ventilator 12/22/18 20:00 80 12/22/18 20:00 99.3 80 22 128/68 (88) 100 12/22/18 19:00 77 25 121/45 (70) 100 12/22/18 18:54 78 30 35 12/22/18 18:00 75 29 123/39 (67) 100 12/22/18 17:08 35 12/22/18 17:08 74 23 35 12/22/18 17:00 74 26 116/44 (68) 95 12/22/18 16:00 30 12/22/18 16:00 97.8 77 28 120/49 (72) 94 12/22/18 16:00 Mechanical Ventilator 12/22/18 16:00 77 12/22/18 15:09 74 34 30 12/22/18 15:00 71 22 118/40 (66) 94 12/22/18 14:00 75 30 116/42 (66) 93 12/22/18 13:00 74 28 114/46 (68) 94 Height (Feet): 5 Height (Inches): 2.00 Weight (Pounds): 100 HEENT: status post trach, other - craniotomy on left side Respiratory/Chest: rhonchi - bilaterally, other - on ventilator Cardiovascular: normal rate Abdomen: soft, non tender, other - GT & rectal tube Extremities: other - edema of hands Skin: ulcers Neurologic/Psychiatric: unresponsiveness Musculoskeletal: atrophy Microbiology Date/Time Source Procedure Growth Status 12/22/18 04:00 Stool Clostridium difficile Toxin Assay - Final Complete Laboratory Tests Test 12/22/18 15:55 12/23/18 03:55 12/23/18 08:38 Arterial Blood pH 7.522 (7.350-7.450) 7.509 (7.350-7.450) Arterial Blood Partial Pressure CO2 31.4 mmHg (35.0-45.0) L 33.4 mmHg (35.0-45.0) L Arterial Blood Partial Pressure O2 59.5 mmHg (75.0-100.0) L 91.6 mmHg (75.0-100.0) Arterial Blood HCO3 25.2 mmol/L (22.0-26.0) 26.0 mmol/L (22.0-26.0) Arterial Blood Oxygen Saturation 90.5 % (95-100) L 96.4 % (95-100) Arterial Blood Base Excess 2.6 (-2-2) H 3.1 (-2-2) H Justus Test Positive Positive White Blood Count 18.9 K/UL (4.8-10.8) H Red Blood Count 2.88 M/UL (4.20-5.40) L Hemoglobin 9.8 G/DL (12.0-16.0) L Hematocrit 28.3 % (37.0-47.0) L Mean Corpuscular Volume 98 FL (80-99) Mean Corpuscular Hemoglobin 34.2 PG (27.0-31.0) H Mean Corpuscular Hemoglobin Concent 34.8 G/DL (32.0-36.0) Red Cell Distribution Width 12.3 % (11.6-14.8) Platelet Count 458 K/UL (150-450) H Mean Platelet Volume 6.5 FL (6.5-10.1) Neutrophils (%) (Auto) % (45.0-75.0) Lymphocytes (%) (Auto) % (20.0-45.0) Monocytes (%) (Auto) % (1.0-10.0) Eosinophils (%) (Auto) % (0.0-3.0) Basophils (%) (Auto) % (0.0-2.0) Differential Total Cells Counted 100 Neutrophils % (Manual) 84 % (45-75) H Lymphocytes % (Manual) 11 % (20-45) L Monocytes % (Manual) 2 % (1-10) Eosinophils % (Manual) 3 % (0-3) Basophils % (Manual) 0 % (0-2) Band Neutrophils 0 % (0-8) Platelet Estimate Adequate Platelet Morphology Normal Red Blood Cell Morphology Normal Sodium Level 131 MMOL/L (136-145) L Potassium Level 3.4 MMOL/L (3.5-5.1) L Chloride Level 97 MMOL/L (98-107) L Carbon Dioxide Level 28 MMOL/L (21-32) Anion Gap 7 mmol/L (5-15) Blood Urea Nitrogen 6 mg/dL (7-18) L Creatinine 0.3 MG/DL (0.55-1.30) L Estimat Glomerular Filtration Rate > 60 mL/min (>60) Glucose Level 137 MG/DL (74-106) H Calcium Level 8.1 MG/DL (8.5-10.1) L Phosphorus Level 3.0 MG/DL (2.5-4.9) Magnesium Level 1.8 MG/DL (1.8-2.4) Current Medications Medications (Trade) Dose Ordered Sig/Dell Route PRN Reason Start Time Stop Time Status Last Admin Dose Admin Amlodipine Besylate (Norvasc) 10 mg DAILY GT 12/20/18 09:00 01/19/19 08:59 12/23/18 08:24 Ascorbic Acid (Vitamin C) 250 mg TWICE A DAY ORAL 12/20/18 18:00 01/19/19 17:59 12/23/18 08:21 Atenolol (Tenormin) 50 mg DAILY GT 12/20/18 09:00 01/19/19 08:59 12/23/18 08:22 Dextrose (Dextrose 50%) 25 ml Q30M PRN IV Hypoglycemia 12/20/18 19:30 01/19/19 19:29 12/22/18 05:17 Dextrose (Dextrose 50%) 50 ml Q30M PRN IV Hypoglycemia 12/20/18 19:30 01/19/19 19:29 Docusate Sodium (Colace) 100 mg DAILY GT 12/20/18 09:00 01/19/19 08:59 Ferrous Sulfate (Feosol) 300 mg DAILY GT 12/20/18 09:00 01/19/19 08:59 12/23/18 08:21 Folic Acid (Folate) 1 mg DAILY GT 12/20/18 09:00 01/19/19 08:59 12/23/18 08:21 Heparin Sodium (Porcine) (Heparin 5000 units/ml) 5,000 units EVERY 12 HOURS SUBQ 12/19/18 21:00 01/18/19 20:59 12/23/18 08:23 Insulin Aspart (NovoLOG) EVERY 6 HOURS SUBQ 12/21/18 00:00 01/20/19 00:00 12/23/18 11:53 Insulin Detemir (Levemir) 5 units QHS SUBQ 12/19/18 21:00 01/18/19 20:59 12/22/18 20:42 Levetiracetam (Keppra) 500 mg Q12HR NG 12/19/18 21:00 01/18/19 20:59 12/23/18 08:22 Multivitamins (Multivitamins W/ Minerals 15ml Liquid) 15 ml DAILY GT 12/20/18 09:00 01/19/19 08:59 12/23/18 08:21 Pantoprazole (Protonix) 40 mg EVERY 12 HOURS IVP 12/19/18 21:00 01/18/19 20:59 12/23/18 08:22 Piperacillin Sod/ Tazobactam Sod 3.375 gm/Sodium Chloride 110 ml @ 27.5 mls/hr Q8HR IVPB 12/19/18 22:00 12/26/18 21:59 12/23/18 05:31 Sodium Chloride 1,000 ml @ 100 mls/hr Q10H IV 12/19/18 18:00 01/18/19 17:59 12/23/18 11:48 Thiamine HCl (Vitamin B1) 250 mg DAILY GT 12/20/18 09:00 01/19/19 08:59 12/23/18 08:20 Zinc Sulfate (Zinc Sulfate) 220 mg DAILY ORAL 12/21/18 09:00 12/31/18 08:59 12/23/18 08:20 Jose Angel Johnson MD December 23, 2018 13:01
[2018-12-23] MEDS: Cefepime HCl 2 GM in D5W 55 ML IVPB SCH ×2 (14:00→21:46)
--- NOTE | 2018-12-23 14:31 | NUR ---
NURSE NOTES: Lactic acid and troponin sent. Will continue to monitor. Addendum: 12/23/18 at 1434 by Elizabeth Roberson RN documented in error
--- NOTE | 2018-12-23 14:34 | NUR ---
NURSE NOTES: Turned and repositioned pt. No acute distress. Will continue to monitor.
--- NOTE | 2018-12-23 16:05 | Surgery Progress Note ---
Surgery Progress Note Subjective Additional Comments leukocytosis 18k today exam unchanged on vent support HD stable. Objective Last 24 Hour Vital Signs Date Time Temp Pulse Resp B/P (MAP) Pulse Ox O2 Delivery O2 Flow Rate FiO2 12/23/18 15:30 69 17 35 12/23/18 15:00 75 26 130/57 (81) 100 12/23/18 14:00 68 21 112/49 (70) 100 12/23/18 13:00 66 20 100/46 (64) 100 12/23/18 12:40 68 20 35 12/23/18 12:00 97.5 69 23 112/44 (66) 100 12/23/18 12:00 68 12/23/18 12:00 35 12/23/18 12:00 Mechanical Ventilator 12/23/18 11:00 72 24 124/40 (68) 100 12/23/18 10:50 81 24 35 12/23/18 10:00 69 28 121/44 (69) 100 12/23/18 09:20 77 22 35 12/23/18 09:00 75 24 125/47 (73) 100 12/23/18 08:24 81 130/40 12/23/18 08:22 81 130/40 12/23/18 08:00 85 12/23/18 08:00 97.6 79 19 117/96 (103) 100 12/23/18 08:00 Mechanical Ventilator 12/23/18 08:00 35 12/23/18 07:05 81 24 35 12/23/18 07:00 80 22 130/40 (70) 100 12/23/18 06:00 78 22 131/39 (69) 100 12/23/18 05:30 80 25 35 12/23/18 05:00 78 18 126/42 (70) 100 12/23/18 04:00 97.7 80 22 134/76 (95) 100 12/23/18 04:00 35 12/23/18 04:00 Mechanical Ventilator 12/23/18 03:35 83 20 35 12/23/18 03:28 78 12/23/18 03:00 76 19 134/43 (73) 100 12/23/18 02:00 76 22 136/47 (76) 100 12/23/18 01:30 78 22 35 12/23/18 01:00 75 20 133/43 (73) 100 12/23/18 00:00 Mechanical Ventilator 12/23/18 00:00 98.1 70 20 133/42 (72) 100 12/23/18 00:00 35 12/22/18 23:19 72 12/22/18 23:00 72 20 127/37 (67) 100 12/22/18 23:00 75 26 35 12/22/18 22:00 72 22 126/41 (69) 100 12/22/18 21:30 77 28 35 12/22/18 21:00 72 23 123/41 (68) 100 12/22/18 20:00 Mechanical Ventilator 12/22/18 20:00 80 12/22/18 20:00 99.3 80 22 128/68 (88) 100 12/22/18 19:00 77 25 121/45 (70) 100 12/22/18 18:54 78 30 35 12/22/18 18:00 75 29 123/39 (67) 100 12/22/18 17:08 35 12/22/18 17:08 74 23 35 12/22/18 17:00 74 26 116/44 (68) 95 I&O Intake and Output 12/22/18 12/23/18 19:00 07:00 Intake Total 2159.0 ml 1995.0 ml Output Total 1950 ml 2450 ml Balance 209.0 ml -455.0 ml Intake Free Water 50 ml IV Total 1715.0 ml 1451.0 ml Tube Feeding 444 ml 444 ml Other 50 ml Output Urine Total 1900 ml 2330 ml Stool Total 50 ml 120 ml # Bowel Movements 1 Dressing: saturated Wound: other Drains: other Cardiovascular: RSR Respiratory: decreased breath sounds Abdomen: soft, present bowel sounds, non-distended Extremities: no cyanosis Laboratory Tests Test 12/23/18 03:55 12/23/18 08:38 White Blood Count 18.9 K/UL (4.8-10.8) H Red Blood Count 2.88 M/UL (4.20-5.40) L Hemoglobin 9.8 G/DL (12.0-16.0) L Hematocrit 28.3 % (37.0-47.0) L Mean Corpuscular Volume 98 FL (80-99) Mean Corpuscular Hemoglobin 34.2 PG (27.0-31.0) H Mean Corpuscular Hemoglobin Concent 34.8 G/DL (32.0-36.0) Red Cell Distribution Width 12.3 % (11.6-14.8) Platelet Count 458 K/UL (150-450) H Mean Platelet Volume 6.5 FL (6.5-10.1) Neutrophils (%) (Auto) % (45.0-75.0) Lymphocytes (%) (Auto) % (20.0-45.0) Monocytes (%) (Auto) % (1.0-10.0) Eosinophils (%) (Auto) % (0.0-3.0) Basophils (%) (Auto) % (0.0-2.0) Differential Total Cells Counted 100 Neutrophils % (Manual) 84 % (45-75) H Lymphocytes % (Manual) 11 % (20-45) L Monocytes % (Manual) 2 % (1-10) Eosinophils % (Manual) 3 % (0-3) Basophils % (Manual) 0 % (0-2) Band Neutrophils 0 % (0-8) Platelet Estimate Adequate Platelet Morphology Normal Red Blood Cell Morphology Normal Sodium Level 131 MMOL/L (136-145) L Potassium Level 3.4 MMOL/L (3.5-5.1) L Chloride Level 97 MMOL/L (98-107) L Carbon Dioxide Level 28 MMOL/L (21-32) Anion Gap 7 mmol/L (5-15) Blood Urea Nitrogen 6 mg/dL (7-18) L Creatinine 0.3 MG/DL (0.55-1.30) L Estimat Glomerular Filtration Rate > 60 mL/min (>60) Glucose Level 137 MG/DL (74-106) H Calcium Level 8.1 MG/DL (8.5-10.1) L Phosphorus Level 3.0 MG/DL (2.5-4.9) Magnesium Level 1.8 MG/DL (1.8-2.4) Arterial Blood pH 7.509 (7.350-7.450) Arterial Blood Partial Pressure CO2 33.4 mmHg (35.0-45.0) L Arterial Blood Partial Pressure O2 91.6 mmHg (75.0-100.0) Arterial Blood HCO3 26.0 mmol/L (22.0-26.0) Arterial Blood Oxygen Saturation 96.4 % (95-100) Arterial Blood Base Excess 3.1 (-2-2) H Justus Test Positive Plan Problems: (1) Decubital ulcer Assessment & Plan: Pt presented on admission with 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 Periwound with scattered shearing. Bone is palpable. Borders are irregular shaped but adherent to base of wound. Periwound dark and indurated. No odor or exudate noted. R and L heels are pink and blanchable without fluctuance. Skin is intact under trach collar. .No other areas of skin concerns noted. Tx.Plan: Cleanse with Saline. Apply Therahoney. Apply Triad periwound. Cover with Optifoam drsg. Change every 3 days and prn. Apply Cavilon Skin Barrier to both heels .Cover each heel with Optifoam drsg.Change every 7 days and prn. Off-load heels with pillow. APM/POOJA Mattress overlay. Reposition at least every 2hours or as tolerated. (2) Anemia (3) Sepsis Assessment & Plan: IV Abx cultures noted labs noted trend labs cont with current care unlikely from chronic wounds CXR in AM appreciate ID input will follow with recs thank you Arnold Hi December 23, 2018 16:05
--- NOTE | 2018-12-23 16:56 | NUR ---
NURSE NOTES: Dr Hi here to see pt. VSS. No acute distress. Will continue to monitor.
--- NOTE | 2018-12-23 19:19 | NUR ---
HAND-OFF: Report given to Patricia SOLITARIO.
--- NOTE | 2018-12-23 20:00 | NUR ---
NURSE NOTES: pt trach -vent o2 sat 100 0/0 no acute rest distress non verbal toleraating tube feeding no residual iv infusing well site good reposition and suction
[2018-12-23] MEDS ORDERED: Heparin 5000 units/ml inj SUBQ SCH (21:00)
[2018-12-23] MEDS: Levemir Flexpen SUBQ SCH (21:50)
[2018-12-23] MEDS: Tobramycin for inhalation INH SCH (21:52)
--- NOTE | 2018-12-23 22:00 | NUR ---
NURSE NOTES: reposition and suction no acute distress noted
[2018-12-24] VITALS (25 sets, daily range): BP systolic 97–134; BP diastolic 31–61
--- NOTE | 2018-12-24 | NUR ---
NURSE NOTES: tolerating tube feeding no residual no acute distress noted
[2018-12-24] MEDS: NovoLOG Insulin Flexpen SUBQ SCH ×5 (00:03→23:59)
--- NOTE | 2018-12-24 02:00 | NUR ---
am care and wound care orall care done done
[2018-12-24 04:56] LABS: BASOPHILS % (AUTO) 0.6 % (0.0-2.0); HEMOGLOBIN 9.1 G/DL (12.0-16.0); LYMPHOCYTES % (AUTO) 14.5 % (20.0-45.0); MEAN CORPUSCULAR VOLUME 99 FL (80-99); MONOCYTES % (AUTO) 3.7 % (1.0-10.0); NEUTROPHILS % (AUTO) 79.2 % (45.0-75.0); PLATELET COUNT 394 K/UL (150-450); RED BLOOD COUNT 2.64 M/UL (4.20-5.40); RED CELL DISTRIBUTION WIDTH 12.2 % (11.6-14.8); WHITE BLOOD COUNT 10.9 K/UL (4.8-10.8)
[2018-12-24 05:24] LABS: ALANINE AMINOTRANSFERASE 18 U/L (12-78); ALBUMIN 1.6 G/DL (3.4-5.0); ALBUMIN/GLOBULIN RATIO 0.3 (1.0-2.7); ALKALINE PHOSPHATASE 140 U/L (46-116); ANION GAP 7 mmol/L (5-15); ASPARTATE AMINO TRANSFERASE 11 U/L (15-37); BILIRUBIN,TOTAL 0.2 MG/DL (0.2-1.0); BLOOD UREA NITROGEN 12 mg/dL (7-18); CALCIUM 7.9 MG/DL (8.5-10.1); CARBON DIOXIDE 27 MMOL/L (21-32); CHLORIDE 100 MMOL/L (98-107); CREATININE 0.4 MG/DL (0.55-1.30); POTASSIUM 3.6 MMOL/L (3.5-5.1); SODIUM 134 MMOL/L (136-145)
--- NOTE | 2018-12-24 07:00 | NUR ---
Received Patient on Vent settings ACVC RR 10, VT 375, FIO2 30%, PEEP +0. Patient has a Portex tracheostomy tube, secured with trache ties. Bilateral rhonchi breath sounds heard throughout lung ulloa. Suctioned moderate amounts of thick yellow cisse secretions. Alarms are on and audible. Vent plugged into red outlet. Will continue to closely monitor throughout the day.
--- NOTE | 2018-12-24 07:01 | NUR ---
NURSE NOTES: Report received from KASSI Gomez
--- NOTE | 2018-12-24 07:23 | NUR ---
HAND-OFF: Report given to .nery rnusing sbar
--- NOTE | 2018-12-24 08:06 | NUR ---
NURSE NOTES: Patient asleep when received, afebrile and responsive to deep pain.GT placement checked and intact.Residual 10cc and flushed as ordered.HOB elevated to prevent aspiration.Turned and repositioned.Mouth care done.Kept clean and dry.Call light within easy reach.
[2018-12-24] MEDS: Heparin 5000 units/ml inj SUBQ SCH ×2 (08:56→21:01)
[2018-12-24] MEDS: Thiamine 100mg tab GT SCH (08:57)
[2018-12-24] MEDS: Pantoprazole Inj IVP SCH ×2 (08:57→20:57)
[2018-12-24] MEDS: Ascorbic Acid 500mg tab ORAL SCH ×2 (08:58→18:01)
[2018-12-24] MEDS: Multivitamins W/Minerals 15 ML UDC GT SCH (08:59)
[2018-12-24] MEDS: Ferrous Sulfate 300 MG/5 ML UDC GT SCH (08:59)
[2018-12-24] MEDS: levETIRAcetam 500mg/5ml Liquid NG SCH ×2 (08:59→20:57)
[2018-12-24] MEDS: Docusate 100mg/10ml Liq GT SCH (09:00)
--- NOTE | 2018-12-24 09:02 | NUR ---
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 PNA. VS: 129/47, P 86, T 98.2, RR 27, SpO2 100 on VENT AC 10, TV 375, FiO2 30 WBC 10.9, RBC 2.64, H&H 9.1/26.0, Na 134, CR 0.4 IS;NORVASC 10mg KEPPRA 500mg TENORMIN 50mg NS x1L IV NEBCIN 300mg INH LEVEMIR SUBQ CEFEPIME 55ml IVPB ICU STATUS
[2018-12-24] MEDS: Zinc Sulfate 220mg cap ORAL SCH (09:08)
--- NOTE | 2018-12-24 09:11 | NUR ---
RADIOLOGY DEPT., CHEST X-RAY DONE.-P.DYE
[2018-12-24] MEDS: Cefepime HCl 2 GM in D5W 55 ML IVPB SCH ×2 (09:22→20:58)
[2018-12-24] MEDS: Tobramycin for inhalation INH SCH ×2 (09:23→21:26)
--- NOTE | 2018-12-24 09:48 | Diagnostic Imaging Report ---
Indication: Dyspnea Comparison: 12/20/2018 A single view chest radiograph was obtained. Findings: Tracheostomy and right-sided JOURNEYMAN PIPEFITTER shunt are noted. Extensive patchy airspace opacities demonstrated throughout the lungs bilaterally. This appears worse compared to the prior occasion. Heart is enlarged. IMPRESSION: Worsening airspace disease. Infiltrates versus edema
--- NOTE | 2018-12-24 10:14 | NUR ---
NURSE NOTES: Turned and repositioned.Sacral wound dressing changed.HOB elevated to prevent aspiration.Kept clean dry and comfortable
--- NOTE | 2018-12-24 10:24 | NUR ---
Social Service Note Charge nurse informed WILBUR that a person called Humza Ivone [phone] requesting to be notified of dc. WILBUR called and left a message for Humza to clarify if he was the public guardian assigned or patient is under investigation for public guardianship. Awaiting a return call. Will follow up.
--- NOTE | 2018-12-24 10:29 | NUR ---
*-* INSURANCE *-* UPDATED CLINICALS AND REVIEWS HAVE BEEN FAXED TO: [facility] ([email or web address]) [facility]: LASHANDA P- [phone] F- [phone]...REVIEW/CLINICAL
--- NOTE | 2018-12-24 11:13 | Infectious Diseases Prog Note ---
Assessment/Plan Assessment/Plan antibiotics : cefepime, inhaled tobramycin A 1. pseudomonas pneumonia 2. + blood cultures with coag neg staph likely contaminated 3. respiratory failure 4. diabetes mellitus 5. hypertension P 1. continue iv cefepime, inhaled tobramycin 2. will follow up cultures Subjective ROS Limited/Unobtainable: Yes Allergies: Coded Allergies: No Known Allergies (Unverified , 11/06/18) Objective Vital Signs Last 24 Hour Vital Signs Date Time Temp Pulse Resp B/P (MAP) Pulse Ox O2 Delivery O2 Flow Rate FiO2 12/24/18 11:00 76 27 106/58 (74) 100 12/24/18 10:56 77 30 30 12/24/18 10:00 78 19 119/61 (80) 100 12/24/18 09:28 89 20 100 Mechanical Ventilator 30 12/24/18 09:15 87 24 100 Mechanical Ventilator 30 12/24/18 09:15 30 12/24/18 09:00 83 134/52 12/24/18 09:00 76 24 114/41 (65) 100 12/24/18 08:58 82 134/52 12/24/18 08:43 86 27 30 12/24/18 08:00 75 12/24/18 08:00 98.2 79 24 134/52 (79) 100 12/24/18 08:00 Mechanical Ventilator 12/24/18 08:00 35 12/24/18 07:28 73 20 130/54 (79) 100 12/24/18 07:00 75 20 129/47 (74) 100 12/24/18 06:53 74 21 30 12/24/18 06:00 73 20 130/54 (79) 100 12/24/18 05:24 74 27 30 35 12/24/18 05:00 74 20 132/51 (78) 100 12/24/18 04:00 72 12/24/18 04:00 35 12/24/18 04:00 Mechanical Ventilator 12/24/18 04:00 98.5 72 24 128/48 (74) 100 12/24/18 03:26 75 19 30 35 12/24/18 03:00 74 20 107/49 (68) 100 12/24/18 02:00 78 22 116/40 (65) 100 12/24/18 01:00 75 8 97/34 (55) 100 12/24/18 00:32 78 29 30 35 12/24/18 00:00 98.6 77 26 110/44 (66) 100 12/24/18 00:00 Mechanical Ventilator 12/24/18 00:00 75 12/24/18 00:00 35 12/24/18 00:00 77 26 110/44 (66) 100 12/23/18 23:19 70 15 95/46 (62) 99 12/23/18 23:15 79 33 30 35 12/23/18 23:02 73 19 87/29 (48) 100 12/23/18 23:00 74 15 96/40 (58) 99 12/23/18 22:00 78 26 118/47 (70) 92 12/23/18 21:14 72 21 30 35 12/23/18 21:00 73 18 104/43 (63) 100 12/23/18 20:00 Mechanical Ventilator 12/23/18 20:00 35 12/23/18 20:00 98.0 68 19 113/46 (68) 100 12/23/18 20:00 69 12/23/18 19:00 68 20 108/47 (67) 100 12/23/18 18:41 72 22 30 35 12/23/18 18:00 71 22 117/45 (69) 100 12/23/18 17:09 74 26 35 12/23/18 17:00 71 26 116/44 (68) 100 12/23/18 17:00 71 26 116/44 (68) 100 12/23/18 16:00 70 12/23/18 16:00 97.7 68 24 101/47 (65) 100 12/23/18 16:00 Mechanical Ventilator 12/23/18 16:00 35 12/23/18 15:30 69 17 35 12/23/18 15:00 75 26 130/57 (81) 100 12/23/18 14:00 68 21 112/49 (70) 100 12/23/18 13:00 66 20 100/46 (64) 100 12/23/18 12:40 68 20 35 12/23/18 12:00 97.5 69 23 112/44 (66) 100 12/23/18 12:00 68 12/23/18 12:00 35 12/23/18 12:00 Mechanical Ventilator Height (Feet): 5 Height (Inches): 2.00 Weight (Pounds): 100 HEENT: status post trach Respiratory/Chest: lungs clear Cardiovascular: normal rate, regular rhythm, no gallop/murmur Abdomen: soft, non tender, other - GT Extremities: no edema Microbiology Date/Time Source Procedure Growth Status 12/22/18 04:00 Stool Clostridium difficile Toxin Assay - Final Complete Laboratory Tests Test 12/24/18 04:10 White Blood Count 10.9 K/UL (4.8-10.8) H Red Blood Count 2.64 M/UL (4.20-5.40) L Hemoglobin 9.1 G/DL (12.0-16.0) L Hematocrit 26.0 % (37.0-47.0) L Mean Corpuscular Volume 99 FL (80-99) Mean Corpuscular Hemoglobin 34.4 PG (27.0-31.0) H Mean Corpuscular Hemoglobin Concent 34.9 G/DL (32.0-36.0) Red Cell Distribution Width 12.2 % (11.6-14.8) Platelet Count 394 K/UL (150-450) Mean Platelet Volume 6.7 FL (6.5-10.1) Neutrophils (%) (Auto) 79.2 % (45.0-75.0) H Lymphocytes (%) (Auto) 14.5 % (20.0-45.0) L Monocytes (%) (Auto) 3.7 % (1.0-10.0) Eosinophils (%) (Auto) 2.0 % (0.0-3.0) Basophils (%) (Auto) 0.6 % (0.0-2.0) Erythrocyte Sedimentation Rate 127 MM/HR (0-30) H Prothrombin Time 10.5 SEC (9.30-11.50) Prothromb Time International Ratio 1.0 (0.9-1.1) Activated Partial Thromboplast Time 29 SEC (23-33) Sodium Level 134 MMOL/L (136-145) L Potassium Level 3.6 MMOL/L (3.5-5.1) Chloride Level 100 MMOL/L (98-107) Carbon Dioxide Level 27 MMOL/L (21-32) Anion Gap 7 mmol/L (5-15) Blood Urea Nitrogen 12 mg/dL (7-18) Creatinine 0.4 MG/DL (0.55-1.30) L Estimat Glomerular Filtration Rate > 60 mL/min (>60) Glucose Level 187 MG/DL (74-106) H Calcium Level 7.9 MG/DL (8.5-10.1) L Total Bilirubin 0.2 MG/DL (0.2-1.0) Aspartate Amino Transf (AST/SGOT) 11 U/L (15-37) L Alanine Aminotransferase (ALT/SGPT) 18 U/L (12-78) Alkaline Phosphatase 140 U/L (46-116) H C-Reactive Protein, Quantitative 4.1 mg/dL (0.00-0.90) H Total Protein 6.2 G/DL (6.4-8.2) L Albumin 1.6 G/DL (3.4-5.0) L Globulin 4.6 g/dL Albumin/Globulin Ratio 0.3 (1.0-2.7) L Lipase 88 U/L (73-393) Current Medications Medications (Trade) Dose Ordered Sig/Dell Route PRN Reason Start Time Stop Time Status Last Admin Dose Admin Amlodipine Besylate (Norvasc) 10 mg DAILY GT 12/20/18 09:00 01/19/19 08:59 12/24/18 09:00 Ascorbic Acid (Vitamin C) 250 mg TWICE A DAY ORAL 12/20/18 18:00 01/19/19 17:59 12/24/18 08:58 Atenolol (Tenormin) 50 mg DAILY GT 12/20/18 09:00 01/19/19 08:59 12/24/18 08:58 Cefepime HCl 2 gm/ Dextrose 55 ml @ 110 mls/hr Q12HR IVPB 12/23/18 13:15 12/30/18 13:14 12/24/18 09:22 Dextrose (Dextrose 50%) 25 ml Q30M PRN IV Hypoglycemia 12/20/18 19:30 01/19/19 19:29 12/22/18 05:17 Dextrose (Dextrose 50%) 50 ml Q30M PRN IV Hypoglycemia 12/20/18 19:30 01/19/19 19:29 Docusate Sodium (Colace) 100 mg DAILY GT 12/20/18 09:00 01/19/19 08:59 Ferrous Sulfate (Feosol) 300 mg DAILY GT 12/20/18 09:00 01/19/19 08:59 12/24/18 08:59 Folic Acid (Folate) 1 mg DAILY GT 12/20/18 09:00 01/19/19 08:59 12/24/18 08:59 Heparin Sodium (Porcine) (Heparin 5000 units/ml) 5,000 units EVERY 12 HOURS SUBQ 12/23/18 21:00 01/22/19 20:59 12/24/18 08:56 Insulin Aspart (NovoLOG) EVERY 6 HOURS SUBQ 12/21/18 00:00 01/20/19 00:00 12/24/18 06:10 Insulin Detemir (Levemir) 5 units QHS SUBQ 12/19/18 21:00 01/18/19 20:59 12/23/18 21:50 Levetiracetam (Keppra) 500 mg Q12HR NG 12/19/18 21:00 01/18/19 20:59 12/24/18 08:59 Multivitamins (Multivitamins W/ Minerals 15ml Liquid) 15 ml DAILY GT 12/20/18 09:00 01/19/19 08:59 12/24/18 08:59 Pantoprazole (Protonix) 40 mg EVERY 12 HOURS IVP 12/19/18 21:00 01/18/19 20:59 12/24/18 08:57 Sodium Chloride 1,000 ml @ 100 mls/hr Q10H IV 12/19/18 18:00 01/18/19 17:59 12/24/18 08:00 Thiamine HCl (Vitamin B1) 250 mg DAILY GT 12/20/18 09:00 01/19/19 08:59 12/24/18 08:57 Tobramycin Sulfate (Nebcin) 300 mg Q12HR@10,22 INH 12/23/18 22:00 12/30/18 21:59 12/24/18 09:23 Zinc Sulfate (Zinc Sulfate) 220 mg DAILY ORAL 12/21/18 09:00 12/31/18 08:59 12/24/18 09:08 Brien Rodriguez MD December 24, 2018 11:13
--- NOTE | 2018-12-24 12:14 | NUR ---
NURSE NOTES: Mouthy care done.Turned and repositioned.Kept clean dry and comfortable
--- NOTE | 2018-12-24 13:11 | NUR ---
Social Service Note SW received a return call from Humza Wiseman [phone]. Humza confirmed patient is conserved under the public guardian. Humza should be contacted for consents and to inform of dc plans. Primary nurse notified.
--- NOTE | 2018-12-24 14:02 | NUR ---
NURSE NOTES: Patient turned and repositioned.Kept clean and dry.HOB elevated to prevent aspiration.Flushed as ordered,xcall light withibn easy reach
[2018-12-24] MEDS ORDERED: Sterile Water Irrig 1000ml IRRIG ONE (14:13)
[2018-12-24] MEDS ORDERED: NS 275ml ONE (14:13)
[2018-12-24] MEDS ORDERED: Tubing IV Secondary IV ONE (14:13)
--- NOTE | 2018-12-24 14:32 | Critical Care Progress Note ---
Assessment/Plan Assessment/Plan IMPRESSION: 1. Sepsis. 2. Leukocytosis. 3. Respiratory failure. 4. Bilateral pneumonia. with worsening imaging 5. Hypokalemia. 6. Severe protein-calorie malnutrition. 7. Prior craniectomy and intracranial bleed. PLAN care as is vent and adjust as needed check BNP and cxr in am ID noted WBC normal feeds supportive care dc once stable for snf impression, plan, and exam edited and reviewed in detail care discussed with inspector heating and refrigeration - Subjective Interval Events: icu care noted stable overnight ROS Limited/Unobtainable: Yes Condition: critical EKG Rhythm: Sinus Rhythm I&O: Intake and Output 12/23/18 12/24/18 19:00 07:00 Intake Total 1326.5 ml 1512 ml Output Total 1375 ml 1300 ml Balance -48.5 ml 212 ml Intake Free Water 50 ml IV Total 882.5 ml 1055 ml Tube Feeding 444 ml 407 ml Output Urine Total 1375 ml 1100 ml Stool Total 200 ml Critical Care - Objective Last 24 Hour Vital Signs Date Time Temp Pulse Resp B/P (MAP) Pulse Ox O2 Delivery O2 Flow Rate FiO2 12/24/18 13:00 74 27 122/35 (64) 100 12/24/18 12:59 81 31 30 12/24/18 12:00 98.4 73 26 105/41 (62) 100 12/24/18 12:00 35 12/24/18 12:00 74 12/24/18 12:00 Mechanical Ventilator 12/24/18 11:00 76 27 106/58 (74) 100 12/24/18 10:56 77 30 30 12/24/18 10:00 78 19 119/61 (80) 100 12/24/18 09:28 89 20 100 Mechanical Ventilator 30 12/24/18 09:15 87 24 100 Mechanical Ventilator 30 12/24/18 09:15 30 12/24/18 09:00 83 134/52 12/24/18 09:00 76 24 114/41 (65) 100 12/24/18 08:58 82 134/52 12/24/18 08:43 86 27 30 12/24/18 08:00 75 12/24/18 08:00 98.2 79 24 134/52 (79) 100 12/24/18 08:00 Mechanical Ventilator 12/24/18 08:00 35 12/24/18 07:28 73 20 130/54 (79) 100 12/24/18 07:00 75 20 129/47 (74) 100 12/24/18 06:53 74 21 30 12/24/18 06:00 73 20 130/54 (79) 100 12/24/18 05:24 74 27 30 35 12/24/18 05:00 74 20 132/51 (78) 100 12/24/18 04:00 72 12/24/18 04:00 35 12/24/18 04:00 Mechanical Ventilator 12/24/18 04:00 98.5 72 24 128/48 (74) 100 12/24/18 03:26 75 19 30 35 12/24/18 03:00 74 20 107/49 (68) 100 12/24/18 02:00 78 22 116/40 (65) 100 12/24/18 01:00 75 8 97/34 (55) 100 12/24/18 00:32 78 29 30 35 12/24/18 00:00 98.6 77 26 110/44 (66) 100 12/24/18 00:00 Mechanical Ventilator 12/24/18 00:00 75 12/24/18 00:00 35 12/24/18 00:00 77 26 110/44 (66) 100 12/23/18 23:19 70 15 95/46 (62) 99 12/23/18 23:15 79 33 30 35 12/23/18 23:02 73 19 87/29 (48) 100 12/23/18 23:00 74 15 96/40 (58) 99 12/23/18 22:00 78 26 118/47 (70) 92 12/23/18 21:14 72 21 30 35 12/23/18 21:00 73 18 104/43 (63) 100 12/23/18 20:00 Mechanical Ventilator 12/23/18 20:00 35 12/23/18 20:00 98.0 68 19 113/46 (68) 100 12/23/18 20:00 69 12/23/18 19:00 68 20 108/47 (67) 100 12/23/18 18:41 72 22 30 35 12/23/18 18:00 71 22 117/45 (69) 100 12/23/18 17:09 74 26 35 12/23/18 17:00 71 26 116/44 (68) 100 12/23/18 17:00 71 26 116/44 (68) 100 12/23/18 16:00 70 12/23/18 16:00 97.7 68 24 101/47 (65) 100 12/23/18 16:00 Mechanical Ventilator 12/23/18 16:00 35 12/23/18 15:30 69 17 35 12/23/18 15:00 75 26 130/57 (81) 100 Labs: Labs Test 12/21/18 15:50 12/22/18 08:10 12/22/18 09:30 12/22/18 15:55 Arterial Blood pH 7.540 (7.350-7.450) 7.504 (7.350-7.450) 7.522 (7.350-7.450) Arterial Blood Partial Pressure CO2 28.4 mmHg (35.0-45.0) 32.8 mmHg (35.0-45.0) 31.4 mmHg (35.0-45.0) Arterial Blood Partial Pressure O2 292.6 mmHg (75.0-100.0) 72.0 mmHg (75.0-100.0) 59.5 mmHg (75.0-100.0) Arterial Blood HCO3 23.7 mmol/L (22.0-26.0) 25.2 mmol/L (22.0-26.0) 25.2 mmol/L (22.0-26.0) Arterial Blood Oxygen Saturation 99.1 % (95-100) 93.6 % (95-100) 90.5 % (95-100) Arterial Blood Base Excess 1.5 (-2-2) 2.4 (-2-2) 2.6 (-2-2) Justus Test Positive Positive Positive White Blood Count 17.7 K/UL (4.8-10.8) Red Blood Count 2.88 M/UL (4.20-5.40) Hemoglobin 9.9 G/DL (12.0-16.0) Hematocrit 28.6 % (37.0-47.0) Mean Corpuscular Volume 99 FL (80-99) Mean Corpuscular Hemoglobin 34.2 PG (27.0-31.0) Mean Corpuscular Hemoglobin Concent 34.5 G/DL (32.0-36.0) Red Cell Distribution Width 12.2 % (11.6-14.8) Platelet Count 425 K/UL (150-450) Mean Platelet Volume 6.0 FL (6.5-10.1) Neutrophils (%) (Auto) 83.6 % (45.0-75.0) Lymphocytes (%) (Auto) 10.6 % (20.0-45.0) Monocytes (%) (Auto) 3.6 % (1.0-10.0) Eosinophils (%) (Auto) 1.6 % (0.0-3.0) Basophils (%) (Auto) 0.6 % (0.0-2.0) Sodium Level 134 MMOL/L (136-145) Potassium Level 3.2 MMOL/L (3.5-5.1) Chloride Level 99 MMOL/L (98-107) Carbon Dioxide Level 27 MMOL/L (21-32) Anion Gap 8 mmol/L (5-15) Blood Urea Nitrogen 13 mg/dL (7-18) Creatinine 0.4 MG/DL (0.55-1.30) Estimat Glomerular Filtration Rate > 60 mL/min (>60) Glucose Level 213 MG/DL (74-106) Calcium Level 8.0 MG/DL (8.5-10.1) Total Bilirubin 0.2 MG/DL (0.2-1.0) Aspartate Amino Transf (AST/SGOT) 16 U/L (15-37) Alanine Aminotransferase (ALT/SGPT) 26 U/L (12-78) Alkaline Phosphatase 155 U/L (46-116) Total Protein 6.3 G/DL (6.4-8.2) Albumin 1.5 G/DL (3.4-5.0) Globulin 4.8 g/dL Albumin/Globulin Ratio 0.3 (1.0-2.7) Test 12/23/18 03:55 12/23/18 08:38 12/24/18 04:10 White Blood Count 18.9 K/UL (4.8-10.8) 10.9 K/UL (4.8-10.8) Red Blood Count 2.88 M/UL (4.20-5.40) 2.64 M/UL (4.20-5.40) Hemoglobin 9.8 G/DL (12.0-16.0) 9.1 G/DL (12.0-16.0) Hematocrit 28.3 % (37.0-47.0) 26.0 % (37.0-47.0) Mean Corpuscular Volume 98 FL (80-99) 99 FL (80-99) Mean Corpuscular Hemoglobin 34.2 PG (27.0-31.0) 34.4 PG (27.0-31.0) Mean Corpuscular Hemoglobin Concent 34.8 G/DL (32.0-36.0) 34.9 G/DL (32.0-36.0) Red Cell Distribution Width 12.3 % (11.6-14.8) 12.2 % (11.6-14.8) Platelet Count 458 K/UL (150-450) 394 K/UL (150-450) Mean Platelet Volume 6.5 FL (6.5-10.1) 6.7 FL (6.5-10.1) Neutrophils (%) (Auto) % (45.0-75.0) 79.2 % (45.0-75.0) Lymphocytes (%) (Auto) % (20.0-45.0) 14.5 % (20.0-45.0) Monocytes (%) (Auto) % (1.0-10.0) 3.7 % (1.0-10.0) Eosinophils (%) (Auto) % (0.0-3.0) 2.0 % (0.0-3.0) Basophils (%) (Auto) % (0.0-2.0) 0.6 % (0.0-2.0) Differential Total Cells Counted 100 Neutrophils % (Manual) 84 % (45-75) Lymphocytes % (Manual) 11 % (20-45) Monocytes % (Manual) 2 % (1-10) Eosinophils % (Manual) 3 % (0-3) Basophils % (Manual) 0 % (0-2) Band Neutrophils 0 % (0-8) Platelet Estimate Adequate Platelet Morphology Normal Red Blood Cell Morphology Normal Sodium Level 131 MMOL/L (136-145) 134 MMOL/L (136-145) Potassium Level 3.4 MMOL/L (3.5-5.1) 3.6 MMOL/L (3.5-5.1) Chloride Level 97 MMOL/L (98-107) 100 MMOL/L (98-107) Carbon Dioxide Level 28 MMOL/L (21-32) 27 MMOL/L (21-32) Anion Gap 7 mmol/L (5-15) 7 mmol/L (5-15) Blood Urea Nitrogen 6 mg/dL (7-18) 12 mg/dL (7-18) Creatinine 0.3 MG/DL (0.55-1.30) 0.4 MG/DL (0.55-1.30) Estimat Glomerular Filtration Rate > 60 mL/min (>60) > 60 mL/min (>60) Glucose Level 137 MG/DL (74-106) 187 MG/DL (74-106) Calcium Level 8.1 MG/DL (8.5-10.1) 7.9 MG/DL (8.5-10.1) Phosphorus Level 3.0 MG/DL (2.5-4.9) Magnesium Level 1.8 MG/DL (1.8-2.4) Arterial Blood pH 7.509 (7.350-7.450) Arterial Blood Partial Pressure CO2 33.4 mmHg (35.0-45.0) Arterial Blood Partial Pressure O2 91.6 mmHg (75.0-100.0) Arterial Blood HCO3 26.0 mmol/L (22.0-26.0) Arterial Blood Oxygen Saturation 96.4 % (95-100) Arterial Blood Base Excess 3.1 (-2-2) Justus Test Positive Erythrocyte Sedimentation Rate 127 MM/HR (0-30) Prothrombin Time 10.5 SEC (9.30-11.50) Prothromb Time International Ratio 1.0 (0.9-1.1) Activated Partial Thromboplast Time 29 SEC (23-33) Total Bilirubin 0.2 MG/DL (0.2-1.0) Aspartate Amino Transf (AST/SGOT) 11 U/L (15-37) Alanine Aminotransferase (ALT/SGPT) 18 U/L (12-78) Alkaline Phosphatase 140 U/L (46-116) C-Reactive Protein, Quantitative 4.1 mg/dL (0.00-0.90) Total Protein 6.2 G/DL (6.4-8.2) Albumin 1.6 G/DL (3.4-5.0) Globulin 4.6 g/dL Albumin/Globulin Ratio 0.3 (1.0-2.7) Lipase 88 U/L (73-393) Objective: HEENT: Negative. NECK: Supple. No adenopathy. Tracheostomy. Midline craniectomy noted. LUNGS: With moderate breath sounds. Some rhonchi. CARDIAC: S1, S2. Regular rate and rhythm. ABDOMEN: Soft. G-tube in place. EXTREMITIES: No edema. NEUROLOGICAL: Poorly responsive. Micro: Microbiology Date/Time Source Procedure Growth Status 12/22/18 04:00 Stool Clostridium difficile Toxin Assay - Final Complete Accucheck: 215 Mejia Cruz MD December 24, 2018 14:32
--- NOTE | 2018-12-24 15:48 | Surgery Progress Note ---
Surgery Progress Note Subjective Additional Comments leukocytosis trending down. CXR with worsening infiltrative disease. exam stable. Objective Last 24 Hour Vital Signs Date Time Temp Pulse Resp B/P (MAP) Pulse Ox O2 Delivery O2 Flow Rate FiO2 12/24/18 15:19 72 30 30 12/24/18 15:00 70 27 115/49 (71) 100 12/24/18 14:00 78 28 112/41 (64) 100 12/24/18 13:00 74 27 122/35 (64) 100 12/24/18 12:59 81 31 30 12/24/18 12:00 98.4 73 26 105/41 (62) 100 12/24/18 12:00 35 12/24/18 12:00 74 12/24/18 12:00 Mechanical Ventilator 12/24/18 11:00 76 27 106/58 (74) 100 12/24/18 10:56 77 30 30 12/24/18 10:00 78 19 119/61 (80) 100 12/24/18 09:28 89 20 100 Mechanical Ventilator 30 12/24/18 09:15 87 24 100 Mechanical Ventilator 30 12/24/18 09:15 30 12/24/18 09:00 83 134/52 12/24/18 09:00 76 24 114/41 (65) 100 12/24/18 08:58 82 134/52 12/24/18 08:43 86 27 30 12/24/18 08:00 75 12/24/18 08:00 98.2 79 24 134/52 (79) 100 12/24/18 08:00 Mechanical Ventilator 12/24/18 08:00 35 12/24/18 07:28 73 20 130/54 (79) 100 12/24/18 07:00 75 20 129/47 (74) 100 12/24/18 06:53 74 21 30 12/24/18 06:00 73 20 130/54 (79) 100 12/24/18 05:24 74 27 30 35 12/24/18 05:00 74 20 132/51 (78) 100 12/24/18 04:00 72 12/24/18 04:00 35 12/24/18 04:00 Mechanical Ventilator 12/24/18 04:00 98.5 72 24 128/48 (74) 100 12/24/18 03:26 75 19 30 35 12/24/18 03:00 74 20 107/49 (68) 100 12/24/18 02:00 78 22 116/40 (65) 100 12/24/18 01:00 75 8 97/34 (55) 100 12/24/18 00:32 78 29 30 35 12/24/18 00:00 98.6 77 26 110/44 (66) 100 12/24/18 00:00 Mechanical Ventilator 12/24/18 00:00 75 12/24/18 00:00 35 12/24/18 00:00 77 26 110/44 (66) 100 12/23/18 23:19 70 15 95/46 (62) 99 12/23/18 23:15 79 33 30 35 12/23/18 23:02 73 19 87/29 (48) 100 12/23/18 23:00 74 15 96/40 (58) 99 12/23/18 22:00 78 26 118/47 (70) 92 12/23/18 21:14 72 21 30 35 12/23/18 21:00 73 18 104/43 (63) 100 12/23/18 20:00 Mechanical Ventilator 12/23/18 20:00 35 12/23/18 20:00 98.0 68 19 113/46 (68) 100 12/23/18 20:00 69 12/23/18 19:00 68 20 108/47 (67) 100 12/23/18 18:41 72 22 30 35 12/23/18 18:00 71 22 117/45 (69) 100 12/23/18 17:09 74 26 35 12/23/18 17:00 71 26 116/44 (68) 100 12/23/18 17:00 71 26 116/44 (68) 100 12/23/18 16:00 70 12/23/18 16:00 97.7 68 24 101/47 (65) 100 12/23/18 16:00 Mechanical Ventilator 12/23/18 16:00 35 I&O Intake and Output 12/23/18 12/24/18 19:00 07:00 Intake Total 1326.5 ml 1512 ml Output Total 1375 ml 1300 ml Balance -48.5 ml 212 ml Intake Free Water 50 ml IV Total 882.5 ml 1055 ml Tube Feeding 444 ml 407 ml Output Urine Total 1375 ml 1100 ml Stool Total 200 ml Dressing: dry Wound: other Drains: other Cardiovascular: RSR Respiratory: decreased breath sounds Abdomen: soft, present bowel sounds, non-distended Extremities: no cyanosis Laboratory Tests Test 12/24/18 04:10 White Blood Count 10.9 K/UL (4.8-10.8) H Red Blood Count 2.64 M/UL (4.20-5.40) L Hemoglobin 9.1 G/DL (12.0-16.0) L Hematocrit 26.0 % (37.0-47.0) L Mean Corpuscular Volume 99 FL (80-99) Mean Corpuscular Hemoglobin 34.4 PG (27.0-31.0) H Mean Corpuscular Hemoglobin Concent 34.9 G/DL (32.0-36.0) Red Cell Distribution Width 12.2 % (11.6-14.8) Platelet Count 394 K/UL (150-450) Mean Platelet Volume 6.7 FL (6.5-10.1) Neutrophils (%) (Auto) 79.2 % (45.0-75.0) H Lymphocytes (%) (Auto) 14.5 % (20.0-45.0) L Monocytes (%) (Auto) 3.7 % (1.0-10.0) Eosinophils (%) (Auto) 2.0 % (0.0-3.0) Basophils (%) (Auto) 0.6 % (0.0-2.0) Erythrocyte Sedimentation Rate 127 MM/HR (0-30) H Prothrombin Time 10.5 SEC (9.30-11.50) Prothromb Time International Ratio 1.0 (0.9-1.1) Activated Partial Thromboplast Time 29 SEC (23-33) Sodium Level 134 MMOL/L (136-145) L Potassium Level 3.6 MMOL/L (3.5-5.1) Chloride Level 100 MMOL/L (98-107) Carbon Dioxide Level 27 MMOL/L (21-32) Anion Gap 7 mmol/L (5-15) Blood Urea Nitrogen 12 mg/dL (7-18) Creatinine 0.4 MG/DL (0.55-1.30) L Estimat Glomerular Filtration Rate > 60 mL/min (>60) Glucose Level 187 MG/DL (74-106) H Calcium Level 7.9 MG/DL (8.5-10.1) L Total Bilirubin 0.2 MG/DL (0.2-1.0) Aspartate Amino Transf (AST/SGOT) 11 U/L (15-37) L Alanine Aminotransferase (ALT/SGPT) 18 U/L (12-78) Alkaline Phosphatase 140 U/L (46-116) H C-Reactive Protein, Quantitative 4.1 mg/dL (0.00-0.90) H Total Protein 6.2 G/DL (6.4-8.2) L Albumin 1.6 G/DL (3.4-5.0) L Globulin 4.6 g/dL Albumin/Globulin Ratio 0.3 (1.0-2.7) L Lipase 88 U/L (73-393) Plan Problems: (1) Decubital ulcer Assessment & Plan: Pt presented on admission with 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 Periwound with scattered shearing. Bone is palpable. Borders are irregular shaped but adherent to base of wound. Periwound dark and indurated. No odor or exudate noted. R and L heels are pink and blanchable without fluctuance. Skin is intact under trach collar. .No other areas of skin concerns noted. Tx.Plan: Cleanse with Saline. Apply Therahoney. Apply Triad periwound. Cover with Optifoam drsg. Change every 3 days and prn. Apply Cavilon Skin Barrier to both heels .Cover each heel with Optifoam drsg.Change every 7 days and prn. Off-load heels with pillow. APM/POOJA Mattress overlay. Reposition at least every 2hours or as tolerated. (2) Anemia (3) Sepsis Assessment & Plan: IV Abx cultures noted labs noted trend labs cont with current care unlikely from chronic wounds CXR noted appreciate ID input will follow with recs thank you Arnold Hi December 24, 2018 15:48
--- NOTE | 2018-12-24 16:11 | NUR ---
NURSE NOTES: ADls done,mouth care and suctioned done as tolerated.Kept clean dry and comfortable
--- NOTE | 2018-12-24 18:05 | NUR ---
NURSE NOTES: ADls done,mouth care and suctioned done as tolerated.Kept clean dry and comfortable
--- NOTE | 2018-12-24 19:15 | NUR ---
HAND-OFF: Report given to KASSI Gomez.
--- NOTE | 2018-12-24 19:40 | NUR ---
NURSE NOTES: pt dejuan waters trach -[id number] o/[id number] no acute resp distress no acute resp distress tolerating tube feeding no residual iv iinfusing well site good reposition and suction
[2018-12-24] MEDS: Levemir Flexpen SUBQ SCH (21:02)
--- NOTE | 2018-12-24 22:00 | NUR ---
NURSE NOTES: reposition and suction neuro status
[2018-12-25] VITALS (18 sets, daily range): BP systolic 98–129; BP diastolic 24–61
--- NOTE | 2018-12-25 | NUR ---
NURSE NOTES: reposition and suction condition unchange
--- NOTE | 2018-12-25 02:00 | NUR ---
NURSE NOTES: vs stable reposition and suction
--- NOTE | 2018-12-25 04:19 | NUR ---
NURSE NOTES: complete bed bath done wound care done no acute resp distress noted
[2018-12-25 05:24] LABS: BASOPHILS % (AUTO) 0.9 % (0.0-2.0); HEMATOCRIT 29.2 % (37.0-47.0); HEMOGLOBIN 9.9 G/DL (12.0-16.0); LYMPHOCYTES % (AUTO) 13.8 % (20.0-45.0); MEAN CORPUSCULAR VOLUME 98 FL (80-99); NEUTROPHILS % (AUTO) 78.4 % (45.0-75.0); PLATELET COUNT 416 K/UL (150-450); RED BLOOD COUNT 2.99 M/UL (4.20-5.40); RED CELL DISTRIBUTION WIDTH 12.4 % (11.6-14.8); WHITE BLOOD COUNT 10.3 K/UL (4.8-10.8)
[2018-12-25 05:50] LABS: ALANINE AMINOTRANSFERASE 22 U/L (12-78); ALBUMIN 1.9 G/DL (3.4-5.0); ALBUMIN/GLOBULIN RATIO 0.5 (1.0-2.7); ALKALINE PHOSPHATASE 143 U/L (46-116); ANION GAP 9 mmol/L (5-15); ASPARTATE AMINO TRANSFERASE 23 U/L (15-37); BILIRUBIN,TOTAL 0.3 MG/DL (0.2-1.0); BLOOD UREA NITROGEN 11 mg/dL (7-18); CALCIUM 7.5 MG/DL (8.5-10.1); CARBON DIOXIDE 25 MMOL/L (21-32); CHLORIDE 97 MMOL/L (98-107); CREATININE 0.2 MG/DL (0.55-1.30); POTASSIUM 4.3 MMOL/L (3.5-5.1); SODIUM 131 MMOL/L (136-145)
[2018-12-25] MEDS: NovoLOG Insulin Flexpen SUBQ SCH ×2 (05:55→12:40)
--- NOTE | 2018-12-25 06:00 | NUR ---
NURSE NOTES: reposition and suction vs stable IV INFUSING WELL SITE GOOD
--- NOTE | 2018-12-25 07:15 | NUR ---
NURSE NOTES: Received patient from KASSI Kirkland. Patient VS stable at this time with no sign of acute distress. Patient eyes closed at this time. Patient does not respond and does not track. Patient showing SR on the monitor at this time. Patient is trach to ventilator with setting of AC10, TV 375, FiO2 30%, and PEEP 0. Patient tolerating setting with RR of 24 and SpO2 100% at this time. Patient has G tube that is patent and asymptomatic and running Glucerna 1.5 at 37mL/hr at this time. Patient tolerating feeding with no residual at this time. Patient has a rectal tube at this time. Patient has garcia for urine retention that is patent and draining at this time. Patient has a sacral stage 3 pressure ulcer, a blister on the right wrist IV site, and bilateral optifoam on heels for protection. All dressings changed over night. Patient has right hand 20G PIV and left finger 20G PIV that is patent and running NS at 100mL/hr at this time. Patient bed in low position with bed alarm on and call light in reach at this time.
[2018-12-25] MEDS: Tobramycin for inhalation INH SCH (09:26)
--- NOTE | 2018-12-25 09:30 | NUR ---
NURSE NOTES: Patient VS stable at this time. Patient does not respond to her name. Patient opens eyes in response to pain but does not communicate or grimace. Patient does not move or track with her eyes. Patient turned at this time. Patient oral care performed at this time. Patient bed in low position with bed alarm on and call light in reach at this time.
[2018-12-25] MEDS: Pantoprazole Inj IVP SCH (09:40)
[2018-12-25] MEDS: Zinc Sulfate 220mg cap ORAL SCH (09:41)
[2018-12-25] MEDS: Ascorbic Acid 500mg tab ORAL SCH (09:42)
[2018-12-25] MEDS: Cefepime HCl 2 GM in D5W 55 ML IVPB SCH (09:43)
[2018-12-25] MEDS: Ferrous Sulfate 300 MG/5 ML UDC GT SCH (09:43)
[2018-12-25] MEDS: Thiamine 100mg tab GT SCH (09:43)
[2018-12-25] MEDS: Docusate 100mg/10ml Liq GT SCH (09:43)
[2018-12-25] MEDS: Multivitamins W/Minerals 15 ML UDC GT SCH (09:44)
[2018-12-25] MEDS: levETIRAcetam 500mg/5ml Liquid NG SCH (09:44)
[2018-12-25] MEDS: Heparin 5000 units/ml inj SUBQ SCH (09:46)
--- NOTE | 2018-12-25 10:30 | NUR ---
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 RESPIRATORY FAILURE . LEUKOCYTOSIS VS: BP 113/39, P 73, T 98.3, RR 28, SpO2 100 on VENT AC 10, TV 375, FiO2 30 RBC 2.99, H&H 9.9/29.2, Na 131, CR 0.2 CXR: Worsening airspace disease. Infiltrates versus edema IS:HEPARIN SUBQ ATENOLOL 50MG KEPPRA 500mg CEFEPIME 55ml IVPB NORVASC 10mG NEBCIN 300mg INH NOVOLOG SUBQ NS x1L IV ICU STATUS
--- NOTE | 2018-12-25 11:06 | Infectious Diseases Prog Note ---
Assessment/Plan Assessment/Plan A 1. Pseudomonas pneumonia 2. + blood cultures with coag neg staph likely contaminated 3. respiratory failure on ventilator 4. diabetes mellitus 5. hypertension 6. Diarrhea, C. difficile negative 7. Anemia P 1. Continue Cefepime & Tobramycin inhaler Subjective ROS Limited/Unobtainable: Yes Gastrointestinal/Abdominal: Reports: diarrhea Allergies: Coded Allergies: No Known Allergies (Unverified , 11/06/18) Objective Vital Signs Last 24 Hour Vital Signs Date Time Temp Pulse Resp B/P (MAP) Pulse Ox O2 Delivery O2 Flow Rate FiO2 12/25/18 10:00 73 22 100 Mechanical Ventilator 30 12/25/18 09:44 81 116/43 12/25/18 09:42 79 113/39 12/25/18 09:27 84 16 100 Mechanical Ventilator 30 12/25/18 09:27 30 12/25/18 09:23 80 16 30 12/25/18 08:00 82 12/25/18 08:00 35 12/25/18 08:00 Mechanical Ventilator 12/25/18 08:00 98.3 86 28 128/61 (83) 100 12/25/18 07:12 77 21 30 12/25/18 07:00 81 30 120/46 (70) 100 12/25/18 06:00 78 23 120/24 (56) 12/25/18 05:30 75 22 30 12/25/18 05:00 74 20 121/44 (69) 100 12/25/18 04:00 77 12/25/18 04:00 Mechanical Ventilator 12/25/18 04:00 97.5 75 19 119/41 (67) 100 12/25/18 04:00 35 12/25/18 03:08 72 21 30 12/25/18 03:00 76 21 129/42 (71) 100 12/25/18 02:00 98.0 73 21 115/36 (62) 100 12/25/18 01:21 75 23 30 12/25/18 01:00 74 27 117/35 (62) 100 12/25/18 00:00 73 23 119/38 (65) 100 12/25/18 00:00 Mechanical Ventilator 12/25/18 00:00 35 12/25/18 00:00 86 12/24/18 23:09 69 20 30 12/24/18 23:00 73 21 116/38 (64) 100 12/24/18 22:00 71 21 110/31 (57) 100 12/24/18 21:41 70 26 100 Mechanical Ventilator 30 12/24/18 21:26 30 12/24/18 21:26 71 18 100 Mechanical Ventilator 30 12/24/18 21:09 72 21 30 12/24/18 21:00 72 22 112/38 (62) 100 12/24/18 20:00 35 12/24/18 20:00 68 12/24/18 20:00 Mechanical Ventilator 12/24/18 20:00 98.5 69 22 126/46 (72) 100 12/24/18 19:08 68 24 30 12/24/18 19:00 73 24 121/43 (69) 100 12/24/18 18:00 69 24 132/48 (76) 100 12/24/18 17:24 74 29 30 12/24/18 17:00 70 27 119/48 (71) 100 12/24/18 16:00 70 12/24/18 16:00 Mechanical Ventilator 12/24/18 16:00 35 12/24/18 16:00 98.4 71 26 119/47 (71) 100 12/24/18 15:19 72 30 30 12/24/18 15:00 70 27 115/49 (71) 100 12/24/18 14:00 78 28 112/41 (64) 100 12/24/18 13:00 74 27 122/35 (64) 100 12/24/18 12:59 81 31 30 12/24/18 12:00 98.4 73 26 105/41 (62) 100 12/24/18 12:00 35 12/24/18 12:00 74 12/24/18 12:00 Mechanical Ventilator Height (Feet): 5 Height (Inches): 2.00 Weight (Pounds): 102 HEENT: status post trach, other - s/p left craniotomy Respiratory/Chest: lungs clear, other - on ventilator Cardiovascular: normal rate Abdomen: soft, non tender, other - GT feeding, rectal tube Extremities: other - edema of hands Neurologic/Psychiatric: unresponsiveness Laboratory Tests Test 12/25/18 04:00 White Blood Count 10.3 K/UL (4.8-10.8) Red Blood Count 2.99 M/UL (4.20-5.40) L Hemoglobin 9.9 G/DL (12.0-16.0) L Hematocrit 29.2 % (37.0-47.0) L Mean Corpuscular Volume 98 FL (80-99) Mean Corpuscular Hemoglobin 33.3 PG (27.0-31.0) H Mean Corpuscular Hemoglobin Concent 34.0 G/DL (32.0-36.0) Red Cell Distribution Width 12.4 % (11.6-14.8) Platelet Count 416 K/UL (150-450) Mean Platelet Volume 5.9 FL (6.5-10.1) L Neutrophils (%) (Auto) 78.4 % (45.0-75.0) H Lymphocytes (%) (Auto) 13.8 % (20.0-45.0) L Monocytes (%) (Auto) 4.0 % (1.0-10.0) Eosinophils (%) (Auto) 3.0 % (0.0-3.0) Basophils (%) (Auto) 0.9 % (0.0-2.0) Sodium Level 131 MMOL/L (136-145) L Potassium Level 4.3 MMOL/L (3.5-5.1) Chloride Level 97 MMOL/L (98-107) L Carbon Dioxide Level 25 MMOL/L (21-32) Anion Gap 9 mmol/L (5-15) Blood Urea Nitrogen 11 mg/dL (7-18) Creatinine 0.2 MG/DL (0.55-1.30) L Estimat Glomerular Filtration Rate > 60 mL/min (>60) Glucose Level 128 MG/DL (74-106) H Calcium Level 7.5 MG/DL (8.5-10.1) L Total Bilirubin 0.3 MG/DL (0.2-1.0) Aspartate Amino Transf (AST/SGOT) 23 U/L (15-37) Alanine Aminotransferase (ALT/SGPT) 22 U/L (12-78) Alkaline Phosphatase 143 U/L (46-116) H Pro-B-Type Natriuretic Peptide 719 pg/mL (0-125) H Total Protein 5.9 G/DL (6.4-8.2) L Albumin 1.9 G/DL (3.4-5.0) L Globulin 4.0 g/dL Albumin/Globulin Ratio 0.5 (1.0-2.7) L Current Medications Medications (Trade) Dose Ordered Sig/Dell Route PRN Reason Start Time Stop Time Status Last Admin Dose Admin Amlodipine Besylate (Norvasc) 10 mg DAILY GT 12/20/18 09:00 01/19/19 08:59 12/25/18 09:42 Ascorbic Acid (Vitamin C) 250 mg TWICE A DAY ORAL 12/20/18 18:00 01/19/19 17:59 12/25/18 09:42 Atenolol (Tenormin) 50 mg DAILY GT 12/20/18 09:00 01/19/19 08:59 12/25/18 09:44 Cefepime HCl 2 gm/ Dextrose 55 ml @ 110 mls/hr Q12HR IVPB 12/23/18 13:15 12/30/18 13:14 12/25/18 09:43 Dextrose (Dextrose 50%) 25 ml Q30M PRN IV Hypoglycemia 12/20/18 19:30 01/19/19 19:29 12/22/18 05:17 Dextrose (Dextrose 50%) 50 ml Q30M PRN IV Hypoglycemia 12/20/18 19:30 01/19/19 19:29 Docusate Sodium (Colace) 100 mg DAILY GT 12/20/18 09:00 01/19/19 08:59 12/25/18 09:43 Ferrous Sulfate (Feosol) 300 mg DAILY GT 12/20/18 09:00 01/19/19 08:59 12/25/18 09:43 Folic Acid (Folate) 1 mg DAILY GT 12/20/18 09:00 01/19/19 08:59 12/25/18 09:41 Heparin Sodium (Porcine) (Heparin 5000 units/ml) 5,000 units EVERY 12 HOURS SUBQ 12/23/18 21:00 01/22/19 20:59 12/25/18 09:46 Insulin Aspart (NovoLOG) EVERY 6 HOURS SUBQ 12/21/18 00:00 01/20/19 00:00 12/25/18 05:55 Insulin Detemir (Levemir) 5 units QHS SUBQ 12/19/18 21:00 01/18/19 20:59 12/24/18 21:02 Levetiracetam (Keppra) 500 mg Q12HR NG 12/19/18 21:00 01/18/19 20:59 12/25/18 09:44 Multivitamins (Multivitamins W/ Minerals 15ml Liquid) 15 ml DAILY GT 12/20/18 09:00 01/19/19 08:59 12/25/18 09:44 Pantoprazole (Protonix) 40 mg EVERY 12 HOURS IVP 12/19/18 21:00 01/18/19 20:59 12/25/18 09:40 Sodium Chloride 1,000 ml @ 100 mls/hr Q10H IV 12/19/18 18:00 01/18/19 17:59 12/25/18 04:00 Thiamine HCl (Vitamin B1) 250 mg DAILY GT 12/20/18 09:00 01/19/19 08:59 12/25/18 09:43 Tobramycin Sulfate (Nebcin) 300 mg Q12HR@10,22 INH 12/23/18 22:00 12/30/18 21:59 12/25/18 09:26 Zinc Sulfate (Zinc Sulfate) 220 mg DAILY ORAL 12/21/18 09:00 12/31/18 08:59 12/25/18 09:41 Jose Angel Johnson MD December 25, 2018 11:06
--- NOTE | 2018-12-25 11:30 | NUR ---
NURSE NOTES: Patient VS stable at this time. Patient does not respond to her name. Patient opens eyes in response to pain but does not communicate or grimace. Patient does not move or track with her eyes. Patient turned at this time. Patient bed in low position with bed alarm on and call light in reach at this time.
--- NOTE | 2018-12-25 13:08 | NUR ---
RADIOLOGY DEPT., CHEST X-RAY DONE.-P.DYE
--- NOTE | 2018-12-25 13:14 | NUR ---
*-* INSURANCE *-* UPDATED CLINICALS AND REVIEWS HAVE BEEN FAXED TO: ORIN ([employer]) [facility]: LASHANDA P- [phone] F- [phone]...REVIEW/CLINICAL
--- NOTE | 2018-12-25 13:30 | NUR ---
NURSE NOTES: Patient VS stable at this time with no sign of acute distress. Patient bed in low position with bed alarm on and call light in reach at this time. Patient cleaned at this time.
--- NOTE | 2018-12-25 13:54 | Diagnostic Imaging Report ---
Indication: Dyspnea Comparison: 12/24/2018 A single view chest radiograph was obtained. Findings: Patchy infiltrates demonstrated bilaterally. The heart is mildly enlarged. Tracheostomy and right RETAIL FIELD SUPERVISOR shunt again noted. 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
--- NOTE | 2018-12-25 15:00 | Pulmonolgy Critical Care Note ---
Critical Care - Asmt/Plan Assessment/Plan: Pulmonary CCM Progress Note Assessment/Plan IMPRESSION: 1. Sepsis. Cefepime and Inh Tobra 2. Leukocytosis. 3. Respiratory failure. 4. Bilateral pneumonia - CXR stable 5. Hypokalemia. 6. Severe protein-calorie malnutrition. 7. Prior craniectomy and intracranial bleed. 8. Alkalosis 9. Hypokalemia PLAN care as is vent as is ID pending WBC elevated feeds supportive care impression, plan, and exam edited and reviewed in detail care discussed with RN WALLY planning to SNF Critical Care - Subjective ROS Limited/Unobtainable: Yes Condition: critical EKG Rhythm: Sinus Rhythm Critical Care - Objective Vital Signs Noted Laboratory Tests Noted Test 12/19/18 11:51 12/19/18 12:45 12/19/18 16:35 12/20/18 03:40 White Blood Count 21.3 K/UL (4.8-10.8) H 21.1 K/UL (4.8-10.8) H Red Blood Count 2.60 M/UL (4.20-5.40) L 2.50 M/UL (4.20-5.40) L Hemoglobin 9.0 G/DL (12.0-16.0) L 8.7 G/DL (12.0-16.0) L Hematocrit 25.6 % (37.0-47.0) L 25.1 % (37.0-47.0) L Mean Corpuscular Volume 98 FL (80-99) 100 FL (80-99) H Mean Corpuscular Hemoglobin 34.5 PG (27.0-31.0) H 34.7 PG (27.0-31.0) H Mean Corpuscular Hemoglobin Concent 35.1 G/DL (32.0-36.0) 34.5 G/DL (32.0-36.0) Red Cell Distribution Width 12.2 % (11.6-14.8) 12.4 % (11.6-14.8) Platelet Count 364 K/UL (150-450) 338 K/UL (150-450) Mean Platelet Volume 6.6 FL (6.5-10.1) 6.5 FL (6.5-10.1) Neutrophils (%) (Auto) % (45.0-75.0) % (45.0-75.0) Lymphocytes (%) (Auto) % (20.0-45.0) % (20.0-45.0) Monocytes (%) (Auto) % (1.0-10.0) % (1.0-10.0) Eosinophils (%) (Auto) % (0.0-3.0) % (0.0-3.0) Basophils (%) (Auto) % (0.0-2.0) % (0.0-2.0) Differential Total Cells Counted 100 100 Neutrophils % (Manual) 89 % (45-75) H 86 % (45-75) H Lymphocytes % (Manual) 7 % (20-45) L 10 % (20-45) L Monocytes % (Manual) 4 % (1-10) 4 % (1-10) Eosinophils % (Manual) 0 % (0-3) 0 % (0-3) Basophils % (Manual) 0 % (0-2) 0 % (0-2) Band Neutrophils 0 % (0-8) 0 % (0-8) Platelet Estimate Adequate Adequate Platelet Morphology Normal Normal Red Blood Cell Morphology Normal Sodium Level 137 MMOL/L (136-145) 138 MMOL/L (136-145) Potassium Level 3.2 MMOL/L (3.5-5.1) L 3.1 MMOL/L (3.5-5.1) L Chloride Level 100 MMOL/L (98-107) 104 MMOL/L (98-107) Carbon Dioxide Level 28 MMOL/L (21-32) 26 MMOL/L (21-32) Anion Gap 9 mmol/L (5-15) 8 mmol/L (5-15) Blood Urea Nitrogen 22 mg/dL (7-18) H 13 mg/dL (7-18) Creatinine 0.5 MG/DL (0.55-1.30) L 0.3 MG/DL (0.55-1.30) L Estimat Glomerular Filtration Rate > 60 mL/min (>60) > 60 mL/min (>60) Glucose Level 132 MG/DL (74-106) H 45 MG/DL (74-106) L Lactic Acid Level 2.00 mmol/L (0.4-2.0) 0.80 mmol/L (0.4-2.0) Calcium Level 8.4 MG/DL (8.5-10.1) L 8.3 MG/DL (8.5-10.1) L Total Bilirubin 0.3 MG/DL (0.2-1.0) 0.3 MG/DL (0.2-1.0) Aspartate Amino Transf (AST/SGOT) 21 U/L (15-37) 14 U/L (15-37) L Alanine Aminotransferase (ALT/SGPT) 50 U/L (12-78) 33 U/L (12-78) Alkaline Phosphatase 179 U/L (46-116) H 142 U/L (46-116) H Total Creatine Kinase 12 U/L (26-308) L Creatine Kinase MB < 0.5 NG/ML (0.0-3.6) Creatine Kinase MB Relative Index Troponin I 0.000 ng/mL (0.000-0.056) Total Protein 6.3 G/DL (6.4-8.2) L 5.8 G/DL (6.4-8.2) L Albumin 1.6 G/DL (3.4-5.0) L 1.4 G/DL (3.4-5.0) L Globulin 4.7 g/dL 4.4 g/dL Albumin/Globulin Ratio 0.3 (1.0-2.7) L 0.3 (1.0-2.7) L Urine Color Yellow Urine Appearance Slightly cloudy Urine pH 6 (4.5-8.0) Urine Specific [place] 1.010 (1.005-1.035) Urine Protein 2+ (NEGATIVE) H Urine Glucose (UA) Negative (NEGATIVE) Urine Ketones 1+ (NEGATIVE) H Urine Blood 1+ (NEGATIVE) H Urine Nitrite Negative (NEGATIVE) Urine Bilirubin Negative (NEGATIVE) Urine Urobilinogen Normal MG/DL (0.0-1.0) Urine Leukocyte Esterase 1+ (NEGATIVE) H Urine RBC 2-4 /HPF (0 - 2) H Urine WBC 2-4 /HPF (0 - 2) Urine Squamous Epithelial Cells Moderate /LPF (NONE/OCC) H Urine Bacteria Few /HPF (NONE) Urine Yeast Few /HPF (NONE) H Polychromasia 1+ Hypochromasia 1+ Macrocytosis 1+ Test 12/20/18 07:55 Arterial Blood pH 7.505 (7.350-7.450) Arterial Blood Partial Pressure CO2 28.8 mmHg (35.0-45.0) L Arterial Blood Partial Pressure O2 93.4 mmHg (75.0-100.0) Arterial Blood HCO3 22.2 mmol/L (22.0-26.0) Arterial Blood Oxygen Saturation 96.7 % (95-100) Arterial Blood Base Excess -0.2 (-2-2) Justus Test Positive Objective: HEENT: Negative. NECK: Supple. No adenopathy. Tracheostomy. Midline craniectomy noted. LUNGS: With moderate breath sounds. Some rhonchi. CARDIAC: S1, S2. Regular rate and rhythm. ABDOMEN: Soft. G-tube in place. EXTREMITIES: No edema. NEUROLOGICAL: Poorly responsive. Micro: Microbiology Date/Time Source Procedure Growth Status 12/19/18 12:00 Nasal Nares - Final Complete 12/19/18 12:00 Nasal Nares - Final Complete 12/19/18 12:45 Urine,Clean Catch Urine Culture - Preliminary NO GROWTH Resulted Critical Care - Objective Last 24 Hour Vital Signs Date Time Temp Pulse Resp B/P (MAP) Pulse Ox O2 Delivery O2 Flow Rate FiO2 12/25/18 13:00 84 30 119/50 (73) 97 12/25/18 12:40 83 16 30 12/25/18 12:00 35 12/25/18 12:00 Mechanical Ventilator 12/25/18 12:00 74 12/25/18 12:00 98.5 98 23 107/37 (60) 100 12/25/18 11:06 78 16 30 12/25/18 11:00 75 21 112/38 (62) 97 12/25/18 10:00 77 23 117/43 (67) 97 12/25/18 10:00 73 22 100 Mechanical Ventilator 30 12/25/18 09:44 81 116/43 12/25/18 09:42 79 113/39 12/25/18 09:27 84 16 100 Mechanical Ventilator 30 12/25/18 09:27 30 12/25/18 09:23 80 16 30 12/25/18 09:00 80 25 113/39 (63) 100 12/25/18 08:00 82 12/25/18 08:00 35 12/25/18 08:00 Mechanical Ventilator 12/25/18 08:00 98.3 86 28 128/61 (83) 100 12/25/18 07:12 77 21 30 12/25/18 07:00 81 30 120/46 (70) 100 12/25/18 06:00 78 23 120/24 (56) 12/25/18 05:30 75 22 30 12/25/18 05:00 74 20 121/44 (69) 100 12/25/18 04:00 77 12/25/18 04:00 Mechanical Ventilator 12/25/18 04:00 97.5 75 19 119/41 (67) 100 12/25/18 04:00 35 12/25/18 03:08 72 21 30 12/25/18 03:00 76 21 129/42 (71) 100 12/25/18 02:00 98.0 73 21 115/36 (62) 100 12/25/18 01:21 75 23 30 12/25/18 01:00 74 27 117/35 (62) 100 12/25/18 00:00 73 23 119/38 (65) 100 12/25/18 00:00 Mechanical Ventilator 12/25/18 00:00 35 12/25/18 00:00 86 12/24/18 23:09 69 20 30 12/24/18 23:00 73 21 116/38 (64) 100 12/24/18 22:00 71 21 110/31 (57) 100 12/24/18 21:41 70 26 100 Mechanical Ventilator 30 12/24/18 21:26 30 12/24/18 21:26 71 18 100 Mechanical Ventilator 30 12/24/18 21:09 72 21 30 12/24/18 21:00 72 22 112/38 (62) 100 12/24/18 20:00 35 12/24/18 20:00 68 12/24/18 20:00 Mechanical Ventilator 12/24/18 20:00 98.5 69 22 126/46 (72) 100 12/24/18 19:08 68 24 30 12/24/18 19:00 73 24 121/43 (69) 100 12/24/18 18:00 69 24 132/48 (76) 100 12/24/18 17:24 74 29 30 12/24/18 17:00 70 27 119/48 (71) 100 12/24/18 16:00 70 12/24/18 16:00 Mechanical Ventilator 12/24/18 16:00 35 12/24/18 16:00 98.4 71 26 119/47 (71) 100 12/24/18 15:19 72 30 30 12/24/18 15:00 70 27 115/49 (71) 100 Accucheck: 199 Critical Care - Subjective ROS Limited/Unobtainable: No Condition: stable FI02: 30 Vent Support Breath Rate: 10 Vent Support Mode: AC Vent Tidal Volume: 375 Sputum Amount: Moderate PEEP: 0.0 PIP: 26 Tube Feeding Amount: 37 I&O: Intake and Output 12/24/18 12/25/18 19:00 07:00 Intake Total 1799 ml 1699 ml Output Total 1210 ml 1200 ml Balance 589 ml 499 ml Intake Free Water 200 ml 200 ml IV Total 1155 ml 1055 ml Tube Feeding 444 ml 444 ml Output Urine Total 1160 ml 1200 ml Stool Total 50 ml Humza Smith MD December 25, 2018 15:00
--- NOTE | 2018-12-25 15:50 | NUR ---
NURSE NOTES: Dr Smith ordered discharge back to [facility] with hospital medications and NS running at 50mL/hr for 2 days. Notified Cris shoe parts caser.
--- NOTE | 2018-12-25 16:03 | NUR ---
*-* DISCHARGE PLANNING *-* PATIENT HAS BEEN REFERRED BACK TO"[facility] P:[phone] F:[phone]
--- NOTE | 2018-12-25 16:52 | Surgery Progress Note ---
Surgery Progress Note Subjective Additional Comments leukocytosis resolved. labs noted. overall stable. in ICU ill appearing Objective Last 24 Hour Vital Signs Date Time Temp Pulse Resp B/P (MAP) Pulse Ox O2 Delivery O2 Flow Rate FiO2 12/25/18 16:00 Mechanical Ventilator 12/25/18 16:00 35 12/25/18 16:00 98.2 75 21 107/45 (65) 97 12/25/18 15:00 75 16 30 12/25/18 15:00 75 23 108/41 (63) 97 12/25/18 14:00 79 26 98/40 (59) 96 12/25/18 13:00 84 30 119/50 (73) 97 12/25/18 12:40 83 16 30 12/25/18 12:00 35 12/25/18 12:00 Mechanical Ventilator 12/25/18 12:00 74 12/25/18 12:00 98.5 98 23 107/37 (60) 100 12/25/18 11:06 78 16 30 12/25/18 11:00 75 21 112/38 (62) 97 12/25/18 10:00 77 23 117/43 (67) 97 12/25/18 10:00 73 22 100 Mechanical Ventilator 30 12/25/18 09:44 81 116/43 12/25/18 09:42 79 113/39 12/25/18 09:27 84 16 100 Mechanical Ventilator 30 12/25/18 09:27 30 12/25/18 09:23 80 16 30 12/25/18 09:00 80 25 113/39 (63) 100 12/25/18 08:00 82 12/25/18 08:00 35 12/25/18 08:00 Mechanical Ventilator 12/25/18 08:00 98.3 86 28 128/61 (83) 100 12/25/18 07:12 77 21 30 12/25/18 07:00 81 30 120/46 (70) 100 12/25/18 06:00 78 23 120/24 (56) 12/25/18 05:30 75 22 30 12/25/18 05:00 74 20 121/44 (69) 100 12/25/18 04:00 77 12/25/18 04:00 Mechanical Ventilator 12/25/18 04:00 97.5 75 19 119/41 (67) 100 12/25/18 04:00 35 12/25/18 03:08 72 21 30 12/25/18 03:00 76 21 129/42 (71) 100 12/25/18 02:00 98.0 73 21 115/36 (62) 100 12/25/18 01:21 75 23 30 12/25/18 01:00 74 27 117/35 (62) 100 12/25/18 00:00 73 23 119/38 (65) 100 12/25/18 00:00 Mechanical Ventilator 12/25/18 00:00 35 12/25/18 00:00 86 12/24/18 23:09 69 20 30 12/24/18 23:00 73 21 116/38 (64) 100 12/24/18 22:00 71 21 110/31 (57) 100 12/24/18 21:41 70 26 100 Mechanical Ventilator 30 12/24/18 21:26 30 12/24/18 21:26 71 18 100 Mechanical Ventilator 30 12/24/18 21:09 72 21 30 12/24/18 21:00 72 22 112/38 (62) 100 12/24/18 20:00 35 12/24/18 20:00 68 12/24/18 20:00 Mechanical Ventilator 12/24/18 20:00 98.5 69 22 126/46 (72) 100 12/24/18 19:08 68 24 30 12/24/18 19:00 73 24 121/43 (69) 100 12/24/18 18:00 69 24 132/48 (76) 100 12/24/18 17:24 74 29 30 12/24/18 17:00 70 27 119/48 (71) 100 I&O Intake and Output 12/24/18 12/25/18 19:00 07:00 Intake Total 1799 ml 1699 ml Output Total 1210 ml 1200 ml Balance 589 ml 499 ml Intake Free Water 200 ml 200 ml IV Total 1155 ml 1055 ml Tube Feeding 444 ml 444 ml Output Urine Total 1160 ml 1200 ml Stool Total 50 ml Dressing: saturated Wound: other Drains: other Cardiovascular: RSR Respiratory: decreased breath sounds Abdomen: soft, present bowel sounds, non-distended Extremities: no tenderness, no cyanosis Laboratory Tests Test 12/25/18 04:00 White Blood Count 10.3 K/UL (4.8-10.8) Red Blood Count 2.99 M/UL (4.20-5.40) L Hemoglobin 9.9 G/DL (12.0-16.0) L Hematocrit 29.2 % (37.0-47.0) L Mean Corpuscular Volume 98 FL (80-99) Mean Corpuscular Hemoglobin 33.3 PG (27.0-31.0) H Mean Corpuscular Hemoglobin Concent 34.0 G/DL (32.0-36.0) Red Cell Distribution Width 12.4 % (11.6-14.8) Platelet Count 416 K/UL (150-450) Mean Platelet Volume 5.9 FL (6.5-10.1) L Neutrophils (%) (Auto) 78.4 % (45.0-75.0) H Lymphocytes (%) (Auto) 13.8 % (20.0-45.0) L Monocytes (%) (Auto) 4.0 % (1.0-10.0) Eosinophils (%) (Auto) 3.0 % (0.0-3.0) Basophils (%) (Auto) 0.9 % (0.0-2.0) Sodium Level 131 MMOL/L (136-145) L Potassium Level 4.3 MMOL/L (3.5-5.1) Chloride Level 97 MMOL/L (98-107) L Carbon Dioxide Level 25 MMOL/L (21-32) Anion Gap 9 mmol/L (5-15) Blood Urea Nitrogen 11 mg/dL (7-18) Creatinine 0.2 MG/DL (0.55-1.30) L Estimat Glomerular Filtration Rate > 60 mL/min (>60) Glucose Level 128 MG/DL (74-106) H Calcium Level 7.5 MG/DL (8.5-10.1) L Total Bilirubin 0.3 MG/DL (0.2-1.0) Aspartate Amino Transf (AST/SGOT) 23 U/L (15-37) Alanine Aminotransferase (ALT/SGPT) 22 U/L (12-78) Alkaline Phosphatase 143 U/L (46-116) H Pro-B-Type Natriuretic Peptide 719 pg/mL (0-125) H Total Protein 5.9 G/DL (6.4-8.2) L Albumin 1.9 G/DL (3.4-5.0) L Globulin 4.0 g/dL Albumin/Globulin Ratio 0.5 (1.0-2.7) L Plan Problems: (1) Decubital ulcer Assessment & Plan: Pt presented on admission with 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 Periwound with scattered shearing. Bone is palpable. Borders are irregular shaped but adherent to base of wound. Periwound dark and indurated. No odor or exudate noted. R and L heels are pink and blanchable without fluctuance. Skin is intact under trach collar. .No other areas of skin concerns noted. Tx.Plan: Cleanse with Saline. Apply Therahoney. Apply Triad periwound. Cover with Optifoam drsg. Change every 3 days and prn. Apply Cavilon Skin Barrier to both heels .Cover each heel with Optifoam drsg.Change every 7 days and prn. Off-load heels with pillow. APM/POOJA Mattress overlay. Reposition at least every 2hours or as tolerated. (2) Anemia (3) Sepsis Assessment & Plan: IV Abx cultures noted labs noted trend labs cont with current care unlikely from chronic wounds CXR noted appreciate ID input will follow with recs thank you Arnold Hi December 25, 2018 16:52
--- NOTE | 2018-12-25 17:00 | NUR ---
TRANSFER TO FLOOR: Patient transferred to [facility], per Dr Cruz. NO belongings and medications placed in medication cabinet. reclamation worker informed of transfer.
--- NOTE | 2018-12-25 17:19 | NUR ---
NURSE NOTES: Spoke with Dr Johnson. Addendum: 12/25/18 at 1727 by Shwetha Baugh RN He cleared the patient for discharge and ordered Cefepime and Trobamycin to continue for 4 more days.
--- NOTE | 2018-12-25 17:26 | NUR ---
NURSE NOTES: Report given to KASSI Matute at [facility].
[2018-12-25] MEDS ORDERED: NovoLOG Insulin Flexpen SUBQ SCH (18:00)
[2018-12-25] MEDS ORDERED: Ascorbic Acid 500mg tab GT SCH (18:00)
--- NOTE | 2018-12-25 18:58 | NUR ---
NURSE NOTES: Patient will be picked up by [facility] ambulance at 1945.
--- NOTE | 2018-12-25 19:34 | NUR ---
HAND-OFF: Report given to KASSI Rodriguez. Patient VS stable at this time. Patient ready for discharge. Awaiting transport. Endorsed to follow up.
--- NOTE | 2018-12-25 19:35 | NUR ---
NURSE NOTES: Endorsement received from KASSI Tadeo. Patient opens eyes spontaneously, but does not track. Withdraws to pain. With trache to vent, Portex 7.0 AC 10, Vt 375, 30% FiO2. GT patent and intact. Receiving Glucerna 1.5 at 37ml/hr. No residual. With right hand g 22 and left finger g 20. Ongoing NS 50 ml/hr. Rectal tube draining by gravity. Fitzgerald catheter connected to urimeter. Dressings dry and intact at sacral, and right wrist. Heels floated. Left leg with healed old scar. On P200 mattress and seizure precautions. Head of bed elevated. Bed locked and in low position. Call light within reach. With orders to discharge to [facility]. Report given to Juju per morning RN. Awaiting for ambulance for spanish moss picker.
--- NOTE | 2018-12-25 19:36 | NUR ---
NURSE NOTES: Just received Novolog insulin pen from pharmacy for relabeling. 1800H insulin to be given. Blood sugar checked with morning shift RN, 209mg/dl. 6 units given per sliding scale
--- NOTE | 2018-12-25 20:45 | NUR ---
NURSE NOTES: Endorsement given to [facility] KASSI Correia. As per him he will continue the IV fluid NS 50ml/hr but will stop the GT feeding during transport. Vital signs stable. Patient left in stable condition.
[2018-12-25] MEDS ORDERED: levETIRAcetam 500mg/5ml Liquid GT SCH (21:00)
[2018-12-25] MEDS ORDERED: Levemir Flexpen SUBQ SCH (21:00)
[2018-12-25] MEDS ORDERED: Pantoprazole Inj IVP SCH (21:00)
[2018-12-25] MEDS ORDERED: Heparin 5000 units/ml inj SUBQ SCH (21:00)
[2018-12-25] MEDS ORDERED: Cefepime HCl 2 GM in D5W 55 ML IVPB SCH (21:00)
[2018-12-25] MEDS ORDERED: Tobramycin for inhalation INH SCH (22:00)
[2018-12-26] MEDS ORDERED: Multivitamins W/Minerals 15 ML UDC GT SCH (09:00)
[2018-12-26] MEDS ORDERED: Docusate 100mg/10ml Liq GT SCH (09:00)
[2018-12-26] MEDS ORDERED: Thiamine 100mg tab GT SCH (09:00)
[2018-12-26] MEDS ORDERED: Zinc Sulfate 220mg cap GT SCH (09:00)
[2018-12-26] MEDS ORDERED: Ferrous Sulfate 300 MG/5 ML UDC GT SCH (09:00)
--- NOTE | 2018-12-26 15:46 | Discharge Summary ---
Discharge Summary Discharge Summary _ DATE OF ADMISSION: 12/19/2018 DATE OF DISCHARGE: 12/25/2028 CONSULTANTS: Dr. Brien Hi BRIEF HOSPITAL COURSE: Patient is a 68-year-old female, with medical history notable for craniectomy, CVA, intracranial bleed, diabetes, hypertension, and prior history of sepsis and pneumonia. Patient was brought in from long-term facility due to fever. Per report, patient had a temperature of 102. Patient was nonverbal at baseline and has a history of respiratory failure and is vent- dependent. On arrival to ED, temperature was 99.9. Blood pressure was stable. She was given Tylenol prior to arrival. Blood work showed WBC of 21. Hemoglobin 9, hematocrit 26. Chest x-ray showed extensive bilateral opacities consistent with pneumonia. EKG showed flipped T waves in leads V1, V2 and V3. She was given IV hydration. She was started on IV antibiotics. She was then admitted to ICU for evaluation sepsis. She was given supportive care. She was continued on ventilator support. She was given IV hydration. She was continued on IV antibiotics. Prognosis was guarded. ID was consulted. Patient had leukocytosis and was found to be in respiratory distress. There was concern regarding possible aspiration pneumonia. She was given IV vancomycin and Zosyn. On admission, she was noted to have multiple wounds requiring care. Surgery was called to evaluate and assist with care and management. Patient came in with full-thickness stage IV pressure injury with 90% mixed soft necrosis and slough, 10% red granulation and maceration along the edges. Bone was palpable, borders were irregular shaped and adherent to the base of the wound. Periwound was dark and indurated. There was no odor or exudate noted. Right and left heels were pink and blanchable without fluctuance. She was given wound care. She was placed on APM/POOJA mattress, with frequent repositioning and offloading. Blood culture showed growth of coagulase-negative staph, likely contaminated. She had diarrhea. C. difficile was negative. Chest x-ray showed worsening infiltrative disease. Zosyn was changed to cefepime. Tobramycin inhaler was added. Sputum culture showed Pseudomonas. Repeat blood culture did not isolate any growth. Urine culture with no growth. Electrolytes were repleted. WBC down trended. Patient was afebrile. She was cleared for discharge back to skilled nursing to continue cefepime IV and tobramycin inhalation for 4 more days. She was discharged back to [facility]. FINAL DIAGNOSES: Sepsis Pseudomonas pneumonia Acute on chronic respiratory failure Hypokalemia Severe protein calorie malnutrition Prior craniectomy and intracranial bleed Alkalosis Diabetes mellitus Hypertension Diarrhea, C. difficile negative Anemia Stage IV sacral decubitus ulcer, present on admission DISPOSITION: Patient was discharged to a SNF. DISCHARGE MEDICATIONS: Continue cefepime IV and tobramycin inhalation for 4 more days. I have been assigned to complete a discharge summary on this account, I was not involved with the patient's management. Sirena Rivas NP December 26, 2018 15:46
== END 2018-12-25 20:50 | DRG 870 ==
LOC: EDBD 11:25 → EMR 12:12 → ICU 15:26 → EDBEDREQ 16:01 → 2W 12-25 16:32
PROC: 5A1955Z Respiratory Ventilation, Greater than 96 Consecutive Hours (ICD-10-PCS; principal; 2018-12-19)
DX: A41.9 Sepsis, unspecified organism (principal); L89.154 Pressure ulcer of sacral region, stage 4; E43 Unspecified severe protein-calorie malnutrition; J15.1 Pneumonia due to Pseudomonas; J96.20 Acute and chronic respiratory failure, unspecified whether with hypoxia or hypercapnia; E87.3 Alkalosis; Z99.11 Dependence on respirator [ventilator] status; Z68.1 Body mass index [BMI] 19.9 or less, adult; E87.6 Hypokalemia; E11.9 Type 2 diabetes mellitus without complications; I10 Essential (primary) hypertension; R19.7 Diarrhea, unspecified; D64.9 Anemia, unspecified; Z86.73 Personal history of transient ischemic attack (TIA), and cerebral infarction without residual deficits
CPT/HCPCS: 36415; 36600; 71045; 80048; 80053; 81003; 82550; 82553; 82803; 82962; 83605; 83690; 83735; 83880; 84100; 84484; 85007; 85025; 85610; 85651; 85730; 86140; 86710; 87040; 87070; 87081; 87086; 87181; 87205; 87324; 93005; 94002; 94003; 94640; 96361; 96365; 99291; J1815; J8499; S5561

== ENCOUNTER 2020-02-24 11:04 | Inpatient (IN) | payer MEDICARE, MEDICAID ==
[~2020-02-24] VITALS: Ht 149.9 cm; Wt 71.2 kg
[~2020-02-24 11:04] MED LIST: ALBUTEROL2.5 MG/3 M INH; AMANTADINE50 MG/5 ML GT; AMLODIPINE BESY10 MG GT; ATENOLOL50 MG GT; COLACE100 MG GT; CRANBERRY200 M1 GT; FERROUS SU300 MG/52 GT; FERROUS SULFAT325 MG GT; FOLIC ACID1 MG GT; HEPARIN SO5000 UNIT2 SUBQ; HUMULIN R100 UNIT/1 SUBQ; LEVEMIR100 UNIT/1 SUBQ; LEVETIRACE500 MG/51 GT; MULTI-DELYN237 ML GT; PRILOSEC OTC20 MG GT; PROMOD946 ML PO; VITAMIN B-1100 MG GT
[2020-02-24 11:10] VITALS: BP 178/86
--- NOTE | 2020-02-24 11:32 | Emergency Room Report ---
History of Present Illness General Chief Complaint: Abnormal Labs Source: Medical Record, EMS, PMD (Sophie Bee Melchor REAGAN) Present Illness HPI This patient presents from a residential facility. The patient has many chronic medical problems to include chronic respiratory failure with a tracheostomy, diabetes, epilepsy, hypertension, CVA to name a few. The patient is brought in from the residential facility for a low sodium and high potassium found routinely on lab draw at the residential facility. There are no other complaints. There is no fever or new symptoms reported by the facility. The patient is nonverbal at baseline. 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 COVID-19 Screening: Negative COVID-19 COVID-19 Testing Source: 02/21/20 (Sophie Bee DO) Patient History Past Medical History: see triage record, old chart reviewed, DM, HTN, [place], CAD, GERD, CVA/TIA, dementia, seizures Past Surgical History: other - TRACH, PEG Social History: Denies: smoking, alcohol use, drug use Reviewed Nursing Documentation: PMH: Agreed; PSxH: Agreed (Sophie Bee Melchor REAGAN) Nursing Documentation-PMH Past Medical History: No History, Except For Hx Cardiac Problems: No - sacral ulcer, respiratory failure, tracheostomy, anemia Hx Hypertension: Yes Hx Diabetes: Yes - Type II Hx Gastrointestinal Problems: Yes - G-TUBE Hx Neurological Problems: Yes Hx Cerebrovascular Accident: Yes Hx Seizures: Yes 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 (Sophie Bee Melchor REAGAN) Review of Systems All Other Systems: negative except mentioned in HPI [facility] Physical Exam Vital Signs Date Time Temp Pulse Resp B/P (MAP) Pulse Ox O2 Delivery O2 Flow Rate FiO2 02/24/20 11:06 98.2 80 23 188/88 (121) 99 Mechanical Ventilator 4.0 Sp02 EP Interpretation: reviewed, normal General Appearance: no apparent distress, non-toxic, Chronically Ill Head: normocephalic, atraumatic ENT: hearing grossly normal, other - Trach in place Neck: full range of motion, supple/symm/no masses Respiratory: lungs clear, normal breath sounds, no respiratory distress, no retraction, no accessory muscle use, speaking full sentences Cardiovascular #1: regular rate, rhythm, no edema Gastrointestinal: non tender, soft, non-distended, no guarding, no rebound, other - PEG in place Rectal: deferred Musculoskeletal: other - contracted Neurologic: alert, responsive, other - at baseline Skin: Decubitus/Ulcer - See RN skin exam (Sophie Bee DO) Medical Decision Making Diagnostic Impression: Primary Impression: Leukocytosis Qualified Codes: D72.829 - Elevated white blood cell count, unspecified Additional Impressions: Hyponatremia Respiratory failure ER Course This patient is found to have hyponatremia and leukocytosis of uncertain etiology. The patient was given broad-spectrum antibiotics and IV fluids. The patient is tracheostomy/ventilator dependent. It is difficult to fully assess this patient. I did not identify a specific source of the patient's leukocytosis. There is no evidence of pneumonia or urinary tract infection. The patient does have hyponatremia. This is likely hypovolemic in etiology. Patient will be admitted for further evaluation and treatment. This patient was evaluated in the context of the global COVID-19 pandemic, which necessitated consideration that the patient might be at risk for infection with the [id number] virus that causes COVID-19. Institutional protocols and algorithms that pertain to the evaluation of patients at risk for COVID-19 and the state of rapid change based on information released by multiple regulatory bodies including the CDC and federal and state organizations. These policies and algorithms were followed during the patient' s care in the ED. Laboratory Tests Test 02/24/20 10:57 02/24/20 11:55 Lactic Acid Level 2.30 mmol/L (0.4-2.0) H White Blood Count 18.3 K/UL (4.8-10.8) H Red Blood Count 5.02 M/UL (4.20-5.40) Hemoglobin 16.0 G/DL (12.0-16.0) Hematocrit 48.6 % (37.0-47.0) H Mean Corpuscular Volume 97 FL (80-99) Mean Corpuscular Hemoglobin 31.9 PG (27.0-31.0) H Mean Corpuscular Hemoglobin Concent 32.9 G/DL (32.0-36.0) Red Cell Distribution Width 12.6 % (11.6-14.8) Platelet Count 585 K/UL (150-450) H Mean Platelet Volume 6.1 FL (6.5-10.1) L Neutrophils (%) (Auto) % (45.0-75.0) Lymphocytes (%) (Auto) % (20.0-45.0) Monocytes (%) (Auto) % (1.0-10.0) Eosinophils (%) (Auto) % (0.0-3.0) Basophils (%) (Auto) % (0.0-2.0) Differential Total Cells Counted 100 Neutrophils % (Manual) 84 % (45-75) H Lymphocytes % (Manual) 10 % (20-45) L Monocytes % (Manual) 6 % (1-10) Eosinophils % (Manual) 0 % (0-3) Basophils % (Manual) 0 % (0-2) Band Neutrophils 0 % (0-8) Platelet Estimate Adequate Platelet Morphology Normal Red Blood Cell Morphology Normal Urine Color Pale yellow Urine Appearance Clear Urine pH 6.5 (4.5-8.0) Urine Specific [place] 1.015 (1.005-1.035) Urine Protein 2+ (NEGATIVE) H Urine Glucose (UA) Negative (NEGATIVE) Urine Ketones Negative (NEGATIVE) Urine Blood 1+ (NEGATIVE) H Urine Nitrite Negative (NEGATIVE) Urine Bilirubin Negative (NEGATIVE) Urine Urobilinogen Normal MG/DL (0.0-1.0) Urine Leukocyte Esterase 2+ (NEGATIVE) H Urine RBC 0-2 /HPF (0 - 2) Urine WBC 5-10 /HPF (0 - 2) H Urine Squamous Epithelial Cells Few /LPF (NONE/OCC) Urine Bacteria Occasional /HPF (NONE) Sodium Level 122 MMOL/L (136-145) L Potassium Level 4.9 MMOL/L (3.5-5.1) Chloride Level 85 MMOL/L (98-107) L Carbon Dioxide Level 27 MMOL/L (21-32) Anion Gap 10 mmol/L (5-15) Blood Urea Nitrogen 17 mg/dL (7-18) Creatinine 0.7 MG/DL (0.55-1.30) Estimated Glomerular Filtration Rate > 60 mL/min (>60) Glucose Level 188 MG/DL (74-106) H Calcium Level 9.6 MG/DL (8.5-10.1) Total Bilirubin 0.3 MG/DL (0.2-1.0) Aspartate Amino Transferase (AST) 23 U/L (15-37) Alanine Aminotransferase (ALT) 46 U/L (12-78) Alkaline Phosphatase 222 U/L (46-116) H Total Creatine Kinase 28 U/L (26-308) Total Protein 9.4 G/DL (6.4-8.2) H Albumin 3.8 G/DL (3.4-5.0) Globulin 5.6 g/dL Albumin/Globulin Ratio 0.7 (1.0-2.7) L [facility] ER Course Resumed care from Dr. Burton. Noted significant hyponatremia. Likely hypovolemic hyponatremia given hemoconcentrated CBC. X-ray is unremarkable. Urinalysis was not convincing for severe urinary tract infection. Patient was covered with meropenem and received NS 1 L IV. Due to significant hyponatremia, she will be admitted to hospitalist who accepts inpatient admission. (Samara Bustillos D.O.) EKG Diagnostic Results Rate: normal Rhythm: NSR ST Segments: no acute changes [facility] Rhythm Strip Diag. Results EP Interpretation: yes Rate: 80's Rhythm: NSR, no PVC's, no ectopy ([facility]) Chest X-Ray Diagnostic Results Chest X-Ray Diagnostic Results : Chest X-Ray Ordered: Yes # of Views/Limited/Complete: 1 View Indication: Other EP Interpretation: Yes Interpretation: no consolidation, no effusion, no pneumothorax, no acute cardiopulmonary disease Impression: No acute disease Electronically Signed by: Sophie Bee DO ([facility]) Chest X-Ray Diagnostic Results : Chest X-Ray Ordered: Yes # of Views/Limited/Complete: 1 View PA Scribe Text Procedure: XRAY Chest 1v Indication: Shortness of breath Technique: One view of the chest Comparison: 12/25/2018 Findings: Again demonstrated is a tracheostomy and ventriculoperitoneal shunt tubing. The lungs and pleural spaces are clear. The heart size is normal. Previously demonstrated infiltrates are no longer evident Impression: No acute process (Samara Bustillos D.O.) Last Vital Signs Date Time Temp Pulse Resp B/P (MAP) Pulse Ox O2 Delivery O2 Flow Rate FiO2 02/24/20 11:06 98.2 80 23 188/88 (121) 99 Mechanical Ventilator 4.0 (Sophie Bee . ) Reevaluation Time: 16:00 Last 24 Hour Vital Signs Date Time Temp Pulse Resp B/P (MAP) Pulse Ox O2 Delivery O2 Flow Rate FiO2 02/24/20 16:32 98.5 88 25 156/62 100 Mechanical Ventilator 4.0 36 02/24/20 15:30 75 27 36 02/24/20 14:46 67 18 146/57 100 Mechanical Ventilator 4.0 36 02/24/20 12:46 98.5 68 22 144/50 100 Mechanical Ventilator 4.0 36 02/24/20 12:25 36 02/24/20 11:31 72 26 36 02/24/20 11:10 98.2 69 20 178/86 100 Mechanical Ventilator 4.0 02/24/20 11:06 98.2 80 23 188/88 (121) 99 Mechanical Ventilator 4.0 Status: unchanged (Samara Bustillos D.O.) Disposition: ADMITTED INPATIENT Admit Decision Time: 16:00 (Samara Bustillos D.O.) Condition: Serious [facility] . Feb 24, 2020 11:32 Samara Bustillos D.O. Feb 24, 2020 16:39
[2020-02-24] MEDS ORDERED: NORCO 5-325 TA1 EAC1 GT (11:41)
[2020-02-24] MEDS ORDERED: NOVOLOG100 UNITS1 SQ (11:41)
[2020-02-24] MEDS ORDERED: PRO-STAT LIQUID30 ML GT (11:41)
[2020-02-24] MEDS ORDERED: VITAMIN D3-ALO1 EACH GT (11:42)
[2020-02-24] MEDS ORDERED: VITAMIN B-1100 MG GT (11:42)
[2020-02-24] MEDS ORDERED: ASCORBIC ACID500 M3 GT (11:42)
[2020-02-24] MEDS ORDERED: KONSYL FORMULA GT (11:42)
[2020-02-24] MEDS ORDERED: DECLOMYCIN150 MG GT (11:47)
[2020-02-24] MEDS ORDERED: IMODIUM A-1 MG/7.5 M GT (11:47)
[2020-02-24] MEDS ORDERED: HYDRALAZINE HCL25 M1 GT (11:47)
[2020-02-24] MEDS ORDERED: KEPPRA LIQ100 MG/1 M GT (11:47)
[2020-02-24] MEDS ORDERED: JUVEN PACKET1 EAC1 GT (11:47)
[2020-02-24 12:37] LABS: HEMATOCRIT 48.6 % (37.0-47.0); MEAN CORPUSCULAR VOLUME 97 FL (80-99); PLATELET COUNT 585 K/UL (150-450); RED BLOOD COUNT 5.02 M/UL (4.20-5.40); RED CELL DISTRIBUTION WIDTH 12.6 % (11.6-14.8); WHITE BLOOD COUNT 18.3 K/UL (4.8-10.8)
[2020-02-24 12:46] VITALS: BP 144/50
[2020-02-24 12:48] LABS: ANION GAP 10 mmol/L (5-15); BLOOD UREA NITROGEN 17 mg/dL (7-18); CALCIUM 9.6 MG/DL (8.5-10.1); CARBON DIOXIDE 27 MMOL/L (21-32); CHLORIDE 85 MMOL/L (98-107); CREATININE 0.7 MG/DL (0.55-1.30); POTASSIUM 4.9 MMOL/L (3.5-5.1); SODIUM 122 MMOL/L (136-145)
[2020-02-24 12:50] LABS: APPEARANCE,URINE CLEAR; COLOR,URINE PALE YELLOW; KETONES,URINE NEGATIVE (NEGATIVE); PH,URINE 6.5 (4.5-8.0); PROTEIN,URINE 2+ (NEGATIVE)
[2020-02-24 12:51] LABS: BILIRUBIN, URINE NEGATIVE (NEGATIVE); GLUCOSE, URINE (UA) NEGATIVE (NEGATIVE); LEUKOCYTE ESTERASE ,URINE 2+ (NEGATIVE); NITRITE,URINE NEGATIVE (NEGATIVE); UROBILINOGEN,URINE NORMAL MG/DL (0.0-1.0)
[2020-02-24 12:53] LABS: ALANINE AMINOTRANSFERASE 46 U/L (12-78); ALBUMIN 3.8 G/DL (3.4-5.0); ALBUMIN/GLOBULIN RATIO 0.7 (1.0-2.7); ALKALINE PHOSPHATASE 222 U/L (46-116); ASPARTATE AMINO TRANSFERASE 23 U/L (15-37); BILIRUBIN,TOTAL 0.3 MG/DL (0.2-1.0); CREATINE KINASE 28 U/L (26-308)
[2020-02-24] MEDS ORDERED: Meropenem 1 GM in NS 55 ML IVPB ONE (13:30)
--- NOTE | 2020-02-24 14:30 | Diagnostic Imaging Report ---
Indication: Shortness of breath Technique: One view of the chest Comparison: 12/25/2018 Findings: Again demonstrated is a tracheostomy and ventriculoperitoneal shunt tubing. The lungs and pleural spaces are clear. The heart size is normal. Previously demonstrated infiltrates are no longer evident Impression: No acute process
[2020-02-24 14:46] VITALS: BP 146/57
[2020-02-24 16:32] VITALS: BP 156/62
[2020-02-24 17:30] VITALS: BP 147/77
[2020-02-24] MEDS ORDERED: HYDROcodone/Acetamin 5/325 tab GT PRN (18:30)
[2020-02-24] MEDS: Albuterol ud Inhalation IN-LINE SCH (19:22)
[2020-02-24 20:00] VITALS: BP 158/72
[2020-02-24] MEDS ORDERED: NaCl 3% 500ml 250 ML IV ONE (20:00)
[2020-02-24] MEDS: Heparin 5000 units/ml inj SUBQ SCH (20:36)
--- NOTE | 2020-02-24 21:15 | Consultation ---
Consult Note Consult Note 69 year old female well known to me transferred for abnormal labs patient seen earlier on vent in the subacute facility noted to have hyponatremia and leukocytosis patient admitted for dehydration and sepsis care noted patient chronically ill PMH respiratory failure, trach, DM, HTN, [place], CAD, GERD, CVA/TIA, dementia, seizures MEDS noted ALLERGIES Noted PHYSICAL WDWN NAD trach chronically ill clear breath sounds bilaterally without rhonchi or wheeze [id number] without MRG NABS nontender no HSM no CCE poor LOC GT functional quad Labs Test 02/24/20 10:57 02/24/20 11:55 02/24/20 14:23 Lactic Acid Level 2.30 mmol/L (0.4-2.0) 1.00 mmol/L (0.66-2.22) White Blood Count 18.3 K/UL (4.8-10.8) Red Blood Count 5.02 M/UL (4.20-5.40) Hemoglobin 16.0 G/DL (12.0-16.0) Hematocrit 48.6 % (37.0-47.0) Mean Corpuscular Volume 97 FL (80-99) Mean Corpuscular Hemoglobin 31.9 PG (27.0-31.0) Mean Corpuscular Hemoglobin Concent 32.9 G/DL (32.0-36.0) Red Cell Distribution Width 12.6 % (11.6-14.8) Platelet Count 585 K/UL (150-450) Mean Platelet Volume 6.1 FL (6.5-10.1) Neutrophils (%) (Auto) % (45.0-75.0) Lymphocytes (%) (Auto) % (20.0-45.0) Monocytes (%) (Auto) % (1.0-10.0) Eosinophils (%) (Auto) % (0.0-3.0) Basophils (%) (Auto) % (0.0-2.0) Differential Total Cells Counted 100 Neutrophils % (Manual) 84 % (45-75) Lymphocytes % (Manual) 10 % (20-45) Monocytes % (Manual) 6 % (1-10) Eosinophils % (Manual) 0 % (0-3) Basophils % (Manual) 0 % (0-2) Band Neutrophils 0 % (0-8) Platelet Estimate Adequate Platelet Morphology Normal Red Blood Cell Morphology Normal Urine Color Pale yellow Urine Appearance Clear Urine pH 6.5 (4.5-8.0) Urine Specific [place] 1.015 (1.005-1.035) Urine Protein 2+ (NEGATIVE) Urine Glucose (UA) Negative (NEGATIVE) Urine Ketones Negative (NEGATIVE) Urine Blood 1+ (NEGATIVE) Urine Nitrite Negative (NEGATIVE) Urine Bilirubin Negative (NEGATIVE) Urine Urobilinogen Normal MG/DL (0.0-1.0) Urine Leukocyte Esterase 2+ (NEGATIVE) Urine RBC 0-2 /HPF (0 - 2) Urine WBC 5-10 /HPF (0 - 2) Urine Squamous Epithelial Cells Few /LPF (NONE/OCC) Urine Bacteria Occasional /HPF (NONE) Sodium Level 122 MMOL/L (136-145) Potassium Level 4.9 MMOL/L (3.5-5.1) Chloride Level 85 MMOL/L (98-107) Carbon Dioxide Level 27 MMOL/L (21-32) Anion Gap 10 mmol/L (5-15) Blood Urea Nitrogen 17 mg/dL (7-18) Creatinine 0.7 MG/DL (0.55-1.30) Estimat Glomerular Filtration Rate > 60 mL/min (>60) Glucose Level 188 MG/DL (74-106) Calcium Level 9.6 MG/DL (8.5-10.1) Total Bilirubin 0.3 MG/DL (0.2-1.0) Aspartate Amino Transf (AST/SGOT) 23 U/L (15-37) Alanine Aminotransferase (ALT/SGPT) 46 U/L (12-78) Alkaline Phosphatase 222 U/L (46-116) Total Creatine Kinase 28 U/L (26-308) Total Protein 9.4 G/DL (6.4-8.2) Albumin 3.8 G/DL (3.4-5.0) Globulin 5.6 g/dL Albumin/Globulin Ratio 0.7 (1.0-2.7) IMPRESSION DM, HTN, [place], CAD, GERD, CVA/TIA, dementia, seizures Respiratory failure, sepsis, leukocytosis, hyponatremia, acute renal failure PLAN IV hydration IV antibiotics respiratory care resume meds snf meds feeds ventilator management monitor acid base care noted impression, plan, and exam edited and reviewed in detail care discussed with Mejia Soni MD Feb 24, 2020 21:15
--- NOTE | 2020-02-24 21:16 | Pulmonology Progress Note ---
Subjective Allergies: Coded Allergies: No Known Allergies (Unverified , 11/06/18) Objective Last 24 Hour Vital Signs Date Time Temp Pulse Resp B/P (MAP) Pulse Ox O2 Delivery O2 Flow Rate FiO2 02/24/20 19:23 77 24 35 02/24/20 17:50 Mechanical Ventilator 02/24/20 17:30 97.9 73 18 147/77 (100) 99 02/24/20 17:16 98.6 85 22 155/68 100 Mechanical Ventilator 4.0 36 02/24/20 16:32 98.5 88 25 156/62 100 Mechanical Ventilator 4.0 36 02/24/20 15:30 75 27 36 02/24/20 14:46 67 18 146/57 100 Mechanical Ventilator 4.0 36 02/24/20 12:46 98.5 68 22 144/50 100 Mechanical Ventilator 4.0 36 02/24/20 12:25 36 02/24/20 11:31 72 26 36 02/24/20 11:10 98.2 69 20 178/86 100 Mechanical Ventilator 4.0 02/24/20 11:06 98.2 80 23 188/88 (121) 99 Mechanical Ventilator 4.0 Laboratory Tests 02/24/20 10:57: Lactic Acid Level 2.30H 02/24/20 11:55: White Blood Count 18.3H, Red Blood Count 5.02, Hemoglobin 16.0, Hematocrit 48.6H , Mean Corpuscular Volume 97, Mean Corpuscular Hemoglobin 31.9H, Mean Corpuscular Hemoglobin Concent 32.9, Red Cell Distribution Width 12.6, Platelet Count 585H, Mean Platelet Volume 6.1L, Neutrophils (%) (Auto) , Lymphocytes (%) (Auto) , Monocytes (%) (Auto) , Eosinophils (%) (Auto) , Basophils (%) (Auto) , Differential Total Cells Counted 100, Neutrophils % (Manual) 84H, Lymphocytes % (Manual) 10L, Monocytes % (Manual) 6, Eosinophils % (Manual) 0, Basophils % ( Manual) 0, Band Neutrophils 0, Platelet Estimate Adequate, Platelet Morphology Normal, Red Blood Cell Morphology Normal, Urine Color Pale yellow, Urine Appearance Clear, Urine pH 6.5, Urine Specific [place] 1.015, Urine Protein 2+H , Urine Glucose (UA) Negative, Urine Ketones Negative, Urine Blood 1+H, Urine Nitrite Negative, Urine Bilirubin Negative, Urine Urobilinogen Normal, Urine Leukocyte Esterase 2+H, Urine RBC 0-2, Urine WBC 5-10H, Urine Squamous Epithelial Cells Few, Urine Bacteria Occasional, Sodium Level 122L, Potassium Level 4.9, Chloride Level 85L, Carbon Dioxide Level 27, Anion Gap 10, Blood Urea Nitrogen 17, Creatinine 0.7, Estimat Glomerular Filtration Rate > 60, Glucose Level 188H, Calcium Level 9.6, Total Bilirubin 0.3, Aspartate Amino Transf (AST/SGOT) 23, Alanine Aminotransferase (ALT/SGPT) 46, Alkaline Phosphatase 222H, Total Creatine Kinase 28, Total Protein 9.4H, Albumin 3.8, Globulin 5.6, Albumin/Globulin Ratio 0.7L 02/24/20 14:23: Lactic Acid Level 1.00 Current Medications Medications (Trade) Dose Ordered Sig/Dell Route PRN Reason Start Time Stop Time Status Last Admin Dose Admin Acetaminophen/ Hydrocodone Bitart ([place] 5/325) 1 tab Q8H PRN GT FOR PAIN 02/24/20 18:30 03/02/20 18:29 Albuterol Sulfate (Proventil) 2.5 mg Q6H IN-LINE 02/24/20 18:30 02/29/20 18:29 Amlodipine Besylate (Norvasc) 10 mg DAILY GT 02/25/20 09:00 03/26/20 08:59 Ascorbic Acid (Vitamin C) 500 mg DAILY GT 02/25/20 09:00 03/26/20 08:59 Atenolol (Tenormin) 50 mg DAILY GT 02/25/20 09:00 03/26/20 08:59 Demeclocycline HCl (Declomycin) 300 mg TWICE A DAY GT 02/25/20 09:00 03/03/20 08:59 Dextrose (Dextrose 50%) 25 ml Q30M PRN IV Hypoglycemia 02/24/20 18:45 05/24/20 18:44 Dextrose (Dextrose 50%) 50 ml Q30M PRN IV Hypoglycemia 02/24/20 18:45 05/24/20 18:44 Docusate Sodium (Colace) 100 mg DAILY ORAL 02/25/20 09:00 03/26/20 08:59 Ferrous Sulfate (Feosol) 330 mg DAILY GT 02/25/20 09:00 05/25/20 08:59 Folic Acid (Folate) 1 mg DAILY GT 02/25/20 09:00 03/26/20 08:59 Heparin Sodium (Porcine) (Heparin 5000 units/ml) 5,000 units EVERY 12 HOURS SUBQ 02/24/20 21:00 04/09/20 20:59 02/24/20 20:36 Hydralazine HCl (Apresoline) 25 mg EVERY 6 HOURS GT 02/25/20 00:00 05/25/20 00:00 Insulin Aspart (NovoLOG) Sliding scale: 150-1,99= 2un... NOVOTIAC SUBQ 02/25/20 06:30 05/25/20 06:29 Levetiracetam (Keppra) 750 mg DAILY GT 02/25/20 09:00 03/26/20 08:59 Loperamide HCl (Imodium) 2 mg Q8HR GT 02/24/20 22:00 03/25/20 21:59 02/24/20 21:00 Piperacillin Sod/ Tazobactam Sod 3.375 gm/Sodium Chloride 110 ml @ 27.5 mls/hr EVERY 8 HOURS IVPB 02/24/20 22:00 02/29/20 21:59 Sodium Chloride 250 ml @ 30 mls/hr ONCE ONCE IV 02/24/20 20:00 02/25/20 04:19 02/24/20 20:33 Thiamine HCl (Vitamin B1) 100 mg DAILY GT 02/25/20 09:00 03/26/20 08:59 Vancomycin HCl (Vanco pharmacy to dose) 1 ea DAILY PRN MISC Per rx protocol 02/24/20 21:00 03/25/20 20:59 Vancomycin HCl 500 mg/Dextrose 110 ml @ 110 mls/hr Q24H IVPB 02/25/20 23:00 03/01/20 22:59 Vancomycin HCl 1 gm/Dextrose 275 ml @ 183.708 mls/hr ONCE ONCE IVPB 02/24/20 23:00 02/25/20 00:29 Mejia Cruz MD Feb 24, 2020 21:16
[2020-02-24] MEDS ORDERED: Vancomycin 1gm/D5W 275ml IVPB ONE ×2 (22:00)
[2020-02-24] MEDS: Piperacillin/Tazobactam 3.375 GM in NS 110 ML IVPB SCH (22:52)
[2020-02-24] MEDS: HydrALAZINE 25mg tab GT SCH (23:09)
[2020-02-25] VITALS (7 sets, daily range): BP systolic 118–152; BP diastolic 63–79
[2020-02-25] MEDS ORDERED: Insulin Human Regular 100units/ml 3ml SUBQ SCH
[2020-02-25] MEDS ORDERED: NovoLOG Insulin Flexpen SUBQ SCH
[2020-02-25] MEDS: Albuterol ud Inhalation IN-LINE SCH ×4 (00:41→18:55)
[2020-02-25 05:29] LABS: BASOPHILS % (AUTO) 0.7 % (0.0-2.0); HEMATOCRIT 40.4 % (37.0-47.0); HEMOGLOBIN 13.4 G/DL (12.0-16.0); LYMPHOCYTES % (AUTO) 10.3 % (20.0-45.0); MEAN CORPUSCULAR VOLUME 97 FL (80-99); MONOCYTES % (AUTO) 5.2 % (1.0-10.0); NEUTROPHILS % (AUTO) 80.8 % (45.0-75.0); PLATELET COUNT 530 K/UL (150-450); RED BLOOD COUNT 4.17 M/UL (4.20-5.40); RED CELL DISTRIBUTION WIDTH 12.8 % (11.6-14.8)
[2020-02-25] MEDS: Piperacillin/Tazobactam 3.375 GM in NS 110 ML IVPB SCH ×3 (05:35→21:44)
[2020-02-25] MEDS: NovoLOG Insulin Flexpen SUBQ SCH ×3 (05:35→16:50)
[2020-02-25] MEDS: HydrALAZINE 25mg tab GT SCH ×3 (05:35→18:04)
[2020-02-25 05:41] LABS: ANION GAP 11 mmol/L (5-15); BLOOD UREA NITROGEN 11 mg/dL (7-18); CALCIUM 8.5 MG/DL (8.5-10.1); CARBON DIOXIDE 24 MMOL/L (21-32); CHLORIDE 94 MMOL/L (98-107); CREATININE 0.7 MG/DL (0.55-1.30); POTASSIUM 4.1 MMOL/L (3.5-5.1); SODIUM 129 MMOL/L (136-145)
[2020-02-25] MEDS: levETIRAcetam 500mg/5ml Liquid GT SCH (08:55)
[2020-02-25] MEDS: Demeclocycline 150mg tab GT SCH ×2 (08:56→18:04)
[2020-02-25] MEDS ORDERED: Ferrous Sulfate 300 MG/5 ML UDC GT SCH (09:00)
[2020-02-25] MEDS ORDERED: Ascorbic Acid 500mg tab GT SCH (09:00)
[2020-02-25] MEDS ORDERED: Thiamine 100mg tab GT SCH ×2 (09:00)
[2020-02-25] MEDS: Docusate 100mg cap ORAL SCH (09:01)
[2020-02-25] MEDS: Heparin 5000 units/ml inj SUBQ SCH ×2 (09:01→20:11)
--- NOTE | 2020-02-25 13:55 | Pulmonolgy Critical Care Note ---
Critical Care - Asmt/Plan Problems: (1) Sepsis (2) Chronic respiratory failure (3) Hyponatremia (4) Decubital ulcer (5) History of hypertension (6) History of diabetes mellitus (7) Family history of CVA (8) Feeding by G-tube (9) Ventriculo-peritoneal shunt status Respiratory: monitor respiratory rate, adjust FIO2 Cardiac: continue to monitor HR/BP Renal: F/U I&O, keep IV fluid, other - Na is better Infectious Disease: check cultures Gastrointestinal: continue feedings/current rate Endocrine: monitor blood sugar Hematologic: monitor H/H, transfuse if hgb<8.5 Neurologic: keep patient comfortable Prophylaxis: Protonix, Heparin Discussed with: nurses, consultants, case work 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 fraud - Objective Last 24 Hour Vital Signs Date Time Temp Pulse Resp B/P (MAP) Pulse Ox O2 Delivery O2 Flow Rate FiO2 02/25/20 12:15 126/66 02/25/20 12:00 Mechanical Ventilator 02/25/20 12:00 98.9 93 17 126/66 (86) 100 02/25/20 11:05 94 22 35 02/25/20 09:19 117 129/67 02/25/20 09:00 118 02/25/20 08:59 117 129/67 02/25/20 08:00 Mechanical Ventilator 02/25/20 08:00 98.2 113 18 129/67 (87) 100 02/25/20 07:10 109 21 100 Mechanical Ventilator 35 105 21 35 02/25/20 05:35 152/79 02/25/20 04:00 98.0 92 18 152/79 (103) 100 02/25/20 04:00 36 02/25/20 04:00 Mechanical Ventilator 02/25/20 03:59 98.0 92 18 152/79 (103) 100 02/25/20 03:36 109 02/25/20 03:22 94 23 35 02/25/20 00:41 86 20 100 Mechanical Ventilator 35 87 22 35 02/25/20 00:00 Mechanical Ventilator 02/25/20 00:00 36 02/25/20 00:00 98.2 84 18 142/72 (95) 100 02/24/20 23:37 85 02/24/20 23:09 152/69 02/24/20 20:00 Mechanical Ventilator 7/14/20 20:00 76 02/24/20 20:00 97.9 72 18 158/72 (100) 100 02/24/20 20:00 36 02/24/20 19:23 77 24 35 02/24/20 17:50 Mechanical Ventilator 02/24/20 17:30 97.9 73 18 147/77 (100) 99 02/24/20 17:16 98.6 85 22 155/68 100 Mechanical Ventilator 4.0 36 02/24/20 16:32 98.5 88 25 156/62 100 Mechanical Ventilator 4.0 36 02/24/20 15:30 75 27 36 02/24/20 14:46 67 18 146/57 100 Mechanical Ventilator 4.0 36 Status: obtunded Condition: critical HEENT: atraumatic Neck: full ROM Heart: edema Abdomen: soft, non-tender Accucheck: 302 Critical Care - Subjective ROS Limited/Unobtainable: Yes Condition: critical EKG Rhythm: Sinus Rhythm FI02: 35 Vent Support Breath Rate: 10 Vent Support Mode: AC Vent Tidal Volume: 380 Sputum Amount: Moderate PEEP: 0.0 PIP: 26 Tube Feeding Amount: 30 I&O: Intake and Output 02/24/20 02/25/20 19:00 07:00 Intake Total 1755 ml 709.5 ml Output Total 1 ml 1175 ml Balance 1754 ml -465.5 ml Intake Free Water 50 ml IV Total 1755 ml 389.5 ml Tube Feeding 270 ml Output Urine Total 1 ml 1175 ml Labs: Laboratory Tests Test 02/24/20 14:23 02/25/20 03:45 02/25/20 04:49 02/25/20 12:00 Lactic Acid Level 1.00 mmol/L (0.66-2.22) White Blood Count 16.0 K/UL (4.8-10.8) H Red Blood Count 4.17 M/UL (4.20-5.40) L Hemoglobin 13.4 G/DL (12.0-16.0) Hematocrit 40.4 % (37.0-47.0) Mean Corpuscular Volume 97 FL (80-99) Mean Corpuscular Hemoglobin 32.2 PG (27.0-31.0) H Mean Corpuscular Hemoglobin Concent 33.2 G/DL (32.0-36.0) Red Cell Distribution Width 12.8 % (11.6-14.8) Platelet Count 530 K/UL (150-450) H Mean Platelet Volume 6.1 FL (6.5-10.1) L Neutrophils (%) (Auto) 80.8 % (45.0-75.0) H Lymphocytes (%) (Auto) 10.3 % (20.0-45.0) L Monocytes (%) (Auto) 5.2 % (1.0-10.0) Eosinophils (%) (Auto) 3.0 % (0.0-3.0) Basophils (%) (Auto) 0.7 % (0.0-2.0) Sodium Level 129 MMOL/L (136-145) L Potassium Level 4.1 MMOL/L (3.5-5.1) Chloride Level 94 MMOL/L (98-107) L Carbon Dioxide Level 24 MMOL/L (21-32) Anion Gap 11 mmol/L (5-15) Blood Urea Nitrogen 11 mg/dL (7-18) Creatinine 0.7 MG/DL (0.55-1.30) Estimat Glomerular Filtration Rate > 60 mL/min (>60) Glucose Level 227 MG/DL (74-106) H Calcium Level 8.5 MG/DL (8.5-10.1) POC Whole Blood Glucose Pending Pending Sandra Bueno MD Feb 25, 2020 13:55
--- NOTE | 2020-02-25 18:00 | Consultation ---
DATE OF CONSULTATION: 02/25/2020 NEPHROLOGY CONSULTATION CONSULTING PHYSICIAN: Fahad Bridges MD. ATTENDING PHYSICIAN: Mejia Cruz MD. REASON FOR CONSULTATION: Electrolyte abnormalities. HISTORY OF PRESENT ILLNESS: This is a 69-year-old female who was admitted with abnormal lab results. The patient resides in a subacute facility. She is nonverbal and unable to give any further information. I am asked to see the patient for multiple electrolyte abnormalities. PAST MEDICAL HISTORY: 1. Status post tracheostomy. 2. Ventilator-dependent respiratory failure. 3. Type 2 diabetes mellitus. 4. Hypertensive cardiovascular disease. 5. Ischemic heart disease. 6. Status post AL. 7. Status post CVA. 8. Seizure disorder. MEDICATIONS: IV meropenem, IV fluids 3% saline, IV Zosyn, IV vancomycin, albuterol inhalation, amlodipine, ascorbic acid, atenolol, demeclocycline, sodium docusate, iron sulfate, folic acid, subcutaneous heparin, hydralazine, [place] p.r.n., insulin, NovoLog insulin subcutaneous, Keppra, Imodium, and thiamine. ALLERGIES: No known drug allergies. FAMILY HISTORY: Unable to obtain due to mental status. SOCIAL HISTORY: Unable to obtain due to mental status. REVIEW OF SYSTEMS: Unable to obtain due to mental status. PHYSICAL EXAMINATION: GENERAL: This is an elderly female who is in no acute distress. VITAL SIGNS: Blood pressure 126/66, pulse 90 and regular, respirations 20, and temperature 98. HEENT: Head is normocephalic and atraumatic. Pupils are equal, round and reactive to light. NECK: Supple. She has midline tracheostomy. LUNGS: Bilateral rhonchi. HEART: Regular rate and rhythm without rubs, murmurs, or gallops. ABDOMEN: She has a G-tube. Soft, nontender. EXTREMITIES: No clubbing, cyanosis, or edema. NEUROLOGIC: She is obtunded. There were no gross focal findings. LABORATORY AND ANCILLARY DATA: On admission, white count 18,300, hematocrit 48.6, and platelet count 585,000. Serum chemistry on admission, sodium 122, today 129. Urinalysis - 5 to 10 white blood cells, specific gravity 1.015. IMAGING REPORT: Chest x-ray, no acute process. ASSESSMENT: 1. Hyponatremia, most likely chronic with elevated urine specific gravity or osmolality, most likely signifying inappropriate elevated ADH secretion. 2. Status post tracheostomy. 3. Ventilator-dependent respiratory failure. 4. Type 2 diabetes mellitus. 5. Hypertensive cardiovascular disease. 6. Ischemic heart disease. 7. Status post AL. 8. Status post CVA. 9. Seizure disorder. PLAN: 1. Continue hypertonic saline at the current rate until it correction to about 135 milliequivalents per liter. 2. Continue all other medications. Thank you, Dr. Cruz, for letting me to participate in the care of this patient. Fahad Bridges M.D. DR: NORMAN JOB#: [id number] CC:
--- NOTE | 2020-02-25 20:09 | Consultation ---
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 negative on 02/21/20 Allergies: Coded Allergies: No Known Allergies (Unverified , 11/06/18) Medication History Scheduled Albuterol Sulfate* (Albuterol Sulfate Hhn*), 3 ML INH Q6H, (Reported) Amantadine HCl (Amantadine), 100 MG GT TWICE A DAY, (Reported) Amino Acids/Protein Hydrolys (Pro-Stat Liquid), 30 ML GT DAILY, (Reported) Amlodipine Besylate* (Amlodipine Besylate*), 10 MG GT DAILY, (Reported) Arginine/Glutamine/Calcium Hmb (Dajuan Packet), 1 EACH GT TWICE A DAY, (Reported) Ascorbic Acid (Ascorbic Acid), 500 MG GT DAILY, (Reported) Atenolol* (Tenormin*), 50 MG GT DAILY, (Reported) Ca Cmb 1/Vit D3/B-6/Fa/B12/Av (Vitamin D3-Aloe 1,000 Unit Tab), 2 EACH GT DAILY, (Reported) Cranberry Extract (Cranberry), 200 MG GT BID, (Reported) Demeclocycline HCl (Demeclocycline HCl), 300 MG GT TWICE A DAY, (Reported) Docusate Sodium* (Colace*), 100 MG GT DAILY, (Reported) Ferrous Sulfate (Ferrous Sulfate), 330 MG GT DAILY, (Reported) Folic Acid* (Folic Acid*), 1 MG GT DAILY, (Reported) Heparin Sod (Porcine) (Heparin Sodium*), 5,000 UNITS SUBQ EVERY 12 HOURS, ( Reported) Hydralazine Hcl* (Hydralazine Hcl*), 25 MG GT EVERY 6 HOURS, (Reported) Insulin Aspart (Novolog Flexpen), SQ Q6HR, (Reported) Insulin Detemir (Levemir), 5 UNITS SUBQ EVERY 12 HOURS, (Reported) Levetiracetam (Levetiracetam), 500 MG GT BID, (Reported) Levetiracetam (Keppra), 7.5 ML GT DAILY, (Reported) Loperamide Hcl (Imodium A-D), 2 MG GT Q8HR, (Reported) Multivitamin Liquid* (Multi-Delyn*), 15 ML GT DAILY, (Reported) Omeprazole Magnesium (Prilosec Otc), 20 MG GT BID, (Reported) Protein Supplement (Promod), 30 ML PO DAILY, (Reported) Psyllium Husk (with Dextrose) (Konsyl Formula-D Fiber Powder), Unknown Dose GT DAILY, (Reported) Thiamine Hcl* (Vitamin B-1*), 250 MG GT DAILY, (Reported) Thiamine Hcl* (Vitamin B-1*), 100 MG GT DAILY, (Reported) Scheduled PRN Hydrocodone Bit/Acetaminophen 5-325* ([place] 5-325 Tablet*), 1 TAB GT Q8HR PRN for FOR PAIN, (Reported) Miscellaneous Medications Insulin Regular, Human (Humulin R), 0 SUBQ, (Reported) Patient History Healthcare decision maker N Resuscitation status Advanced Directive on File Patient History Narrative PMhx: as above Shx: reviewed Fhx: non contributory Review of Systems All Other Systems: negative except mentioned in HPI Physical Exam Physical Exam Narrative GENERAL: This is an elderly female who is in no acute distress. HEENT: Head is normocephalic and atraumatic. Pupils are equal, round and reactive to light. NECK: Supple. She has midline tracheostomy. LUNGS: Bilateral rhonchi. HEART: Regular rate and rhythm without rubs, murmurs, or gallops. ABDOMEN: She has a G-tube. Soft, nontender. EXTREMITIES: No clubbing, cyanosis, or edema. NEUROLOGIC: She is obtunded. There were no gross focal findings. Last 24 Hour Vital Signs Date Time Temp Pulse Resp B/P (MAP) Pulse Ox O2 Delivery O2 Flow Rate FiO2 02/25/20 18:56 80 24 100 Mechanical Ventilator 35 84 22 35 02/25/20 18:04 148/71 02/25/20 16:00 Mechanical Ventilator 02/25/20 16:00 99.5 80 16 148/71 (96) 100 02/25/20 16:00 74 02/25/20 15:00 80 30 35 02/25/20 13:42 84 21 100 Mechanical Ventilator 35 88 21 35 02/25/20 12:15 126/66 02/25/20 12:00 Mechanical Ventilator 02/25/20 12:00 92 02/25/20 12:00 98.9 93 17 126/66 (86) 100 02/25/20 11:05 94 22 35 02/25/20 09:19 117 129/67 02/25/20 09:00 118 02/25/20 08:59 117 129/67 02/25/20 08:00 Mechanical Ventilator 02/25/20 08:00 98.2 113 18 129/67 (87) 100 02/25/20 07:10 109 21 100 Mechanical Ventilator 35 105 21 35 02/25/20 05:35 152/79 02/25/20 04:00 98.0 92 18 152/79 (103) 100 02/25/20 04:00 36 02/25/20 04:00 Mechanical Ventilator 02/25/20 03:59 98.0 92 18 152/79 (103) 100 02/25/20 03:36 109 02/25/20 03:22 94 23 35 02/25/20 00:41 86 20 100 Mechanical Ventilator 35 87 22 35 02/25/20 00:00 Mechanical Ventilator 02/25/20 00:00 36 02/25/20 00:00 98.2 84 18 142/72 (95) 100 02/24/20 23:37 85 02/24/20 23:09 152/69 02/24/20 20:00 Mechanical Ventilator 02/24/20 20:00 76 02/24/20 20:00 97.9 72 18 158/72 (100) 100 02/24/20 20:00 36 Intake and Output 02/24/20 02/25/20 19:00 07:00 Intake Total 1755 ml 709.5 ml Output Total 1 ml 1175 ml Balance 1754 ml -465.5 ml Intake Free Water 50 ml IV Total 1755 ml 389.5 ml Tube Feeding 270 ml Output Urine Total 1 ml 1175 ml Laboratory Tests Test 02/25/20 03:45 02/25/20 04:49 02/25/20 12:00 02/25/20 18:00 White Blood Count 16.0 K/UL (4.8-10.8) H Red Blood Count 4.17 M/UL (4.20-5.40) L Hemoglobin 13.4 G/DL (12.0-16.0) Hematocrit 40.4 % (37.0-47.0) Mean Corpuscular Volume 97 FL (80-99) Mean Corpuscular Hemoglobin 32.2 PG (27.0-31.0) H Mean Corpuscular Hemoglobin Concent 33.2 G/DL (32.0-36.0) Red Cell Distribution Width 12.8 % (11.6-14.8) Platelet Count 530 K/UL (150-450) H Mean Platelet Volume 6.1 FL (6.5-10.1) L Neutrophils (%) (Auto) 80.8 % (45.0-75.0) H Lymphocytes (%) (Auto) 10.3 % (20.0-45.0) L Monocytes (%) (Auto) 5.2 % (1.0-10.0) Eosinophils (%) (Auto) 3.0 % (0.0-3.0) Basophils (%) (Auto) 0.7 % (0.0-2.0) Sodium Level 129 MMOL/L (136-145) L Potassium Level 4.1 MMOL/L (3.5-5.1) Chloride Level 94 MMOL/L (98-107) L Carbon Dioxide Level 24 MMOL/L (21-32) Anion Gap 11 mmol/L (5-15) Blood Urea Nitrogen 11 mg/dL (7-18) Creatinine 0.7 MG/DL (0.55-1.30) Estimat Glomerular Filtration Rate > 60 mL/min (>60) Glucose Level 227 MG/DL (74-106) H Calcium Level 8.5 MG/DL (8.5-10.1) POC Whole Blood Glucose Pending Pending 104 MG/DL (74-106) Height (Feet): 4 Height (Inches): 11.00 Weight (Pounds): 155 Medications Current Medications Medications (Trade) Dose Ordered Sig/Dell Route PRN Reason Start Time Stop Time Status Last Admin Dose Admin Acetaminophen/ Hydrocodone Bitart ([place] 5/325) 1 tab Q8H PRN GT FOR PAIN 02/24/20 18:30 03/02/20 18:29 Albuterol Sulfate (Proventil) 2.5 mg Q6H IN-LINE 02/24/20 18:30 02/29/20 18:29 02/25/20 18:55 Amlodipine Besylate (Norvasc) 10 mg DAILY GT 02/25/20 09:00 03/26/20 08:59 02/25/20 08:59 Atenolol (Tenormin) 50 mg DAILY GT 02/25/20 09:00 03/26/20 08:59 02/25/20 09:19 Demeclocycline HCl (Declomycin) 300 mg TWICE A DAY GT 02/25/20 09:00 03/03/20 08:59 02/25/20 18:04 Dextrose (Dextrose 50%) 25 ml Q30M PRN IV Hypoglycemia 02/24/20 18:45 05/24/20 18:44 Dextrose (Dextrose 50%) 50 ml Q30M PRN IV Hypoglycemia 02/24/20 18:45 05/24/20 18:44 Docusate Sodium (Colace) 100 mg DAILY ORAL 02/25/20 09:00 03/26/20 08:59 02/25/20 09:01 Heparin Sodium (Porcine) (Heparin 5000 units/ml) 5,000 units EVERY 12 HOURS SUBQ 02/24/20 21:00 04/09/20 20:59 02/25/20 09:01 Hydralazine HCl (Apresoline) 25 mg EVERY 6 HOURS GT 02/25/20 00:00 05/25/20 00:00 02/25/20 18:04 Insulin Aspart (NovoLOG) Sliding scale: 150-1,99= 2un... NOVOTIAC SUBQ 02/25/20 06:30 05/25/20 06:29 02/25/20 12:16 Levetiracetam (Keppra) 750 mg DAILY GT 02/25/20 09:00 03/26/20 08:59 02/25/20 08:55 Loperamide HCl (Imodium) 2 mg Q8HR GT 02/24/20 22:00 03/25/20 21:59 02/25/20 05:35 Piperacillin Sod/ Tazobactam Sod 3.375 gm/Sodium Chloride 110 ml @ 27.5 mls/hr EVERY 8 HOURS IVPB 7/14/20 22:00 02/29/20 21:59 02/25/20 15:42 Sodium Chloride 250 ml @ 30 mls/hr ONCE ONCE IV 02/25/20 18:30 02/26/20 02:49 Vancomycin HCl (Vanco pharmacy to dose) 1 ea DAILY PRN MISC Per rx protocol 02/24/20 21:00 03/25/20 20:59 Vancomycin HCl 500 mg/Dextrose 110 ml @ 110 mls/hr Q24H IVPB 02/25/20 21:00 03/01/20 20:59 Assessment/Plan Assessment/Plan: Abx: IV Vancomycin 02/23- Zosyn 02/23- Meropenem x1 02/23 Assessment: 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 Will continue to follow along with you. Discussed Lilli Patterson RN., M.D. Feb 25, 2020 20:09
[2020-02-25] MEDS: Vancomycin 500mg/D5W 110ml IVPB SCH ×2 (20:11)
--- NOTE | 2020-02-25 20:30 | History and Physical Report ---
DATE OF ADMISSION: 02/25/2020 CHIEF COMPLAINT: Severe hyponatremia and sepsis. HISTORY OF PRESENT ILLNESS: The patient is an unfortunate 69-year-old female. She has a prior history of chronic respiratory failure, intracranial bleed, atrial fibrillation, and diabetes. She was transferred from a [facility] facility with abnormal laboratories. Specifically, she had a sodium of 122 and elevated BUN of over 100. She has had similar problems in the last month and required intermittent intravenous hydration. She had, had some improvement, but on this occasion, her numbers are much more severe and abnormal. On evaluation in the emergency room, the hyponatremia was confirmed. She also was noted to have an elevated white count of 18,000. She was pancultured and she has been started on broad spectrum intravenous antibiotics. She is now admitted for further evaluation and care. PAST MEDICAL HISTORY: As above. PAST SURGICAL HISTORY: Includes craniotomy, tracheostomy, and G-tube. CURRENT MEDICATIONS: Reconciled and reviewed. ALLERGIES: None. FAMILY HISTORY: None. SOCIAL HISTORY: There is no known history of tobacco, ethanol, or drugs. REVIEW OF SYSTEMS: Review of systems from the patient is unobtainable as the patient is nonverbal at baseline. PHYSICAL EXAMINATION: VITAL SIGNS: Temperature 98 degrees, pulse 93, respirations 17, and blood pressure /66. GENERAL: The patient is a chronically ill-appearing female, in no apparent distress. She is awake, but nonverbal. Does not track. She has evidence of a prior craniotomy. HEENT: The oropharynx is clear. Mucous membranes are moist. NECK: Supple. LUNGS: Clear. ABDOMEN: Soft, nontender, and nondistended. EXTREMITIES: Without clubbing, cyanosis, or edema. LABORATORY DATA: White count 18, hemoglobin 16, hematocrit 48, and platelets of 585,000. Sodium 122, potassium is 4.9, BUN of 17, and creatinine is 0.7. Per report, chest x-ray is clear. UA showed 5 to 10 wbc's. ASSESSMENT: This is an unfortunate female with a history of encephalopathy, intracranial bleed, stroke, atrial fibrillation, hypertension, and diabetes, admitted with complaints of sepsis with hyponatremia. PLAN: 1. Hypertonic saline. 2. Broad-spectrum IV antibiotics. 3. Follow up pending cultures. 4. Continue vent support. 5. Continue seizure treatment. 6. Monitor blood sugars. 7. Turn every 2 hours. 8. The patient's status is currently guarded. Baljit Gillis M.D. DR: AMADOR JOB#: [id number] CC:
[2020-02-26] VITALS: BP 124/68
[2020-02-26] MEDS: Albuterol ud Inhalation IN-LINE SCH ×3 (00:30→13:44)
[2020-02-26] MEDS: NovoLOG Insulin Flexpen SUBQ SCH ×5 (01:01→23:28)
[2020-02-26] MEDS: HydrALAZINE 25mg tab GT SCH ×3 (01:02→11:09)
[2020-02-26 04:00] VITALS: BP 133/71
[2020-02-26] MEDS: Piperacillin/Tazobactam 3.375 GM in NS 110 ML IVPB SCH ×3 (05:51→21:14)
[2020-02-26 06:35] LABS: BASOPHILS % (AUTO) 0.4 % (0.0-2.0); EOSINOPHILS % (AUTO) 5.7 % (0.0-3.0); HEMATOCRIT 39.6 % (37.0-47.0); HEMOGLOBIN 12.8 G/DL (12.0-16.0); LYMPHOCYTES % (AUTO) 19.8 % (20.0-45.0); MEAN CORPUSCULAR VOLUME 99 FL (80-99); MONOCYTES % (AUTO) 4.2 % (1.0-10.0); NEUTROPHILS % (AUTO) 69.9 % (45.0-75.0); PLATELET COUNT 460 K/UL (150-450); RED BLOOD COUNT 4.01 M/UL (4.20-5.40); RED CELL DISTRIBUTION WIDTH 13.7 % (11.6-14.8); WHITE BLOOD COUNT 11.8 K/UL (4.8-10.8)
[2020-02-26 07:32] LABS: ALBUMIN 2.7 G/DL (3.4-5.0); ALBUMIN/GLOBULIN RATIO 0.7 (1.0-2.7); ALKALINE PHOSPHATASE 144 U/L (46-116); ANION GAP 7 mmol/L (5-15); ASPARTATE AMINO TRANSFERASE 22 U/L (15-37); BILIRUBIN,TOTAL 0.2 MG/DL (0.2-1.0); BLOOD UREA NITROGEN 20 mg/dL (7-18); CALCIUM 8.5 MG/DL (8.5-10.1); CARBON DIOXIDE 28 MMOL/L (21-32); CHLORIDE 99 MMOL/L (98-107); CREATININE 0.7 MG/DL (0.55-1.30); PHOSPHORUS 3.8 MG/DL (2.5-4.9); POTASSIUM 4.3 MMOL/L (3.5-5.1); SODIUM 134 MMOL/L (136-145)
[2020-02-26 08:00] VITALS: BP 160/79
[2020-02-26] MEDS: levETIRAcetam 500mg/5ml Liquid GT SCH (08:38)
[2020-02-26] MEDS: Docusate 100mg cap ORAL SCH (08:38)
[2020-02-26] MEDS: Demeclocycline 150mg tab GT SCH ×2 (08:39→17:29)
[2020-02-26] MEDS: Heparin 5000 units/ml inj SUBQ SCH ×2 (08:42→21:14)
[2020-02-26 09:29] LABS: ALANINE AMINOTRANSFERASE 34 U/L (12-78)
--- NOTE | 2020-02-26 11:55 | Pulmonolgy Critical Care Note ---
Critical Care - Asmt/Plan Problems: (1) Sepsis (2) Chronic respiratory failure (3) Hyponatremia (4) Decubital ulcer (5) History of hypertension (6) History of diabetes mellitus (7) Family history of CVA (8) Feeding by G-tube (9) Ventriculo-peritoneal shunt status Respiratory: monitor respiratory rate, adjust FIO2, CXR Cardiac: continue to monitor HR/BP Renal: F/U I&O, check electrolytes Infectious Disease: check cultures Gastrointestinal: continue feedings/current rate Endocrine: monitor blood sugar Hematologic: monitor H/H, transfuse if hgb<8.5 Neurologic: PRN Ativan, keep patient comfortable Affect: PRN ativan Prophylaxis: Protonix Time Spent (Minutes): 40 Notes Reviewed: kit assembler, cardio, renal Discussed with: nurses, consultants, counseling case managerconstruction engineering manager - Objective Last 24 Hour Vital Signs Date Time Temp Pulse Resp B/P (MAP) Pulse Ox O2 Delivery O2 Flow Rate FiO2 02/26/20 11:09 133/63 02/26/20 10:30 87 21 35 02/26/20 08:51 35 02/26/20 08:38 89 160/79 02/26/20 08:38 89 160/79 02/26/20 08:00 98.6 89 22 160/79 (106) 100 02/26/20 08:00 Mechanical Ventilator 02/26/20 07:29 86 21 100 Mechanical Ventilator 35 86 21 35 02/26/20 05:53 133/71 02/26/20 04:00 84 02/26/20 04:00 Mechanical Ventilator 02/26/20 04:00 98.6 82 22 133/71 (91) 100 02/26/20 02:56 79 17 35 02/26/20 01:02 124/68 02/26/20 00:30 80 16 100 Mechanical Ventilator 35 83 14 35 02/26/20 00:00 83 02/26/20 00:00 Mechanical Ventilator 02/26/20 00:00 98.8 83 22 124/68 (86) 100 02/25/20 22:30 79 17 35 02/25/20 20:00 98.3 81 20 118/63 (81) 100 02/25/20 20:00 Mechanical Ventilator 02/25/20 20:00 77 02/25/20 18:56 80 24 100 Mechanical Ventilator 35 84 22 35 02/25/20 18:04 148/71 02/25/20 16:00 Mechanical Ventilator 02/25/20 16:00 99.5 80 16 148/71 (96) 100 02/25/20 16:00 74 02/25/20 15:00 80 30 35 02/25/20 13:42 84 21 100 Mechanical Ventilator 35 88 21 35 02/25/20 12:15 126/66 02/25/20 12:00 Mechanical Ventilator 02/25/20 12:00 92 02/25/20 12:00 98.9 93 17 126/66 (86) 100 Status: sedated Condition: grave HEENT: atraumatic Neck: full ROM, trach Lungs: rales, rhonchi Heart: HR/BP stable, regular Abdomen: soft Extremities: no C/C/E Micro: Microbiology Date/Time Source Procedure Growth Status 02/24/20 10:57 Blood Blood Culture - Preliminary NO GROWTH AFTER 24 HOURS Resulted 02/24/20 10:30 Blood Blood Culture - Preliminary Staphylococcus Sp Coag Neg Resulted 02/24/20 11:55 Nasopharynx Coronavirus COVID-19 PCR (FREDDY) - Final Complete Accucheck: 334 Critical Care - Subjective ROS Limited/Unobtainable: Yes Condition: critical EKG Rhythm: Sinus Rhythm FI02: 35 Vent Support Breath Rate: 10 Vent Support Mode: AC Vent Tidal Volume: 380 Sputum Amount: Small PEEP: 0.0 PIP: 16 Tube Feeding Amount: 55 I&O: Intake and Output 02/25/20 02/26/20 19:00 07:00 Intake Total 710 ml 900 ml Output Total 500 ml 400 ml Balance 210 ml 500 ml Intake Free Water 200 ml 140 ml IV Total 155 ml Tube Feeding 270 ml 605 ml Other 240 ml Output Urine Total 500 ml 400 ml Labs: Laboratory Tests Test 02/25/20 12:00 02/25/20 18:00 02/25/20 21:00 02/25/20 21:48 POC Whole Blood Glucose Pending 104 MG/DL (74-106) 240 MG/DL (74-106) H Urine Osmolality 550 mOsm/kg (429-449) H Test 02/26/20 00:47 02/26/20 03:25 02/26/20 05:16 02/26/20 11:39 POC Whole Blood Glucose 240 MG/DL (74-106) H 223 MG/DL (74-106) H Pending White Blood Count 11.8 K/UL (4.8-10.8) H Red Blood Count 4.01 M/UL (4.20-5.40) L Hemoglobin 12.8 G/DL (12.0-16.0) Hematocrit 39.6 % (37.0-47.0) Mean Corpuscular Volume 99 FL (80-99) Mean Corpuscular Hemoglobin 32.0 PG (27.0-31.0) H Mean Corpuscular Hemoglobin Concent 32.4 G/DL (32.0-36.0) Red Cell Distribution Width 13.7 % (11.6-14.8) Platelet Count 460 K/UL (150-450) H Mean Platelet Volume 5.9 FL (6.5-10.1) L Neutrophils (%) (Auto) 69.9 % (45.0-75.0) Lymphocytes (%) (Auto) 19.8 % (20.0-45.0) L Monocytes (%) (Auto) 4.2 % (1.0-10.0) Eosinophils (%) (Auto) 5.7 % (0.0-3.0) H Basophils (%) (Auto) 0.4 % (0.0-2.0) Erythrocyte Sedimentation Rate 57 MM/HR (0-30) H Sodium Level 134 MMOL/L (136-145) L Potassium Level 4.3 MMOL/L (3.5-5.1) Chloride Level 99 MMOL/L (98-107) Carbon Dioxide Level 28 MMOL/L (21-32) Anion Gap 7 mmol/L (5-15) Blood Urea Nitrogen 20 mg/dL (7-18) H Creatinine 0.7 MG/DL (0.55-1.30) Estimat Glomerular Filtration Rate > 60 mL/min (>60) Glucose Level 194 MG/DL (74-106) H Calcium Level 8.5 MG/DL (8.5-10.1) Phosphorus Level 3.8 MG/DL (2.5-4.9) Magnesium Level 2.4 MG/DL (1.8-2.4) Total Bilirubin 0.2 MG/DL (0.2-1.0) Aspartate Amino Transf (AST/SGOT) 22 U/L (15-37) Alanine Aminotransferase (ALT/SGPT) 34 U/L (12-78) Alkaline Phosphatase 144 U/L (46-116) H C-Reactive Protein, Quantitative 4.5 mg/dL (0.00-0.90) H Total Protein 6.5 G/DL (6.4-8.2) Albumin 2.7 G/DL (3.4-5.0) L Globulin 3.8 g/dL Albumin/Globulin Ratio 0.7 (1.0-2.7) L Sandra Bueno MD Feb 26, 2020 11:55
[2020-02-26 12:00] VITALS: BP 133/63
[2020-02-26] MEDS ORDERED: HydrALAZINE 50mg tab GT SCH (12:00)
--- NOTE | 2020-02-26 12:14 | Infectious Diseases Prog Note ---
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 Will continue to follow along with you. Discussed duncan RN. Subjective Allergies: Coded Allergies: No Known Allergies (Unverified , 11/06/18) Objective Last 24 Hour Vital Signs Date Time Temp Pulse Resp B/P (MAP) Pulse Ox O2 Delivery O2 Flow Rate FiO2 02/26/20 11:09 133/63 02/26/20 10:30 87 21 35 02/26/20 08:51 35 02/26/20 08:38 89 160/79 02/26/20 08:38 89 160/79 02/26/20 08:00 92 02/26/20 08:00 98.6 89 22 160/79 (106) 100 02/26/20 08:00 Mechanical Ventilator 02/26/20 07:29 86 21 100 Mechanical Ventilator 35 86 21 35 02/26/20 05:53 133/71 02/26/20 04:00 84 02/26/20 04:00 Mechanical Ventilator 02/26/20 04:00 98.6 82 22 133/71 (91) 100 02/26/20 02:56 79 17 35 02/26/20 01:02 124/68 02/26/20 00:30 80 16 100 Mechanical Ventilator 35 83 14 35 02/26/20 00:00 83 02/26/20 00:00 Mechanical Ventilator 02/26/20 00:00 98.8 83 22 124/68 (86) 100 02/25/20 22:30 79 17 35 02/25/20 20:00 98.3 81 20 118/63 (81) 100 02/25/20 20:00 Mechanical Ventilator 02/25/20 20:00 77 02/25/20 18:56 80 24 100 Mechanical Ventilator 35 84 22 35 02/25/20 18:04 148/71 02/25/20 16:00 Mechanical Ventilator 02/25/20 16:00 99.5 80 16 148/71 (96) 100 02/25/20 16:00 74 02/25/20 15:00 80 30 35 02/25/20 13:42 84 21 100 Mechanical Ventilator 35 88 21 35 02/25/20 12:15 126/66 Height (Feet): 4 Height (Inches): 11.00 Weight (Pounds): 155 GENERAL: This is an elderly female who is in no acute distress. HEENT: Head is normocephalic and atraumatic. Pupils are equal, round and reactive to light. NECK: Supple. She has midline tracheostomy. LUNGS: Bilateral rhonchi. HEART: Regular rate and rhythm without rubs, murmurs, or gallops. ABDOMEN: She has a G-tube. Soft, nontender. EXTREMITIES: No clubbing, cyanosis, or edema. NEUROLOGIC: She is obtunded. There were no gross focal findings. Microbiology Date/Time Source Procedure Growth Status 02/24/20 10:57 Blood Blood Culture - Preliminary NO GROWTH AFTER 24 HOURS Resulted 02/24/20 10:30 Blood Blood Culture - Preliminary Staphylococcus Sp Coag Neg Resulted 02/24/20 11:55 Nasopharynx Coronavirus COVID-19 PCR ([facility]EDDY) - Final Complete Laboratory Tests Test 02/25/20 18:00 02/25/20 21:00 02/25/20 21:48 02/26/20 00:47 POC Whole Blood Glucose 104 MG/DL (74-106) 240 MG/DL (74-106) H 240 MG/DL (74-106) H Urine Osmolality 550 mOsm/kg (429-449) H Test 02/26/20 03:25 02/26/20 05:16 02/26/20 11:39 White Blood Count 11.8 K/UL (4.8-10.8) H Red Blood Count 4.01 M/UL (4.20-5.40) L Hemoglobin 12.8 G/DL (12.0-16.0) Hematocrit 39.6 % (37.0-47.0) Mean Corpuscular Volume 99 FL (80-99) Mean Corpuscular Hemoglobin 32.0 PG (27.0-31.0) H Mean Corpuscular Hemoglobin Concent 32.4 G/DL (32.0-36.0) Red Cell Distribution Width 13.7 % (11.6-14.8) Platelet Count 460 K/UL (150-450) H Mean Platelet Volume 5.9 FL (6.5-10.1) L Neutrophils (%) (Auto) 69.9 % (45.0-75.0) Lymphocytes (%) (Auto) 19.8 % (20.0-45.0) L Monocytes (%) (Auto) 4.2 % (1.0-10.0) Eosinophils (%) (Auto) 5.7 % (0.0-3.0) H Basophils (%) (Auto) 0.4 % (0.0-2.0) Erythrocyte Sedimentation Rate 57 MM/HR (0-30) H Sodium Level 134 MMOL/L (136-145) L Potassium Level 4.3 MMOL/L (3.5-5.1) Chloride Level 99 MMOL/L (98-107) Carbon Dioxide Level 28 MMOL/L (21-32) Anion Gap 7 mmol/L (5-15) Blood Urea Nitrogen 20 mg/dL (7-18) H Creatinine 0.7 MG/DL (0.55-1.30) Estimat Glomerular Filtration Rate > 60 mL/min (>60) Glucose Level 194 MG/DL (74-106) H Calcium Level 8.5 MG/DL (8.5-10.1) Phosphorus Level 3.8 MG/DL (2.5-4.9) Magnesium Level 2.4 MG/DL (1.8-2.4) Total Bilirubin 0.2 MG/DL (0.2-1.0) Aspartate Amino Transf (AST/SGOT) 22 U/L (15-37) Alanine Aminotransferase (ALT/SGPT) 34 U/L (12-78) Alkaline Phosphatase 144 U/L (46-116) H C-Reactive Protein, Quantitative 4.5 mg/dL (0.00-0.90) H Total Protein 6.5 G/DL (6.4-8.2) Albumin 2.7 G/DL (3.4-5.0) L Globulin 3.8 g/dL Albumin/Globulin Ratio 0.7 (1.0-2.7) L POC Whole Blood Glucose 223 MG/DL (74-106) H Pending Current Medications Medications (Trade) Dose Ordered Sig/Dell Route PRN Reason Start Time Stop Time Status Last Admin Dose Admin Acetaminophen/ Hydrocodone Bitart ([place] 5/325) 1 tab Q8H PRN GT FOR PAIN 02/24/20 18:30 03/02/20 18:29 Albuterol Sulfate (Proventil) 2.5 mg Q6H IN-LINE 02/24/20 18:30 02/29/20 18:29 02/26/20 07:29 Amlodipine Besylate (Norvasc) 10 mg DAILY GT 02/25/20 09:00 03/26/20 08:59 02/26/20 08:38 Atenolol (Tenormin) 50 mg DAILY GT 02/25/20 09:00 03/26/20 08:59 02/26/20 08:38 Demeclocycline HCl (Declomycin) 300 mg TWICE A DAY GT 02/25/20 09:00 03/03/20 08:59 02/26/20 08:39 Dextrose (Dextrose 50%) 25 ml Q30M PRN IV Hypoglycemia 02/24/20 18:45 05/24/20 18:44 Dextrose (Dextrose 50%) 50 ml Q30M PRN IV Hypoglycemia 02/24/20 18:45 05/24/20 18:44 Docusate Sodium (Colace) 100 mg DAILY ORAL 02/25/20 09:00 03/26/20 08:59 02/26/20 08:38 Heparin Sodium (Porcine) (Heparin 5000 units/ml) 5,000 units EVERY 12 HOURS SUBQ 02/24/20 21:00 04/09/20 20:59 02/26/20 08:42 Hydralazine HCl (Apresoline) 50 mg EVERY 6 HOURS GT 02/26/20 12:00 05/25/20 00:00 Insulin Aspart (NovoLOG) Sliding scale: 150-1,99= 2un... Q6HR SUBQ 02/26/20 00:00 05/25/20 06:29 02/26/20 11:42 Levetiracetam (Keppra) 750 mg DAILY GT 02/25/20 09:00 03/26/20 08:59 02/26/20 08:38 Piperacillin Sod/ Tazobactam Sod 3.375 gm/Sodium Chloride 110 ml @ 27.5 mls/hr EVERY 8 HOURS IVPB 02/24/20 22:00 02/29/20 21:59 02/26/20 05:51 Vancomycin HCl (Vanco pharmacy to dose) 1 ea DAILY PRN MISC Per rx protocol 02/24/20 21:00 03/25/20 20:59 Vancomycin HCl 500 mg/Dextrose 110 ml @ 110 mls/hr Q24H IVPB 02/25/20 21:00 03/01/20 20:59 02/25/20 20:11 Lilli Gonzalez M.D. Feb 26, 2020 12:14
[2020-02-26] MEDS ORDERED: HydrALAZINE 25mg tab ORAL SCH (12:33)
--- NOTE | 2020-02-26 14:10 | Nephrology Progress Note ---
Assessment/Plan Plan Hyponatremia corrected with 3%. DC. Subjective Subjective Obtunded Objective Objective Last 24 Hour Vital Signs Date Time Temp Pulse Resp B/P (MAP) Pulse Ox O2 Delivery O2 Flow Rate FiO2 02/26/20 13:30 133/63 02/26/20 12:00 35 02/26/20 12:00 Mechanical Ventilator 02/26/20 12:00 99.0 89 22 133/63 (86) 100 02/26/20 11:09 133/63 02/26/20 10:30 87 21 35 02/26/20 08:51 35 02/26/20 08:38 89 160/79 02/26/20 08:38 89 160/79 02/26/20 08:00 92 02/26/20 08:00 98.6 89 22 160/79 (106) 100 02/26/20 08:00 Mechanical Ventilator 02/26/20 07:29 86 21 100 Mechanical Ventilator 35 86 21 35 02/26/20 05:53 133/71 02/26/20 04:00 84 02/26/20 04:00 Mechanical Ventilator 02/26/20 04:00 98.6 82 22 133/71 (91) 100 02/26/20 02:56 79 17 35 02/26/20 01:02 124/68 02/26/20 00:30 80 16 100 Mechanical Ventilator 35 83 14 35 02/26/20 00:00 83 02/26/20 00:00 Mechanical Ventilator 02/26/20 00:00 98.8 83 22 124/68 (86) 100 02/25/20 22:30 79 17 35 02/25/20 20:00 98.3 81 20 118/63 (81) 100 02/25/20 20:00 Mechanical Ventilator 02/25/20 20:00 77 02/25/20 18:56 80 24 100 Mechanical Ventilator 35 84 22 35 02/25/20 18:04 148/71 02/25/20 16:00 Mechanical Ventilator 02/25/20 16:00 99.5 80 16 148/71 (96) 100 02/25/20 16:00 74 02/25/20 15:00 80 30 35 Intake and Output 02/25/20 02/26/20 19:00 07:00 Intake Total 710 ml 900 ml Output Total 500 ml 400 ml Balance 210 ml 500 ml Intake Free Water 200 ml 140 ml IV Total 155 ml Tube Feeding 270 ml 605 ml Other 240 ml Output Urine Total 500 ml 400 ml Laboratory Tests 02/25/20 18:00: POC Whole Blood Glucose 104 02/25/20 21:00: Urine Osmolality 550H 02/25/20 21:48: POC Whole Blood Glucose 240H 02/26/20 00:47: POC Whole Blood Glucose 240H 02/26/20 03:25: White Blood Count 11.8H, Red Blood Count 4.01L, Hemoglobin 12.8, Hematocrit 39.6 , Mean Corpuscular Volume 99, Mean Corpuscular Hemoglobin 32.0H, Mean Corpuscular Hemoglobin Concent 32.4, Red Cell Distribution Width 13.7, Platelet Count 460H, Mean Platelet Volume 5.9L, Neutrophils (%) (Auto) 69.9, Lymphocytes (%) (Auto) 19.8L, Monocytes (%) (Auto) 4.2, Eosinophils (%) (Auto) 5.7H, Basophils (%) (Auto) 0.4, Erythrocyte Sedimentation Rate 57H, Sodium Level 134L , Potassium Level 4.3, Chloride Level 99, Carbon Dioxide Level 28, Anion Gap 7, Blood Urea Nitrogen 20H, Creatinine 0.7, Estimat Glomerular Filtration Rate > 60 , Glucose Level 194H, Calcium Level 8.5, Phosphorus Level 3.8, Magnesium Level 2.4, Total Bilirubin 0.2, Aspartate Amino Transf (AST/SGOT) 22, Alanine Aminotransferase (ALT/SGPT) 34, Alkaline Phosphatase 144H, C-Reactive Protein, Quantitative 4.5H, Total Protein 6.5, Albumin 2.7L, Globulin 3.8, Albumin/ Globulin Ratio 0.7L 02/26/20 05:16: POC Whole Blood Glucose 223H 02/26/20 11:39: POC Whole Blood Glucose [Pending] Height (Feet): 4 Height (Inches): 11.00 Weight (Pounds): 155 Objective CV RR Trach OK. Lungs B Ronchi Abd SNT. BS + E No CCE Fahad Bridges MD Feb 26, 2020 14:10
[2020-02-26 16:00] VITALS: BP 143/52
[2020-02-26] MEDS: HydrALAZINE 50mg tab GT SCH ×2 (17:33→23:26)
[2020-02-26 20:00] VITALS: BP 138/68
[2020-02-26] MEDS: Vancomycin 500mg/D5W 110ml IVPB SCH ×2 (21:14)
[2020-02-27] VITALS: BP 134/67
[2020-02-27] MEDS: Albuterol ud Inhalation IN-LINE SCH ×4 (01:15→19:06)
[2020-02-27 04:00] VITALS: BP 137/65
[2020-02-27 05:26] LABS: BASOPHILS % (AUTO) 0.6 % (0.0-2.0); EOSINOPHILS % (AUTO) 4.4 % (0.0-3.0); HEMATOCRIT 35.6 % (37.0-47.0); HEMOGLOBIN 11.7 G/DL (12.0-16.0); LYMPHOCYTES % (AUTO) 14.9 % (20.0-45.0); MEAN CORPUSCULAR VOLUME 98 FL (80-99); MONOCYTES % (AUTO) 4.8 % (1.0-10.0); NEUTROPHILS % (AUTO) 75.3 % (45.0-75.0); PLATELET COUNT 476 K/UL (150-450); RED BLOOD COUNT 3.62 M/UL (4.20-5.40); RED CELL DISTRIBUTION WIDTH 13.4 % (11.6-14.8); WHITE BLOOD COUNT 15.1 K/UL (4.8-10.8)
[2020-02-27] MEDS: HydrALAZINE 50mg tab GT SCH ×4 (05:36→23:27)
[2020-02-27] MEDS: Piperacillin/Tazobactam 3.375 GM in NS 110 ML IVPB SCH ×3 (05:37→21:12)
[2020-02-27] MEDS: NovoLOG Insulin Flexpen SUBQ SCH ×4 (05:38→23:23)
[2020-02-27 05:46] LABS: ALANINE AMINOTRANSFERASE 29 U/L (12-78); ALBUMIN 2.6 G/DL (3.4-5.0); ALBUMIN/GLOBULIN RATIO 0.7 (1.0-2.7); ALKALINE PHOSPHATASE 135 U/L (46-116); ANION GAP 8 mmol/L (5-15); ASPARTATE AMINO TRANSFERASE 17 U/L (15-37); BILIRUBIN,TOTAL 0.2 MG/DL (0.2-1.0); BLOOD UREA NITROGEN 20 mg/dL (7-18); CALCIUM 8.1 MG/DL (8.5-10.1); CARBON DIOXIDE 28 MMOL/L (21-32); CHLORIDE 97 MMOL/L (98-107); CREATININE 0.7 MG/DL (0.55-1.30); PHOSPHORUS 3.8 MG/DL (2.5-4.9); POTASSIUM 4.2 MMOL/L (3.5-5.1); SODIUM 133 MMOL/L (136-145)
[2020-02-27 08:00] VITALS: BP 133/62
[2020-02-27] MEDS: levETIRAcetam 500mg/5ml Liquid GT SCH (08:18)
[2020-02-27] MEDS: Demeclocycline 150mg tab GT SCH ×2 (08:18→17:07)
[2020-02-27] MEDS: Docusate 100mg cap ORAL SCH (08:18)
[2020-02-27] MEDS: Heparin 5000 units/ml inj SUBQ SCH ×2 (09:13→21:13)
--- NOTE | 2020-02-27 10:59 | Pulmonolgy Critical Care Note ---
Critical Care - Asmt/Plan Problems: (1) Sepsis (2) Chronic respiratory failure (3) Hyponatremia (4) Decubital ulcer (5) History of hypertension (6) History of diabetes mellitus (7) Family history of CVA (8) Feeding by G-tube (9) Ventriculo-peritoneal shunt status Respiratory: monitor respiratory rate, adjust FIO2, CXR Cardiac: continue to monitor HR/BP Renal: F/U I&O, keep IV fluid Infectious Disease: check cultures, continue antibiotics, other - wbc still high Gastrointestinal: continue feedings/current rate Endocrine: monitor blood sugar Prophylaxis: Protonix Time Spent (Minutes): 40 Notes Reviewed: grain thresher, renal Discussed with: nurses, consultants, employment evaluator/case managercommunity engagement manager - Objective Last 24 Hour Vital Signs Date Time Temp Pulse Resp B/P (MAP) Pulse Ox O2 Delivery O2 Flow Rate FiO2 02/27/20 08:18 90 133/62 02/27/20 08:17 90 133/62 02/27/20 08:00 Mechanical Ventilator 02/27/20 08:00 82 02/27/20 08:00 98.4 90 25 133/62 (85) 100 02/27/20 08:00 35 02/27/20 07:24 81 18 100 Mechanical Ventilator 35 85 18 35 02/27/20 05:36 137/65 02/27/20 04:00 87 02/27/20 04:00 35 02/27/20 04:00 Mechanical Ventilator 02/27/20 04:00 98.0 88 18 137/65 (89) 100 02/27/20 02:46 93 27 35 02/27/20 01:15 83 19 100 Mechanical Ventilator 35 02/27/20 00:00 84 02/27/20 00:00 35 02/27/20 00:00 84 02/27/20 00:00 Mechanical Ventilator 02/27/20 00:00 98.6 84 22 134/67 (89) 100 02/26/20 23:26 135/61 02/26/20 22:40 82 19 35 02/26/20 20:00 99.0 86 24 138/68 (91) 100 02/26/20 20:00 Mechanical Ventilator 02/26/20 20:00 81 02/26/20 20:00 35 02/26/20 19:51 84 34 35 7/16/20 17:33 143/52 02/26/20 16:00 98.6 80 21 143/52 (82) 100 02/26/20 16:00 35 02/26/20 16:00 Mechanical Ventilator 02/26/20 16:00 85 02/26/20 15:30 86 21 35 02/26/20 13:54 80 21 100 Mechanical Ventilator 35 80 21 35 02/26/20 13:30 133/63 02/26/20 12:00 35 02/26/20 12:00 88 02/26/20 12:00 Mechanical Ventilator 02/26/20 12:00 99.0 89 22 133/63 (86) 100 02/26/20 11:09 133/63 Status: somnolent Condition: critical HEENT: atraumatic Neck: full ROM, trach Lungs: rhonchi Heart: HR/BP stable Abdomen: soft, non-tender Extremities: no C/C/E Decubiti: location Micro: Microbiology Date/Time Source Procedure Growth Status 02/24/20 11:55 Nasopharynx Coronavirus COVID-19 PCR ([facility]) - Final Complete 02/26/20 13:00 Straight Cath Urine Culture - Preliminary NO GROWTH Resulted Accucheck: 256 Critical Care - Subjective ROS Limited/Unobtainable: Yes Interval Events: looks comfortable Condition: critical EKG Rhythm: Sinus Rhythm FI02: 35 Vent Support Breath Rate: 10 Vent Support Mode: AC Vent Tidal Volume: 380 Sputum Amount: Small PEEP: 0.0 PIP: 27 Tube Feeding Amount: 55 I&O: Intake and Output 02/26/20 02/27/20 19:00 07:00 Intake Total 373.75 ml 890.0 ml Output Total 300 ml 400 ml Balance 73.75 ml 490.0 ml Intake Free Water 30 ml 120 ml IV Total 178.75 ml 110.0 ml Tube Feeding 165 ml 660 ml Output Urine Total 300 ml 400 ml CXR: FRANKI Labs: Laboratory Tests Test 02/26/20 11:39 02/26/20 17:26 02/26/20 23:23 02/27/20 04:40 POC Whole Blood Glucose Pending 183 MG/DL (74-106) H 276 MG/DL (74-106) H White Blood Count 15.1 K/UL (4.8-10.8) H Red Blood Count 3.62 M/UL (4.20-5.40) L Hemoglobin 11.7 G/DL (12.0-16.0) L Hematocrit 35.6 % (37.0-47.0) L Mean Corpuscular Volume 98 FL (80-99) Mean Corpuscular Hemoglobin 32.3 PG (27.0-31.0) H Mean Corpuscular Hemoglobin Concent 32.8 G/DL (32.0-36.0) Red Cell Distribution Width 13.4 % (11.6-14.8) Platelet Count 476 K/UL (150-450) H Mean Platelet Volume 5.7 FL (6.5-10.1) L Neutrophils (%) (Auto) 75.3 % (45.0-75.0) H Lymphocytes (%) (Auto) 14.9 % (20.0-45.0) L Monocytes (%) (Auto) 4.8 % (1.0-10.0) Eosinophils (%) (Auto) 4.4 % (0.0-3.0) H Basophils (%) (Auto) 0.6 % (0.0-2.0) Sodium Level 133 MMOL/L (136-145) L Potassium Level 4.2 MMOL/L (3.5-5.1) Chloride Level 97 MMOL/L (98-107) L Carbon Dioxide Level 28 MMOL/L (21-32) Anion Gap 8 mmol/L (5-15) Blood Urea Nitrogen 20 mg/dL (7-18) H Creatinine 0.7 MG/DL (0.55-1.30) Estimat Glomerular Filtration Rate > 60 mL/min (>60) Glucose Level 263 MG/DL (74-106) H Calcium Level 8.1 MG/DL (8.5-10.1) L Phosphorus Level 3.8 MG/DL (2.5-4.9) Magnesium Level 2.0 MG/DL (1.8-2.4) Total Bilirubin 0.2 MG/DL (0.2-1.0) Aspartate Amino Transf (AST/SGOT) 17 U/L (15-37) Alanine Aminotransferase (ALT/SGPT) 29 U/L (12-78) Alkaline Phosphatase 135 U/L (46-116) H Total Protein 6.4 G/DL (6.4-8.2) Albumin 2.6 G/DL (3.4-5.0) L Globulin 3.8 g/dL Albumin/Globulin Ratio 0.7 (1.0-2.7) L Test 02/27/20 05:18 POC Whole Blood Glucose 256 MG/DL (74-106) H Sandra Bueno MD Feb 27, 2020 10:59
[2020-02-27 11:53] VITALS: BP 132/62
--- NOTE | 2020-02-27 12:10 | Nephrology Progress Note ---
Assessment/Plan Plan Hyponatremia corrected with 3%. DC'ed. Recheck labs. Subjective Subjective Obtunded Objective Objective Last 24 Hour Vital Signs Date Time Temp Pulse Resp B/P (MAP) Pulse Ox O2 Delivery O2 Flow Rate FiO2 02/27/20 12:01 132/62 02/27/20 12:00 81 02/27/20 12:00 35 02/27/20 11:53 99.1 81 17 132/62 (85) 100 02/27/20 08:18 90 133/62 02/27/20 08:17 90 133/62 02/27/20 08:00 Mechanical Ventilator 02/27/20 08:00 82 02/27/20 08:00 98.4 90 25 133/62 (85) 100 02/27/20 08:00 35 02/27/20 07:24 81 18 100 Mechanical Ventilator 35 85 18 35 02/27/20 05:36 137/65 02/27/20 04:00 87 02/27/20 04:00 35 02/27/20 04:00 Mechanical Ventilator 02/27/20 04:00 98.0 88 18 137/65 (89) 100 02/27/20 02:46 93 27 35 02/27/20 01:15 83 19 100 Mechanical Ventilator 35 02/27/20 00:00 84 02/27/20 00:00 35 02/27/20 00:00 84 02/27/20 00:00 Mechanical Ventilator 02/27/20 00:00 98.6 84 22 134/67 (89) 100 02/26/20 23:26 135/61 02/26/20 22:40 82 19 35 02/26/20 20:00 99.0 86 24 138/68 (91) 100 02/26/20 20:00 Mechanical Ventilator 02/26/20 20:00 81 02/26/20 20:00 35 02/26/20 19:51 84 34 35 02/26/20 17:33 143/52 02/26/20 16:00 98.6 80 21 143/52 (82) 100 02/26/20 16:00 35 02/26/20 16:00 Mechanical Ventilator 02/26/20 16:00 85 02/26/20 15:30 86 21 35 02/26/20 13:54 80 21 100 Mechanical Ventilator 35 80 21 35 02/26/20 13:30 133/63 Intake and Output 02/26/20 02/27/20 19:00 07:00 Intake Total 373.75 ml 931.25 ml Output Total 300 ml 400 ml Balance 73.75 ml 531.25 ml Intake Free Water 30 ml 120 ml IV Total 178.75 ml 151.25 ml Tube Feeding 165 ml 660 ml Output Urine Total 300 ml 400 ml Laboratory Tests 02/26/20 17:26: POC Whole Blood Glucose 183H 02/26/20 23:23: POC Whole Blood Glucose 276H 02/27/20 04:40: White Blood Count 15.1H, Red Blood Count 3.62L, Hemoglobin 11.7L, Hematocrit 35.6L, Mean Corpuscular Volume 98, Mean Corpuscular Hemoglobin 32.3H, Mean Corpuscular Hemoglobin Concent 32.8, Red Cell Distribution Width 13.4, Platelet Count 476H, Mean Platelet Volume 5.7L, Neutrophils (%) (Auto) 75.3H, Lymphocytes (%) (Auto) 14.9L, Monocytes (%) (Auto) 4.8, Eosinophils (%) (Auto) 4.4H, Basophils (%) (Auto) 0.6, Sodium Level 133L, Potassium Level 4.2, Chloride Level 97L, Carbon Dioxide Level 28, Anion Gap 8, Blood Urea Nitrogen 20H, Creatinine 0.7, Estimat Glomerular Filtration Rate > 60, Glucose Level 263H , Calcium Level 8.1L, Phosphorus Level 3.8, Magnesium Level 2.0, Total Bilirubin 0.2, Aspartate Amino Transf (AST/SGOT) 17, Alanine Aminotransferase ( ALT/SGPT) 29, Alkaline Phosphatase 135H, Total Protein 6.4, Albumin 2.6L, Globulin 3.8, Albumin/Globulin Ratio 0.7L 02/27/20 05:18: POC Whole Blood Glucose 256H 02/27/20 11:47: POC Whole Blood Glucose [Pending] Height (Feet): 4 Height (Inches): 11.00 Weight (Pounds): 155 Objective CV RR Trach OK. Lungs B Ronchi Abd SNT. BS + E No TIENE Fahad Bridges MD Feb 27, 2020 12:10
--- NOTE | 2020-02-27 12:28 | Infectious Diseases Prog Note ---
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 Will continue to follow along with you. Discussed duncan RN. Subjective Allergies: Coded Allergies: No Known Allergies (Unverified , 11/06/18) afebrile wbc increased 2nd COVID pcr sent yesterday per pulm Objective Last 24 Hour Vital Signs Date Time Temp Pulse Resp B/P (MAP) Pulse Ox O2 Delivery O2 Flow Rate FiO2 02/27/20 12:01 132/62 02/27/20 12:00 81 02/27/20 12:00 35 02/27/20 11:53 99.1 81 17 132/62 (85) 100 02/27/20 08:18 90 133/62 02/27/20 08:17 90 133/62 02/27/20 08:00 Mechanical Ventilator 02/27/20 08:00 82 02/27/20 08:00 98.4 90 25 133/62 (85) 100 02/27/20 08:00 35 02/27/20 07:24 81 18 100 Mechanical Ventilator 35 85 18 35 02/27/20 05:36 137/65 02/27/20 04:00 87 02/27/20 04:00 35 02/27/20 04:00 Mechanical Ventilator 02/27/20 04:00 98.0 88 18 137/65 (89) 100 02/27/20 02:46 93 27 35 02/27/20 01:15 83 19 100 Mechanical Ventilator 35 02/27/20 00:00 84 02/27/20 00:00 35 02/27/20 00:00 84 02/27/20 00:00 Mechanical Ventilator 02/27/20 00:00 98.6 84 22 134/67 (89) 100 02/26/20 23:26 135/61 02/26/20 22:40 82 19 35 02/26/20 20:00 99.0 86 24 138/68 (91) 100 02/26/20 20:00 Mechanical Ventilator 02/26/20 20:00 81 02/26/20 20:00 35 02/26/20 19:51 84 34 35 02/26/20 17:33 143/52 02/26/20 16:00 98.6 80 21 143/52 (82) 100 02/26/20 16:00 35 02/26/20 16:00 Mechanical Ventilator 02/26/20 16:00 85 02/26/20 15:30 86 21 35 02/26/20 13:54 80 21 100 Mechanical Ventilator 35 80 21 35 02/26/20 13:30 133/63 Height (Feet): 4 Height (Inches): 11.00 Weight (Pounds): 155 GENERAL: This is an elderly female who is in no acute distress. HEENT: Head is normocephalic and atraumatic. Pupils are equal, round and reactive to light. NECK: Supple. She has midline tracheostomy. LUNGS: Bilateral rhonchi. HEART: Regular rate and rhythm without rubs, murmurs, or gallops. ABDOMEN: She has a G-tube. Soft, nontender. EXTREMITIES: No clubbing, cyanosis, or edema. NEUROLOGIC: She is obtunded. There were no gross focal findings. Microbiology Date/Time Source Procedure Growth Status 02/26/20 13:00 Straight Cath Urine Culture - Preliminary NO GROWTH Resulted Laboratory Tests Test 02/26/20 17:26 02/26/20 23:23 02/27/20 04:40 02/27/20 05:18 POC Whole Blood Glucose 183 MG/DL (74-106) H 276 MG/DL (74-106) H 256 MG/DL (74-106) H White Blood Count 15.1 K/UL (4.8-10.8) H Red Blood Count 3.62 M/UL (4.20-5.40) L Hemoglobin 11.7 G/DL (12.0-16.0) L Hematocrit 35.6 % (37.0-47.0) L Mean Corpuscular Volume 98 FL (80-99) Mean Corpuscular Hemoglobin 32.3 PG (27.0-31.0) H Mean Corpuscular Hemoglobin Concent 32.8 G/DL (32.0-36.0) Red Cell Distribution Width 13.4 % (11.6-14.8) Platelet Count 476 K/UL (150-450) H Mean Platelet Volume 5.7 FL (6.5-10.1) L Neutrophils (%) (Auto) 75.3 % (45.0-75.0) H Lymphocytes (%) (Auto) 14.9 % (20.0-45.0) L Monocytes (%) (Auto) 4.8 % (1.0-10.0) Eosinophils (%) (Auto) 4.4 % (0.0-3.0) H Basophils (%) (Auto) 0.6 % (0.0-2.0) Sodium Level 133 MMOL/L (136-145) L Potassium Level 4.2 MMOL/L (3.5-5.1) Chloride Level 97 MMOL/L (98-107) L Carbon Dioxide Level 28 MMOL/L (21-32) Anion Gap 8 mmol/L (5-15) Blood Urea Nitrogen 20 mg/dL (7-18) H Creatinine 0.7 MG/DL (0.55-1.30) Estimat Glomerular Filtration Rate > 60 mL/min (>60) Glucose Level 263 MG/DL (74-106) H Calcium Level 8.1 MG/DL (8.5-10.1) L Phosphorus Level 3.8 MG/DL (2.5-4.9) Magnesium Level 2.0 MG/DL (1.8-2.4) Total Bilirubin 0.2 MG/DL (0.2-1.0) Aspartate Amino Transf (AST/SGOT) 17 U/L (15-37) Alanine Aminotransferase (ALT/SGPT) 29 U/L (12-78) Alkaline Phosphatase 135 U/L (46-116) H Total Protein 6.4 G/DL (6.4-8.2) Albumin 2.6 G/DL (3.4-5.0) L Globulin 3.8 g/dL Albumin/Globulin Ratio 0.7 (1.0-2.7) L Test 02/27/20 11:47 POC Whole Blood Glucose Pending Current Medications Medications (Trade) Dose Ordered Sig/Dell Route PRN Reason Start Time Stop Time Status Last Admin Dose Admin Acetaminophen/ Hydrocodone Bitart (Max 5/325) 1 tab Q8H PRN GT FOR PAIN 02/24/20 18:30 03/02/20 18:29 Albuterol Sulfate (Proventil) 2.5 mg Q6HRT IN-LINE 02/27/20 01:00 02/29/20 18:29 02/27/20 08:16 Amlodipine Besylate (Norvasc) 10 mg DAILY GT 02/25/20 09:00 03/26/20 08:59 02/27/20 08:18 Atenolol (Tenormin) 50 mg DAILY GT 02/25/20 09:00 03/26/20 08:59 02/27/20 08:17 Demeclocycline HCl (Declomycin) 300 mg TWICE A DAY GT 02/25/20 09:00 03/03/20 08:59 02/27/20 08:18 Dextrose (Dextrose 50%) 25 ml Q30M PRN IV Hypoglycemia 02/24/20 18:45 05/24/20 18:44 Dextrose (Dextrose 50%) 50 ml Q30M PRN IV Hypoglycemia 02/24/20 18:45 05/24/20 18:44 Docusate Sodium (Colace) 100 mg DAILY ORAL 02/25/20 09:00 03/26/20 08:59 02/27/20 08:18 Heparin Sodium (Porcine) (Heparin 5000 units/ml) 5,000 units EVERY 12 HOURS SUBQ 02/24/20 21:00 04/09/20 20:59 02/27/20 09:13 Hydralazine HCl (Apresoline) 50 mg EVERY 6 HOURS GT 02/26/20 18:00 05/26/20 17:59 02/27/20 12:01 Insulin Aspart (NovoLOG) Sliding scale: 150-1,99= 2un... Q6HR SUBQ 02/26/20 00:00 05/25/20 06:29 02/27/20 11:56 Levetiracetam (Keppra) 750 mg DAILY GT 02/25/20 09:00 03/26/20 08:59 02/27/20 08:18 Piperacillin Sod/ Tazobactam Sod 3.375 gm/Sodium Chloride 110 ml @ 27.5 mls/hr EVERY 8 HOURS IVPB 02/24/20 22:00 02/29/20 21:59 02/27/20 05:37 Vancomycin HCl (Vanco pharmacy to dose) 1 ea DAILY PRN MISC Per rx protocol 02/24/20 21:00 03/25/20 20:59 Vancomycin HCl 500 mg/Dextrose 110 ml @ 110 mls/hr Q24H IVPB 02/25/20 21:00 03/01/20 20:59 02/26/20 21:14 Lilli Gonzalez M.D. Feb 27, 2020 12:28
--- NOTE | 2020-02-27 14:12 | Diagnostic Imaging Report ---
Indication: Shortness of breath Technique: One view of the chest Comparison: 02/24/2020 Findings: Inspiration is suboptimal with crowding of the bronchovascular markings. Ventriculoperitoneal shunt tubing traverses the right side of the chest. Tracheostomy is again demonstrated. Interim development of infiltrate in the right upper lobe. There may be some peribronchovascular opacities developing in the right midlung and left lung base as well. There is central bronchial wall thickening. The pleural spaces are clear. The heart size is normal. Impression: Developing right upper lobe infiltrate and possibly bilateral perihilar infiltrates, likely pneumonia. Other findings as noted
--- NOTE | 2020-02-27 15:02 | Consultation ---
History of Present Illness General Date patient seen: Feb 27, 2020 Chief Complaint: Abnormal Labs Present Illness HPI This is a very unfortunate 69-year-old female with multi-medical comorbidities including chronic respiratory failure trach, intracranial bleed, atrial fibrillation, and diabetes who was transferred from a assisted facility with abnormal laboratories. Specifically, she had a sodium of 122 and elevated BUN of over 100. She has had similar problems in the last month and required intermittent intravenous hydration. She had, had some improvement, but on this occasion, her numbers are much more severe and abnormal. On evaluation in the emergency room, the hyponatremia was confirmed. She also was noted to have an elevated white count of 18,000. Admitted to [facility] for further care management on admission identified to have multiple wounds abnormal labs and imaging requiring surgical care and management. Surgery called to evaluate assist with care. Patient seen, patient evaluated, chart reviewed Allergies: Coded Allergies: No Known Allergies (Unverified , 11/06/18) Medication History Scheduled Albuterol Sulfate* (Albuterol Sulfate Hhn*), 3 ML INH Q6H, (Reported) Amantadine HCl (Amantadine), 100 MG GT TWICE A DAY, (Reported) Amino Acids/Protein Hydrolys (Pro-Stat Liquid), 30 ML GT DAILY, (Reported) Amlodipine Besylate* (Amlodipine Besylate*), 10 MG GT DAILY, (Reported) Arginine/Glutamine/Calcium Hmb (Dajuan Packet), 1 EACH GT TWICE A DAY, (Reported) Ascorbic Acid (Ascorbic Acid), 500 MG GT DAILY, (Reported) Atenolol* (Tenormin*), 50 MG GT DAILY, (Reported) Ca Cmb 1/Vit D3/B-6/Fa/B12/Av (Vitamin D3-Aloe 1,000 Unit Tab), 2 EACH GT DAILY, (Reported) Cranberry Extract (Cranberry), 200 MG GT BID, (Reported) Demeclocycline HCl (Demeclocycline HCl), 300 MG GT TWICE A DAY, (Reported) Docusate Sodium* (Colace*), 100 MG GT DAILY, (Reported) Ferrous Sulfate (Ferrous Sulfate), 330 MG GT DAILY, (Reported) Folic Acid* (Folic Acid*), 1 MG GT DAILY, (Reported) Heparin Sod (Porcine) (Heparin Sodium*), 5,000 UNITS SUBQ EVERY 12 HOURS, ( Reported) Hydralazine Hcl* (Hydralazine Hcl*), 25 MG GT EVERY 6 HOURS, (Reported) Insulin Aspart (Novolog Flexpen), SQ Q6HR, (Reported) Insulin Detemir (Levemir), 5 UNITS SUBQ EVERY 12 HOURS, (Reported) Levetiracetam (Levetiracetam), 500 MG GT BID, (Reported) Levetiracetam (Keppra), 7.5 ML GT DAILY, (Reported) Loperamide Hcl (Imodium A-D), 2 MG GT Q8HR, (Reported) Multivitamin Liquid* (Multi-Delyn*), 15 ML GT DAILY, (Reported) Omeprazole Magnesium (Prilosec Otc), 20 MG GT BID, (Reported) Protein Supplement (Promod), 30 ML PO DAILY, (Reported) Psyllium Husk (with Dextrose) (Konsyl Formula-D Fiber Powder), Unknown Dose GT DAILY, (Reported) Thiamine Hcl* (Vitamin B-1*), 250 MG GT DAILY, (Reported) Thiamine Hcl* (Vitamin B-1*), 100 MG GT DAILY, (Reported) Scheduled PRN Hydrocodone Bit/Acetaminophen 5-325* ([place] 5-325 Tablet*), 1 TAB GT Q8HR PRN for FOR PAIN, (Reported) Miscellaneous Medications Insulin Regular, Human (Humulin R), 0 SUBQ, (Reported) Patient History Limited by: medical condition History Provided By: Medical Record, PMD Healthcare decision maker N Resuscitation status Advanced Directive on File Past Medical/Surgical History Past Medical/Surgical History: (1) Decubital ulcer (2) Sepsis (3) Respiratory failure (4) History of hypertension (5) Feeding by G-tube (6) Leukocytosis (7) Chronic respiratory failure (8) History of diabetes mellitus (9) Hyponatremia Review of Systems ROS Narrative Limited given patient's mental status and condition Physical Exam General Appearance: mild distress Lines, tubes and drains: other HEENT: normocephalic, atraumatic Neck: trach Respiratory/Chest: decreased breath sounds, on vent Cardiovascular/Chest: regular rhythm Abdomen: soft, no organomegaly, no mass, feeding tube, other Genitourinary/Rectal: normal rectal exam Extremities: non-tender, inflammation, slow capillary refill Skin Exam: warm/dry Neurologic: other Last 24 Hour Vital Signs Date Time Temp Pulse Resp B/P (MAP) Pulse Ox O2 Delivery O2 Flow Rate FiO2 02/27/20 12:01 132/62 02/27/20 12:00 Mechanical Ventilator 02/27/20 12:00 81 02/27/20 12:00 35 02/27/20 11:53 99.1 81 17 132/62 (85) 100 02/27/20 11:15 83 22 35 02/27/20 08:18 90 133/62 02/27/20 08:17 90 133/62 02/27/20 08:00 Mechanical Ventilator 02/27/20 08:00 82 02/27/20 08:00 98.4 90 25 133/62 (85) 100 02/27/20 08:00 35 02/27/20 07:24 81 18 100 Mechanical Ventilator 35 85 18 35 02/27/20 05:36 137/65 02/27/20 04:00 87 02/27/20 04:00 35 02/27/20 04:00 Mechanical Ventilator 02/27/20 04:00 98.0 88 18 137/65 (89) 100 02/27/20 02:46 93 27 35 02/27/20 01:15 83 19 100 Mechanical Ventilator 35 02/27/20 00:00 84 02/27/20 00:00 35 02/27/20 00:00 84 02/27/20 00:00 Mechanical Ventilator 02/27/20 00:00 98.6 84 22 134/67 (89) 100 02/26/20 23:26 135/61 02/26/20 22:40 82 19 35 02/26/20 20:00 99.0 86 24 138/68 (91) 100 02/26/20 20:00 Mechanical Ventilator 02/26/20 20:00 81 02/26/20 20:00 35 02/26/20 19:51 84 34 35 02/26/20 17:33 143/52 02/26/20 16:00 98.6 80 21 143/52 (82) 100 02/26/20 16:00 35 02/26/20 16:00 Mechanical Ventilator 02/26/20 16:00 85 02/26/20 15:30 86 21 35 Intake and Output 7/16/20 7/17/20 19:00 07:00 Intake Total 373.75 ml 931.25 ml Output Total 300 ml 400 ml Balance 73.75 ml 531.25 ml Intake Free Water 30 ml 120 ml IV Total 178.75 ml 151.25 ml Tube Feeding 165 ml 660 ml Output Urine Total 300 ml 400 ml Laboratory Tests Test 02/26/20 17:26 02/26/20 23:23 02/27/20 04:40 02/27/20 05:18 POC Whole Blood Glucose 183 MG/DL (74-106) H 276 MG/DL (74-106) H 256 MG/DL (74-106) H White Blood Count 15.1 K/UL (4.8-10.8) H Red Blood Count 3.62 M/UL (4.20-5.40) L Hemoglobin 11.7 G/DL (12.0-16.0) L Hematocrit 35.6 % (37.0-47.0) L Mean Corpuscular Volume 98 FL (80-99) Mean Corpuscular Hemoglobin 32.3 PG (27.0-31.0) H Mean Corpuscular Hemoglobin Concent 32.8 G/DL (32.0-36.0) Red Cell Distribution Width 13.4 % (11.6-14.8) Platelet Count 476 K/UL (150-450) H Mean Platelet Volume 5.7 FL (6.5-10.1) L Neutrophils (%) (Auto) 75.3 % (45.0-75.0) H Lymphocytes (%) (Auto) 14.9 % (20.0-45.0) L Monocytes (%) (Auto) 4.8 % (1.0-10.0) Eosinophils (%) (Auto) 4.4 % (0.0-3.0) H Basophils (%) (Auto) 0.6 % (0.0-2.0) Sodium Level 133 MMOL/L (136-145) L Potassium Level 4.2 MMOL/L (3.5-5.1) Chloride Level 97 MMOL/L (98-107) L Carbon Dioxide Level 28 MMOL/L (21-32) Anion Gap 8 mmol/L (5-15) Blood Urea Nitrogen 20 mg/dL (7-18) H Creatinine 0.7 MG/DL (0.55-1.30) Estimat Glomerular Filtration Rate > 60 mL/min (>60) Glucose Level 263 MG/DL (74-106) H Calcium Level 8.1 MG/DL (8.5-10.1) L Phosphorus Level 3.8 MG/DL (2.5-4.9) Magnesium Level 2.0 MG/DL (1.8-2.4) Total Bilirubin 0.2 MG/DL (0.2-1.0) Aspartate Amino Transf (AST/SGOT) 17 U/L (15-37) Alanine Aminotransferase (ALT/SGPT) 29 U/L (12-78) Alkaline Phosphatase 135 U/L (46-116) H Total Protein 6.4 G/DL (6.4-8.2) Albumin 2.6 G/DL (3.4-5.0) L Globulin 3.8 g/dL Albumin/Globulin Ratio 0.7 (1.0-2.7) L Test 02/27/20 11:47 POC Whole Blood Glucose Pending Height (Feet): 4 Height (Inches): 11.00 Weight (Pounds): 155 Medications Current Medications Medications (Trade) Dose Ordered Sig/Dell Route PRN Reason Start Time Stop Time Status Last Admin Dose Admin Acetaminophen (Tylenol) 650 mg Q4H PRN GT Temp >100.5 02/27/20 13:15 03/28/20 13:14 Acetaminophen/ Hydrocodone Bitart ([place] 5/325) 1 tab Q8H PRN GT FOR PAIN 02/24/20 18:30 03/02/20 18:29 Albuterol Sulfate (Proventil) 2.5 mg Q6HRT IN-LINE 02/27/20 01:00 02/29/20 18:29 02/27/20 08:16 Amlodipine Besylate (Norvasc) 10 mg DAILY GT 02/25/20 09:00 03/26/20 08:59 02/27/20 08:18 Atenolol (Tenormin) 50 mg DAILY GT 02/25/20 09:00 03/26/20 08:59 02/27/20 08:17 Demeclocycline HCl (Declomycin) 300 mg TWICE A DAY GT 02/25/20 09:00 03/03/20 08:59 02/27/20 08:18 Dextrose (Dextrose 50%) 25 ml Q30M PRN IV Hypoglycemia 02/24/20 18:45 05/24/20 18:44 Dextrose (Dextrose 50%) 50 ml Q30M PRN IV Hypoglycemia 02/24/20 18:45 05/24/20 18:44 Docusate Sodium (Colace) 100 mg DAILY NG 02/28/20 09:00 03/29/20 08:59 Heparin Sodium (Porcine) (Heparin 5000 units/ml) 5,000 units EVERY 12 HOURS SUBQ 02/24/20 21:00 04/09/20 20:59 02/27/20 09:13 Hydralazine HCl (Apresoline) 50 mg EVERY 6 HOURS GT 02/26/20 18:00 05/26/20 17:59 02/27/20 12:01 Insulin Aspart (NovoLOG) Sliding scale: 150-1,99= 2un... Q6HR SUBQ 02/26/20 00:00 05/25/20 06:29 02/27/20 11:56 Levetiracetam (Keppra) 750 mg DAILY GT 02/25/20 09:00 03/26/20 08:59 02/27/20 08:18 Piperacillin Sod/ Tazobactam Sod 3.375 gm/Sodium Chloride 110 ml @ 27.5 mls/hr EVERY 8 HOURS IVPB 02/24/20 22:00 02/29/20 21:59 02/27/20 13:02 [facility]com[facility] 1 ea DAILY PRN MISC Per rx protocol 02/24/20 21:00 03/25/20 20:59 Vancomycin HCl 500 mg/Sodium Chloride 110 ml @ 110 mls/hr Q24H IVPB 02/27/20 21:00 03/01/20 20:59 Assessment/Plan Problem List: (1) Decubital ulcer Assessment & Plan: Pt presented on admission with Contractures, Multiple Pressure injuries. 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 Denuded area at cleft. Hyperpigmentation noted at distal base of injury. Purpuric area that is indurated noted to L ischium. Incontinence Associated dermatitis noted to Perineum and Posterior aspect Upper R thigh. Affected areas are erythematous and macerated. Non-Blanchable erythema without induration or fluctuance R Hallux.(L)3cm x (W) 3.5cm. Non-Blanching erythema without induration or fluctuance L Hallux.(L)2.5cm x (W) 2.8cm. Intact Serous filled Blister with surrounding non-Blanching erythema noted to distal/lateral R foot. Both heels are boggy with non-Blanchable erythema. Tx.Plan: Apply Moisture Barrier Paste to Sacrum. Cover with Optifoam drsg. Change every 3 days and prn. Apply Moisture Barrier Paste to perineum,ischial tuberosities and posterior upper thighs with each perineal care. Apply Cavilon Skin Barrier to R heel, Malleoli, R Hallux, distal/lateral R foot. Cover each site with Optifoam drsg. Change every 7 days and prn. Apply Cavilon Skin Barrier to L Heel ,L Hallux,Malleoli and distal/lateral L foot. Cover each site with Optifoam drsgs. Change every 7 days and prn. Reposition at least every 2hours or as tolerated. Off-load heels with pillow. APM/POOJA Mattress overlay. ICD Codes: L89.90 - Pressure ulcer of unspecified site, unspecified stage SNOMED: 800658814 (2) Sepsis Assessment & Plan: 68 female leukocytosis abnormal labs anemia chest x-ray developing on support. Patient examination completed no signs of active infection from decubitus ulcers. The patient on IV antibiotics currently abdominal examination noted trach noted We will continue to follow monitor with local examination. Continue antibiotics per infectious disease inspiration is suboptimal with crowding of the bronchovascular markings. Ventriculoperitoneal shunt tubing traverses the right side of the chest. Tracheostomy is again demonstrated. Interim development of infiltrate in the right upper lobe. There may be some peribronchovascular opacities developing in the right midlung and left lung base as well. There is central bronchial wall thickening. The pleural spaces are clear. The heart size is normal. Nutritional optimization ICD Codes: A41.9 - Sepsis, unspecified organism SNOMED: 88448147 (3) Respiratory failure ICD Codes: J96.90 - Respiratory failure, unspecified, unspecified whether with hypoxia or hypercapnia SNOMED: 850633795 (4) History of hypertension ICD Codes: Z86.79 - Personal history of other diseases of the circulatory system SNOMED: 235573464 (5) Feeding by G-tube ICD Codes: Z93.1 - Gastrostomy status SNOMED: 822259298, 981206647, 201890087 (6) Leukocytosis ICD Codes: D72.829 - Elevated white blood cell count, unspecified SNOMED: 838156122, 900793086 Qualifiers: Qualified Codes: D72.829 - Elevated white blood cell count, unspecified (7) Chronic respiratory failure ICD Codes: J96.10 - Chronic respiratory failure, unspecified whether with hypoxia or hypercapnia SNOMED: 61280201 (8) History of diabetes mellitus ICD Codes: Z86.39 - Personal history of other endocrine, nutritional and metabolic disease SNOMED: 474385718 (9) Hyponatremia ICD Codes: E87.1 - Hypo-osmolality and hyponatremia SNOMED: 70620937 Arnold Hi Feb 27, 2020 15:02
[2020-02-27 16:00] VITALS: BP 144/72
[2020-02-27 20:00] VITALS: BP 124/59
--- NOTE | 2020-02-27 20:14 | Internal Med Progress Note ---
Subjective Physician Name Alek Lambert Attending Physician Sandra Bueno MD Current Medications Medications (Trade) Dose Ordered Sig/Dell Route PRN Reason Start Time Stop Time Status Last Admin Dose Admin Acetaminophen (Tylenol) 650 mg Q4H PRN GT Temp >100.5 02/27/20 13:15 03/28/20 13:14 Acetaminophen/ Hydrocodone Bitart ([place] 5/325) 1 tab Q8H PRN GT FOR PAIN 02/24/20 18:30 03/02/20 18:29 Albuterol Sulfate (Proventil) 2.5 mg Q6HRT IN-LINE 02/27/20 01:00 02/29/20 18:29 02/27/20 19:06 Amlodipine Besylate (Norvasc) 10 mg DAILY GT 02/25/20 09:00 03/26/20 08:59 02/27/20 08:18 Atenolol (Tenormin) 50 mg DAILY GT 02/25/20 09:00 03/26/20 08:59 02/27/20 08:17 Demeclocycline HCl (Declomycin) 300 mg TWICE A DAY GT 02/25/20 09:00 03/03/20 08:59 02/27/20 17:07 Dextrose (Dextrose 50%) 25 ml Q30M PRN IV Hypoglycemia 02/24/20 18:45 05/24/20 18:44 Dextrose (Dextrose 50%) 50 ml Q30M PRN IV Hypoglycemia 02/24/20 18:45 05/24/20 18:44 Docusate Sodium (Colace) 100 mg DAILY NG 02/28/20 09:00 03/29/20 08:59 Heparin Sodium (Porcine) (Heparin 5000 units/ml) 5,000 units EVERY 12 HOURS SUBQ 02/24/20 21:00 04/09/20 20:59 02/27/20 09:13 Hydralazine HCl (Apresoline) 50 mg EVERY 6 HOURS GT 02/26/20 18:00 05/26/20 17:59 02/27/20 17:07 Insulin Aspart (NovoLOG) Sliding scale: 150-1,99= 2un... Q6HR SUBQ 02/26/20 00:00 05/25/20 06:29 02/27/20 17:16 Levetiracetam (Keppra) 750 mg DAILY GT 02/25/20 09:00 03/26/20 08:59 02/27/20 08:18 Piperacillin Sod/ Tazobactam Sod 3.375 gm/Sodium Chloride 110 ml @ 27.5 mls/hr EVERY 8 HOURS IVPB 02/24/20 22:00 02/29/20 21:59 02/27/20 13:02 Vancomycin HCl ([facility] pharmacy to dose) 1 ea DAILY PRN MISC Per rx protocol 02/24/20 21:00 03/25/20 20:59 Vancomycin HCl 500 mg/Sodium Chloride 110 ml @ 110 mls/hr Q24H IVPB 02/27/20 21:00 03/01/20 20:59 Allergies: Coded Allergies: No Known Allergies (Unverified , 11/06/18) Subjective vent dependent, unresponsive, cannot follow command. Objective Last Vital Signs Date Time Temp Pulse Resp B/P (MAP) Pulse Ox O2 Delivery O2 Flow Rate FiO2 02/27/20 19:07 86 20 100 Mechanical Ventilator 35 84 21 35 02/27/20 17:07 144/72 02/27/20 16:00 98.1 02/24/20 17:16 4.0 Laboratory Tests Test 02/26/20 23:23 02/27/20 04:40 02/27/20 05:18 02/27/20 11:47 POC Whole Blood Glucose 276 MG/DL (74-106) H 256 MG/DL (74-106) H Pending White Blood Count 15.1 K/UL (4.8-10.8) H Red Blood Count 3.62 M/UL (4.20-5.40) L Hemoglobin 11.7 G/DL (12.0-16.0) L Hematocrit 35.6 % (37.0-47.0) L Mean Corpuscular Volume 98 FL (80-99) Mean Corpuscular Hemoglobin 32.3 PG (27.0-31.0) H Mean Corpuscular Hemoglobin Concent 32.8 G/DL (32.0-36.0) Red Cell Distribution Width 13.4 % (11.6-14.8) Platelet Count 476 K/UL (150-450) H Mean Platelet Volume 5.7 FL (6.5-10.1) L Neutrophils (%) (Auto) 75.3 % (45.0-75.0) H Lymphocytes (%) (Auto) 14.9 % (20.0-45.0) L Monocytes (%) (Auto) 4.8 % (1.0-10.0) Eosinophils (%) (Auto) 4.4 % (0.0-3.0) H Basophils (%) (Auto) 0.6 % (0.0-2.0) Sodium Level 133 MMOL/L (136-145) L Potassium Level 4.2 MMOL/L (3.5-5.1) Chloride Level 97 MMOL/L (98-107) L Carbon Dioxide Level 28 MMOL/L (21-32) Anion Gap 8 mmol/L (5-15) Blood Urea Nitrogen 20 mg/dL (7-18) H Creatinine 0.7 MG/DL (0.55-1.30) Estimat Glomerular Filtration Rate > 60 mL/min (>60) Glucose Level 263 MG/DL (74-106) H Calcium Level 8.1 MG/DL (8.5-10.1) L Phosphorus Level 3.8 MG/DL (2.5-4.9) Magnesium Level 2.0 MG/DL (1.8-2.4) Total Bilirubin 0.2 MG/DL (0.2-1.0) Aspartate Amino Transf (AST/SGOT) 17 U/L (15-37) Alanine Aminotransferase (ALT/SGPT) 29 U/L (12-78) Alkaline Phosphatase 135 U/L (46-116) H Total Protein 6.4 G/DL (6.4-8.2) Albumin 2.6 G/DL (3.4-5.0) L Globulin 3.8 g/dL Albumin/Globulin Ratio 0.7 (1.0-2.7) L Test 02/27/20 17:03 02/27/20 19:40 POC Whole Blood Glucose Pending Vancomycin Level Trough Pending Microbiology Date/Time Source Procedure Growth Status 02/26/20 13:00 Straight Cath Urine Culture - Preliminary NO GROWTH Resulted Intake and Output 02/26/20 02/27/20 19:00 07:00 Intake Total 373.75 ml 986.25 ml Output Total 300 ml 400 ml Balance 73.75 ml 586.25 ml Intake Free Water 30 ml 120 ml IV Total 178.75 ml 151.25 ml Tube Feeding 165 ml 715 ml Output Urine Total 300 ml 400 ml Objective General: unable to follow command, vent dependent. HEENT: NCAT, sclera anicteric, PERRL, Neck: Supple, trach site intact Lungs: mechanical breath sounds, decreased air in the bases,, no Wheeze. Heart: Regular rate and rhythm, normal distant heart sound.S1/S2, no murmur, Abdomen: soft, nontender, nondistended.PEG site intact : Fitzgerald catheter. Extremities: No Cyanosis , clubbing or edema. Neuro:limited secondary to patient status, Assessment/Plan Assessment/Plan 1) Sepsis (2) Chronic respiratory failure, Vent dependent (3) Hyponatremia (4) Decubital ulcer (5) History of hypertension (6) History of diabetes mellitus (7) Family history of CVA (8) Feeding by G-tube (9) Ventriculo-peritoneal shunt status (10)right upper lobe pneumonia. Respiratory: monitor respiratory rate, adjust FIO2, CXR Cardiac: continue to monitor HR/BP Renal: F/U I&O, keep IV fluid Infectious Disease: check cultures, continue antibiotics, other - wbc still high Gastrointestinal: continue feedings/current rate Endocrine: monitor blood sugar Prophylaxis: Protonix Time Spent (Minutes): 40 Notes Reviewed: aircraft mechanic armament, renal Discussed with: nurses, consultants, case resolution specialist Antibiotics: Vancomycin and Zosyn. Follow-up with cultures and laboratory. Alek Lambert MD Feb 27, 2020 20:14
[2020-02-27] MEDS ORDERED: Vancomycin 500 MG in NS 110 ML IVPB SCH (21:00)
[2020-02-27] MEDS ORDERED: Vancomycin 750mg/NS 275ml IVPB SCH ×2 (22:00)
[2020-02-28] VITALS: BP 142/64
[2020-02-28] MEDS: Albuterol ud Inhalation IN-LINE SCH ×4 (01:00→19:36)
[2020-02-28] MEDS: Vancomycin 750mg/NS 275ml IVPB SCH ×4 (01:39→13:22)
[2020-02-28 04:00] VITALS: BP 131/58
[2020-02-28 05:02] LABS: BASOPHILS % (AUTO) 0.4 % (0.0-2.0); EOSINOPHILS % (AUTO) 3.8 % (0.0-3.0); HEMATOCRIT 36.7 % (37.0-47.0); LYMPHOCYTES % (AUTO) 15.6 % (20.0-45.0); MEAN CORPUSCULAR VOLUME 99 FL (80-99); MONOCYTES % (AUTO) 4.9 % (1.0-10.0); NEUTROPHILS % (AUTO) 75.3 % (45.0-75.0); PLATELET COUNT 425 K/UL (150-450); RED CELL DISTRIBUTION WIDTH 13.5 % (11.6-14.8); WHITE BLOOD COUNT 16.1 K/UL (4.8-10.8)
[2020-02-28] MEDS: Piperacillin/Tazobactam 3.375 GM in NS 110 ML IVPB SCH ×3 (05:10→20:53)
[2020-02-28] MEDS: HydrALAZINE 50mg tab GT SCH ×3 (05:14→17:16)
[2020-02-28] MEDS: NovoLOG Insulin Flexpen SUBQ SCH ×3 (05:18→17:17)
[2020-02-28 05:28] LABS: ALANINE AMINOTRANSFERASE 24 U/L (12-78); ALBUMIN 2.6 G/DL (3.4-5.0); ALBUMIN/GLOBULIN RATIO 0.7 (1.0-2.7); ALKALINE PHOSPHATASE 131 U/L (46-116); ANION GAP 7 mmol/L (5-15); ASPARTATE AMINO TRANSFERASE 15 U/L (15-37); BILIRUBIN,TOTAL 0.3 MG/DL (0.2-1.0); BLOOD UREA NITROGEN 19 mg/dL (7-18); CALCIUM 8.5 MG/DL (8.5-10.1); CARBON DIOXIDE 28 MMOL/L (21-32); CHLORIDE 98 MMOL/L (98-107); CREATININE 0.7 MG/DL (0.55-1.30); POTASSIUM 4.7 MMOL/L (3.5-5.1); SODIUM 133 MMOL/L (136-145)
[2020-02-28 08:00] VITALS: BP 109/50
[2020-02-28] MEDS: Docusate 100mg/10ml Liq NG SCH (08:32)
[2020-02-28] MEDS: Demeclocycline 150mg tab GT SCH ×2 (08:39→17:16)
[2020-02-28] MEDS: levETIRAcetam 500mg/5ml Liquid GT SCH (08:39)
[2020-02-28] MEDS: Heparin 5000 units/ml inj SUBQ SCH ×2 (08:42→20:54)
--- NOTE | 2020-02-28 11:06 | Pulmonology Progress Note ---
Subjective ROS Limited/Unobtainable: Yes Allergies: Coded Allergies: No Known Allergies (Unverified , 11/06/18) Subjective with leucocytosis,afebrile, no signs of resp distress on current settings Objective Last 24 Hour Vital Signs Date Time Temp Pulse Resp B/P (MAP) Pulse Ox O2 Delivery O2 Flow Rate FiO2 02/28/20 08:46 89 02/28/20 08:39 86 109/50 02/28/20 08:39 86 109/50 02/28/20 08:00 Mechanical Ventilator 02/28/20 08:00 99.3 86 20 109/50 (69) 100 02/28/20 08:00 35 02/28/20 07:30 101 26 100 Mechanical Ventilator 35 98 22 35 02/28/20 05:14 139/68 02/28/20 04:00 99.3 88 19 131/58 (82) 100 02/28/20 04:00 35 02/28/20 04:00 Mechanical Ventilator 02/28/20 03:44 84 17 35 02/28/20 03:40 91 02/28/20 01:00 88 20 100 Mechanical Ventilator 35 02/28/20 00:00 Mechanical Ventilator 02/28/20 00:00 99.1 86 21 142/64 (90) 100 02/27/20 23:41 88 02/27/20 23:27 145/68 02/27/20 22:32 91 26 35 02/27/20 20:00 90 02/27/20 20:00 35 02/27/20 20:00 99.2 87 20 124/59 (80) 100 02/27/20 20:00 Mechanical Ventilator 02/27/20 19:07 86 20 100 Mechanical Ventilator 35 84 21 35 02/27/20 17:07 144/72 02/27/20 16:00 80 02/27/20 16:00 35 02/27/20 16:00 98.1 85 20 144/72 (96) 100 02/27/20 16:00 Mechanical Ventilator 02/27/20 15:29 78 22 100 Mechanical Ventilator 35 79 13 35 02/27/20 12:01 132/62 02/27/20 12:00 Mechanical Ventilator 02/27/20 12:00 81 02/27/20 12:00 35 02/27/20 11:53 99.1 81 17 132/62 (85) 100 02/27/20 11:15 83 22 35 Intake and Output 02/27/20 02/28/20 19:00 07:00 Intake Total 623.75 ml 990.0 ml Output Total 550 ml 500 ml Balance 73.75 ml 490.0 ml Intake Free Water 60 ml IV Total 178.75 ml 385.0 ml Tube Feeding 385 ml 605 ml Output Urine Total 550 ml 500 ml # Bowel Movements 4 1 General Appearance: no acute distress, other - chronically ill looking, bedridden vent dependent female vent AC 380-10-35% HEENT: normocephalic, atraumatic, anicteric, status post trach - Portex#7, secretions small amount, yellow color, thick consistency Respiratory: other - scattered rhonchi Cardiovascular: normal rate, regular rhythm - SR on tele Abdomen: soft, non tender - obese, other - G tube Extremities: no edema Neurologic: abnormal gait - bedridden , other - eyes open, not responsive to verbal stimuli Musculoskeletal: atrophy - BLE Microbiology Date/Time Source Procedure Growth Status 02/26/20 17:45 Blood Blood Culture - Preliminary NO GROWTH AFTER 24 HOURS Resulted 02/26/20 17:30 Blood Blood Culture - Preliminary NO GROWTH AFTER 24 HOURS Resulted 02/26/20 13:00 Straight Cath Urine Culture - Preliminary YEAST Resulted Laboratory Tests 02/27/20 11:47: POC Whole Blood Glucose [Pending] 02/27/20 17:03: POC Whole Blood Glucose [Pending] 02/27/20 19:40: Vancomycin Level Trough 3.7L 02/28/20 04:10: White Blood Count 16.1H, Red Blood Count 3.70L, Hemoglobin 12.0, Hematocrit 36.7L, Mean Corpuscular Volume 99, Mean Corpuscular Hemoglobin 32.3H, Mean Corpuscular Hemoglobin Concent 32.6, Red Cell Distribution Width 13.5, Platelet Count 425, Mean Platelet Volume 5.8L, Neutrophils (%) (Auto) 75.3H, Lymphocytes (%) (Auto) 15.6L, Monocytes (%) (Auto) 4.9, Eosinophils (%) (Auto) 3.8H, Basophils (%) (Auto) 0.4, Sodium Level 133L, Potassium Level 4.7, Chloride Level 98, Carbon Dioxide Level 28, Anion Gap 7, Blood Urea Nitrogen 19H, Creatinine 0.7, Estimat Glomerular Filtration Rate > 60, Glucose Level 270H, Calcium Level 8.5, Total Bilirubin 0.3, Aspartate Amino Transf (AST/SGOT) 15, Alanine Aminotransferase (ALT/SGPT) 24, Alkaline Phosphatase 131H, Total Protein 6.5, Albumin 2.6L, Globulin 3.9, Albumin/Globulin Ratio 0.7L Current Medications Medications (Trade) Dose Ordered Sig/Dell Route PRN Reason Start Time Stop Time Status Last Admin Dose Admin Acetaminophen (Tylenol) 650 mg Q4H PRN GT Temp >100.5 02/27/20 13:15 03/28/20 13:14 Acetaminophen/ Hydrocodone Bitart ([place] 5/325) 1 tab Q8H PRN GT FOR PAIN 02/24/20 18:30 03/02/20 18:29 Albuterol Sulfate (Proventil) 2.5 mg Q6HRT IN-LINE 02/27/20 01:00 02/29/20 18:29 02/28/20 08:48 Amlodipine Besylate (Norvasc) 10 mg DAILY GT 02/25/20 09:00 03/26/20 08:59 02/28/20 08:39 Atenolol (Tenormin) 50 mg DAILY GT 02/25/20 09:00 03/26/20 08:59 02/28/20 08:39 Demeclocycline HCl (Declomycin) 300 mg TWICE A DAY GT 02/25/20 09:00 03/03/20 08:59 02/28/20 08:39 Dextrose (Dextrose 50%) 25 ml Q30M PRN IV Hypoglycemia 02/24/20 18:45 05/24/20 18:44 Dextrose (Dextrose 50%) 50 ml Q30M PRN IV Hypoglycemia 02/24/20 18:45 05/24/20 18:44 Docusate Sodium (Colace) 100 mg DAILY NG 02/28/20 09:00 03/29/20 08:59 Heparin Sodium (Porcine) (Heparin 5000 units/ml) 5,000 units EVERY 12 HOURS SUBQ 02/24/20 21:00 04/09/20 20:59 02/28/20 08:42 Hydralazine HCl (Apresoline) 50 mg EVERY 6 HOURS GT 02/26/20 18:00 05/26/20 17:59 02/28/20 05:14 Insulin Aspart (NovoLOG) Sliding scale: 150-1,99= 2un... Q6HR SUBQ 02/26/20 00:00 05/25/20 06:29 02/28/20 05:18 Levetiracetam (Keppra) 750 mg DAILY GT 02/25/20 09:00 03/26/20 08:59 02/28/20 08:39 Piperacillin Sod/ Tazobactam Sod 3.375 gm/Sodium Chloride 110 ml @ 27.5 mls/hr EVERY 8 HOURS IVPB 02/24/20 22:00 02/29/20 21:59 02/28/20 05:10 Vancomycin HCl (Vanco pharmacy to dose) 1 ea DAILY PRN MISC Per rx protocol 02/24/20 21:00 03/25/20 20:59 Vancomycin HCl 750 mg/Sodium Chloride 275 ml @ 184 mls/hr Q12H IVPB 02/28/20 02:00 03/04/20 01:59 02/28/20 01:39 Assessment/Plan Assessment/Plan ASSESSMENT Sepsis Probably pneumonia Acute on chronic ventilator dependent respiratory failure with tracheostomy status Pyuria, possible UTI Dysphagia, feeding by G-tube Hyponatremia- corrected Hypertension Diabetes mellitus Status post right ventriculoperitoneal shunt CAD, history of [place] History of CVA Seizure disorder Sacral decubitus ulcer, POA Dementia PLAN OF CARE FENG vent support, [facility] pulmonary toilet baseline ABG in am and optimize settings as needed abx as per ID 02/23 BCX 1/2- CONS, BCX 02/25 NGTD , initial likely contmainant , UCX + yeast poss colonization - per ID f/up CXR 02/26 developing right upper lobe infiltrate and possibly bilateral perihilar infiltrates, likely pneumonia. 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
[2020-02-28 12:00] VITALS: BP 109/53
[2020-02-28] MEDS ORDERED: NS 275ml ONE ×2 (14:10→14:13)
[2020-02-28] MEDS ORDERED: Tubing IV Secondary IV ONE (14:13)
--- NOTE | 2020-02-28 15:43 | Surgery Progress Note ---
Surgery Progress Note Subjective Additional Comments no acute events labs noted exam stable Objective Last 24 Hour Vital Signs Date Time Temp Pulse Resp B/P (MAP) Pulse Ox O2 Delivery O2 Flow Rate FiO2 02/28/20 14:55 80 21 35 02/28/20 12:00 98.2 89 26 109/53 (71) 100 02/28/20 12:00 35 02/28/20 12:00 Mechanical Ventilator 02/28/20 11:57 84 10 35 02/28/20 11:39 85 02/28/20 11:37 128/58 02/28/20 08:46 89 02/28/20 08:39 86 109/50 02/28/20 08:39 86 109/50 02/28/20 08:00 Mechanical Ventilator 02/28/20 08:00 99.3 86 20 109/50 (69) 100 02/28/20 08:00 35 02/28/20 07:30 101 26 100 Mechanical Ventilator 35 98 22 35 02/28/20 05:14 139/68 02/28/20 04:00 99.3 88 19 131/58 (82) 100 02/28/20 04:00 35 02/28/20 04:00 Mechanical Ventilator 02/28/20 03:44 84 17 35 02/28/20 03:40 91 02/28/20 01:00 88 20 100 Mechanical Ventilator 35 02/28/20 00:00 Mechanical Ventilator 02/28/20 00:00 99.1 86 21 142/64 (90) 100 02/27/20 23:41 88 02/27/20 23:27 145/68 02/27/20 22:32 91 26 35 02/27/20 20:00 90 02/27/20 20:00 35 02/27/20 20:00 99.2 87 20 124/59 (80) 100 02/27/20 20:00 Mechanical Ventilator 02/27/20 19:07 86 20 100 Mechanical Ventilator 35 84 21 35 02/27/20 17:07 144/72 02/27/20 16:00 80 02/27/20 16:00 35 02/27/20 16:00 98.1 85 20 144/72 (96) 100 02/27/20 16:00 Mechanical Ventilator I&O Intake and Output 02/27/20 02/28/20 19:00 07:00 Intake Total 623.75 ml 990.0 ml Output Total 550 ml 500 ml Balance 73.75 ml 490.0 ml Intake Free Water 60 ml IV Total 178.75 ml 385.0 ml Tube Feeding 385 ml 605 ml Output Urine Total 550 ml 500 ml # Bowel Movements 4 1 Dressing: saturated Wound: clean Cardiovascular: RSR Respiratory: clear Abdomen: soft, non-tender, present bowel sounds Extremities: no edema, no cyanosis Laboratory Tests Test 02/27/20 17:03 02/27/20 19:40 02/28/20 04:10 02/28/20 11:31 POC Whole Blood Glucose Pending 293 MG/DL (74-106) H Vancomycin Level Trough 3.7 ug/mL (5.0-12.0) L White Blood Count 16.1 K/UL (4.8-10.8) H Red Blood Count 3.70 M/UL (4.20-5.40) L Hemoglobin 12.0 G/DL (12.0-16.0) Hematocrit 36.7 % (37.0-47.0) L Mean Corpuscular Volume 99 FL (80-99) Mean Corpuscular Hemoglobin 32.3 PG (27.0-31.0) H Mean Corpuscular Hemoglobin Concent 32.6 G/DL (32.0-36.0) Red Cell Distribution Width 13.5 % (11.6-14.8) Platelet Count 425 K/UL (150-450) Mean Platelet Volume 5.8 FL (6.5-10.1) L Neutrophils (%) (Auto) 75.3 % (45.0-75.0) H Lymphocytes (%) (Auto) 15.6 % (20.0-45.0) L Monocytes (%) (Auto) 4.9 % (1.0-10.0) Eosinophils (%) (Auto) 3.8 % (0.0-3.0) H Basophils (%) (Auto) 0.4 % (0.0-2.0) Sodium Level 133 MMOL/L (136-145) L Potassium Level 4.7 MMOL/L (3.5-5.1) Chloride Level 98 MMOL/L (98-107) Carbon Dioxide Level 28 MMOL/L (21-32) Anion Gap 7 mmol/L (5-15) Blood Urea Nitrogen 19 mg/dL (7-18) H Creatinine 0.7 MG/DL (0.55-1.30) Estimat Glomerular Filtration Rate > 60 mL/min (>60) Glucose Level 270 MG/DL (74-106) H Calcium Level 8.5 MG/DL (8.5-10.1) Total Bilirubin 0.3 MG/DL (0.2-1.0) Aspartate Amino Transf (AST/SGOT) 15 U/L (15-37) Alanine Aminotransferase (ALT/SGPT) 24 U/L (12-78) Alkaline Phosphatase 131 U/L (46-116) H Total Protein 6.5 G/DL (6.4-8.2) Albumin 2.6 G/DL (3.4-5.0) L Globulin 3.9 g/dL Albumin/Globulin Ratio 0.7 (1.0-2.7) L Plan Problems: (1) Decubital ulcer Assessment & Plan: Pt presented on admission with Contractures, Multiple Pressure injuries. 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 Denuded area at Mis cleft. Hyperpigmentation noted at distal base of injury. Purpuric area that is indurated noted to L ischium. Incontinence Associated dermatitis noted to Perineum and Posterior aspect Upper R thigh. Affected areas are erythematous and macerated. Non-Blanchable erythema without induration or fluctuance R Hallux.(L)3cm x (W) 3.5cm. Non-Blanching erythema without induration or fluctuance L Hallux.(L)2.5cm x (W) 2.8cm. Intact Serous filled Blister with surrounding non-Blanching erythema noted to distal/lateral R foot. Both heels are boggy with non-Blanchable erythema. Tx.Plan: Apply Moisture Barrier Paste to Sacrum. Cover with Optifoam drsg. Change every 3 days and prn. Apply Moisture Barrier Paste to perineum,ischial tuberosities and posterior upper thighs with each perineal care. Apply Cavilon Skin Barrier to R heel, Malleoli, R Hallux, distal/lateral R foot. Cover each site with Optifoam drsg. Change every 7 days and prn. Apply Cavilon Skin Barrier to L Heel ,L Hallux,Malleoli and distal/lateral L foot. Cover each site with Optifoam drsgs. Change every 7 days and prn. Reposition at least every 2hours or as tolerated. Off-load heels with pillow. APM/POOJA Mattress overlay. (2) Sepsis Assessment & Plan: 68 female leukocytosis abnormal labs anemia chest x-ray developing on support. Patient examination completed no signs of active infection from decubitus ulcers. The patient on IV antibiotics currently abdominal examination noted trach noted We will continue to follow monitor with local examination. Continue antibiotics per infectious disease inspiration is suboptimal with crowding of the bronchovascular markings. Ventriculoperitoneal shunt tubing traverses the right side of the chest. Tracheostomy is again demonstrated. Interim development of infiltrate in the right upper lobe. There may be some peribronchovascular opacities developing in the right midlung and left lung base as well. There is central bronchial wall thickening. The pleural spaces are clear. The heart size is normal. Nutritional optimization (3) Respiratory failure (4) History of hypertension (5) Feeding by G-tube (6) Leukocytosis (7) Chronic respiratory failure (8) History of diabetes mellitus (9) Hyponatremia Arnold Hi Feb 28, 2020 15:43
[2020-02-28 16:00] VITALS: BP 135/56
[2020-02-28 20:00] VITALS: BP 135/57
[2020-02-28] MEDS: Nystatin Powder 100,000 units/gm 15gm TOPIC SCH (21:10)
[2020-02-29] VITALS: BP 140/70
[2020-02-29] MEDS: NovoLOG Insulin Flexpen SUBQ SCH ×5 (00:22→23:16)
[2020-02-29] MEDS: HydrALAZINE 50mg tab GT SCH ×5 (00:23→23:15)
[2020-02-29] MEDS: Albuterol ud Inhalation IN-LINE SCH ×3 (00:57→13:55)
[2020-02-29] MEDS: Vancomycin 750mg/NS 275ml IVPB SCH ×2 (01:32)
[2020-02-29 04:00] VITALS: BP 141/68
[2020-02-29] MEDS: Piperacillin/Tazobactam 3.375 GM in NS 110 ML IVPB SCH ×3 (05:50→21:23)
[2020-02-29 06:08] LABS: BASOPHILS % (AUTO) 0.5 % (0.0-2.0); EOSINOPHILS % (AUTO) 6.1 % (0.0-3.0); HEMATOCRIT 40.3 % (37.0-47.0); LYMPHOCYTES % (AUTO) 13.3 % (20.0-45.0); MEAN CORPUSCULAR VOLUME 99 FL (80-99); MONOCYTES % (AUTO) 5.8 % (1.0-10.0); NEUTROPHILS % (AUTO) 74.4 % (45.0-75.0); PLATELET COUNT 412 K/UL (150-450); RED BLOOD COUNT 4.07 M/UL (4.20-5.40); RED CELL DISTRIBUTION WIDTH 13.9 % (11.6-14.8); WHITE BLOOD COUNT 10.3 K/UL (4.8-10.8)
[2020-02-29 06:30] LABS: ANION GAP 10 mmol/L (5-15); BLOOD UREA NITROGEN 17 mg/dL (7-18); CALCIUM 8.8 MG/DL (8.5-10.1); CARBON DIOXIDE 28 MMOL/L (21-32); CHLORIDE 97 MMOL/L (98-107); CREATININE 0.6 MG/DL (0.55-1.30); POTASSIUM 4.6 MMOL/L (3.5-5.1); SODIUM 135 MMOL/L (136-145)
[2020-02-29 08:00] VITALS: BP 139/68
[2020-02-29] MEDS: Docusate 100mg/10ml Liq NG SCH (09:00)
[2020-02-29] MEDS: levETIRAcetam 500mg/5ml Liquid GT SCH (09:08)
[2020-02-29] MEDS: Demeclocycline 150mg tab GT SCH ×2 (09:08→17:13)
[2020-02-29] MEDS: Nystatin Powder 100,000 units/gm 15gm TOPIC SCH ×3 (09:10→17:15)
[2020-02-29] MEDS: Heparin 5000 units/ml inj SUBQ SCH ×2 (09:11→21:26)
--- NOTE | 2020-02-29 10:20 | Infectious Diseases Prog Note ---
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 Probable UTI -u/a wbc 5-10, nit neg, leuk +2; ucx C. 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 Will continue to follow along with you. Discussed [facility] [employer]. Subjective Allergies: Coded Allergies: No Known Allergies (Unverified , 11/06/18) afebrile leukocytosis resolved 2nd covid neg Objective Last 24 Hour Vital Signs Date Time Temp Pulse Resp B/P (MAP) Pulse Ox O2 Delivery O2 Flow Rate FiO2 02/29/20 09:09 107 146/66 02/29/20 09:09 107 146/66 02/29/20 08:59 96 02/29/20 07:30 89 22 100 Mechanical Ventilator 35 92 21 02/29/20 05:49 132/62 02/29/20 04:00 91 02/29/20 04:00 Mechanical Ventilator 02/29/20 04:00 35 02/29/20 04:00 98.4 95 21 141/68 (92) 100 02/29/20 03:01 85 22 35 02/29/20 00:57 88 27 100 Mechanical Ventilator 35 90 18 02/29/20 00:23 131/64 02/29/20 00:00 97.9 89 18 140/70 (93) 100 02/29/20 00:00 87 02/29/20 00:00 Mechanical Ventilator 02/29/20 00:00 35 02/28/20 23:02 94 26 35 02/28/20 20:00 Mechanical Ventilator 02/28/20 20:00 94 02/28/20 20:00 98.4 82 22 135/57 (83) 100 02/28/20 20:00 35 02/28/20 19:36 87 22 100 Mechanical Ventilator 35 89 18 02/28/20 17:16 135/56 02/28/20 16:00 98.2 83 25 135/56 (82) 100 02/28/20 16:00 Mechanical Ventilator 02/28/20 16:00 35 02/28/20 15:45 88 02/28/20 14:55 80 21 100 Mechanical Ventilator 35 82 18 02/28/20 12:00 98.2 89 26 109/53 (71) 100 02/28/20 12:00 35 02/28/20 12:00 Mechanical Ventilator 02/28/20 11:57 84 10 35 02/28/20 11:39 85 02/28/20 11:37 128/58 Height (Feet): 4 Height (Inches): 11.00 Weight (Pounds): 155 GENERAL: This is an elderly female who is in no acute distress. HEENT: Head is normocephalic and atraumatic. Pupils are equal, round and reactive to light. NECK: Supple. She has midline tracheostomy. LUNGS: Bilateral rhonchi. HEART: Regular rate and rhythm without rubs, murmurs, or gallops. ABDOMEN: She has a G-tube. Soft, nontender. EXTREMITIES: No clubbing, cyanosis, or edema. NEUROLOGIC: She is obtunded. There were no gross focal findings. Microbiology Date/Time Source Procedure Growth Status 02/26/20 17:45 Blood Blood Culture - Preliminary NO GROWTH AFTER 48 HOURS Resulted 02/26/20 17:30 Blood Blood Culture - Preliminary NO GROWTH AFTER 48 HOURS Resulted 02/26/20 13:40 Nasopharynx Coronavirus COVID-19 PCR (FREDDY) - Final Complete 02/26/20 13:00 Straight Cath Urine Culture - Final Elke Tropicalis Complete Laboratory Tests Test 02/28/20 11:31 02/28/20 16:53 02/29/20 03:28 02/29/20 07:33 POC Whole Blood Glucose 293 MG/DL (74-106) H 270 MG/DL (74-106) H White Blood Count 10.3 K/UL (4.8-10.8) Red Blood Count 4.07 M/UL (4.20-5.40) L Hemoglobin 13.0 G/DL (12.0-16.0) Hematocrit 40.3 % (37.0-47.0) Mean Corpuscular Volume 99 FL (80-99) Mean Corpuscular Hemoglobin 31.9 PG (27.0-31.0) H Mean Corpuscular Hemoglobin Concent 32.3 G/DL (32.0-36.0) Red Cell Distribution Width 13.9 % (11.6-14.8) Platelet Count 412 K/UL (150-450) Mean Platelet Volume 5.3 FL (6.5-10.1) L Neutrophils (%) (Auto) 74.4 % (45.0-75.0) Lymphocytes (%) (Auto) 13.3 % (20.0-45.0) L Monocytes (%) (Auto) 5.8 % (1.0-10.0) Eosinophils (%) (Auto) 6.1 % (0.0-3.0) H Basophils (%) (Auto) 0.5 % (0.0-2.0) Sodium Level 135 MMOL/L (136-145) L Potassium Level 4.6 MMOL/L (3.5-5.1) Chloride Level 97 MMOL/L (98-107) L Carbon Dioxide Level 28 MMOL/L (21-32) Anion Gap 10 mmol/L (5-15) Blood Urea Nitrogen 17 mg/dL (7-18) Creatinine 0.6 MG/DL (0.55-1.30) Estimat Glomerular Filtration Rate > 60 mL/min (>60) Glucose Level 255 MG/DL (74-106) H Calcium Level 8.8 MG/DL (8.5-10.1) Arterial Blood pH 7.457 (7.350-7.450) Arterial Blood Partial Pressure CO2 39.9 mmHg (35.0-45.0) Arterial Blood Partial Pressure O2 147.6 mmHg (75.0-100.0) H Arterial Blood HCO3 27.5 mmol/L (22.0-26.0) H Arterial Blood Oxygen Saturation 98.6 % (95-100) Arterial Blood Base Excess 3.5 (-2-2) H Justus Test Positive Current Medications Medications (Trade) Dose Ordered Sig/Dell Route PRN Reason Start Time Stop Time Status Last Admin Dose Admin Acetaminophen (Tylenol) 650 mg Q4H PRN GT Temp >100.5 02/27/20 13:15 03/28/20 13:14 Acetaminophen/ Hydrocodone Bitart ([place] 5/325) 1 tab Q8H PRN GT FOR PAIN 02/24/20 18:30 03/02/20 18:29 Albuterol Sulfate (Proventil) 2.5 mg Q6HRT IN-LINE 02/27/20 01:00 02/29/20 18:29 02/29/20 07:30 Amlodipine Besylate (Norvasc) 10 mg DAILY GT 02/25/20 09:00 03/26/20 08:59 02/29/20 09:09 Atenolol (Tenormin) 50 mg DAILY GT 02/25/20 09:00 03/26/20 08:59 02/29/20 09:09 Demeclocycline HCl (Declomycin) 300 mg TWICE A DAY GT 02/25/20 09:00 03/03/20 08:59 02/29/20 09:08 Dextrose (Dextrose 50%) 25 ml Q30M PRN IV Hypoglycemia 02/24/20 18:45 05/24/20 18:44 Dextrose (Dextrose 50%) 50 ml Q30M PRN IV Hypoglycemia 02/24/20 18:45 05/24/20 18:44 Docusate Sodium (Colace) 100 mg DAILY NG 02/28/20 09:00 03/29/20 08:59 Heparin Sodium (Porcine) (Heparin 5000 units/ml) 5,000 units EVERY 12 HOURS SUBQ 02/24/20 21:00 04/09/20 20:59 02/29/20 09:11 Hydralazine HCl (Apresoline) 50 mg EVERY 6 HOURS GT 02/26/20 18:00 05/26/20 17:59 02/29/20 05:49 Insulin Aspart (NovoLOG) Sliding scale: 150-1,99= 2un... Q6HR SUBQ 02/26/20 00:00 05/25/20 06:29 02/29/20 06:05 Levetiracetam (Keppra) 750 mg DAILY GT 02/25/20 09:00 03/26/20 08:59 02/29/20 09:08 Nystatin (Nystop Powder) 1 applic THREE TIMES A DAY TOPIC 02/28/20 21:00 05/28/20 20:59 02/29/20 09:10 Piperacillin Sod/ Tazobactam Sod 3.375 gm/Sodium Chloride 110 ml @ 27.5 mls/hr EVERY 8 HOURS IVPB 02/24/20 22:00 03/02/20 21:59 02/29/20 05:50 Vancomycin HCl (Vanco pharmacy to dose) 1 ea DAILY PRN MISC Per rx protocol 02/24/20 21:00 03/25/20 20:59 Vancomycin HCl 750 mg/Sodium Chloride 275 ml @ 184 mls/hr Q12H IVPB 02/28/20 02:00 03/04/20 01:59 02/29/20 01:32 Lilli Gonzalez M.D. Feb 29, 2020 10:20
--- NOTE | 2020-02-29 11:56 | Pulmonology Progress Note ---
Subjective ROS Limited/Unobtainable: Yes Allergies: Coded Allergies: No Known Allergies (Unverified , 11/06/18) Subjective leucocytosis resolved,afebrile, no signs of resp distress on current settings Objective Last 24 Hour Vital Signs Date Time Temp Pulse Resp B/P (MAP) Pulse Ox O2 Delivery O2 Flow Rate FiO2 02/29/20 09:09 107 146/66 02/29/20 09:09 107 146/66 02/29/20 08:59 96 02/29/20 08:00 35 02/29/20 08:00 98.1 92 18 139/68 (91) 100 02/29/20 07:30 89 22 100 Mechanical Ventilator 35 92 21 02/29/20 05:49 132/62 02/29/20 04:00 91 02/29/20 04:00 Mechanical Ventilator 02/29/20 04:00 35 02/29/20 04:00 98.4 95 21 141/68 (92) 100 02/29/20 03:01 85 22 35 02/29/20 00:57 88 27 100 Mechanical Ventilator 35 90 18 02/29/20 00:23 131/64 02/29/20 00:00 97.9 89 18 140/70 (93) 100 02/29/20 00:00 87 02/29/20 00:00 Mechanical Ventilator 02/29/20 00:00 35 02/28/20 23:02 94 26 35 02/28/20 20:00 Mechanical Ventilator 02/28/20 20:00 94 02/28/20 20:00 98.4 82 22 135/57 (83) 100 02/28/20 20:00 35 02/28/20 19:36 87 22 100 Mechanical Ventilator 35 89 18 02/28/20 17:16 135/56 02/28/20 16:00 98.2 83 25 135/56 (82) 100 02/28/20 16:00 Mechanical Ventilator 02/28/20 16:00 35 02/28/20 15:45 88 02/28/20 14:55 80 21 100 Mechanical Ventilator 35 82 18 02/28/20 12:00 98.2 89 26 109/53 (71) 100 02/28/20 12:00 35 02/28/20 12:00 Mechanical Ventilator 02/28/20 11:57 84 10 35 Intake and Output 02/28/20 02/29/20 19:00 07:00 Intake Total 849.0 ml 1072.5 ml Output Total 800 ml Balance 49.0 ml 1072.5 ml Intake Free Water 60 ml IV Total 349.0 ml 412.5 ml Tube Feeding 440 ml 660 ml Output Urine Total 800 ml # Bowel Movements 2 3 General Appearance: no acute distress, other - chronically ill looking, bedridden vent dependent female vent AC 380-10-35% HEENT: normocephalic, atraumatic, anicteric, status post trach - Portex#7, secretions small amount, yellow color, thick consistency Respiratory: other - scattered rhonchi Cardiovascular: normal rate, regular rhythm - SR on tele Abdomen: soft, non tender - obese, other - G tube Extremities: no edema Neurologic: abnormal gait - bedridden , other - eyes open, not responsive to verbal stimuli Musculoskeletal: atrophy - BLE Microbiology Date/Time Source Procedure Growth Status 02/26/20 17:45 Blood Blood Culture - Preliminary NO GROWTH AFTER 48 HOURS Resulted 02/26/20 17:30 Blood Blood Culture - Preliminary NO GROWTH AFTER 48 HOURS Resulted 02/26/20 13:40 Nasopharynx Coronavirus COVID-19 PCR (FREDDY) - Final Complete 02/26/20 13:00 Straight Cath Urine Culture - Final Elke Tropicalis Complete Laboratory Tests 02/28/20 16:53: POC Whole Blood Glucose 270H 02/29/20 03:28: White Blood Count 10.3, Red Blood Count 4.07L, Hemoglobin 13.0, Hematocrit 40.3 , Mean Corpuscular Volume 99, Mean Corpuscular Hemoglobin 31.9H, Mean Corpuscular Hemoglobin Concent 32.3, Red Cell Distribution Width 13.9, Platelet Count 412, Mean Platelet Volume 5.3L, Neutrophils (%) (Auto) 74.4, Lymphocytes ( %) (Auto) 13.3L, Monocytes (%) (Auto) 5.8, Eosinophils (%) (Auto) 6.1H, Basophils (%) (Auto) 0.5, Sodium Level 135L, Potassium Level 4.6, Chloride Level 97L, Carbon Dioxide Level 28, Anion Gap 10, Blood Urea Nitrogen 17, Creatinine 0.6, Estimat Glomerular Filtration Rate > 60, Glucose Level 255H, Calcium Level 8.8 02/29/20 07:33: Arterial Blood pH 7.457H, Arterial Blood Partial Pressure CO2 39.9, Arterial Blood Partial Pressure O2 147.6H, Arterial Blood HCO3 27.5H, Arterial Blood Oxygen Saturation 98.6, Arterial Blood Base Excess 3.5H, Justus Test Positive Current Medications Medications (Trade) Dose Ordered Sig/Dell Route PRN Reason Start Time Stop Time Status Last Admin Dose Admin Acetaminophen (Tylenol) 650 mg Q4H PRN GT Temp >100.5 02/27/20 13:15 03/28/20 13:14 Acetaminophen/ Hydrocodone Bitart ([place] 5/325) 1 tab Q8H PRN GT FOR PAIN 02/24/20 18:30 03/02/20 18:29 Albuterol Sulfate (Proventil) 2.5 mg Q6HRT IN-LINE 02/27/20 01:00 02/29/20 18:29 02/29/20 07:30 Amlodipine Besylate (Norvasc) 10 mg DAILY GT 02/25/20 09:00 03/26/20 08:59 02/29/20 09:09 Atenolol (Tenormin) 50 mg DAILY GT 02/25/20 09:00 03/26/20 08:59 02/29/20 09:09 Demeclocycline HCl (Declomycin) 300 mg TWICE A DAY GT 02/25/20 09:00 03/03/20 08:59 02/29/20 09:08 Dextrose (Dextrose 50%) 25 ml Q30M PRN IV Hypoglycemia 02/24/20 18:45 05/24/20 18:44 Dextrose (Dextrose 50%) 50 ml Q30M PRN IV Hypoglycemia 02/24/20 18:45 05/24/20 18:44 Docusate Sodium (Colace) 100 mg DAILY NG 02/28/20 09:00 03/29/20 08:59 Heparin Sodium (Porcine) (Heparin 5000 units/ml) 5,000 units EVERY 12 HOURS SUBQ 02/24/20 21:00 04/09/20 20:59 02/29/20 09:11 Hydralazine HCl (Apresoline) 50 mg EVERY 6 HOURS GT 02/26/20 18:00 05/26/20 17:59 02/29/20 05:49 Insulin Aspart (NovoLOG) Sliding scale: 150-1,99= 2un... Q6HR SUBQ 02/26/20 00:00 05/25/20 06:29 02/29/20 06:05 Levetiracetam (Keppra) 750 mg DAILY GT 02/25/20 09:00 03/26/20 08:59 02/29/20 09:08 Nystatin (Nystop Powder) 1 applic THREE TIMES A DAY TOPIC 02/28/20 21:00 05/28/20 20:59 02/29/20 09:10 Piperacillin Sod/ Tazobactam Sod 3.375 gm/Sodium Chloride 110 ml @ 27.5 mls/hr EVERY 8 HOURS IVPB 02/24/20 22:00 03/02/20 21:59 02/29/20 05:50 Assessment/Plan Assessment/Plan ASSESSMENT Sepsis Probably pneumonia Acute on chronic ventilator dependent respiratory failure with tracheostomy status Pyuria, possible UTI Dysphagia, feeding by G-tube Hyponatremia- corrected Hypertension Diabetes mellitus Status post right ventriculoperitoneal shunt CAD, history of AL History of CVA Seizure disorder Sacral decubitus ulcer, POA Dementia PLAN OF CARE FENG vent support, trach care pulmonary toilet baseline ABG stable, keep settings as is and titrate as needed abx as per ID 02/23 BCX 1/2- CONS, BCX 02/25 NGTD , initial likely contmainant , UCX + yeast poss colonization - per ID CXR 02/26 developing right upper lobe infiltrate and possibly bilateral perihilar infiltrates, likely pneumonia. SCX COVID 19 by PCR 02/23 NGT CXR on Sunday DVT prophylaxis strict aspiration precaution G-tube feeding, monitor tolerance hyponatremia corrected with 3% sodium chloride as per medical dir, currently on demeclocycline, monitor sodium BP management with CCB and BB BS management with SSI seizure precaution, continue Keppra DVT prophylaxis bowel regimen wound care as per surgeon recommendation supportive care case discussed and evaluated by supervising physician Radha Mota NP Feb 29, 2020 11:56
[2020-02-29 12:00] VITALS: BP 122/64
--- NOTE | 2020-02-29 13:51 | Surgery Progress Note ---
Surgery Progress Note Subjective Additional Comments Leukocytosis resolved. Labs noted. Exam stable. No acute events. Comfortable appearing. Objective Last 24 Hour Vital Signs Date Time Temp Pulse Resp B/P (MAP) Pulse Ox O2 Delivery O2 Flow Rate FiO2 02/29/20 12:52 86 02/29/20 12:25 147/71 02/29/20 12:00 35 02/29/20 12:00 98.8 90 18 122/64 (83) 100 02/29/20 09:09 107 146/66 02/29/20 09:09 107 146/66 02/29/20 08:59 96 02/29/20 08:00 35 02/29/20 08:00 98.1 92 18 139/68 (91) 100 02/29/20 07:30 89 22 100 Mechanical Ventilator 35 92 21 02/29/20 05:49 132/62 02/29/20 04:00 91 02/29/20 04:00 Mechanical Ventilator 02/29/20 04:00 35 02/29/20 04:00 98.4 95 21 141/68 (92) 100 02/29/20 03:01 85 22 35 02/29/20 00:57 88 27 100 Mechanical Ventilator 35 90 18 02/29/20 00:23 131/64 02/29/20 00:00 97.9 89 18 140/70 (93) 100 02/29/20 00:00 87 02/29/20 00:00 Mechanical Ventilator 02/29/20 00:00 35 02/28/20 23:02 94 26 35 02/28/20 20:00 Mechanical Ventilator 02/28/20 20:00 94 02/28/20 20:00 98.4 82 22 135/57 (83) 100 02/28/20 20:00 35 02/28/20 19:36 87 22 100 Mechanical Ventilator 35 89 18 02/28/20 17:16 135/56 02/28/20 16:00 98.2 83 25 135/56 (82) 100 02/28/20 16:00 Mechanical Ventilator 02/28/20 16:00 35 02/28/20 15:45 88 02/28/20 14:55 80 21 100 Mechanical Ventilator 35 82 18 I&O Intake and Output 02/28/20 02/29/20 19:00 07:00 Intake Total 849.0 ml 1072.5 ml Output Total 800 ml Balance 49.0 ml 1072.5 ml Intake Free Water 60 ml IV Total 349.0 ml 412.5 ml Tube Feeding 440 ml 660 ml Output Urine Total 800 ml # Bowel Movements 2 3 Dressing: other Wound: other Drains: other Cardiovascular: RSR Respiratory: decreased breath sounds Abdomen: soft, non-tender, present bowel sounds Extremities: no cyanosis Laboratory Tests Test 02/28/20 16:53 02/29/20 03:28 02/29/20 07:33 02/29/20 12:22 POC Whole Blood Glucose 270 MG/DL (74-106) H Pending White Blood Count 10.3 K/UL (4.8-10.8) Red Blood Count 4.07 M/UL (4.20-5.40) L Hemoglobin 13.0 G/DL (12.0-16.0) Hematocrit 40.3 % (37.0-47.0) Mean Corpuscular Volume 99 FL (80-99) Mean Corpuscular Hemoglobin 31.9 PG (27.0-31.0) H Mean Corpuscular Hemoglobin Concent 32.3 G/DL (32.0-36.0) Red Cell Distribution Width 13.9 % (11.6-14.8) Platelet Count 412 K/UL (150-450) Mean Platelet Volume 5.3 FL (6.5-10.1) L Neutrophils (%) (Auto) 74.4 % (45.0-75.0) Lymphocytes (%) (Auto) 13.3 % (20.0-45.0) L Monocytes (%) (Auto) 5.8 % (1.0-10.0) Eosinophils (%) (Auto) 6.1 % (0.0-3.0) H Basophils (%) (Auto) 0.5 % (0.0-2.0) Sodium Level 135 MMOL/L (136-145) L Potassium Level 4.6 MMOL/L (3.5-5.1) Chloride Level 97 MMOL/L (98-107) L Carbon Dioxide Level 28 MMOL/L (21-32) Anion Gap 10 mmol/L (5-15) Blood Urea Nitrogen 17 mg/dL (7-18) Creatinine 0.6 MG/DL (0.55-1.30) Estimat Glomerular Filtration Rate > 60 mL/min (>60) Glucose Level 255 MG/DL (74-106) H Calcium Level 8.8 MG/DL (8.5-10.1) Arterial Blood pH 7.457 (7.350-7.450) Arterial Blood Partial Pressure CO2 39.9 mmHg (35.0-45.0) Arterial Blood Partial Pressure O2 147.6 mmHg (75.0-100.0) H Arterial Blood HCO3 27.5 mmol/L (22.0-26.0) H Arterial Blood Oxygen Saturation 98.6 % (95-100) Arterial Blood Base Excess 3.5 (-2-2) H Justus Test Positive Plan Problems: (1) Decubital ulcer Assessment & Plan: Pt presented on admission with Contractures, Multiple Pressure injuries. 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 Denuded area at cleft. Hyperpigmentation noted at distal base of injury. Purpuric area that is indurated noted to L ischium. Incontinence Associated dermatitis noted to Perineum and Posterior aspect Upper R thigh. Affected areas are erythematous and macerated. Non-Blanchable erythema without induration or fluctuance R Hallux.(L)3cm x (W) 3.5cm. Non-Blanching erythema without induration or fluctuance L Hallux.(L)2.5cm x (W) 2.8cm. Intact Serous filled Blister with surrounding non-Blanching erythema noted to distal/lateral R foot. Both heels are boggy with non-Blanchable erythema. Tx.Plan: Apply Moisture Barrier Paste to Sacrum. Cover with Optifoam drsg. Change every 3 days and prn. Apply Moisture Barrier Paste to perineum,ischial tuberosities and posterior upper thighs with each perineal care. Apply Cavilon Skin Barrier to R heel, Malleoli, R Hallux, distal/lateral R foot. Cover each site with Optifoam drsg. Change every 7 days and prn. Apply Cavilon Skin Barrier to L Heel ,L Hallux,Malleoli and distal/lateral L foot. Cover each site with Optifoam drsgs. Change every 7 days and prn. Reposition at least every 2hours or as tolerated. Off-load heels with pillow. APM/POOJA Mattress overlay. (2) Sepsis Assessment & Plan: 68 female leukocytosis abnormal labs anemia chest x-ray developing on support. Patient examination completed no signs of active infection from decubitus ulcers. The patient on IV antibiotics currently abdominal examination noted trach noted We will continue to follow monitor with local examination. Continue antibiotics per infectious disease inspiration is suboptimal with crowding of the bronchovascular markings. Ventriculoperitoneal shunt tubing traverses the right side of the chest. Tracheostomy is again demonstrated. Interim development of infiltrate in the right upper lobe. There may be some peribronchovascular opacities developing in the right midlung and left lung base as well. There is central bronchial wall thickening. The pleural spaces are clear. The heart size is normal. Nutritional optimization (3) Respiratory failure (4) History of hypertension (5) Feeding by G-tube (6) Leukocytosis (7) Chronic respiratory failure (8) History of diabetes mellitus (9) Hyponatremia Arnold Hi Feb 29, 2020 13:51
[2020-02-29 16:00] VITALS: BP 128/54
[2020-02-29 20:00] VITALS: BP 141/69
[2020-02-29] MEDS: Acetaminophen 650mg/20.3ml GT PRN (23:24)
[2020-03-01] VITALS: BP 135/55
[2020-03-01 04:00] VITALS: BP 132/57
[2020-03-01] MEDS: Piperacillin/Tazobactam 3.375 GM in NS 110 ML IVPB SCH ×3 (05:16→21:45)
[2020-03-01] MEDS: NovoLOG Insulin Flexpen SUBQ SCH ×4 (05:20→23:29)
[2020-03-01] MEDS: HydrALAZINE 50mg tab GT SCH ×4 (05:20→23:31)
[2020-03-01 06:25] LABS: BASOPHILS % (AUTO) 0.4 % (0.0-2.0); EOSINOPHILS % (AUTO) 4.7 % (0.0-3.0); HEMATOCRIT 38.3 % (37.0-47.0); HEMOGLOBIN 12.4 G/DL (12.0-16.0); LYMPHOCYTES % (AUTO) 13.1 % (20.0-45.0); MEAN CORPUSCULAR VOLUME 99 FL (80-99); MONOCYTES % (AUTO) 4.6 % (1.0-10.0); NEUTROPHILS % (AUTO) 77.3 % (45.0-75.0); PLATELET COUNT 446 K/UL (150-450); RED BLOOD COUNT 3.85 M/UL (4.20-5.40); RED CELL DISTRIBUTION WIDTH 13.5 % (11.6-14.8)
[2020-03-01 07:18] LABS: ANION GAP 9 mmol/L (5-15); BLOOD UREA NITROGEN 22 mg/dL (7-18); CALCIUM 9.1 MG/DL (8.5-10.1); CARBON DIOXIDE 28 MMOL/L (21-32); CHLORIDE 98 MMOL/L (98-107); CREATININE 0.8 MG/DL (0.55-1.30); POTASSIUM 4.3 MMOL/L (3.5-5.1); SODIUM 135 MMOL/L (136-145)
[2020-03-01 07:28] VITALS: BP_SYST 110; BP_SYST 139; BP_DIAS 57; BP_DIAS 67
[2020-03-01] MEDS: Docusate 100mg/10ml Liq NG SCH (09:00)
[2020-03-01] MEDS: levETIRAcetam 500mg/5ml Liquid GT SCH (09:01)
[2020-03-01] MEDS: Demeclocycline 150mg tab GT SCH ×2 (09:02→17:45)
[2020-03-01] MEDS: Heparin 5000 units/ml inj SUBQ SCH ×2 (09:03→21:43)
[2020-03-01] MEDS: Nystatin Powder 100,000 units/gm 15gm TOPIC SCH ×3 (09:06→17:45)
--- NOTE | 2020-03-01 11:52 | Diagnostic Imaging Report ---
Indication: Shortness of breath Technique: One view of the chest Comparison: 02/27/2020 Findings: Tracheostomy again demonstrated. The heart size is normal. There is suggestion of faint opacity in the left midlung, new or increased.. The previously described right lung opacities have largely cleared. Pleural spaces are clear. Impression: Interim clearing of previously demonstrated right lung infiltrates New or increased small faint infiltrates in the left lung.
[2020-03-01 12:00] VITALS: BP 134/61
--- NOTE | 2020-03-01 12:43 | Pulmonolgy Critical Care Note ---
Critical Care - Asmt/Plan Problems: (1) Sepsis (2) Chronic respiratory failure (3) Hyponatremia (4) Decubital ulcer (5) History of hypertension (6) History of diabetes mellitus (7) Family history of CVA (8) Feeding by G-tube (9) Ventriculo-peritoneal shunt status Respiratory: monitor respiratory rate, adjust FIO2, CXR Cardiac: continue to monitor HR/BP Renal: F/U I&O, keep IV fluid Infectious Disease: check cultures, continue antibiotics, other - wbc still high Endocrine: monitor blood sugar Hematologic: monitor H/H, transfuse if hgb<8.5 Neurologic: PRN Ativan, PRN Morphine, keep patient comfortable Affect: PRN ativan Prophylaxis: Protonix Time Spent (Minutes): 40 Notes Reviewed: wire mesh knitter, cardio, renal Discussed with: nurses, rehabilitation case coordinatormanager wholesale - Objective Last 24 Hour Vital Signs Date Time Temp Pulse Resp B/P (MAP) Pulse Ox O2 Delivery O2 Flow Rate FiO2 03/01/20 12:40 134/61 03/01/20 12:00 97.7 79 20 134/61 (85) 100 03/01/20 12:00 Mechanical Ventilator 03/01/20 12:00 30 03/01/20 10:41 79 16 30 03/01/20 09:04 88 139/57 03/01/20 09:03 88 139/57 03/01/20 08:00 Mechanical Ventilator 03/01/20 08:00 85 03/01/20 08:00 30 03/01/20 07:28 97.7 88 20 139/57 (84) 94 03/01/20 07:17 86 20 30 03/01/20 05:20 139/68 03/01/20 04:37 85 03/01/20 04:00 Mechanical Ventilator 03/01/20 04:00 97.3 82 23 132/57 (82) 100 03/01/20 04:00 30 03/01/20 03:25 89 28 30 03/01/20 00:00 99.3 94 20 135/55 (81) 100 03/01/20 00:00 91 03/01/20 00:00 Mechanical Ventilator 02/29/20 23:54 99.3 02/29/20 23:22 94 24 30 02/29/20 23:15 135/55 02/29/20 20:00 93 02/29/20 20:00 Mechanical Ventilator 02/29/20 20:00 30 02/29/20 20:00 98.4 99 26 141/69 (93) 100 02/29/20 19:52 102 28 30 02/29/20 17:13 138/66 02/29/20 16:00 99.3 90 18 128/54 (78) 100 02/29/20 16:00 35 02/29/20 16:00 Mechanical Ventilator 02/29/20 16:00 94 02/29/20 15:41 100 22 35 02/29/20 13:55 88 23 35 02/29/20 12:52 86 Status: sedated, somnolent HEENT: atraumatic, normocephalic Lungs: rales, rhonchi Heart: HR/BP stable Abdomen: soft Extremities: no C/C/E Micro: Microbiology Date/Time Source Procedure Growth Status 02/29/20 22:00 Stool Clostridium difficile Toxin Assay - Final Complete Accucheck: 297 Critical Care - Subjective ROS Limited/Unobtainable: Yes Condition: critical EKG Rhythm: Sinus Rhythm FI02: 30 Vent Support Breath Rate: 10 Vent Support Mode: AC Vent Tidal Volume: 380 Sputum Amount: Moderate PEEP: 0.0 PIP: 29 Tube Feeding Amount: 55 I&O: Intake and Output 02/29/20 03/01/20 19:00 07:00 Intake Total 590 ml 842.49 ml Output Total 800 ml 700 ml Balance -210 ml 142.49 ml Intake Free Water 150 ml 40 ml IV Total 142.49 ml Tube Feeding 440 ml 660 ml Output Urine Total 800 ml 700 ml # Bowel Movements 3 1 CXR: no change Labs: Laboratory Tests Test 02/29/20 17:11 02/29/20 23:10 03/01/20 03:05 03/01/20 05:15 POC Whole Blood Glucose Pending 281 MG/DL (74-106) H Pending White Blood Count 17.0 K/UL (4.8-10.8) #H Red Blood Count 3.85 M/UL (4.20-5.40) L Hemoglobin 12.4 G/DL (12.0-16.0) Hematocrit 38.3 % (37.0-47.0) Mean Corpuscular Volume 99 FL (80-99) Mean Corpuscular Hemoglobin 32.1 PG (27.0-31.0) H Mean Corpuscular Hemoglobin Concent 32.3 G/DL (32.0-36.0) Red Cell Distribution Width 13.5 % (11.6-14.8) Platelet Count 446 K/UL (150-450) Mean Platelet Volume 5.6 FL (6.5-10.1) L Neutrophils (%) (Auto) 77.3 % (45.0-75.0) H Lymphocytes (%) (Auto) 13.1 % (20.0-45.0) L Monocytes (%) (Auto) 4.6 % (1.0-10.0) Eosinophils (%) (Auto) 4.7 % (0.0-3.0) H Basophils (%) (Auto) 0.4 % (0.0-2.0) Sodium Level 135 MMOL/L (136-145) L Potassium Level 4.3 MMOL/L (3.5-5.1) Chloride Level 98 MMOL/L (98-107) Carbon Dioxide Level 28 MMOL/L (21-32) Anion Gap 9 mmol/L (5-15) Blood Urea Nitrogen 22 mg/dL (7-18) H Creatinine 0.8 MG/DL (0.55-1.30) Estimat Glomerular Filtration Rate > 60 mL/min (>60) Glucose Level 204 MG/DL (74-106) H Calcium Level 9.1 MG/DL (8.5-10.1) Test 03/01/20 12:29 POC Whole Blood Glucose 297 MG/DL (74-106) H Sandra Bueno MD Mar 01, 2020 12:43
--- NOTE | 2020-03-01 14:05 | Surgery Progress Note ---
Surgery Progress Note Subjective Additional Comments acute leukocytosis wbc 17k cxr ntoed Interim clearing of previously demonstrated right lung infiltrates New or increased small faint infiltrates in the left lung. Objective Last 24 Hour Vital Signs Date Time Temp Pulse Resp B/P (MAP) Pulse Ox O2 Delivery O2 Flow Rate FiO2 03/01/20 12:40 134/61 03/01/20 12:00 97.7 79 20 134/61 (85) 100 03/01/20 12:00 Mechanical Ventilator 03/01/20 12:00 30 03/01/20 10:41 79 16 30 03/01/20 09:04 88 139/57 03/01/20 09:03 88 139/57 03/01/20 08:00 Mechanical Ventilator 03/01/20 08:00 85 03/01/20 08:00 30 03/01/20 07:28 97.7 88 20 139/57 (84) 94 03/01/20 07:17 86 20 30 03/01/20 05:20 139/68 03/01/20 04:37 85 03/01/20 04:00 Mechanical Ventilator 03/01/20 04:00 97.3 82 23 132/57 (82) 100 03/01/20 04:00 30 03/01/20 03:25 89 28 30 03/01/20 00:00 99.3 94 20 135/55 (81) 100 03/01/20 00:00 91 03/01/20 00:00 Mechanical Ventilator 02/29/20 23:54 99.3 02/29/20 23:22 94 24 30 02/29/20 23:15 135/55 02/29/20 20:00 93 02/29/20 20:00 Mechanical Ventilator 02/29/20 20:00 30 02/29/20 20:00 98.4 99 26 141/69 (93) 100 02/29/20 19:52 102 28 30 02/29/20 17:13 138/66 02/29/20 16:00 99.3 90 18 128/54 (78) 100 02/29/20 16:00 35 02/29/20 16:00 Mechanical Ventilator 02/29/20 16:00 94 02/29/20 15:41 100 22 35 I&O Intake and Output 02/29/20 03/01/20 19:00 07:00 Intake Total 590 ml 842.49 ml Output Total 800 ml 700 ml Balance -210 ml 142.49 ml Intake Free Water 150 ml 40 ml IV Total 142.49 ml Tube Feeding 440 ml 660 ml Output Urine Total 800 ml 700 ml # Bowel Movements 3 1 Dressing: saturated Cardiovascular: RSR Respiratory: decreased breath sounds Abdomen: soft, non-tender, present bowel sounds Extremities: no cyanosis Laboratory Tests Test 02/29/20 17:11 02/29/20 23:10 03/01/20 03:05 03/01/20 05:15 POC Whole Blood Glucose Pending 281 MG/DL (74-106) H Pending White Blood Count 17.0 K/UL (4.8-10.8) #H Red Blood Count 3.85 M/UL (4.20-5.40) L Hemoglobin 12.4 G/DL (12.0-16.0) Hematocrit 38.3 % (37.0-47.0) Mean Corpuscular Volume 99 FL (80-99) Mean Corpuscular Hemoglobin 32.1 PG (27.0-31.0) H Mean Corpuscular Hemoglobin Concent 32.3 G/DL (32.0-36.0) Red Cell Distribution Width 13.5 % (11.6-14.8) Platelet Count 446 K/UL (150-450) Mean Platelet Volume 5.6 FL (6.5-10.1) L Neutrophils (%) (Auto) 77.3 % (45.0-75.0) H Lymphocytes (%) (Auto) 13.1 % (20.0-45.0) L Monocytes (%) (Auto) 4.6 % (1.0-10.0) Eosinophils (%) (Auto) 4.7 % (0.0-3.0) H Basophils (%) (Auto) 0.4 % (0.0-2.0) Sodium Level 135 MMOL/L (136-145) L Potassium Level 4.3 MMOL/L (3.5-5.1) Chloride Level 98 MMOL/L (98-107) Carbon Dioxide Level 28 MMOL/L (21-32) Anion Gap 9 mmol/L (5-15) Blood Urea Nitrogen 22 mg/dL (7-18) H Creatinine 0.8 MG/DL (0.55-1.30) Estimat Glomerular Filtration Rate > 60 mL/min (>60) Glucose Level 204 MG/DL (74-106) H Calcium Level 9.1 MG/DL (8.5-10.1) Test 03/01/20 12:29 POC Whole Blood Glucose 297 MG/DL (74-106) H Plan Problems: (1) Decubital ulcer Assessment & Plan: Pt presented on admission with Contractures, Multiple Pressure injuries. 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 Denuded area at Mis cleft. Hyperpigmentation noted at distal base of injury. Purpuric area that is indurated noted to L ischium. Incontinence Associated dermatitis noted to Perineum and Posterior aspect Upper R thigh. Affected areas are erythematous and macerated. Non-Blanchable erythema without induration or fluctuance R Hallux.(L)3cm x (W) 3.5cm. Non-Blanching erythema without induration or fluctuance L Hallux.(L)2.5cm x (W) 2.8cm. Intact Serous filled Blister with surrounding non-Blanching erythema noted to distal/lateral R foot. Both heels are boggy with non-Blanchable erythema. Tx.Plan: Apply Moisture Barrier Paste to Sacrum. Cover with Optifoam drsg. Change every 3 days and prn. Apply Moisture Barrier Paste to perineum,ischial tuberosities and posterior upper thighs with each perineal care. Apply Cavilon Skin Barrier to R heel, Malleoli, R Hallux, distal/lateral R foot. Cover each site with Optifoam drsg. Change every 7 days and prn. Apply Cavilon Skin Barrier to L Heel ,L Hallux,Malleoli and distal/lateral L foot. Cover each site with Optifoam drsgs. Change every 7 days and prn. Reposition at least every 2hours or as tolerated. Off-load heels with pillow. APM/POOJA Mattress overlay. (2) Sepsis Assessment & Plan: 68 female leukocytosis abnormal labs anemia chest x-ray developing on support. Patient examination completed no signs of active infection from decubitus ulcers. The patient on IV antibiotics currently abdominal examination noted trach noted We will continue to follow monitor with local examination. Continue antibiotics per infectious disease inspiration is suboptimal with crowding of the bronchovascular markings. Ventriculoperitoneal shunt tubing traverses the right side of the chest. Tracheostomy is again demonstrated. Interim development of infiltrate in the right upper lobe. There may be some peribronchovascular opacities developing in the right midlung and left lung base as well. There is central bronchial wall thickening. The pleural spaces are clear. The heart size is normal. Nutritional optimization Interim clearing of previously demonstrated right lung infiltrates New or increased small faint infiltrates in the left lung. (3) Respiratory failure (4) History of hypertension (5) Feeding by G-tube (6) Leukocytosis (7) Chronic respiratory failure (8) History of diabetes mellitus (9) Hyponatremia Arnold Hi Mar 01, 2020 14:05
[2020-03-01 16:00] VITALS: BP 139/62
--- NOTE | 2020-03-01 17:45 | Infectious Diseases Prog Note ---
Assessment/Plan Assessment: COVID neg x3 ([employer]- 02/20; SARS COV2 02/23 &02/25) SIRS vs Sepsis CONS bacteremia- likely contaminant -02/23 Bcx 1/4 CONS; 02/25 Bcx NTD PNA -03/01 CXR: Interim clearing of previously demonstrated right lung infiltrates. New or increased small faint infiltrates in the left lung. -02/26 CXR: Developing right upper lobe infiltrate and possibly bilateral perihilar infiltrates, likely pneumonia. Probable UTI -u/a wbc 5-10, nit neg, leuk +2; ucx C. tropicalis Afebrile Leukocytosis, recurrent -CXR: No acute process Hyponatremia HTN CAD/AL CVA sacral decubitus ulcer (POA) anemia s/p R OUTPATIENT THERAPIST shunt dysphagia s/p GT GERD dementia non verbal seizure disorder chronic resp failure s/p trach/vent dependent Dm2 SNF Plan: - Zosyn #02/19 -02/28 SP IV Vancomycin #6 -02/23 SP Meropenem x1 -f/u cx -Monitor CBC/CMP, temperatures -COVID19 neg x2; ok to dc iso -f/u repeat Bcx x2 -sp cx Thank you for consulting [facility]. Will continue to follow along with you. Parrish sogn RN. Subjective Allergies: Coded Allergies: No Known Allergies (Unverified , 11/06/18) afebrile leukocytosis recurrent repeta Bcx NTD cdiff neg Objective Last 24 Hour Vital Signs Date Time Temp Pulse Resp B/P (MAP) Pulse Ox O2 Delivery O2 Flow Rate FiO2 03/01/20 16:00 30 03/01/20 16:00 Mechanical Ventilator 03/01/20 14:58 64 24 30 03/01/20 12:40 134/61 03/01/20 12:00 78 03/01/20 12:00 97.7 79 20 134/61 (85) 100 03/01/20 12:00 Mechanical Ventilator 03/01/20 12:00 30 03/01/20 10:41 79 16 30 03/01/20 09:04 88 139/57 03/01/20 09:03 88 139/57 03/01/20 08:00 Mechanical Ventilator 03/01/20 08:00 85 03/01/20 08:00 30 03/01/20 07:28 97.7 88 20 139/57 (84) 94 03/01/20 07:17 86 20 30 03/01/20 05:20 139/68 03/01/20 04:37 85 03/01/20 04:00 Mechanical Ventilator 03/01/20 04:00 97.3 82 23 132/57 (82) 100 03/01/20 04:00 30 03/01/20 03:25 89 28 30 03/01/20 00:00 99.3 94 20 135/55 (81) 100 03/01/20 00:00 91 03/01/20 00:00 Mechanical Ventilator 02/29/20 23:54 99.3 02/29/20 23:22 94 24 30 02/29/20 23:15 135/55 02/29/20 20:00 93 02/29/20 20:00 Mechanical Ventilator 02/29/20 20:00 30 02/29/20 20:00 98.4 99 26 141/69 (93) 100 02/29/20 19:52 102 28 30 Height (Feet): 4 Height (Inches): 11.00 Weight (Pounds): 155 GENERAL: This is an elderly female who is in no acute distress. HEENT: Head is normocephalic and atraumatic. Pupils are equal, round and reactive to light. NECK: Supple. She has midline tracheostomy. LUNGS: Bilateral rhonchi. HEART: Regular rate and rhythm without rubs, murmurs, or gallops. ABDOMEN: She has a G-tube. Soft, nontender. EXTREMITIES: No clubbing, cyanosis, or edema. NEUROLOGIC: She is obtunded. There were no gross focal findings. Microbiology Date/Time Source Procedure Growth Status 02/29/20 22:00 Stool Clostridium difficile Toxin Assay - Final Complete Laboratory Tests Test 02/29/20 23:10 03/01/20 03:05 03/01/20 05:15 03/01/20 12:29 POC Whole Blood Glucose 281 MG/DL (74-106) H Pending 297 MG/DL (74-106) H White Blood Count 17.0 K/UL (4.8-10.8) #H Red Blood Count 3.85 M/UL (4.20-5.40) L Hemoglobin 12.4 G/DL (12.0-16.0) Hematocrit 38.3 % (37.0-47.0) Mean Corpuscular Volume 99 FL (80-99) Mean Corpuscular Hemoglobin 32.1 PG (27.0-31.0) H Mean Corpuscular Hemoglobin Concent 32.3 G/DL (32.0-36.0) Red Cell Distribution Width 13.5 % (11.6-14.8) Platelet Count 446 K/UL (150-450) Mean Platelet Volume 5.6 FL (6.5-10.1) L Neutrophils (%) (Auto) 77.3 % (45.0-75.0) H Lymphocytes (%) (Auto) 13.1 % (20.0-45.0) L Monocytes (%) (Auto) 4.6 % (1.0-10.0) Eosinophils (%) (Auto) 4.7 % (0.0-3.0) H Basophils (%) (Auto) 0.4 % (0.0-2.0) Sodium Level 135 MMOL/L (136-145) L Potassium Level 4.3 MMOL/L (3.5-5.1) Chloride Level 98 MMOL/L (98-107) Carbon Dioxide Level 28 MMOL/L (21-32) Anion Gap 9 mmol/L (5-15) Blood Urea Nitrogen 22 mg/dL (7-18) H Creatinine 0.8 MG/DL (0.55-1.30) Estimat Glomerular Filtration Rate > 60 mL/min (>60) Glucose Level 204 MG/DL (74-106) H Calcium Level 9.1 MG/DL (8.5-10.1) Current Medications Medications (Trade) Dose Ordered Sig/Dell Route PRN Reason Start Time Stop Time Status Last Admin Dose Admin Acetaminophen (Tylenol) 650 mg Q4H PRN GT Temp >100.5 02/27/20 13:15 03/28/20 13:14 02/29/20 23:24 Acetaminophen/ Hydrocodone Bitart ([place] 5/325) 1 tab Q8H PRN GT FOR PAIN 02/24/20 18:30 03/02/20 18:29 Amlodipine Besylate (Norvasc) 10 mg DAILY GT 02/25/20 09:00 03/26/20 08:59 03/01/20 09:04 Atenolol (Tenormin) 50 mg DAILY GT 02/25/20 09:00 03/26/20 08:59 03/01/20 09:03 Demeclocycline HCl (Declomycin) 300 mg TWICE A DAY GT 02/25/20 09:00 03/03/20 08:59 03/01/20 09:02 Dextrose (Dextrose 50%) 25 ml Q30M PRN IV Hypoglycemia 02/24/20 18:45 05/24/20 18:44 Dextrose (Dextrose 50%) 50 ml Q30M PRN IV Hypoglycemia 02/24/20 18:45 05/24/20 18:44 Docusate Sodium (Colace) 100 mg DAILY NG 02/28/20 09:00 03/29/20 08:59 Heparin Sodium (Porcine) (Heparin 5000 units/ml) 5,000 units EVERY 12 HOURS SUBQ 02/24/20 21:00 04/09/20 20:59 03/01/20 09:03 Hydralazine HCl (Apresoline) 50 mg EVERY 6 HOURS GT 02/26/20 18:00 05/26/20 17:59 03/01/20 12:40 Insulin Aspart (NovoLOG) Q6HR SUBQ 03/01/20 18:00 05/30/20 17:59 Levetiracetam (Keppra) 750 mg DAILY GT 02/25/20 09:00 03/26/20 08:59 03/01/20 09:01 Nystatin (Nystop Powder) 1 applic THREE TIMES A DAY TOPIC 02/28/20 21:00 05/28/20 20:59 03/01/20 12:42 Piperacillin Sod/ Tazobactam Sod 3.375 gm/Sodium Chloride 110 ml @ 27.5 mls/hr EVERY 8 HOURS IVPB 02/24/20 22:00 03/02/20 21:59 03/01/20 14:02 Lilli Gonzalez M.D. Mar 01, 2020 17:44
[2020-03-01 20:00] VITALS: BP 110/70
[2020-03-02] VITALS: BP 136/51
[2020-03-02 04:00] VITALS: BP 108/47
[2020-03-02] MEDS: NovoLOG Insulin Flexpen SUBQ SCH ×3 (05:20→18:32)
[2020-03-02] MEDS: HydrALAZINE 50mg tab GT SCH ×3 (05:20→18:28)
[2020-03-02] MEDS: Piperacillin/Tazobactam 3.375 GM in NS 110 ML IVPB SCH ×3 (05:21→22:11)
[2020-03-02 05:31] LABS: BASOPHILS % (AUTO) 0.7 % (0.0-2.0); EOSINOPHILS % (AUTO) 9.1 % (0.0-3.0); HEMATOCRIT 34.6 % (37.0-47.0); HEMOGLOBIN 11.5 G/DL (12.0-16.0); LYMPHOCYTES % (AUTO) 20.1 % (20.0-45.0); MEAN CORPUSCULAR VOLUME 99 FL (80-99); MONOCYTES % (AUTO) 6.1 % (1.0-10.0); NEUTROPHILS % (AUTO) 64.1 % (45.0-75.0); PLATELET COUNT 438 K/UL (150-450); RED CELL DISTRIBUTION WIDTH 13.8 % (11.6-14.8); WHITE BLOOD COUNT 9.6 K/UL (4.8-10.8)
[2020-03-02 06:01] LABS: ALANINE AMINOTRANSFERASE 22 U/L (12-78); ALBUMIN 2.6 G/DL (3.4-5.0); ALBUMIN/GLOBULIN RATIO 0.6 (1.0-2.7); ALKALINE PHOSPHATASE 125 U/L (46-116); ANION GAP 6 mmol/L (5-15); ASPARTATE AMINO TRANSFERASE 14 U/L (15-37); BILIRUBIN,TOTAL 0.2 MG/DL (0.2-1.0); BLOOD UREA NITROGEN 22 mg/dL (7-18); CARBON DIOXIDE 30 MMOL/L (21-32); CHLORIDE 97 MMOL/L (98-107); CREATININE 0.6 MG/DL (0.55-1.30); PHOSPHORUS 4.2 MG/DL (2.5-4.9); SODIUM 133 MMOL/L (136-145)
[2020-03-02 07:55] VITALS: BP 126/63
[2020-03-02] MEDS: Nystatin Powder 100,000 units/gm 15gm TOPIC SCH ×3 (08:15→18:29)
[2020-03-02] MEDS: Docusate 100mg/10ml Liq NG SCH (08:15)
[2020-03-02] MEDS: levETIRAcetam 500mg/5ml Liquid GT SCH (08:15)
[2020-03-02] MEDS: Demeclocycline 150mg tab GT SCH ×2 (08:15→18:28)
[2020-03-02] MEDS: Heparin 5000 units/ml inj SUBQ SCH ×2 (08:22→20:36)
--- NOTE | 2020-03-02 11:09 | Pulmonolgy Critical Care Note ---
Critical Care - Asmt/Plan Problems: (1) Sepsis (2) Chronic respiratory failure (3) Hyponatremia (4) Decubital ulcer (5) History of hypertension (6) History of diabetes mellitus (7) Family history of CVA (8) Feeding by G-tube (9) Ventriculo-peritoneal shunt status Respiratory: monitor respiratory rate, adjust FIO2 Cardiac: continue to monitor HR/BP Renal: F/U I&O, keep IV fluid, check electrolytes Infectious Disease: check cultures, continue antibiotics, other - on Zosyn Gastrointestinal: continue feedings/current rate Endocrine: monitor blood sugar Hematologic: monitor H/H Affect: PRN ativan Prophylaxis: Protonix Notes Reviewed: petroleum engineering teacher, cardio, renal Discussed with: nurses, consultants, case folderbowling alley manager - Objective Last 24 Hour Vital Signs Date Time Temp Pulse Resp B/P (MAP) Pulse Ox O2 Delivery O2 Flow Rate FiO2 03/02/20 10:44 77 18 30 03/02/20 09:16 86 03/02/20 08:15 86 126/63 03/02/20 08:15 86 126/63 03/02/20 08:00 30 03/02/20 08:00 Mechanical Ventilator 03/02/20 07:55 98.2 86 18 126/63 (84) 100 03/02/20 07:14 84 15 30 03/02/20 05:20 143/65 03/02/20 04:00 30 03/02/20 04:00 Mechanical Ventilator 03/02/20 04:00 98.2 82 19 108/47 (67) 100 03/02/20 03:44 80 03/02/20 03:01 85 21 30 03/02/20 00:00 Mechanical Ventilator 03/02/20 00:00 99.0 81 22 136/51 (79) 100 03/01/20 23:35 82 03/01/20 23:31 136/51 03/01/20 23:07 81 21 30 03/01/20 20:00 79 03/01/20 20:00 Mechanical Ventilator 03/01/20 20:00 30 03/01/20 20:00 98.8 84 20 110/70 (83) 100 03/01/20 19:20 87 17 30 03/01/20 17:45 139/62 03/01/20 16:00 98.0 82 20 139/62 (87) 100 03/01/20 16:00 80 03/01/20 16:00 30 03/01/20 16:00 Mechanical Ventilator 03/01/20 14:58 64 24 30 03/01/20 12:40 134/61 03/01/20 12:00 78 03/01/20 12:00 97.7 79 20 134/61 (85) 100 03/01/20 12:00 Mechanical Ventilator 03/01/20 12:00 30 Status: sedated Condition: critical HEENT: atraumatic, normocephalic Lungs: rales, rhonchi Heart: HR/BP stable Abdomen: soft, non-tender Extremities: no C/C/E Micro: Microbiology Date/Time Source Procedure Growth Status 02/29/20 22:00 Stool Clostridium difficile Toxin Assay - Final Complete Accucheck: 272 Critical Care - Subjective ROS Limited/Unobtainable: Yes Condition: critical EKG Rhythm: Sinus Rhythm FI02: 30 Vent Support Breath Rate: 10 Vent Support Mode: AC Vent Tidal Volume: 380 Sputum Amount: Small PEEP: 0.0 PIP: 24 Tube Feeding Amount: 55 I&O: Intake and Output 03/01/20 03/02/20 19:00 07:00 Intake Total 812.41 ml 866.97 ml Output Total 650 ml Balance 162.41 ml 866.97 ml Intake Free Water 200 ml 100 ml IV Total 172.41 ml 161.97 ml Tube Feeding 440 ml 605 ml Output Urine Total 650 ml # Bowel Movements 3 1 CXR: no change Labs: Laboratory Tests Test 03/01/20 12:29 03/01/20 17:37 03/01/20 23:27 03/02/20 04:30 POC Whole Blood Glucose 297 MG/DL (74-106) H 195 MG/DL (74-106) H Pending White Blood Count 9.6 K/UL (4.8-10.8) Red Blood Count 3.50 M/UL (4.20-5.40) L Hemoglobin 11.5 G/DL (12.0-16.0) L Hematocrit 34.6 % (37.0-47.0) L Mean Corpuscular Volume 99 FL (80-99) Mean Corpuscular Hemoglobin 32.7 PG (27.0-31.0) H Mean Corpuscular Hemoglobin Concent 33.1 G/DL (32.0-36.0) Red Cell Distribution Width 13.8 % (11.6-14.8) Platelet Count 438 K/UL (150-450) Mean Platelet Volume 6.0 FL (6.5-10.1) L Neutrophils (%) (Auto) 64.1 % (45.0-75.0) Lymphocytes (%) (Auto) 20.1 % (20.0-45.0) Monocytes (%) (Auto) 6.1 % (1.0-10.0) Eosinophils (%) (Auto) 9.1 % (0.0-3.0) H Basophils (%) (Auto) 0.7 % (0.0-2.0) Erythrocyte Sedimentation Rate 102 MM/HR (0-30) H Sodium Level 133 MMOL/L (136-145) L Potassium Level 4.0 MMOL/L (3.5-5.1) Chloride Level 97 MMOL/L (98-107) L Carbon Dioxide Level 30 MMOL/L (21-32) Anion Gap 6 mmol/L (5-15) Blood Urea Nitrogen 22 mg/dL (7-18) H Creatinine 0.6 MG/DL (0.55-1.30) Estimat Glomerular Filtration Rate > 60 mL/min (>60) Glucose Level 277 MG/DL (74-106) H Calcium Level 9.0 MG/DL (8.5-10.1) Phosphorus Level 4.2 MG/DL (2.5-4.9) Magnesium Level 2.1 MG/DL (1.8-2.4) Total Bilirubin 0.2 MG/DL (0.2-1.0) Aspartate Amino Transf (AST/SGOT) 14 U/L (15-37) L Alanine Aminotransferase (ALT/SGPT) 22 U/L (12-78) Alkaline Phosphatase 125 U/L (46-116) H C-Reactive Protein, Quantitative 3.8 mg/dL (0.00-0.90) H Total Protein 6.6 G/DL (6.4-8.2) Albumin 2.6 G/DL (3.4-5.0) L Globulin 4.0 g/dL Albumin/Globulin Ratio 0.6 (1.0-2.7) L Test 03/02/20 05:17 POC Whole Blood Glucose Pending Zarrabi,Mirali MD Mar 02, 2020 11:09
[2020-03-02] MEDS ORDERED: Docusate 100mg/10ml Liq GT PRN (11:15)
[2020-03-02] MEDS ORDERED: Lomotil 2.5mg tab GT PRN (11:15)
--- NOTE | 2020-03-02 11:56 | Surgery Progress Note ---
Surgery Progress Note Subjective Symptoms: improved, tolerating diet, BM Objective Last 24 Hour Vital Signs Date Time Temp Pulse Resp B/P (MAP) Pulse Ox O2 Delivery O2 Flow Rate FiO2 03/02/20 10:44 77 18 30 03/02/20 09:16 86 03/02/20 08:15 86 126/63 03/02/20 08:15 86 126/63 03/02/20 08:00 30 03/02/20 08:00 Mechanical Ventilator 03/02/20 07:55 98.2 86 18 126/63 (84) 100 03/02/20 07:14 84 15 30 03/02/20 05:20 143/65 03/02/20 04:00 30 03/02/20 04:00 Mechanical Ventilator 03/02/20 04:00 98.2 82 19 108/47 (67) 100 03/02/20 03:44 80 03/02/20 03:01 85 21 30 03/02/20 00:00 Mechanical Ventilator 03/02/20 00:00 99.0 81 22 136/51 (79) 100 03/01/20 23:35 82 03/01/20 23:31 136/51 03/01/20 23:07 81 21 30 03/01/20 20:00 79 03/01/20 20:00 Mechanical Ventilator 03/01/20 20:00 30 03/01/20 20:00 98.8 84 20 110/70 (83) 100 03/01/20 19:20 87 17 30 03/01/20 17:45 139/62 03/01/20 16:00 98.0 82 20 139/62 (87) 100 03/01/20 16:00 80 03/01/20 16:00 30 03/01/20 16:00 Mechanical Ventilator 03/01/20 14:58 64 24 30 03/01/20 12:40 134/61 03/01/20 12:00 78 03/01/20 12:00 97.7 79 20 134/61 (85) 100 03/01/20 12:00 Mechanical Ventilator 03/01/20 12:00 30 I&O Intake and Output 03/01/20 03/02/20 19:00 07:00 Intake Total 812.41 ml 866.97 ml Output Total 650 ml Balance 162.41 ml 866.97 ml Intake Free Water 200 ml 100 ml IV Total 172.41 ml 161.97 ml Tube Feeding 440 ml 605 ml Output Urine Total 650 ml # Bowel Movements 3 1 Dressing: saturated Cardiovascular: RSR Respiratory: decreased breath sounds Abdomen: soft, non-tender, present bowel sounds, non-distended Extremities: edema, no tenderness, no cyanosis Laboratory Tests Test 03/01/20 12:29 03/01/20 17:37 03/01/20 23:27 03/02/20 04:30 POC Whole Blood Glucose 297 MG/DL (74-106) H 195 MG/DL (74-106) H Pending White Blood Count 9.6 K/UL (4.8-10.8) Red Blood Count 3.50 M/UL (4.20-5.40) L Hemoglobin 11.5 G/DL (12.0-16.0) L Hematocrit 34.6 % (37.0-47.0) L Mean Corpuscular Volume 99 FL (80-99) Mean Corpuscular Hemoglobin 32.7 PG (27.0-31.0) H Mean Corpuscular Hemoglobin Concent 33.1 G/DL (32.0-36.0) Red Cell Distribution Width 13.8 % (11.6-14.8) Platelet Count 438 K/UL (150-450) Mean Platelet Volume 6.0 FL (6.5-10.1) L Neutrophils (%) (Auto) 64.1 % (45.0-75.0) Lymphocytes (%) (Auto) 20.1 % (20.0-45.0) Monocytes (%) (Auto) 6.1 % (1.0-10.0) Eosinophils (%) (Auto) 9.1 % (0.0-3.0) H Basophils (%) (Auto) 0.7 % (0.0-2.0) Erythrocyte Sedimentation Rate 102 MM/HR (0-30) H Sodium Level 133 MMOL/L (136-145) L Potassium Level 4.0 MMOL/L (3.5-5.1) Chloride Level 97 MMOL/L (98-107) L Carbon Dioxide Level 30 MMOL/L (21-32) Anion Gap 6 mmol/L (5-15) Blood Urea Nitrogen 22 mg/dL (7-18) H Creatinine 0.6 MG/DL (0.55-1.30) Estimat Glomerular Filtration Rate > 60 mL/min (>60) Glucose Level 277 MG/DL (74-106) H Calcium Level 9.0 MG/DL (8.5-10.1) Phosphorus Level 4.2 MG/DL (2.5-4.9) Magnesium Level 2.1 MG/DL (1.8-2.4) Total Bilirubin 0.2 MG/DL (0.2-1.0) Aspartate Amino Transf (AST/SGOT) 14 U/L (15-37) L Alanine Aminotransferase (ALT/SGPT) 22 U/L (12-78) Alkaline Phosphatase 125 U/L (46-116) H C-Reactive Protein, Quantitative 3.8 mg/dL (0.00-0.90) H Total Protein 6.6 G/DL (6.4-8.2) Albumin 2.6 G/DL (3.4-5.0) L Globulin 4.0 g/dL Albumin/Globulin Ratio 0.6 (1.0-2.7) L Test 03/02/20 05:17 POC Whole Blood Glucose Pending Plan Problems: (1) Decubital ulcer Assessment & Plan: Pt presented on admission with Contractures, Multiple Pressure injuries. 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 Denuded area at cleft. Hyperpigmentation noted at distal base of injury. Purpuric area that is indurated noted to L ischium. Incontinence Associated dermatitis noted to Perineum and Posterior aspect Upper R thigh. Affected areas are erythematous and macerated. Non-Blanchable erythema without induration or fluctuance R Hallux.(L)3cm x (W) 3.5cm. Non-Blanching erythema without induration or fluctuance L Hallux.(L)2.5cm x (W) 2.8cm. Intact Serous filled Blister with surrounding non-Blanching erythema noted to distal/lateral R foot. Both heels are boggy with non-Blanchable erythema. Tx.Plan: Apply Moisture Barrier Paste to Sacrum. Cover with Optifoam drsg. Change every 3 days and prn. Apply Moisture Barrier Paste to perineum,ischial tuberosities and posterior upper thighs with each perineal care. Apply Cavilon Skin Barrier to R heel, Malleoli, R Hallux, distal/lateral R foot. Cover each site with Optifoam drsg. Change every 7 days and prn. Apply Cavilon Skin Barrier to L Heel ,L Hallux,Malleoli and distal/lateral L foot. Cover each site with Optifoam drsgs. Change every 7 days and prn. Reposition at least every 2hours or as tolerated. Off-load heels with pillow. APM/POOJA Mattress overlay. (2) Sepsis Assessment & Plan: 68 female leukocytosis abnormal labs anemia chest x-ray developing on support. Patient examination completed no signs of active infection from decubitus ulcers. The patient on IV antibiotics currently abdominal examination noted trach noted We will continue to follow monitor with local examination. Continue antibiotics per infectious disease inspiration is suboptimal with crowding of the bronchovascular markings. Ventriculoperitoneal shunt tubing traverses the right side of the chest. Tracheostomy is again demonstrated. Interim development of infiltrate in the right upper lobe. There may be some peribronchovascular opacities developing in the right midlung and left lung base as well. There is central bronchial wall thickening. The pleural spaces are clear. The heart size is normal. Nutritional optimization Interim clearing of previously demonstrated right lung infiltrates New or increased small faint infiltrates in the left lung. (3) Respiratory failure (4) History of hypertension (5) Feeding by G-tube (6) Leukocytosis (7) Chronic respiratory failure (8) History of diabetes mellitus (9) Hyponatremia Arnold Hi Mar 02, 2020 11:56
[2020-03-02 11:59] VITALS: BP 131/55
[2020-03-02] MEDS ORDERED: Zinc Oxide Oint 2oz TOPIC PRN (13:45)
--- NOTE | 2020-03-02 14:59 | Infectious Diseases Prog Note ---
Assessment/Plan Assessment: COVID neg x3 ([employer]- 02/20; SARS COV2 02/23 &02/25) SIRS vs Sepsis CONS bacteremia- likely contaminant -02/23 Bcx 1/4 CONS; 02/25 Bcx NTD PNA -03/01 CXR: Interim clearing of previously demonstrated right lung infiltrates. New or increased small faint infiltrates in the left lung. -02/26 CXR: Developing right upper lobe infiltrate and possibly bilateral perihilar infiltrates, likely pneumonia. Probable UTI -u/a wbc 5-10, nit neg, leuk +2; ucx C. 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 Will continue to follow along with you. Discussed duncan RN. Subjective Allergies: Coded Allergies: No Known Allergies (Unverified , 11/06/18) afebrile leukocytosis resolved repeta Bcx NTD Objective Last 24 Hour Vital Signs Date Time Temp Pulse Resp B/P (MAP) Pulse Ox O2 Delivery O2 Flow Rate FiO2 03/02/20 12:06 131/55 03/02/20 12:00 78 03/02/20 12:00 30 03/02/20 11:59 98.1 80 18 131/55 (80) 100 03/02/20 10:44 77 18 30 03/02/20 09:16 86 03/02/20 08:15 86 126/63 03/02/20 08:15 86 126/63 03/02/20 08:00 30 03/02/20 08:00 Mechanical Ventilator 03/02/20 07:55 98.2 86 18 126/63 (84) 100 03/02/20 07:14 84 15 30 03/02/20 05:20 143/65 03/02/20 04:00 30 03/02/20 04:00 Mechanical Ventilator 03/02/20 04:00 98.2 82 19 108/47 (67) 100 03/02/20 03:44 80 03/02/20 03:01 85 21 30 03/02/20 00:00 Mechanical Ventilator 03/02/20 00:00 99.0 81 22 136/51 (79) 100 03/01/20 23:35 82 03/01/20 23:31 136/51 03/01/20 23:07 81 21 30 03/01/20 20:00 79 03/01/20 20:00 Mechanical Ventilator 03/01/20 20:00 30 03/01/20 20:00 98.8 84 20 110/70 (83) 100 03/01/20 19:20 87 17 30 03/01/20 17:45 139/62 03/01/20 16:00 98.0 82 20 139/62 (87) 100 03/01/20 16:00 80 03/01/20 16:00 30 03/01/20 16:00 Mechanical Ventilator Height (Feet): 4 Height (Inches): 11.00 Weight (Pounds): 155 GENERAL: This is an elderly female who is in no acute distress. HEENT: Head is normocephalic and atraumatic. Pupils are equal, round and reactive to light. NECK: Supple. She has midline tracheostomy. LUNGS: Bilateral rhonchi. HEART: Regular rate and rhythm without rubs, murmurs, or gallops. ABDOMEN: She has a G-tube. Soft, nontender. EXTREMITIES: No clubbing, cyanosis, or edema. NEUROLOGIC: She is obtunded. There were no gross focal findings. Microbiology Date/Time Source Procedure Growth Status 02/29/20 22:00 Stool Clostridium difficile Toxin Assay - Final Complete Laboratory Tests Test 03/01/20 17:37 03/01/20 23:27 03/02/20 04:30 03/02/20 05:17 POC Whole Blood Glucose 195 MG/DL (74-106) H Pending Pending White Blood Count 9.6 K/UL (4.8-10.8) Red Blood Count 3.50 M/UL (4.20-5.40) L Hemoglobin 11.5 G/DL (12.0-16.0) L Hematocrit 34.6 % (37.0-47.0) L Mean Corpuscular Volume 99 FL (80-99) Mean Corpuscular Hemoglobin 32.7 PG (27.0-31.0) H Mean Corpuscular Hemoglobin Concent 33.1 G/DL (32.0-36.0) Red Cell Distribution Width 13.8 % (11.6-14.8) Platelet Count 438 K/UL (150-450) Mean Platelet Volume 6.0 FL (6.5-10.1) L Neutrophils (%) (Auto) 64.1 % (45.0-75.0) Lymphocytes (%) (Auto) 20.1 % (20.0-45.0) Monocytes (%) (Auto) 6.1 % (1.0-10.0) Eosinophils (%) (Auto) 9.1 % (0.0-3.0) H Basophils (%) (Auto) 0.7 % (0.0-2.0) Erythrocyte Sedimentation Rate 102 MM/HR (0-30) H Sodium Level 133 MMOL/L (136-145) L Potassium Level 4.0 MMOL/L (3.5-5.1) Chloride Level 97 MMOL/L (98-107) L Carbon Dioxide Level 30 MMOL/L (21-32) Anion Gap 6 mmol/L (5-15) Blood Urea Nitrogen 22 mg/dL (7-18) H Creatinine 0.6 MG/DL (0.55-1.30) Estimat Glomerular Filtration Rate > 60 mL/min (>60) Glucose Level 277 MG/DL (74-106) H Calcium Level 9.0 MG/DL (8.5-10.1) Phosphorus Level 4.2 MG/DL (2.5-4.9) Magnesium Level 2.1 MG/DL (1.8-2.4) Total Bilirubin 0.2 MG/DL (0.2-1.0) Aspartate Amino Transf (AST/SGOT) 14 U/L (15-37) L Alanine Aminotransferase (ALT/SGPT) 22 U/L (12-78) Alkaline Phosphatase 125 U/L (46-116) H C-Reactive Protein, Quantitative 3.8 mg/dL (0.00-0.90) H Total Protein 6.6 G/DL (6.4-8.2) Albumin 2.6 G/DL (3.4-5.0) L Globulin 4.0 g/dL Albumin/Globulin Ratio 0.6 (1.0-2.7) L Test 03/02/20 11:58 POC Whole Blood Glucose 299 MG/DL (74-106) H Current Medications Medications (Trade) Dose Ordered Sig/Dell Route PRN Reason Start Time Stop Time Status Last Admin Dose Admin Acetaminophen (Tylenol) 650 mg Q4H PRN GT Temp >100.5 02/27/20 13:15 03/28/20 13:14 02/29/20 23:24 Acetaminophen/ Hydrocodone Bitart ([place] 5/325) 1 tab Q8H PRN GT FOR PAIN 02/24/20 18:30 03/02/20 18:29 Amlodipine Besylate (Norvasc) 10 mg DAILY GT 02/25/20 09:00 03/26/20 08:59 03/02/20 08:15 Atenolol (Tenormin) 50 mg DAILY GT 02/25/20 09:00 03/26/20 08:59 03/02/20 08:15 Demeclocycline HCl (Declomycin) 300 mg TWICE A DAY GT 02/25/20 09:00 03/03/20 08:59 03/02/20 08:15 Dextrose (Dextrose 50%) 25 ml Q30M PRN IV Hypoglycemia 02/24/20 18:45 05/24/20 18:44 Dextrose (Dextrose 50%) 50 ml Q30M PRN IV Hypoglycemia 02/24/20 18:45 05/24/20 18:44 Diphenoxylate HCl/ Atropine (Lomotil) 2.5 mg Q6H PRN GT Diarrhea 03/02/20 11:15 04/01/20 11:14 03/02/20 12:06 Docusate Sodium (Colace) 100 mg DAILYPRN PRN GT Constipation 03/02/20 11:15 04/01/20 11:14 Heparin Sodium (Porcine) (Heparin 5000 units/ml) 5,000 units EVERY 12 HOURS SUBQ 02/24/20 21:00 04/09/20 20:59 03/02/20 08:22 Hydralazine HCl (Apresoline) 50 mg EVERY 6 HOURS GT 02/26/20 18:00 05/26/20 17:59 03/02/20 12:06 Insulin Aspart (NovoLOG) Q6HR SUBQ 03/01/20 18:00 05/30/20 17:59 03/02/20 12:01 Levetiracetam (Keppra) 750 mg DAILY GT 02/25/20 09:00 03/26/20 08:59 03/02/20 08:15 Nystatin (Nystop Powder) 1 applic THREE TIMES A DAY TOPIC 02/28/20 21:00 05/28/20 20:59 03/02/20 12:06 Piperacillin Sod/ Tazobactam Sod 3.375 gm/Sodium Chloride 110 ml @ 27.5 mls/hr EVERY 8 HOURS IVPB 02/24/20 22:00 03/05/20 23:59 03/02/20 14:31 Zinc Oxide (Zinc Oxide) 1 applic THREE TIMES A DAY TOPIC 03/02/20 18:00 05/31/20 17:59 Zinc Oxide (Zinc Oxide) 1 applic [id number] PRN TOPIC cleaning 03/02/20 13:45 05/31/20 13:44 Lilli Gonzalez M.D. Mar 02, 2020 14:59
[2020-03-02 16:00] VITALS: BP 116/70
[2020-03-02] MEDS: Zinc Oxide Oint 2oz TOPIC SCH (18:40)
[2020-03-02 20:00] VITALS: BP 136/68
[2020-03-03] VITALS (7 sets, daily range): BP systolic 113–133; BP diastolic 53–64
[2020-03-03] MEDS: HydrALAZINE 50mg tab GT SCH ×5 (00:18→23:00)
[2020-03-03] MEDS: NovoLOG Insulin Flexpen SUBQ SCH ×5 (00:18→23:00)
[2020-03-03] MEDS: Piperacillin/Tazobactam 3.375 GM in NS 110 ML IVPB SCH ×3 (05:26→21:00)
[2020-03-03 05:43] LABS: BASOPHILS % (AUTO) 0.7 % (0.0-2.0); HEMATOCRIT 35.6 % (37.0-47.0); HEMOGLOBIN 11.7 G/DL (12.0-16.0); LYMPHOCYTES % (AUTO) 19.2 % (20.0-45.0); MEAN CORPUSCULAR VOLUME 98 FL (80-99); MONOCYTES % (AUTO) 6.6 % (1.0-10.0); NEUTROPHILS % (AUTO) 67.5 % (45.0-75.0); PLATELET COUNT 449 K/UL (150-450); RED BLOOD COUNT 3.65 M/UL (4.20-5.40); RED CELL DISTRIBUTION WIDTH 13.4 % (11.6-14.8); WHITE BLOOD COUNT 10.8 K/UL (4.8-10.8)
[2020-03-03 05:48] LABS: ALANINE AMINOTRANSFERASE 30 U/L (12-78); ALBUMIN 2.5 G/DL (3.4-5.0); ALBUMIN/GLOBULIN RATIO 0.6 (1.0-2.7); ALKALINE PHOSPHATASE 98 U/L (46-116); ANION GAP 8 mmol/L (5-15); ASPARTATE AMINO TRANSFERASE 15 U/L (15-37); BILIRUBIN,TOTAL 0.3 MG/DL (0.2-1.0); BLOOD UREA NITROGEN 23 mg/dL (7-18); CALCIUM 8.2 MG/DL (8.5-10.1); CARBON DIOXIDE 28 MMOL/L (21-32); CHLORIDE 99 MMOL/L (98-107); CREATININE 0.7 MG/DL (0.55-1.30); PHOSPHORUS 3.2 MG/DL (2.5-4.9); POTASSIUM 3.9 MMOL/L (3.5-5.1); SODIUM 135 MMOL/L (136-145)
[2020-03-03] MEDS: levETIRAcetam 500mg/5ml Liquid GT SCH (08:40)
[2020-03-03] MEDS: Zinc Oxide Oint 2oz TOPIC SCH ×3 (08:41→21:00)
[2020-03-03] MEDS: Nystatin Powder 100,000 units/gm 15gm TOPIC SCH ×3 (08:41→21:00)
[2020-03-03] MEDS: Heparin 5000 units/ml inj SUBQ SCH ×2 (08:42→20:34)
--- NOTE | 2020-03-03 11:23 | Infectious Diseases Prog Note ---
Assessment/Plan Assessment: COVID neg x3 (RISK LEAD- 02/20; SARS COV2 02/23 &02/25) SIRS vs Sepsis CONS bacteremia- likely contaminant -02/23 Bcx 1/ CONS; 02/25 Bcx NTD PNA -03/01 CXR: Interim clearing of previously demonstrated right lung infiltrates. New or increased small faint infiltrates in the left lung. -sp cx GNR #1, #2 -02/26 CXR: Developing right upper lobe infiltrate and possibly bilateral perihilar infiltrates, likely pneumonia. Probable UTI -u/a wbc 5-10, nit neg, leuk +2; ucx C. tropicalis Afebrile Leukocytosis, recurrent- SP -CXR: No acute process Hyponatremia HTN CAD/DE CVA sacral decubitus ulcer (POA) anemia s/p R [employer] shunt dysphagia s/p GT GERD dementia non verbal seizure disorder chronic resp failure s/p trach/vent dependent [facility] SNF Plan: - Zosyn #9/10 -02/28 SP IV Vancomycin #6 -02/23 SP Meropenem x1 -f/u cx -Monitor CBC/CMP, temperatures -COVID19 neg x2; ok to dc iso -f/u repeat Bcx x2, sp cx Thank you for consulting [facility]. Will continue to follow along with you. Parrish song RN. Subjective Allergies: Coded Allergies: No Known Allergies (Unverified , 11/06/18) afebrile no leukocytosis repeta Bcx NTD Objective Last 24 Hour Vital Signs Date Time Temp Pulse Resp B/P (MAP) Pulse Ox O2 Delivery O2 Flow Rate FiO2 03/03/20 08:40 91 115/64 03/03/20 08:40 91 115/64 03/03/20 08:00 Mechanical Ventilator 03/03/20 08:00 30 03/03/20 08:00 98.6 91 18 115/64 (81) 100 03/03/20 07:43 89 03/03/20 07:15 88 18 30 03/03/20 05:25 117/59 03/03/20 04:00 98.2 82 18 123/64 (83) 100 03/03/20 04:00 30 03/03/20 04:00 Mechanical Ventilator 03/03/20 03:31 85 03/03/20 03:02 86 18 30 03/03/20 00:18 123/59 03/03/20 00:00 98.6 82 18 123/59 (80) 100 03/03/20 00:00 Mechanical Ventilator 03/02/20 23:28 81 03/02/20 23:09 82 18 30 03/02/20 20:00 30 03/02/20 20:00 Mechanical Ventilator 03/02/20 20:00 98.4 80 18 136/68 (90) 100 03/02/20 19:40 81 03/02/20 19:00 77 18 30 03/02/20 18:28 131/55 03/02/20 17:55 30 03/02/20 16:54 73 03/02/20 16:00 97.8 76 18 116/70 (85) 96 03/02/20 16:00 30 03/02/20 16:00 Mechanical Ventilator 03/02/20 15:28 73 17 30 03/02/20 12:06 131/55 03/02/20 12:00 78 03/02/20 12:00 30 03/02/20 12:00 Mechanical Ventilator 03/02/20 11:59 98.1 80 18 131/55 (80) 100 Height (Feet): 4 Height (Inches): 11.00 Weight (Pounds): 157 GENERAL: This is an elderly female who is in no acute distress. HEENT: Head is normocephalic and atraumatic. Pupils are equal, round and reactive to light. NECK: Supple. She has midline tracheostomy. LUNGS: Bilateral rhonchi. HEART: Regular rate and rhythm without rubs, murmurs, or gallops. ABDOMEN: She has a G-tube. Soft, nontender. EXTREMITIES: No clubbing, cyanosis, or edema. NEUROLOGIC: She is obtunded. There were no gross focal findings. Microbiology Date/Time Source Procedure Growth Status 03/01/20 18:50 Sputum Expectorated Gram Stain - Final Resulted 03/01/20 18:50 Sputum Culture - Preliminary Gram Negative Bacillus 1 Gram Negative Bacillus 2 Resulted 02/29/20 22:00 Stool Clostridium difficile Toxin Assay - Final Complete Laboratory Tests Test 03/02/20 11:58 03/02/20 17:46 03/03/20 00:14 03/03/20 04:35 POC Whole Blood Glucose 299 MG/DL (74-106) H 161 MG/DL (74-106) H Pending White Blood Count 10.8 K/UL (4.8-10.8) Red Blood Count 3.65 M/UL (4.20-5.40) L Hemoglobin 11.7 G/DL (12.0-16.0) L Hematocrit 35.6 % (37.0-47.0) L Mean Corpuscular Volume 98 FL (80-99) Mean Corpuscular Hemoglobin 32.2 PG (27.0-31.0) H Mean Corpuscular Hemoglobin Concent 32.9 G/DL (32.0-36.0) Red Cell Distribution Width 13.4 % (11.6-14.8) Platelet Count 449 K/UL (150-450) Mean Platelet Volume 6.0 FL (6.5-10.1) L Neutrophils (%) (Auto) 67.5 % (45.0-75.0) Lymphocytes (%) (Auto) 19.2 % (20.0-45.0) L Monocytes (%) (Auto) 6.6 % (1.0-10.0) Eosinophils (%) (Auto) 6.0 % (0.0-3.0) H Basophils (%) (Auto) 0.7 % (0.0-2.0) Erythrocyte Sedimentation Rate 103 MM/HR (0-30) H Sodium Level 135 MMOL/L (136-145) L Potassium Level 3.9 MMOL/L (3.5-5.1) Chloride Level 99 MMOL/L (98-107) Carbon Dioxide Level 28 MMOL/L (21-32) Anion Gap 8 mmol/L (5-15) Blood Urea Nitrogen 23 mg/dL (7-18) H Creatinine 0.7 MG/DL (0.55-1.30) Estimat Glomerular Filtration Rate > 60 mL/min (>60) Glucose Level 221 MG/DL (74-106) H Calcium Level 8.2 MG/DL (8.5-10.1) L Phosphorus Level 3.2 MG/DL (2.5-4.9) Magnesium Level 2.2 MG/DL (1.8-2.4) Total Bilirubin 0.3 MG/DL (0.2-1.0) Aspartate Amino Transf (AST/SGOT) 15 U/L (15-37) Alanine Aminotransferase (ALT/SGPT) 30 U/L (12-78) Alkaline Phosphatase 98 U/L (46-116) C-Reactive Protein, Quantitative 1.9 mg/dL (0.00-0.90) H Total Protein 6.5 G/DL (6.4-8.2) Albumin 2.5 G/DL (3.4-5.0) L Globulin 4.0 g/dL Albumin/Globulin Ratio 0.6 (1.0-2.7) L Test 03/03/20 05:24 POC Whole Blood Glucose Pending Current Medications Medications (Trade) Dose Ordered Sig/Dell Route PRN Reason Start Time Stop Time Status Last Admin Dose Admin Acetaminophen (Tylenol) 650 mg Q4H PRN GT Temp >100.5 02/27/20 13:15 03/28/20 13:14 02/29/20 23:24 Amlodipine Besylate (Norvasc) 10 mg DAILY GT 02/25/20 09:00 03/26/20 08:59 03/03/20 08:40 Atenolol (Tenormin) 50 mg DAILY GT 02/25/20 09:00 03/26/20 08:59 03/03/20 08:40 Dextrose (Dextrose 50%) 25 ml Q30M PRN IV Hypoglycemia 02/24/20 18:45 05/24/20 18:44 Dextrose (Dextrose 50%) 50 ml Q30M PRN IV Hypoglycemia 02/24/20 18:45 05/24/20 18:44 Diphenoxylate HCl/ Atropine (Lomotil) 2.5 mg Q6H PRN GT Diarrhea 03/02/20 11:15 04/01/20 11:14 03/02/20 12:06 Docusate Sodium (Colace) 100 mg DAILYPRN PRN GT Constipation 03/02/20 11:15 04/01/20 11:14 Heparin Sodium (Porcine) (Heparin 5000 units/ml) 5,000 units EVERY 12 HOURS SUBQ 02/24/20 21:00 04/09/20 20:59 03/03/20 08:42 Hydralazine HCl (Apresoline) 50 mg EVERY 6 HOURS GT 02/26/20 18:00 05/26/20 17:59 03/03/20 05:25 Insulin Aspart (NovoLOG) Q6HR SUBQ 03/01/20 18:00 05/30/20 17:59 03/03/20 05:27 Levetiracetam (Keppra) 750 mg DAILY GT 02/25/20 09:00 03/26/20 08:59 03/03/20 08:40 Nystatin (Nystop Powder) 1 applic THREE TIMES A DAY TOPIC 02/28/20 21:00 05/28/20 20:59 03/03/20 08:41 Piperacillin Sod/ Tazobactam Sod 3.375 gm/Sodium Chloride 110 ml @ 27.5 mls/hr EVERY 8 HOURS IVPB 02/24/20 22:00 03/05/20 23:59 03/03/20 05:26 Zinc Oxide (Zinc Oxide) 1 applic THREE TIMES A DAY TOPIC 03/02/20 18:00 05/31/20 17:59 03/03/20 08:41 Zinc Oxide (Zinc Oxide) 1 applic TIDPRN PRN TOPIC cleaning 03/02/20 13:45 05/31/20 13:44 Lilli Gonzalez M.D. Mar 03, 2020 11:23
--- NOTE | 2020-03-03 12:23 | Pulmonolgy Critical Care Note ---
Critical Care - Asmt/Plan Problems: (1) Sepsis (2) Chronic respiratory failure (3) Hyponatremia (4) Decubital ulcer (5) History of hypertension (6) History of diabetes mellitus (7) Family history of CVA (8) Feeding by G-tube (9) Ventriculo-peritoneal shunt status Respiratory: monitor respiratory rate, adjust FIO2, CXR Cardiac: continue to monitor HR/BP Renal: F/U I&O, keep IV fluid, check electrolytes Infectious Disease: check cultures, continue antibiotics Gastrointestinal: continue feedings/current rate Hematologic: monitor H/H Neurologic: PRN Ativan Affect: PRN ativan Prophylaxis: Protonix Disposition: keep in ICU Notes Reviewed: director pharmacy services Discussed with: nurses, consultants, adult protective caseworkersenior safety support manager - Objective Last 24 Hour Vital Signs Date Time Temp Pulse Resp B/P (MAP) Pulse Ox O2 Delivery O2 Flow Rate FiO2 03/03/20 12:17 113/60 03/03/20 12:00 Mechanical Ventilator 03/03/20 12:00 30 03/03/20 08:40 91 115/64 03/03/20 08:40 91 115/64 03/03/20 08:00 Mechanical Ventilator 03/03/20 08:00 30 03/03/20 08:00 98.6 91 18 115/64 (81) 100 03/03/20 07:43 89 03/03/20 07:15 88 18 30 03/03/20 05:25 117/59 03/03/20 04:00 98.2 82 18 123/64 (83) 100 03/03/20 04:00 30 03/03/20 04:00 Mechanical Ventilator 03/03/20 03:31 85 03/03/20 03:02 86 18 30 03/03/20 00:18 123/59 03/03/20 00:00 98.6 82 18 123/59 (80) 100 03/03/20 00:00 Mechanical Ventilator 03/02/20 23:28 81 03/02/20 23:09 82 18 30 03/02/20 20:00 30 03/02/20 20:00 Mechanical Ventilator 03/02/20 20:00 98.4 80 18 136/68 (90) 100 03/02/20 19:40 81 03/02/20 19:00 77 18 30 03/02/20 18:28 131/55 03/02/20 17:55 30 03/02/20 16:54 73 03/02/20 16:00 97.8 76 18 116/70 (85) 96 03/02/20 16:00 30 03/02/20 16:00 Mechanical Ventilator 03/02/20 15:28 73 17 30 Status: sedated Condition: critical Neck: full ROM Lungs: rales, rhonchi Heart: HR/BP stable Abdomen: soft, non-tender Extremities: no C/C/E, edema Decubiti: location Micro: Microbiology Date/Time Source Procedure Growth Status 03/01/20 18:50 Sputum Expectorated Gram Stain - Final Resulted 03/01/20 18:50 Sputum Culture - Preliminary Gram Negative Bacillus 1 Gram Negative Bacillus 2 Resulted 02/29/20 22:00 Stool Clostridium difficile Toxin Assay - Final Complete Accucheck: 308 Critical Care - Subjective ROS Limited/Unobtainable: Yes Interval Events: looks comfortable Condition: critical FI02: 30 Vent Support Breath Rate: 18 Vent Support Mode: AC Vent Tidal Volume: 500 Sputum Amount: Scant PEEP: 5.0 PIP: 32 Tube Feeding Amount: 55 I&O: Intake and Output 03/02/20 03/03/20 19:00 07:00 Intake Total 984.93 ml 875.583 ml Output Total 730 ml 320 ml Balance 254.93 ml 555.583 ml Intake Free Water 150 ml 90 ml IV Total 174.93 ml 125.583 ml Tube Feeding 660 ml 660 ml Output Urine Total 700 ml 320 ml Stool Total 30 ml # Bowel Movements 1 CXR: no change Labs: Laboratory Tests Test 03/02/20 17:46 03/03/20 00:14 03/03/20 04:35 03/03/20 05:24 POC Whole Blood Glucose 161 MG/DL (74-106) H Pending Pending White Blood Count 10.8 K/UL (4.8-10.8) Red Blood Count 3.65 M/UL (4.20-5.40) L Hemoglobin 11.7 G/DL (12.0-16.0) L Hematocrit 35.6 % (37.0-47.0) L Mean Corpuscular Volume 98 FL (80-99) Mean Corpuscular Hemoglobin 32.2 PG (27.0-31.0) H Mean Corpuscular Hemoglobin Concent 32.9 G/DL (32.0-36.0) Red Cell Distribution Width 13.4 % (11.6-14.8) Platelet Count 449 K/UL (150-450) Mean Platelet Volume 6.0 FL (6.5-10.1) L Neutrophils (%) (Auto) 67.5 % (45.0-75.0) Lymphocytes (%) (Auto) 19.2 % (20.0-45.0) L Monocytes (%) (Auto) 6.6 % (1.0-10.0) Eosinophils (%) (Auto) 6.0 % (0.0-3.0) H Basophils (%) (Auto) 0.7 % (0.0-2.0) Erythrocyte Sedimentation Rate 103 MM/HR (0-30) H Sodium Level 135 MMOL/L (136-145) L Potassium Level 3.9 MMOL/L (3.5-5.1) Chloride Level 99 MMOL/L (98-107) Carbon Dioxide Level 28 MMOL/L (21-32) Anion Gap 8 mmol/L (5-15) Blood Urea Nitrogen 23 mg/dL (7-18) H Creatinine 0.7 MG/DL (0.55-1.30) Estimat Glomerular Filtration Rate > 60 mL/min (>60) Glucose Level 221 MG/DL (74-106) H Calcium Level 8.2 MG/DL (8.5-10.1) L Phosphorus Level 3.2 MG/DL (2.5-4.9) Magnesium Level 2.2 MG/DL (1.8-2.4) Total Bilirubin 0.3 MG/DL (0.2-1.0) Aspartate Amino Transf (AST/SGOT) 15 U/L (15-37) Alanine Aminotransferase (ALT/SGPT) 30 U/L (12-78) Alkaline Phosphatase 98 U/L (46-116) C-Reactive Protein, Quantitative 1.9 mg/dL (0.00-0.90) H Total Protein 6.5 G/DL (6.4-8.2) Albumin 2.5 G/DL (3.4-5.0) L Globulin 4.0 g/dL Albumin/Globulin Ratio 0.6 (1.0-2.7) L Sandra Bueno MD Mar 03, 2020 12:23
--- NOTE | 2020-03-03 13:32 | Surgery Progress Note ---
Surgery Progress Note Subjective Additional Comments no acute events comfortable stable Objective Last 24 Hour Vital Signs Date Time Temp Pulse Resp B/P (MAP) Pulse Ox O2 Delivery O2 Flow Rate FiO2 03/03/20 12:17 113/60 03/03/20 12:00 Mechanical Ventilator 03/03/20 12:00 99.0 86 20 113/60 (77) 100 03/03/20 12:00 30 03/03/20 11:38 82 18 30 03/03/20 11:35 88 03/03/20 08:40 91 115/64 03/03/20 08:40 91 115/64 03/03/20 08:00 Mechanical Ventilator 03/03/20 08:00 30 03/03/20 08:00 98.6 91 18 115/64 (81) 100 03/03/20 07:43 89 03/03/20 07:15 88 18 30 03/03/20 05:25 117/59 03/03/20 04:00 98.2 82 18 123/64 (83) 100 03/03/20 04:00 30 03/03/20 04:00 Mechanical Ventilator 03/03/20 03:31 85 03/03/20 03:02 86 18 30 03/03/20 00:18 123/59 03/03/20 00:00 98.6 82 18 123/59 (80) 100 03/03/20 00:00 Mechanical Ventilator 03/02/20 23:28 81 03/02/20 23:09 82 18 30 03/02/20 20:00 30 03/02/20 20:00 Mechanical Ventilator 03/02/20 20:00 98.4 80 18 136/68 (90) 100 03/02/20 19:40 81 03/02/20 19:00 77 18 30 03/02/20 18:28 131/55 03/02/20 17:55 30 03/02/20 16:54 73 03/02/20 16:00 97.8 76 18 116/70 (85) 96 03/02/20 16:00 30 03/02/20 16:00 Mechanical Ventilator 03/02/20 15:28 73 17 30 I&O Intake and Output 03/02/20 03/03/20 19:00 07:00 Intake Total 984.93 ml 875.583 ml Output Total 730 ml 320 ml Balance 254.93 ml 555.583 ml Intake Free Water 150 ml 90 ml IV Total 174.93 ml 125.583 ml Tube Feeding 660 ml 660 ml Output Urine Total 700 ml 320 ml Stool Total 30 ml # Bowel Movements 1 Dressing: saturated Cardiovascular: RSR Respiratory: decreased breath sounds Abdomen: soft, non-tender, present bowel sounds Extremities: no cyanosis Laboratory Tests Test 03/02/20 17:46 03/03/20 00:14 03/03/20 04:35 03/03/20 05:24 POC Whole Blood Glucose 161 MG/DL (74-106) H Pending Pending White Blood Count 10.8 K/UL (4.8-10.8) Red Blood Count 3.65 M/UL (4.20-5.40) L Hemoglobin 11.7 G/DL (12.0-16.0) L Hematocrit 35.6 % (37.0-47.0) L Mean Corpuscular Volume 98 FL (80-99) Mean Corpuscular Hemoglobin 32.2 PG (27.0-31.0) H Mean Corpuscular Hemoglobin Concent 32.9 G/DL (32.0-36.0) Red Cell Distribution Width 13.4 % (11.6-14.8) Platelet Count 449 K/UL (150-450) Mean Platelet Volume 6.0 FL (6.5-10.1) L Neutrophils (%) (Auto) 67.5 % (45.0-75.0) Lymphocytes (%) (Auto) 19.2 % (20.0-45.0) L Monocytes (%) (Auto) 6.6 % (1.0-10.0) Eosinophils (%) (Auto) 6.0 % (0.0-3.0) H Basophils (%) (Auto) 0.7 % (0.0-2.0) Erythrocyte Sedimentation Rate 103 MM/HR (0-30) H Sodium Level 135 MMOL/L (136-145) L Potassium Level 3.9 MMOL/L (3.5-5.1) Chloride Level 99 MMOL/L (98-107) Carbon Dioxide Level 28 MMOL/L (21-32) Anion Gap 8 mmol/L (5-15) Blood Urea Nitrogen 23 mg/dL (7-18) H Creatinine 0.7 MG/DL (0.55-1.30) Estimat Glomerular Filtration Rate > 60 mL/min (>60) Glucose Level 221 MG/DL (74-106) H Calcium Level 8.2 MG/DL (8.5-10.1) L Phosphorus Level 3.2 MG/DL (2.5-4.9) Magnesium Level 2.2 MG/DL (1.8-2.4) Total Bilirubin 0.3 MG/DL (0.2-1.0) Aspartate Amino Transf (AST/SGOT) 15 U/L (15-37) Alanine Aminotransferase (ALT/SGPT) 30 U/L (12-78) Alkaline Phosphatase 98 U/L (46-116) C-Reactive Protein, Quantitative 1.9 mg/dL (0.00-0.90) H Total Protein 6.5 G/DL (6.4-8.2) Albumin 2.5 G/DL (3.4-5.0) L Globulin 4.0 g/dL Albumin/Globulin Ratio 0.6 (1.0-2.7) L Plan Problems: (1) Decubital ulcer Assessment & Plan: Pt presented on admission with Contractures, Multiple Pressure injuries. 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 Denuded area at cleft. Hyperpigmentation noted at distal base of injury. Purpuric area that is indurated noted to L ischium. Incontinence Associated dermatitis noted to Perineum and Posterior aspect Upper R thigh. Affected areas are erythematous and macerated. Non-Blanchable erythema without induration or fluctuance R Hallux.(L)3cm x (W) 3.5cm. Non-Blanching erythema without induration or fluctuance L Hallux.(L)2.5cm x (W) 2.8cm. Intact Serous filled Blister with surrounding non-Blanching erythema noted to distal/lateral R foot. Both heels are boggy with non-Blanchable erythema. Pt deconditioned. Skin Assessed with Primary Nurse in attendance. Pt having frequent bouts of foul smelling watery stools. Perineum and buttocks grossly erythematous,and denuded with scattered satellite lesions noted to labia majora ,perineum and buttocks including bilat ischial tuberosities.Hypertrophicsacral scar with Purpuric areas noted to R and L sacrum. Purpuric and indurated area noted to L ischium. Both heels are boggy but each heel are easily blanchable. Serous Filled Blister distal/lateral R foot noted on initial assessment has now evolved into an intact blood filled blister(L)2.3cm x (W)3.5cm. Periwound is boggy with mild erythema. Tx.Plan: Discontinue Moisture Barrier Paste(Confirmed with .) Apply Zinc Oxide Paste to Perineum and Buttocks TID.and prn. Cover Sacrum with Optifoam drsg. Change every 3 days and prn. Apply Betadine to Blister Distal/Lateral R foot. Cover with Optifoam drsg every 3 days and prn. Apply Cavilon Skin Barrier to Both heels,Malleoli and each Hallux. Cover each sites with Optifoam drgs. Change every 7 days and prn. Reposition at least every 2hours or as tolerated. Off-load heels with pillow. APM/POOJA Mattress overlay. (2) Sepsis Assessment & Plan: 68 female leukocytosis abnormal labs anemia chest x-ray developing on support. Patient examination completed no signs of active infection from decubitus ulcers. The patient on IV antibiotics currently abdominal examination noted trach noted We will continue to follow monitor with local examination. Continue antibiotics per infectious disease inspiration is suboptimal with crowding of the bronchovascular markings. Ventriculoperitoneal shunt tubing traverses the right side of the chest. Tracheostomy is again demonstrated. Interim development of infiltrate in the right upper lobe. There may be some peribronchovascular opacities developing in the right midlung and left lung base as well. There is central bronchial wall thickening. The pleural spaces are clear. The heart size is normal. Nutritional optimization Interim clearing of previously demonstrated right lung infiltrates New or increased small faint infiltrates in the left lung. (3) Respiratory failure (4) History of hypertension (5) Feeding by G-tube (6) Leukocytosis (7) Chronic respiratory failure (8) History of diabetes mellitus (9) Hyponatremia Arnold Hi Mar 03, 2020 13:32
[2020-03-03] MEDS ORDERED: NS 275ml ONE (18:33)
[2020-03-03] MEDS ORDERED: Tubing IV Secondary IV ONE (18:33)
[2020-03-04] VITALS (7 sets, daily range): BP systolic 128–137; BP diastolic 53–70
[2020-03-04 04:58] LABS: BASOPHILS % (AUTO) 0.8 % (0.0-2.0); HEMATOCRIT 36.7 % (37.0-47.0); HEMOGLOBIN 12.2 G/DL (12.0-16.0); LYMPHOCYTES % (AUTO) 21.2 % (20.0-45.0); MEAN CORPUSCULAR VOLUME 98 FL (80-99); MONOCYTES % (AUTO) 8.5 % (1.0-10.0); NEUTROPHILS % (AUTO) 60.4 % (45.0-75.0); PLATELET COUNT 424 K/UL (150-450); RED BLOOD COUNT 3.74 M/UL (4.20-5.40); RED CELL DISTRIBUTION WIDTH 14.4 % (11.6-14.8); WHITE BLOOD COUNT 8.8 K/UL (4.8-10.8)
[2020-03-04] MEDS: Piperacillin/Tazobactam 3.375 GM in NS 110 ML IVPB SCH ×4 (05:01→21:06)
[2020-03-04] MEDS: Nystatin Powder 100,000 units/gm 15gm TOPIC SCH ×4 (05:01→21:06)
[2020-03-04] MEDS: HydrALAZINE 50mg tab GT SCH ×4 (05:01→23:10)
[2020-03-04] MEDS: Zinc Oxide Oint 2oz TOPIC SCH ×4 (05:01→21:06)
[2020-03-04] MEDS: NovoLOG Insulin Flexpen SUBQ SCH ×4 (05:03→23:20)
[2020-03-04 05:17] LABS: ALANINE AMINOTRANSFERASE 29 U/L (12-78); ALBUMIN 2.6 G/DL (3.4-5.0); ALBUMIN/GLOBULIN RATIO 0.6 (1.0-2.7); ALKALINE PHOSPHATASE 124 U/L (46-116); ANION GAP 12 mmol/L (5-15); ASPARTATE AMINO TRANSFERASE 15 U/L (15-37); BILIRUBIN,TOTAL 0.3 MG/DL (0.2-1.0); BLOOD UREA NITROGEN 21 mg/dL (7-18); CALCIUM 8.7 MG/DL (8.5-10.1); CARBON DIOXIDE 26 MMOL/L (21-32); CHLORIDE 98 MMOL/L (98-107); CREATININE 0.7 MG/DL (0.55-1.30); PHOSPHORUS 4.1 MG/DL (2.5-4.9); POTASSIUM 4.1 MMOL/L (3.5-5.1); SODIUM 135 MMOL/L (136-145)
[2020-03-04] MEDS: levETIRAcetam 500mg/5ml Liquid GT SCH (08:17)
[2020-03-04] MEDS: Heparin 5000 units/ml inj SUBQ SCH ×2 (08:19→20:10)
--- NOTE | 2020-03-04 10:02 | Pulmonolgy Critical Care Note ---
Critical Care - Asmt/Plan Problems: (1) Sepsis (2) Chronic respiratory failure (3) Hyponatremia (4) Decubital ulcer (5) History of hypertension (6) History of diabetes mellitus (7) Family history of CVA (8) Feeding by G-tube (9) Ventriculo-peritoneal shunt status Respiratory: monitor respiratory rate, adjust FIO2, CXR Cardiac: continue to monitor HR/BP Renal: F/U I&O, keep IV fluid Infectious Disease: check cultures Gastrointestinal: continue feedings/current rate Endocrine: monitor blood sugar, continue sliding scale insulin Hematologic: monitor H/H, transfuse if hgb<8.5 Neurologic: PRN Ativan, PRN Morphine, keep patient comfortable Affect: PRN ativan Time Spent (Minutes): 40 Notes Reviewed: scraper meat, cardio, renal Discussed with: nurses, consultants, nurse outreach case managercustodial operations manager - Objective Last 24 Hour Vital Signs Date Time Temp Pulse Resp B/P (MAP) Pulse Ox O2 Delivery O2 Flow Rate FiO2 03/04/20 08:18 105 135/60 03/04/20 08:17 105 135/60 03/04/20 08:00 30 03/04/20 08:00 98.6 105 18 130/65 (86) 100 03/04/20 08:00 Mechanical Ventilator 03/04/20 07:13 105 20 30 03/04/20 05:01 136/70 03/04/20 04:58 92 136/70 (92) 03/04/20 04:00 Mechanical Ventilator 03/04/20 04:00 98.3 89 18 137/62 (87) 100 03/04/20 04:00 30 03/04/20 03:37 98 03/04/20 03:30 102 18 30 03/04/20 00:00 30 03/04/20 00:00 98.1 97 18 128/53 (78) 100 03/04/20 00:00 Mechanical Ventilator 03/03/20 23:59 100 03/03/20 23:30 89 18 30 03/03/20 23:00 128/53 03/03/20 22:52 98.1 97 18 128/53 (78) 100 03/03/20 21:00 30 03/03/20 20:00 Mechanical Ventilator 03/03/20 20:00 98.0 93 18 133/55 (81) 100 03/03/20 20:00 30 03/03/20 19:30 92 18 30 03/03/20 19:02 88 03/03/20 17:25 132/64 03/03/20 16:00 Mechanical Ventilator 03/03/20 16:00 98.4 86 18 132/64 (86) 100 03/03/20 16:00 81 03/03/20 16:00 30 03/03/20 15:04 86 19 30 03/03/20 12:17 113/60 03/03/20 12:00 Mechanical Ventilator 03/03/20 12:00 99.0 86 20 113/60 (77) 100 03/03/20 12:00 30 03/03/20 11:38 82 18 30 03/03/20 11:35 88 Status: obtunded Condition: critical HEENT: atraumatic Neck: full ROM Lungs: clear Heart: HR/BP stable, HR/BP unstable Abdomen: soft, non-tender Extremities: no C/C/E Micro: Microbiology Date/Time Source Procedure Growth Status 03/01/20 18:50 Sputum Expectorated Gram Stain - Final Resulted 03/01/20 18:50 Sputum Culture - Preliminary Klebsiella Pneumoniae Gram Negative Bacillus 2 Resulted Accucheck: 291 Critical Care - Subjective ROS Limited/Unobtainable: Yes Condition: critical, unchanged FI02: 30 Vent Support Breath Rate: 18 Vent Support Mode: AC Vent Tidal Volume: 500 Sputum Amount: Moderate PEEP: 5.0 PIP: 34 Tube Feeding Amount: 55 I&O: Intake and Output 03/03/20 03/04/20 18:59 06:59 Intake Total 1152.500 ml 847.5 ml Output Total 380 ml 400 ml Balance 772.500 ml 447.5 ml Intake Free Water 50 ml IV Total 192.500 ml 137.5 ml Tube Feeding 660 ml 660 ml Other 300 ml Output Urine Total 350 ml 400 ml Stool Total 30 ml # Bowel Movements 20 Labs: Laboratory Tests Test 03/03/20 17:22 03/03/20 22:52 03/04/20 03:55 03/04/20 04:41 POC Whole Blood Glucose 231 MG/DL (74-106) H 242 MG/DL (74-106) H Pending White Blood Count 8.8 K/UL (4.8-10.8) Red Blood Count 3.74 M/UL (4.20-5.40) L Hemoglobin 12.2 G/DL (12.0-16.0) Hematocrit 36.7 % (37.0-47.0) L Mean Corpuscular Volume 98 FL (80-99) Mean Corpuscular Hemoglobin 32.6 PG (27.0-31.0) H Mean Corpuscular Hemoglobin Concent 33.1 G/DL (32.0-36.0) Red Cell Distribution Width 14.4 % (11.6-14.8) Platelet Count 424 K/UL (150-450) Mean Platelet Volume 6.1 FL (6.5-10.1) L Neutrophils (%) (Auto) 60.4 % (45.0-75.0) Lymphocytes (%) (Auto) 21.2 % (20.0-45.0) Monocytes (%) (Auto) 8.5 % (1.0-10.0) Eosinophils (%) (Auto) 9.0 % (0.0-3.0) H Basophils (%) (Auto) 0.8 % (0.0-2.0) Erythrocyte Sedimentation Rate 96 MM/HR (0-30) H Sodium Level 135 MMOL/L (136-145) L Potassium Level 4.1 MMOL/L (3.5-5.1) Chloride Level 98 MMOL/L (98-107) Carbon Dioxide Level 26 MMOL/L (21-32) Anion Gap 12 mmol/L (5-15) Blood Urea Nitrogen 21 mg/dL (7-18) H Creatinine 0.7 MG/DL (0.55-1.30) Estimat Glomerular Filtration Rate > 60 mL/min (>60) Glucose Level 277 MG/DL (74-106) H Calcium Level 8.7 MG/DL (8.5-10.1) Phosphorus Level 4.1 MG/DL (2.5-4.9) Magnesium Level 2.2 MG/DL (1.8-2.4) Total Bilirubin 0.3 MG/DL (0.2-1.0) Aspartate Amino Transf (AST/SGOT) 15 U/L (15-37) Alanine Aminotransferase (ALT/SGPT) 29 U/L (12-78) Alkaline Phosphatase 124 U/L (46-116) H C-Reactive Protein, Quantitative 3.5 mg/dL (0.00-0.90) H Total Protein 6.7 G/DL (6.4-8.2) Albumin 2.6 G/DL (3.4-5.0) L Globulin 4.1 g/dL Albumin/Globulin Ratio 0.6 (1.0-2.7) L Sandra Bueno MD Mar 04, 2020 10:02
--- NOTE | 2020-03-04 14:13 | Surgery Progress Note ---
Surgery Progress Note Subjective Additional Comments no acute events labs noted exam stable comfortable esr trending down Objective Last 24 Hour Vital Signs Date Time Temp Pulse Resp B/P (MAP) Pulse Ox O2 Delivery O2 Flow Rate FiO2 03/04/20 12:00 30 03/04/20 12:00 Mechanical Ventilator 03/04/20 11:58 98.4 85 18 131/62 (85) 100 03/04/20 11:31 134/66 03/04/20 10:51 85 18 30 03/04/20 08:18 105 135/60 03/04/20 08:17 105 135/60 03/04/20 08:00 30 03/04/20 08:00 98.6 105 18 130/65 (86) 100 03/04/20 08:00 Mechanical Ventilator 03/04/20 07:32 103 03/04/20 07:13 105 20 30 03/04/20 05:01 136/70 03/04/20 04:58 92 136/70 (92) 03/04/20 04:00 Mechanical Ventilator 03/04/20 04:00 98.3 89 18 137/62 (87) 100 03/04/20 04:00 30 03/04/20 03:37 98 03/04/20 03:30 102 18 30 03/04/20 00:00 30 03/04/20 00:00 98.1 97 18 128/53 (78) 100 03/04/20 00:00 Mechanical Ventilator 03/03/20 23:59 100 03/03/20 23:30 89 18 30 03/03/20 23:00 128/53 03/03/20 22:52 98.1 97 18 128/53 (78) 100 03/03/20 21:00 30 03/03/20 20:00 Mechanical Ventilator 03/03/20 20:00 98.0 93 18 133/55 (81) 100 03/03/20 20:00 30 03/03/20 19:30 92 18 30 03/03/20 19:02 88 03/03/20 17:25 132/64 03/03/20 16:00 Mechanical Ventilator 03/03/20 16:00 98.4 86 18 132/64 (86) 100 03/03/20 16:00 81 03/03/20 16:00 30 03/03/20 15:04 86 19 30 I&O Intake and Output 03/03/20 03/04/20 19:00 07:00 Intake Total 1136.917 ml 820.0 ml Output Total 380 ml 400 ml Balance 756.917 ml 420.0 ml Intake Free Water 50 ml IV Total 176.917 ml 165.0 ml Tube Feeding 660 ml 605 ml Other 300 ml Output Urine Total 350 ml 400 ml Stool Total 30 ml # Bowel Movements 20 Dressing: saturated, other Wound: other Cardiovascular: RSR Respiratory: decreased breath sounds Abdomen: soft, non-tender, present bowel sounds Extremities: edema, no cyanosis Laboratory Tests Test 03/03/20 17:22 03/03/20 22:52 03/04/20 03:55 03/04/20 04:41 POC Whole Blood Glucose 231 MG/DL (74-106) H 242 MG/DL (74-106) H Pending White Blood Count 8.8 K/UL (4.8-10.8) Red Blood Count 3.74 M/UL (4.20-5.40) L Hemoglobin 12.2 G/DL (12.0-16.0) Hematocrit 36.7 % (37.0-47.0) L Mean Corpuscular Volume 98 FL (80-99) Mean Corpuscular Hemoglobin 32.6 PG (27.0-31.0) H Mean Corpuscular Hemoglobin Concent 33.1 G/DL (32.0-36.0) Red Cell Distribution Width 14.4 % (11.6-14.8) Platelet Count 424 K/UL (150-450) Mean Platelet Volume 6.1 FL (6.5-10.1) L Neutrophils (%) (Auto) 60.4 % (45.0-75.0) Lymphocytes (%) (Auto) 21.2 % (20.0-45.0) Monocytes (%) (Auto) 8.5 % (1.0-10.0) Eosinophils (%) (Auto) 9.0 % (0.0-3.0) H Basophils (%) (Auto) 0.8 % (0.0-2.0) Erythrocyte Sedimentation Rate 96 MM/HR (0-30) H Sodium Level 135 MMOL/L (136-145) L Potassium Level 4.1 MMOL/L (3.5-5.1) Chloride Level 98 MMOL/L (98-107) Carbon Dioxide Level 26 MMOL/L (21-32) Anion Gap 12 mmol/L (5-15) Blood Urea Nitrogen 21 mg/dL (7-18) H Creatinine 0.7 MG/DL (0.55-1.30) Estimat Glomerular Filtration Rate > 60 mL/min (>60) Glucose Level 277 MG/DL (74-106) H Calcium Level 8.7 MG/DL (8.5-10.1) Phosphorus Level 4.1 MG/DL (2.5-4.9) Magnesium Level 2.2 MG/DL (1.8-2.4) Total Bilirubin 0.3 MG/DL (0.2-1.0) Aspartate Amino Transf (AST/SGOT) 15 U/L (15-37) Alanine Aminotransferase (ALT/SGPT) 29 U/L (12-78) Alkaline Phosphatase 124 U/L (46-116) H C-Reactive Protein, Quantitative 3.5 mg/dL (0.00-0.90) H Total Protein 6.7 G/DL (6.4-8.2) Albumin 2.6 G/DL (3.4-5.0) L Globulin 4.1 g/dL Albumin/Globulin Ratio 0.6 (1.0-2.7) L Test 03/04/20 11:18 POC Whole Blood Glucose 334 MG/DL (74-106) H Plan Problems: (1) Decubital ulcer Assessment & Plan: Pt presented on admission with Contractures, Multiple Pressure injuries. 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 Denuded area at cleft. Hyperpigmentation noted at distal base of injury. Purpuric area that is indurated noted to L ischium. Incontinence Associated dermatitis noted to Perineum and Posterior aspect Upper R thigh. Affected areas are erythematous and macerated. Non-Blanchable erythema without induration or fluctuance R Hallux.(L)3cm x (W) 3.5cm. Non-Blanching erythema without induration or fluctuance L Hallux.(L)2.5cm x (W) 2.8cm. Intact Serous filled Blister with surrounding non-Blanching erythema noted to distal/lateral R foot. Both heels are boggy with non-Blanchable erythema. Pt deconditioned. Skin Assessed with Primary Nurse in attendance. Pt having frequent bouts of foul smelling watery stools. Perineum and buttocks grossly erythematous,and denuded with scattered satellite lesions noted to labia majora ,perineum and buttocks including bilat ischial tuberosities.Hypertrophicsacral scar with Purpuric areas noted to R and L sacrum. Purpuric and indurated area noted to L ischium. Both heels are boggy but each heel are easily blanchable. Serous Filled Blister distal/lateral R foot noted on initial assessment has now evolved into an intact blood filled blister(L)2.3cm x (W)3.5cm. Periwound is boggy with mild erythema. Tx.Plan: Discontinue Moisture Barrier Paste(Confirmed with .) Apply Zinc Oxide Paste to Perineum and Buttocks TID.and prn. Cover Sacrum with Optifoam drsg. Change every 3 days and prn. Apply Betadine to Blister Distal/Lateral R foot. Cover with Optifoam drsg every 3 days and prn. Apply Cavilon Skin Barrier to Both heels,Malleoli and each Hallux. Cover each sites with Optifoam drgs. Change every 7 days and prn. Reposition at least every 2hours or as tolerated. Off-load heels with pillow. APM/POOJA Mattress overlay. (2) Sepsis Assessment & Plan: 68 female leukocytosis abnormal labs anemia chest x-ray developing on support. Patient examination completed no signs of active infection from decubitus ulcers. The patient on IV antibiotics currently abdominal examination noted trach noted We will continue to follow monitor with local examination. Continue antibiotics per infectious disease inspiration is suboptimal with crowding of the bronchovascular markings. Ventriculoperitoneal shunt tubing traverses the right side of the chest. Tracheostomy is again demonstrated. Interim development of infiltrate in the right upper lobe. There may be some peribronchovascular opacities developing in the right midlung and left lung base as well. There is central bronchial wall thickening. The pleural spaces are clear. The heart size is normal. Nutritional optimization Interim clearing of previously demonstrated right lung infiltrates New or increased small faint infiltrates in the left lung. (3) Respiratory failure (4) History of hypertension (5) Feeding by G-tube (6) Leukocytosis (7) Chronic respiratory failure (8) History of diabetes mellitus (9) Hyponatremia Arnold Hi Mar 04, 2020 14:13
--- NOTE | 2020-03-04 14:53 | Infectious Diseases Prog Note ---
Assessment/Plan Assessment: COVID neg x3 ([employer]- 02/20; SARS COV2 02/23 &02/25) SIRS vs Sepsis CONS bacteremia- likely contaminant -02/23 Bcx 1/4 CONS; 02/25 Bcx NTD PNA -03/01 CXR: Interim clearing of previously demonstrated right lung infiltrates. New or increased small faint infiltrates in the left lung. -sp cx MDR K.pna (s Zosyn), GNR #2 -02/26 CXR: Developing right upper lobe infiltrate and possibly bilateral perihilar infiltrates, likely pneumonia. Probable UTI -u/a wbc 5-10, nit neg, leuk +2; ucx C. tropicalis Afebrile Leukocytosis, recurrent- SP -CXR: No acute process Hyponatremia HTN CAD/UT CVA sacral decubitus ulcer (POA) anemia s/p R PAINT PREPPER shunt dysphagia s/p GT GERD dementia non verbal seizure disorder chronic resp failure s/p trach/vent dependent Dm2 SNF Plan: - Zosyn #05/22 -02/28 SP IV Vancomycin #6 -02/23 SP Meropenem x1 -f/u cx -Monitor CBC/CMP, temperatures -COVID19 neg x2; ok to dc iso -f/u repeat Bcx x2, sp cx -CXR am Thank you for consulting [facility]. Will continue to follow along with you. Parrish song RN. Subjective Allergies: Coded Allergies: No Known Allergies (Unverified , 11/06/18) afebrile no leukocytosis Objective Last 24 Hour Vital Signs Date Time Temp Pulse Resp B/P (MAP) Pulse Ox O2 Delivery O2 Flow Rate FiO2 03/04/20 12:00 86 03/04/20 12:00 30 03/04/20 12:00 Mechanical Ventilator 03/04/20 11:58 98.4 85 18 131/62 (85) 100 03/04/20 11:31 134/66 03/04/20 10:51 85 18 30 03/04/20 08:18 105 135/60 03/04/20 08:17 105 135/60 03/04/20 08:00 30 03/04/20 08:00 98.6 105 18 130/65 (86) 100 03/04/20 08:00 Mechanical Ventilator 03/04/20 07:32 103 03/04/20 07:13 105 20 30 03/04/20 05:01 136/70 03/04/20 04:58 92 136/70 (92) 03/04/20 04:00 Mechanical Ventilator 03/04/20 04:00 98.3 89 18 137/62 (87) 100 03/04/20 04:00 30 03/04/20 03:37 98 03/04/20 03:30 102 18 30 03/04/20 00:00 30 03/04/20 00:00 98.1 97 18 128/53 (78) 100 03/04/20 00:00 Mechanical Ventilator 03/03/20 23:59 100 03/03/20 23:30 89 18 30 03/03/20 23:00 128/53 03/03/20 22:52 98.1 97 18 128/53 (78) 100 03/03/20 21:00 30 03/03/20 20:00 Mechanical Ventilator 03/03/20 20:00 98.0 93 18 133/55 (81) 100 03/03/20 20:00 30 03/03/20 19:30 92 18 30 03/03/20 19:02 88 03/03/20 17:25 132/64 03/03/20 16:00 Mechanical Ventilator 03/03/20 16:00 98.4 86 18 132/64 (86) 100 03/03/20 16:00 81 03/03/20 16:00 30 03/03/20 15:04 86 19 30 Height (Feet): 4 Height (Inches): 11.00 Weight (Pounds): 157 GENERAL: This is an elderly female who is in no acute distress. NECK: Supple. She has midline tracheostomy. LUNGS: Bilateral rhonchi. HEART: Regular rate and rhythm without rubs, murmurs, or gallops. ABDOMEN: She has a G-tube. Soft, nontender. EXTREMITIES: No clubbing, cyanosis, or edema. NEUROLOGIC: She is obtunded. There were no gross focal findings. Microbiology Date/Time Source Procedure Growth Status 03/01/20 18:50 Sputum Expectorated Gram Stain - Final Resulted 03/01/20 18:50 Sputum Culture - Preliminary Klebsiella Pneumoniae Gram Negative Bacillus 2 Resulted Laboratory Tests Test 03/03/20 17:22 03/03/20 22:52 03/04/20 03:55 03/04/20 04:41 POC Whole Blood Glucose 231 MG/DL (74-106) H 242 MG/DL (74-106) H Pending White Blood Count 8.8 K/UL (4.8-10.8) Red Blood Count 3.74 M/UL (4.20-5.40) L Hemoglobin 12.2 G/DL (12.0-16.0) Hematocrit 36.7 % (37.0-47.0) L Mean Corpuscular Volume 98 FL (80-99) Mean Corpuscular Hemoglobin 32.6 PG (27.0-31.0) H Mean Corpuscular Hemoglobin Concent 33.1 G/DL (32.0-36.0) Red Cell Distribution Width 14.4 % (11.6-14.8) Platelet Count 424 K/UL (150-450) Mean Platelet Volume 6.1 FL (6.5-10.1) L Neutrophils (%) (Auto) 60.4 % (45.0-75.0) Lymphocytes (%) (Auto) 21.2 % (20.0-45.0) Monocytes (%) (Auto) 8.5 % (1.0-10.0) Eosinophils (%) (Auto) 9.0 % (0.0-3.0) H Basophils (%) (Auto) 0.8 % (0.0-2.0) Erythrocyte Sedimentation Rate 96 MM/HR (0-30) H Sodium Level 135 MMOL/L (136-145) L Potassium Level 4.1 MMOL/L (3.5-5.1) Chloride Level 98 MMOL/L (98-107) Carbon Dioxide Level 26 MMOL/L (21-32) Anion Gap 12 mmol/L (5-15) Blood Urea Nitrogen 21 mg/dL (7-18) H Creatinine 0.7 MG/DL (0.55-1.30) Estimat Glomerular Filtration Rate > 60 mL/min (>60) Glucose Level 277 MG/DL (74-106) H Calcium Level 8.7 MG/DL (8.5-10.1) Phosphorus Level 4.1 MG/DL (2.5-4.9) Magnesium Level 2.2 MG/DL (1.8-2.4) Total Bilirubin 0.3 MG/DL (0.2-1.0) Aspartate Amino Transf (AST/SGOT) 15 U/L (15-37) Alanine Aminotransferase (ALT/SGPT) 29 U/L (12-78) Alkaline Phosphatase 124 U/L (46-116) H C-Reactive Protein, Quantitative 3.5 mg/dL (0.00-0.90) H Total Protein 6.7 G/DL (6.4-8.2) Albumin 2.6 G/DL (3.4-5.0) L Globulin 4.1 g/dL Albumin/Globulin Ratio 0.6 (1.0-2.7) L Test 03/04/20 11:18 POC Whole Blood Glucose 334 MG/DL (74-106) H Current Medications Medications (Trade) Dose Ordered Sig/Dell Route PRN Reason Start Time Stop Time Status Last Admin Dose Admin Acetaminophen (Tylenol) 650 mg Q4H PRN GT Temp >100.5 02/27/20 13:15 03/28/20 13:14 02/29/20 23:24 Amlodipine Besylate (Norvasc) 10 mg DAILY GT 02/25/20 09:00 03/26/20 08:59 03/04/20 08:18 Atenolol (Tenormin) 50 mg DAILY GT 02/25/20 09:00 03/26/20 08:59 03/04/20 08:17 Dextrose (Dextrose 50%) 25 ml Q30M PRN IV Hypoglycemia 02/24/20 18:45 05/24/20 18:44 Dextrose (Dextrose 50%) 50 ml Q30M PRN IV Hypoglycemia 02/24/20 18:45 05/24/20 18:44 Diphenoxylate HCl/ Atropine (Lomotil) 2.5 mg Q6H PRN GT Diarrhea 03/02/20 11:15 04/01/20 11:14 03/02/20 12:06 Docusate Sodium (Colace) 100 mg DAILYPRN PRN GT Constipation 03/02/20 11:15 04/01/20 11:14 Heparin Sodium (Porcine) (Heparin 5000 units/ml) 5,000 units EVERY 12 HOURS SUBQ 02/24/20 21:00 04/09/20 20:59 03/04/20 08:19 Hydralazine HCl (Apresoline) 50 mg EVERY 6 HOURS GT 02/26/20 18:00 05/26/20 17:59 03/04/20 11:31 Insulin Aspart (NovoLOG) Q6HR SUBQ 03/01/20 18:00 05/30/20 17:59 03/04/20 11:31 Levetiracetam (Keppra) 750 mg DAILY GT 02/25/20 09:00 03/26/20 08:59 03/04/20 08:17 Nystatin (Nystop Powder) 1 applic EVERY 8 HOURS TOPIC 03/03/20 22:00 05/28/20 20:59 03/04/20 14:14 Piperacillin Sod/ Tazobactam Sod 3.375 gm/Sodium Chloride 110 ml @ 27.5 mls/hr EVERY 8 HOURS IVPB 02/24/20 22:00 03/05/20 23:59 03/04/20 14:13 Zinc Oxide (Zinc Oxide) 1 applic EVERY 8 HOURS TOPIC 03/03/20 22:00 05/31/20 17:59 03/04/20 14:14 Zinc Oxide (Zinc Oxide) 1 applic TIDPRN PRN TOPIC cleaning 03/02/20 13:45 05/31/20 13:44 Lilli Gonzalez M.D. Mar 04, 2020 14:53
[2020-03-04] MEDS: Acetaminophen 650mg/20.3ml GT PRN (21:35)
[2020-03-05] VITALS (7 sets, daily range): BP systolic 97–161; BP diastolic 39–71
[2020-03-05 04:50] LABS: BASOPHILS % (AUTO) 0.6 % (0.0-2.0); EOSINOPHILS % (AUTO) 9.5 % (0.0-3.0); HEMATOCRIT 36.6 % (37.0-47.0); HEMOGLOBIN 11.8 G/DL (12.0-16.0); LYMPHOCYTES % (AUTO) 22.2 % (20.0-45.0); MEAN CORPUSCULAR VOLUME 99 FL (80-99); MONOCYTES % (AUTO) 6.9 % (1.0-10.0); NEUTROPHILS % (AUTO) 60.7 % (45.0-75.0); PLATELET COUNT 454 K/UL (150-450); RED CELL DISTRIBUTION WIDTH 14.7 % (11.6-14.8); WHITE BLOOD COUNT 10.1 K/UL (4.8-10.8)
[2020-03-05] MEDS: Piperacillin/Tazobactam 3.375 GM in NS 110 ML IVPB SCH ×2 (05:02→13:32)
[2020-03-05] MEDS: Zinc Oxide Oint 2oz TOPIC SCH ×2 (05:02→13:32)
[2020-03-05] MEDS: NovoLOG Insulin Flexpen SUBQ SCH ×3 (05:02→17:21)
[2020-03-05] MEDS: Nystatin Powder 100,000 units/gm 15gm TOPIC SCH ×2 (05:03→13:32)
[2020-03-05] MEDS: HydrALAZINE 50mg tab GT SCH ×3 (05:03→17:21)
[2020-03-05 05:13] LABS: ALANINE AMINOTRANSFERASE 29 U/L (12-78); ALBUMIN 2.6 G/DL (3.4-5.0); ALBUMIN/GLOBULIN RATIO 0.6 (1.0-2.7); ALKALINE PHOSPHATASE 121 U/L (46-116); ANION GAP 12 mmol/L (5-15); ASPARTATE AMINO TRANSFERASE 16 U/L (15-37); BILIRUBIN,TOTAL 0.3 MG/DL (0.2-1.0); BLOOD UREA NITROGEN 24 mg/dL (7-18); CALCIUM 8.8 MG/DL (8.5-10.1); CARBON DIOXIDE 25 MMOL/L (21-32); CHLORIDE 100 MMOL/L (98-107); CREATININE 0.8 MG/DL (0.55-1.30); POTASSIUM 3.7 MMOL/L (3.5-5.1); SODIUM 137 MMOL/L (136-145)
[2020-03-05] MEDS: levETIRAcetam 500mg/5ml Liquid GT SCH (09:13)
[2020-03-05] MEDS: Heparin 5000 units/ml inj SUBQ SCH (09:15)
--- NOTE | 2020-03-05 12:55 | Pulmonolgy Critical Care Note ---
Critical Care - Asmt/Plan Problems: (1) Sepsis (2) Chronic respiratory failure (3) Hyponatremia (4) Decubital ulcer (5) History of hypertension (6) History of diabetes mellitus (7) Family history of CVA (8) Feeding by G-tube (9) Ventriculo-peritoneal shunt status Respiratory: monitor respiratory rate, adjust FIO2, CXR Cardiac: continue to monitor HR/BP Renal: F/U I&O, keep IV fluid, check electrolytes Infectious Disease: check cultures Gastrointestinal: continue feedings/current rate Endocrine: monitor blood sugar Hematologic: monitor H/H, transfuse if hgb<8.5 Neurologic: PRN Ativan, keep patient comfortable Affect: PRN ativan Prophylaxis: Protonix Disposition: keep in ICU Time Spent (Minutes): 40 Notes 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, cardio, renal, ID Critical Care - Objective Last 24 Hour Vital Signs Date Time Temp Pulse Resp B/P (MAP) Pulse Ox O2 Delivery O2 Flow Rate FiO2 03/05/20 12:40 161/60 03/05/20 11:45 80 03/05/20 10:36 85 20 30 03/05/20 09:14 93 164/78 03/05/20 09:14 93 164/78 03/05/20 08:10 91 156/71 (99) 03/05/20 08:00 Mechanical Ventilator 03/05/20 08:00 86 03/05/20 08:00 30 03/05/20 07:56 98.2 90 16 97/39 (58) 100 03/05/20 06:48 92 18 30 03/05/20 05:03 100/50 03/05/20 04:00 98.2 88 18 100/50 (67) 100 03/05/20 04:00 30 03/05/20 04:00 Mechanical Ventilator 03/05/20 03:33 88 03/05/20 03:12 89 20 30 03/05/20 00:00 98.1 88 18 101/54 (70) 100 03/05/20 00:00 30 03/05/20 00:00 Mechanical Ventilator 03/04/20 23:51 88 03/04/20 23:10 101/54 03/04/20 22:50 86 22 30 03/04/20 22:05 99.1 03/04/20 20:00 99.6 93 18 135/61 (85) 100 03/04/20 20:00 Mechanical Ventilator 03/04/20 20:00 30 03/04/20 19:32 95 03/04/20 19:15 92 18 30 03/04/20 17:24 130/65 03/04/20 16:00 Mechanical Ventilator 03/04/20 16:00 88 03/04/20 16:00 98.6 89 18 130/65 (86) 100 03/04/20 16:00 30 03/04/20 15:00 89 18 30 Status: obtunded Condition: critical HEENT: atraumatic Lungs: clear Heart: HR/BP stable, HR/BP unstable, edema Abdomen: soft, non-tender Extremities: no C/C/E Accucheck: 338 Critical Care - Subjective ROS Limited/Unobtainable: Yes Condition: improving EKG Rhythm: Sinus Rhythm FI02: 30 Vent Support Breath Rate: 18 Vent Support Mode: AC Vent Tidal Volume: 500 Sputum Amount: Scant PEEP: 5.0 PIP: 34 Tube Feeding Amount: 55 I&O: Intake and Output 03/04/20 03/05/20 19:00 07:00 Intake Total 755.0 ml 792.5 ml Output Total 400 ml 225 ml Balance 355.0 ml 567.5 ml Intake Free Water 150 ml 50 ml IV Total 165.0 ml 137.5 ml Tube Feeding 440 ml 605 ml Output Urine Total 300 ml 200 ml Stool Total 100 ml 25 ml CXR: no change Labs: Laboratory Tests Test 03/04/20 17:05 03/04/20 22:48 03/05/20 03:21 03/05/20 04:38 POC Whole Blood Glucose 236 MG/DL (74-106) H Pending Pending White Blood Count 10.1 K/UL (4.8-10.8) Red Blood Count 3.70 M/UL (4.20-5.40) L Hemoglobin 11.8 G/DL (12.0-16.0) L Hematocrit 36.6 % (37.0-47.0) L Mean Corpuscular Volume 99 FL (80-99) Mean Corpuscular Hemoglobin 32.0 PG (27.0-31.0) H Mean Corpuscular Hemoglobin Concent 32.3 G/DL (32.0-36.0) Red Cell Distribution Width 14.7 % (11.6-14.8) Platelet Count 454 K/UL (150-450) H Mean Platelet Volume 5.9 FL (6.5-10.1) L Neutrophils (%) (Auto) 60.7 % (45.0-75.0) Lymphocytes (%) (Auto) 22.2 % (20.0-45.0) Monocytes (%) (Auto) 6.9 % (1.0-10.0) Eosinophils (%) (Auto) 9.5 % (0.0-3.0) H Basophils (%) (Auto) 0.6 % (0.0-2.0) Erythrocyte Sedimentation Rate 100 MM/HR (0-30) H Sodium Level 137 MMOL/L (136-145) Potassium Level 3.7 MMOL/L (3.5-5.1) Chloride Level 100 MMOL/L (98-107) Carbon Dioxide Level 25 MMOL/L (21-32) Anion Gap 12 mmol/L (5-15) Blood Urea Nitrogen 24 mg/dL (7-18) H Creatinine 0.8 MG/DL (0.55-1.30) Estimat Glomerular Filtration Rate > 60 mL/min (>60) Glucose Level 268 MG/DL (74-106) H Calcium Level 8.8 MG/DL (8.5-10.1) Phosphorus Level 4.0 MG/DL (2.5-4.9) Magnesium Level 2.3 MG/DL (1.8-2.4) Total Bilirubin 0.3 MG/DL (0.2-1.0) Aspartate Amino Transf (AST/SGOT) 16 U/L (15-37) Alanine Aminotransferase (ALT/SGPT) 29 U/L (12-78) Alkaline Phosphatase 121 U/L (46-116) H C-Reactive Protein, Quantitative 3.5 mg/dL (0.00-0.90) H Total Protein 6.7 G/DL (6.4-8.2) Albumin 2.6 G/DL (3.4-5.0) L Globulin 4.1 g/dL Albumin/Globulin Ratio 0.6 (1.0-2.7) L Test 03/05/20 12:27 POC Whole Blood Glucose 338 MG/DL (74-106) H Sandra Bueno MD Mar 05, 2020 12:55
--- NOTE | 2020-03-05 13:04 | Infectious Diseases Prog Note ---
Assessment/Plan Assessment: COVID neg x3 ([employer]- 02/20; SARS COV2 02/23 &02/25) SIRS vs Sepsis CONS bacteremia- likely contaminant -02/23 Bcx 1/4 CONS; 02/25 Bcx Neg PNA -03/01 CXR: Interim clearing of previously demonstrated right lung infiltrates. New or increased small faint infiltrates in the left lung. -sp cx ESBL K.pna (s Zosyn), GNR #2 -02/26 CXR: Developing right upper lobe infiltrate and possibly bilateral perihilar infiltrates, likely pneumonia. Probable UTI -u/a wbc 5-10, nit neg, leuk +2; ucx C. tropicalis Afebrile Leukocytosis, recurrent- SP -CXR: No acute process Hyponatremia HTN CAD/PR CVA sacral decubitus ulcer (POA) anemia s/p R SHOE IRONER shunt dysphagia s/p GT GERD dementia non verbal seizure disorder chronic resp failure s/p trach/vent dependent Dm2 SNF Plan: - Zosyn #11/-14 -02/28 SP IV Vancomycin #6 -02/23 SP Meropenem x1 -f/u cx -Monitor CBC/CMP, temperatures -COVID19 neg x2; ok to dc iso -f/u repeat Bcx x2, sp cx -f/u CXR am Thank you for consulting [facility]. Will continue to follow along with you. Parrish song RN. Subjective Allergies: Coded Allergies: No Known Allergies (Unverified , 11/06/18) afebrile no leukocytosis Objective Last 24 Hour Vital Signs Date Time Temp Pulse Resp B/P (MAP) Pulse Ox O2 Delivery O2 Flow Rate FiO2 03/05/20 12:40 161/60 03/05/20 11:45 80 03/05/20 10:36 85 20 30 03/05/20 09:14 93 164/78 03/05/20 09:14 93 164/78 03/05/20 08:10 91 156/71 (99) 03/05/20 08:00 Mechanical Ventilator 03/05/20 08:00 86 03/05/20 08:00 30 03/05/20 07:56 98.2 90 16 97/39 (58) 100 03/05/20 06:48 92 18 30 03/05/20 05:03 100/50 7/24/20 04:00 98.2 88 18 100/50 (67) 100 03/05/20 04:00 30 03/05/20 04:00 Mechanical Ventilator 03/05/20 03:33 88 03/05/20 03:12 89 20 30 03/05/20 00:00 98.1 88 18 101/54 (70) 100 03/05/20 00:00 30 03/05/20 00:00 Mechanical Ventilator 03/04/20 23:51 88 03/04/20 23:10 101/54 03/04/20 22:50 86 22 30 03/04/20 22:05 99.1 03/04/20 20:00 99.6 93 18 135/61 (85) 100 03/04/20 20:00 Mechanical Ventilator 03/04/20 20:00 30 03/04/20 19:32 95 03/04/20 19:15 92 18 30 03/04/20 17:24 130/65 03/04/20 16:00 Mechanical Ventilator 03/04/20 16:00 88 03/04/20 16:00 98.6 89 18 130/65 (86) 100 03/04/20 16:00 30 03/04/20 15:00 89 18 30 Height (Feet): 4 Height (Inches): 11.00 Weight (Pounds): 157 GENERAL: This is an elderly female who is in no acute distress. NECK: Supple. She has midline tracheostomy. LUNGS: Bilateral rhonchi. HEART: Regular rate and rhythm without rubs, murmurs, or gallops. ABDOMEN: She has a G-tube. Soft, nontender. EXTREMITIES: No clubbing, cyanosis, or edema. NEUROLOGIC: She is obtunded. There were no gross focal findings. Laboratory Tests Test 03/04/20 17:05 03/04/20 22:48 03/05/20 03:21 03/05/20 04:38 POC Whole Blood Glucose 236 MG/DL (74-106) H Pending Pending White Blood Count 10.1 K/UL (4.8-10.8) Red Blood Count 3.70 M/UL (4.20-5.40) L Hemoglobin 11.8 G/DL (12.0-16.0) L Hematocrit 36.6 % (37.0-47.0) L Mean Corpuscular Volume 99 FL (80-99) Mean Corpuscular Hemoglobin 32.0 PG (27.0-31.0) H Mean Corpuscular Hemoglobin Concent 32.3 G/DL (32.0-36.0) Red Cell Distribution Width 14.7 % (11.6-14.8) Platelet Count 454 K/UL (150-450) H Mean Platelet Volume 5.9 FL (6.5-10.1) L Neutrophils (%) (Auto) 60.7 % (45.0-75.0) Lymphocytes (%) (Auto) 22.2 % (20.0-45.0) Monocytes (%) (Auto) 6.9 % (1.0-10.0) Eosinophils (%) (Auto) 9.5 % (0.0-3.0) H Basophils (%) (Auto) 0.6 % (0.0-2.0) Erythrocyte Sedimentation Rate 100 MM/HR (0-30) H Sodium Level 137 MMOL/L (136-145) Potassium Level 3.7 MMOL/L (3.5-5.1) Chloride Level 100 MMOL/L (98-107) Carbon Dioxide Level 25 MMOL/L (21-32) Anion Gap 12 mmol/L (5-15) Blood Urea Nitrogen 24 mg/dL (7-18) H Creatinine 0.8 MG/DL (0.55-1.30) Estimat Glomerular Filtration Rate > 60 mL/min (>60) Glucose Level 268 MG/DL (74-106) H Calcium Level 8.8 MG/DL (8.5-10.1) Phosphorus Level 4.0 MG/DL (2.5-4.9) Magnesium Level 2.3 MG/DL (1.8-2.4) Total Bilirubin 0.3 MG/DL (0.2-1.0) Aspartate Amino Transf (AST/SGOT) 16 U/L (15-37) Alanine Aminotransferase (ALT/SGPT) 29 U/L (12-78) Alkaline Phosphatase 121 U/L (46-116) H C-Reactive Protein, Quantitative 3.5 mg/dL (0.00-0.90) H Total Protein 6.7 G/DL (6.4-8.2) Albumin 2.6 G/DL (3.4-5.0) L Globulin 4.1 g/dL Albumin/Globulin Ratio 0.6 (1.0-2.7) L Test 03/05/20 12:27 POC Whole Blood Glucose 338 MG/DL (74-106) H Current Medications Medications (Trade) Dose Ordered Sig/Dell Route PRN Reason Start Time Stop Time Status Last Admin Dose Admin Acetaminophen (Tylenol) 650 mg Q4H PRN GT Temp >100.5 02/27/20 13:15 03/28/20 13:14 03/04/20 21:35 Amlodipine Besylate (Norvasc) 10 mg DAILY GT 02/25/20 09:00 03/26/20 08:59 03/05/20 09:14 Atenolol (Tenormin) 50 mg DAILY GT 02/25/20 09:00 03/26/20 08:59 03/05/20 09:14 Dextrose (Dextrose 50%) 25 ml Q30M PRN IV Hypoglycemia 02/24/20 18:45 05/24/20 18:44 Dextrose (Dextrose 50%) 50 ml Q30M PRN IV Hypoglycemia 02/24/20 18:45 05/24/20 18:44 Diphenoxylate HCl/ Atropine (Lomotil) 2.5 mg Q6H PRN GT Diarrhea 03/02/20 11:15 04/01/20 11:14 03/02/20 12:06 Docusate Sodium (Colace) 100 mg DAILYPRN PRN GT Constipation 03/02/20 11:15 04/01/20 11:14 Heparin Sodium (Porcine) (Heparin 5000 units/ml) 5,000 units EVERY 12 HOURS SUBQ 02/24/20 21:00 04/09/20 20:59 03/05/20 09:15 Hydralazine HCl (Apresoline) 50 mg EVERY 6 HOURS GT 02/26/20 18:00 05/26/20 17:59 03/05/20 12:40 Insulin Aspart (NovoLOG) Q6HR SUBQ 03/01/20 18:00 05/30/20 17:59 03/05/20 12:40 Lansoprazole (Prevacid) 30 mg DAILY GT 03/06/20 09:00 04/05/20 08:59 Levetiracetam (Keppra) 750 mg DAILY GT 02/25/20 09:00 03/26/20 08:59 03/05/20 09:13 Nystatin (Nystop Powder) 1 applic EVERY 8 HOURS TOPIC 03/03/20 22:00 05/28/20 20:59 03/05/20 05:03 Piperacillin Sod/ Tazobactam Sod 3.375 gm/Sodium Chloride 110 ml @ 27.5 mls/hr EVERY 8 HOURS IVPB 02/24/20 22:00 03/05/20 23:59 03/05/20 05:02 Zinc Oxide (Zinc Oxide) 1 applic EVERY 8 HOURS TOPIC 03/03/20 22:00 05/31/20 17:59 03/05/20 05:02 Zinc Oxide (Zinc Oxide) 1 applic TIDPRN PRN TOPIC cleaning 03/02/20 13:45 05/31/20 13:44 Lilli Gonzalez M.D. Mar 05, 2020 13:04
--- NOTE | 2020-03-05 14:12 | Surgery Progress Note ---
Surgery Progress Note Subjective Additional Comments no acute events comfortable stable Objective Last 24 Hour Vital Signs Date Time Temp Pulse Resp B/P (MAP) Pulse Ox O2 Delivery O2 Flow Rate FiO2 03/05/20 12:40 161/60 03/05/20 12:00 30 03/05/20 12:00 98.2 82 16 161/60 (93) 100 03/05/20 12:00 Mechanical Ventilator 03/05/20 11:45 80 03/05/20 10:36 85 20 30 03/05/20 09:14 93 164/78 03/05/20 09:14 93 164/78 03/05/20 08:10 91 156/71 (99) 03/05/20 08:00 Mechanical Ventilator 03/05/20 08:00 86 03/05/20 08:00 30 03/05/20 07:56 98.2 90 16 97/39 (58) 100 03/05/20 06:48 92 18 30 03/05/20 05:03 100/50 03/05/20 04:00 98.2 88 18 100/50 (67) 100 03/05/20 04:00 30 03/05/20 04:00 Mechanical Ventilator 03/05/20 03:33 88 03/05/20 03:12 89 20 30 03/05/20 00:00 98.1 88 18 101/54 (70) 100 03/05/20 00:00 30 03/05/20 00:00 Mechanical Ventilator 03/04/20 23:51 88 03/04/20 23:10 101/54 03/04/20 22:50 86 22 30 03/04/20 22:05 99.1 03/04/20 20:00 99.6 93 18 135/61 (85) 100 03/04/20 20:00 Mechanical Ventilator 03/04/20 20:00 30 03/04/20 19:32 95 03/04/20 19:15 92 18 30 03/04/20 17:24 130/65 03/04/20 16:00 Mechanical Ventilator 03/04/20 16:00 88 03/04/20 16:00 98.6 89 18 130/65 (86) 100 03/04/20 16:00 30 03/04/20 15:00 89 18 30 I&O Intake and Output 7/23/20 7/24/20 19:00 07:00 Intake Total 755.0 ml 792.5 ml Output Total 400 ml 225 ml Balance 355.0 ml 567.5 ml Intake Free Water 150 ml 50 ml IV Total 165.0 ml 137.5 ml Tube Feeding 440 ml 605 ml Output Urine Total 300 ml 200 ml Stool Total 100 ml 25 ml Dressing: other Wound: other Cardiovascular: RSR Respiratory: decreased breath sounds Abdomen: soft, non-tender, present bowel sounds, non-distended Extremities: edema, no tenderness, no cyanosis, other Laboratory Tests Test 03/04/20 17:05 03/04/20 22:48 03/05/20 03:21 03/05/20 04:38 POC Whole Blood Glucose 236 MG/DL (74-106) H Pending Pending White Blood Count 10.1 K/UL (4.8-10.8) Red Blood Count 3.70 M/UL (4.20-5.40) L Hemoglobin 11.8 G/DL (12.0-16.0) L Hematocrit 36.6 % (37.0-47.0) L Mean Corpuscular Volume 99 FL (80-99) Mean Corpuscular Hemoglobin 32.0 PG (27.0-31.0) H Mean Corpuscular Hemoglobin Concent 32.3 G/DL (32.0-36.0) Red Cell Distribution Width 14.7 % (11.6-14.8) Platelet Count 454 K/UL (150-450) H Mean Platelet Volume 5.9 FL (6.5-10.1) L Neutrophils (%) (Auto) 60.7 % (45.0-75.0) Lymphocytes (%) (Auto) 22.2 % (20.0-45.0) Monocytes (%) (Auto) 6.9 % (1.0-10.0) Eosinophils (%) (Auto) 9.5 % (0.0-3.0) H Basophils (%) (Auto) 0.6 % (0.0-2.0) Erythrocyte Sedimentation Rate 100 MM/HR (0-30) H Sodium Level 137 MMOL/L (136-145) Potassium Level 3.7 MMOL/L (3.5-5.1) Chloride Level 100 MMOL/L (98-107) Carbon Dioxide Level 25 MMOL/L (21-32) Anion Gap 12 mmol/L (5-15) Blood Urea Nitrogen 24 mg/dL (7-18) H Creatinine 0.8 MG/DL (0.55-1.30) Estimat Glomerular Filtration Rate > 60 mL/min (>60) Glucose Level 268 MG/DL (74-106) H Calcium Level 8.8 MG/DL (8.5-10.1) Phosphorus Level 4.0 MG/DL (2.5-4.9) Magnesium Level 2.3 MG/DL (1.8-2.4) Total Bilirubin 0.3 MG/DL (0.2-1.0) Aspartate Amino Transf (AST/SGOT) 16 U/L (15-37) Alanine Aminotransferase (ALT/SGPT) 29 U/L (12-78) Alkaline Phosphatase 121 U/L (46-116) H C-Reactive Protein, Quantitative 3.5 mg/dL (0.00-0.90) H Total Protein 6.7 G/DL (6.4-8.2) Albumin 2.6 G/DL (3.4-5.0) L Globulin 4.1 g/dL Albumin/Globulin Ratio 0.6 (1.0-2.7) L Test 03/05/20 12:27 POC Whole Blood Glucose 338 MG/DL (74-106) H Plan Problems: (1) Decubital ulcer Assessment & Plan: Pt presented on admission with Contractures, Multiple Pressure injuries. 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 Denuded area at cleft. Hyperpigmentation noted at distal base of injury. Purpuric area that is indurated noted to L ischium. Incontinence Associated dermatitis noted to Perineum and Posterior aspect Upper R thigh. Affected areas are erythematous and macerated. Non-Blanchable erythema without induration or fluctuance R Hallux.(L)3cm x (W) 3.5cm. Non-Blanching erythema without induration or fluctuance L Hallux.(L)2.5cm x (W) 2.8cm. Intact Serous filled Blister with surrounding non-Blanching erythema noted to distal/lateral R foot. Both heels are boggy with non-Blanchable erythema. Pt deconditioned. Skin Assessed with Primary Nurse in attendance. Pt having frequent bouts of foul smelling watery stools. Perineum and buttocks grossly erythematous,and denuded with scattered satellite lesions noted to labia majora ,perineum and buttocks including bilat ischial tuberosities.Hypertrophicsacral scar with Purpuric areas noted to R and L sacrum. Purpuric and indurated area noted to L ischium. Both heels are boggy but each heel are easily blanchable. Serous Filled Blister distal/lateral R foot noted on initial assessment has now evolved into an intact blood filled blister(L)2.3cm x (W)3.5cm. Periwound is boggy with mild erythema. Tx.Plan: Discontinue Moisture Barrier Paste(Confirmed with .) Apply Zinc Oxide Paste to Perineum and Buttocks TID.and prn. Cover Sacrum with Optifoam drsg. Change every 3 days and prn. Apply Betadine to Blister Distal/Lateral R foot. Cover with Optifoam drsg every 3 days and prn. Apply Cavilon Skin Barrier to Both heels,Malleoli and each Hallux. Cover each sites with Optifoam drgs. Change every 7 days and prn. Reposition at least every 2hours or as tolerated. Off-load heels with pillow. APM/POOJA Mattress overlay. (2) Sepsis Assessment & Plan: 68 female leukocytosis abnormal labs anemia chest x-ray developing on support. Patient examination completed no signs of active infection from decubitus ulcers. The patient on IV antibiotics currently abdominal examination noted trach noted We will continue to follow monitor with local examination. Continue antibiotics per infectious disease inspiration is suboptimal with crowding of the bronchovascular markings. Ventriculoperitoneal shunt tubing traverses the right side of the chest. Tracheostomy is again demonstrated. Interim development of infiltrate in the right upper lobe. There may be some peribronchovascular opacities developing in the right midlung and left lung base as well. There is central bronchial wall thickening. The pleural spaces are clear. The heart size is normal. Nutritional optimization Interim clearing of previously demonstrated right lung infiltrates New or increased small faint infiltrates in the left lung. (3) Respiratory failure (4) History of hypertension (5) Feeding by G-tube (6) Leukocytosis (7) Chronic respiratory failure (8) History of diabetes mellitus (9) Hyponatremia Arnold Hi Mar 05, 2020 14:12
--- NOTE | 2020-03-05 14:16 | Diagnostic Imaging Report ---
Indication: Shortness of breath Technique: One view of the chest Comparison: 03/01/2020 Findings: Tracheostomy is again demonstrated. No definite infiltrates, effusions, or congestion. Previously demonstrated faint left lung opacities are no longer evident. Right-sided ventriculoperitoneal shunt tubing is again noted. Impression: No acute process
[2020-03-05] MEDS ORDERED: ZOSYN 3.373.375 GM/1 IVPB (16:06)
[2020-03-05] MEDS ORDERED: NS 275ml ONE (18:54)
--- NOTE | 2020-03-07 16:08 | Discharge Summary ---
Discharge Summary Discharge Summary _ DATE OF ADMISSION: 02/24/2020 DATE OF DISCHARGE: 03/05/2020 DISCHARGED BY: Dr. Sandra Bueno CONSULTANTS: Dr. Arnold Bridges BRIEF HOSPITAL COURSE: Patient is an unfortunate 69-year-old female. She had a prior history of chronic respiratory failure, intracranial bleed, atrial fibrillation and diabetes. She was transferred from assisted facility due to abnormal laboratories. She had a sodium of 122 and elevated BUN of over 100. She had similar problems in the last month that required intermittent intravenous hydration. She had some improvement but on occasion, her numbers are much more severe and abnormal. Upon evaluation in ED, hyponatremia was confirmed. Sodium level was 122. She was also noted to have elevated white count of 18, 000. She was pancultured and was started on broad-spectrum antibiotic. She was then admitted for further evaluation and care. Patient was admitted for dehydration and sepsis. She was given hypertonic solution. She was started empirically on IV vancomycin and Zosyn. She was placed on isolation. assisted medications were resumed. Hyponatremia was corrected with 3% saline solution. COVID testing was negative. She was taken off isolation. Blood culture showed growth of coagulase-negative staph, likely contaminant. Urine culture with Elke. C. difficile was negative. On admission, patient had contractures, pressure injury, resurface pressure injury on sacrum and historical stage IV pressure injury with hypertrophic scar to the right and left gluteus. She had incontinence associated dermatitis and non-blanchable erythema on bilateral hallux. There was an intact serous filled blister with surrounding nonblanching erythema to the distal lateral right foot. There were no active signs of infection from decubitus ulcers. She was given local wound care. She was placed on APM/POOJA mattress with frequent repositioning and offloading. Sputum culture showed growth of Klebsiella pneumonia ESBL. Patient completed antibiotic treatment. Chest x-ray showed interval improvement of previously seen infiltrates. Patient was discharged back to [facility]. FINAL DIAGNOSES: Sepsis Pneumonia Probable UTI Chronic respiratory failure Feeding via G-tube Hyponatremia Diabetes mellitus Pressure injury as stated, present on admission. DISPOSITION: Patient was discharged to [facility]. DISCHARGE MEDICATIONS: Refer to Discharge Medication List. I have been assigned to complete a discharge summary on this account, I was not involved with the patient's management.--LOLITA Hayward Jacqueline Robles NP Mar 07, 2020 16:08
== END 2020-03-05 18:55 | DRG 870 ==
LOC: EDUNIT# 11:04 → EDBD 11:04 → EMR 11:23 → 2W 14:40 → EDBEDREQ 16:28 → 2W 02-25 03:57
PROC: 5A1955Z Respiratory Ventilation, Greater than 96 Consecutive Hours (ICD-10-PCS; principal; 2020-02-24)
DX: A41.9 Sepsis, unspecified organism (principal); J18.9 Pneumonia, unspecified organism; J96.10 Chronic respiratory failure, unspecified whether with hypoxia or hypercapnia; G40.919 Epilepsy, unspecified, intractable, without status epilepticus; E87.1 Hypo-osmolality and hyponatremia; Z99.11 Dependence on respirator [ventilator] status; G93.40 Encephalopathy, unspecified; N17.9 Acute kidney failure, unspecified; N39.0 Urinary tract infection, site not specified; F03.90 Unspecified dementia, unspecified severity, without behavioral disturbance, psychotic disturbance, mood disturbance, and anxiety; E86.0 Dehydration; Z98.2 Presence of cerebrospinal fluid drainage device; L89.159 Pressure ulcer of sacral region, unspecified stage; Z93.0 Tracheostomy status; Z93.1 Gastrostomy status; Z20.828 Contact with and (suspected) exposure to other viral communicable diseases; E11.9 Type 2 diabetes mellitus without complications; I11.9 Hypertensive heart disease without heart failure; I48.91 Unspecified atrial fibrillation; Z86.73 Personal history of transient ischemic attack (TIA), and cerebral infarction without residual deficits; I25.2 Old myocardial infarction; I25.10 Atherosclerotic heart disease of native coronary artery without angina pectoris; R13.10 Dysphagia, unspecified; D64.9 Anemia, unspecified
CPT/HCPCS: 36415; 36600; 71045; 80048; 80053; 80202; 81003; 82550; 82803; 82962; 83605; 83735; 83935; 84100; 85007; 85025; 85651; 86140; 87040; 87070; 87081; 87086; 87181; 87205; 87324; 93005; 94002; 94003; 96361; 96365; 99285; J1815; J7030